=== PATIENT | male | born 1950 | race Caucasian/White ===

== ENCOUNTER 2016-12-31 08:26 | Inpatient (IN) | payer BC, OTHER ==
[2016-11-17 08:15] VITALS: BMI 51.0
--- NOTE | 2016-11-17 08:58 | PAT Medication Instructions ---
Service Date Nov 17, 2016. Current Home Medication List Aspirin (Aspirin), 81 MG PO QPM Cholecalciferol (D 1000), 1 TAB PO QPM Lisinopril/Hctz (Zestoretic 20MG/12.5MG), 1 TAB PO QPM Magnesium (Magnacaps), 100 MG PO QPM Melatonin (Melatonin Maximum Strengt), 1 TAB PO HS Multiple Vitamins W/ Minerals (Centrum Silver Adult 50+), 2 TAB PO QPM Alburnett-3 Fatty Acids (Alburnett-3 Fish Oil), 1,000 MG PO QPM Potassium Aminobenzoate (M2 Potassium), 60 MG PO QPM Vitamin E (E-400), 1 TAB PO QPM Medication Instructions For Your Scheduled Surgery - Hold the following medications 2 weeks prior to surgery: Vitamin E (E-400), 1 TAB PO QPM Alburnett-3 Fatty Acids (Alburnett-3 Fish Oil), 1,000 MG PO QPM - Take the following medications as scheduled the night before surgery: Potassium Aminobenzoate (M2 Potassium), 60 MG PO QPM Magnesium (Magnacaps), 100 MG PO QPM Melatonin (Melatonin Maximum Strengt), 1 TAB PO HS Multiple Vitamins W/ Minerals (Centrum Silver Adult 50+), 2 TAB PO QPM Aspirin (Aspirin), 81 MG PO QPM Cholecalciferol (D 1000), 1 TAB PO QPM - Do not take the following medications as scheduled the night before surgery: Lisinopril/Hctz (Zestoretic 20MG/12.5MG), 1 TAB PO QPM If you have any questions please call us at [phone] or [phone] or [phone]
--- NOTE | 2016-11-17 09:42 | DIAGNOSTIC IMAGING REPORT ---
CHEST PREADMISSION(PA/LAT) HISTORY: Preop. COMPARISON: None. FINDINGS: The heart is normal in size. The lungs are clear. Tortuous thoracic aorta. No pleural effusions. No pneumothorax. IMPRESSION: No acute process. Electronically signed by: Paul Morris M.D. 11/17/2016 9:41 AM Dictated Date/Time: 11/17/2016 9:40 AM
[2016-11-17 10:18] LABS: BASO % 0.5 %; BASO ABS # 0.03 K/uL (0-0.2); COMPLETE YES; HEMATOCRIT 43.5 % (42-52); IG% 0.2 %; LYMPH ABS # 2.17 K/uL (1.2-3.4); MEAN CELL VOLUME 89.1 fL (80-100); MEAN CORPUSCULAR HEMOGLOBIN 28.7 pg (25-34); MEAN CORPUSCULAR HGB CONC 32.2 g/dl (32-36); MEAN PLATELET VOLUME 10.3 fL (7.4-10.4); MONO % 7.8 %; NEUT % 55.5 %; PLATELET COUNT 185 K/uL (130-400); RED BLOOD COUNT 4.88 M/uL (4.7-6.1); WHITE BLOOD COUNT 6.39 K/uL (4.8-10.8)
[2016-11-17 10:27] LABS: INR 0.9 (0.9-1.1); PROTHROMBIN TIME (PATIENT) 10.1 SECONDS (9.0-12.0)
[2016-11-17 10:34] LABS: CALCIUM 9.6 mg/dl (8.5-10.1); CREATININE 0.84 mg/dl (0.60-1.40); POTASSIUM 4.2 mmol/L (3.5-5.1)
--- NOTE | 2016-12-25 19:42 | HISTORY & PHYSICAL EXAMINATION ---
DATE OF ADMISSION: 12/31/2016 CHIEF COMPLAINT: Right knee pain. HISTORY OF PRESENT ILLNESS: This 66-year-old male white who presents for surgical treatment of his right knee. He has got a long history of bilateral knee pain and discomfort, right sided greater than left. He did have a left knee scope in the past which seemed to help. Over the years, he has developed increased pain and discomfort in his right knee. It bothers him with any prolonged walking or standing. Pain is global. The more he walks, the more it hurts. He limps more and more as the day goes on. He has nighttime pain. 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 PAST MEDICAL HISTORY: 1. Sleep apnea. 2. Obesity with a BMI of 51. PAST SURGICAL HISTORY: Include: 1. Unspecified bladder surgery with some type of a stent placed. 2. He had left knee arthroscopy. ALLERGIES: None. CURRENT MEDICATIONS: Include unspecified blood pressure medicine. SOCIAL HISTORY: A 66-year-old male. He is . He is a white. Four children. FAMILY HISTORY: Significant for diabetes. REVIEW OF SYSTEMS: Negative for diabetes, neurologic problems, vascular problems, bleeding disorders. Denies any chest pain, no shortness of breath. No history of DVT or PE. PHYSICAL EXAMINATION: GENERAL: Physical examination reveals a healthy, pleasant, middle-aged male. He looks to be in reasonably good health. HEENT: Benign. NECK: Supple. No lymphadenopathy. LUNGS: Clear to auscultation. HEART: Has a regular rate and rhythm. ABDOMEN: Soft, nontender, nondistended. EXTREMITIES: Grossly neurovascularly intact except as follows: Examination of the right knee reveals the patient ambulates independently. He has got varus alignment to his knee. He does have a varus thrust with weightbearing. He has got bony hypertrophy medially. Range of motion 5-120. No instability. IMAGING DATA: X-rays of the right knee revealed advanced right knee DJD. He has got complete loss of his medial joint space. He has tibial femoral subluxation. Pretty large osteophytes throughout. ASSESSMENT: A 66-year-old male white with advanced bilateral knee degenerative joint disease, right side more symptomatic than the left. He would like to have his right knee fixed. PLAN: We will take him to the operating room and do a right total knee replacement. The risks and benefits of this procedure were explained to the patient including but not limited to DVT, PE, , infection, neurological injury, vascular injury, bleeding problem, pain, limited range of motion, stiffness, failure to relieve symptoms, incomplete relief of symptoms, need for further surgery in the future, fracture, leg length inequality, nerve palsy, etc. The patient understands and desires to proceed. Informed consent was obtained. He has had some of the urethral procedure in the past as a child. He says he has no problems with voiding and hopefully there should not be any problems with placing a Wilson. We may have to use a smaller size. As far as discharge plans, he is planning to be discharged to home using [facility] home health program and family assistance.
[2016-12-31] VITALS (8 sets, daily range): BP systolic 97–154; BP diastolic 60–89; PULSE 63–94; TEMP 36.5–37.2; O2SAT 96–98; Ht 170.2 cm; Wt 146.0 kg
[~2016-12-31] VITALS: Ht 170.2 cm; Wt 146.0 kg
[~2016-12-31 08:26] MED LIST: ACETAMINOPHEN 500 MG TAB PO SCH; ASPI1TAB83 PO; ATROPINE SULFATE 0.1 MG/ML 5ML SYR IV PRN; BUPIVACAINE 0.5 % 5 MG/1 ML PF 10ML VIAL ONE; BUPIVACAINE LIPOSOME 266 MG, BUPIVACAINE/EPINEPHRINE INJ 50 ML, SODIUM CHLORIDE 0.9% PF... INFIL SCH; CEFAZOLIN 3000MG IV PUSH 15 ML IV SCH; CHOL100041 PO; EpHEDrine SULFATE INJ 50 MG/ML AMP IV PRN; FAMOTIDINE 20 MG TAB PO SCH; GABAPENTIN 300 MG CAP PO SCH; HYDROmorphone INJ 2 MG/ML SYR/VIAL IV PRN; LACTATED RINGER'S 1000ML 1,000 ML IV SCH; LACTATED RINGER'S 1000ML 500 ML IV ONE; LACTATED RINGER'S 1000ML IV SCH; LISI-787 PO; MAGN100C PO; MELATAB2 PO; METOCLOPRAMIDE HCL 10 MG TAB PO SCH; MULT-845 PO; OMEG1CAP26 PO; ONDANSETRON INJ 2 MG/ML 2 ML VIAL IV PRN; PHENYLEPHRINE 100MCG/ML 5ML SYR IV PRN; ROPIVACAINE 0.5% 5 MG/ML 30 ML VIAL ONE; SCOPOLAMINE 1.5 MG TDSY TD SCH; TRANEXAMIC ACID INJ 1,000 MG in SYRINGE 0 ML IV SCH; VITACAP37 PO; [UNRECOGNIZED DRUG - CODE] PO
--- NOTE | 2016-12-31 08:49 | History & Physical Bridge Note ---
H&P Re-Evaluation Bridge Note: I have examined the patient, reviewed the History & Physical and in the interval since the performance of the History & Physical I have noted the following changes of clinical significance: No changes noted
[2016-12-31] MEDS ORDERED: MIDAZOLAM HCL 1 MG/ML 2ML VIAL ONE ×2 (09:46→09:47)
[2016-12-31] MEDS ORDERED: FENTANYL CITRATE INJ 50 MCG/1 ML 2 ML VIAL ONE (09:47)
[2016-12-31] MEDS ORDERED: PROPOFOL IV EMULSION 10 MG/ML 20 ML VIAL IV ONE (10:51)
[2016-12-31] MEDS ORDERED: BACITRACIN 50000 UNIT VIAL ONE (11:04)
[2016-12-31] MEDS ORDERED: SODIUM CHLORIDE 0.9% PF 50 ML VIAL ONE (11:04)
[2016-12-31] MEDS ORDERED: BUPIVACAINE/EPINEPHRINE 0.25% 1:200,000 30 ML VIAL ONE (11:04)
[2016-12-31] MEDS ORDERED: BUPIVACAINE LIPOSOME 1/3% 266 MG/20 ML VIAL INFIL ONE (11:05)
--- NOTE | 2016-12-31 13:14 | [facility] Post Operative Brief Note ---
Immediate Operative Summary Operative Date Dec 31, 2016. Pre-Operative Diagnosis Advanced Right Knee Degenerative Joint Disease Post-Operative Diagnosis Advanced Right Knee Degenerative Joint Disease Procedure(s) Performed Right Total Knee Arthroplasty Surgeon Dr. Ranjan Hagan Director Of Physical Education Surgeon(s) Favian Munguia, PAC Estimated Blood Loss 50 ml Findings Right Knee DJD Fluids (cc crystalloids) 2000 cc Specimens A: Right knee bone and tissue Drains None Anesthesia Spinal Complication(s) None Disposition Recovery Room / PACU
[2016-12-31] MEDS ORDERED: TAMSULOSIN HCL 0.4 MG CAP PO PRN (13:15)
[2016-12-31] MEDS ORDERED: DiphenhydrAMINE HCL 50 MG/ML VIAL IV PRN (13:15)
[2016-12-31] MEDS ORDERED: ZOLPIDEM TARTRATE 5 MG TAB PO PRN (13:15)
[2016-12-31] MEDS ORDERED: MAGNESIUM HYDROXIDE SUSP 30 ML UDC PO PRN (13:15)
[2016-12-31] MEDS ORDERED: METOCLOPRAMIDE HCL INJ 5 MG/ML 2 ML VIAL IV PRN (13:15)
[2016-12-31] MEDS ORDERED: ALUMINUM/MAGNESIUM/SIMETH (MAALOX MAX) 30 ML UDC PO PRN (13:15)
[2016-12-31] MEDS ORDERED: BISACODYL 10 MG SUPP PR PRN (13:15)
[2016-12-31] MEDS ORDERED: ONDANSETRON INJ 2 MG/ML 2 ML VIAL IV PRN (13:15)
[2016-12-31] MEDS ORDERED: SILVER SULFADIAZINE 1% CR 50 GM JAR EXT PRN (13:15)
[2016-12-31] MEDS ORDERED: HYDROmorphone INJ 0.5 MG/0.5 ML SYR IV PRN (13:15)
--- NOTE | 2016-12-31 13:47 | OPERATIVE REPORT ---
DATE OF OPERATION: 12/31/2016 SURGEON: Ranjan Hagan MD PHYSICIAN AIDE: CRISTELA Ramos PREOPERATIVE DIAGNOSIS: Right knee degenerative joint disease. POSTOPERATIVE DIAGNOSIS: Same. PROCEDURE PERFORMED: Right cemented posterior stabilized total knee arthroplasty. COMPLICATIONS: None. ESTIMATED BLOOD LOSS: 50 mL. FLUID REPLACEMENT: 2000 mL crystalloid fluid replacement. ANESTHESIA: Spinal with adductor canal block. DRAINS: None. SPECIMENS: Right knee sent for pathology. TOURNIQUET TIME: 60 minutes at 350 mmHg. OPERATIVE INDICATIONS: The patient is a 66-year-old morbidly obese gentleman with BMI of 51, who has had a long history of right knee pain and discomfort. He developed this pain and discomfort over the past several years. He has become markedly worse. He had been treated by my partner Dr. Estrella with intermittent injections and medicines. This became less successful over time. He is a white and having difficulty doing that type work. He elects to proceed with total knee arthroplasty. OPERATIVE FINDINGS: Operative findings revealed advanced right knee DJD. 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 Lateral compartment was fairly well preserved. He had a fixed varus deformity to his knee. Large soft tissue envelope. Moderate size joint effusion. He did have a very short quad tendon with very well developed VMO and quad muscle development. OPERATIVE IMPLANTS: Operative implants consisted of: 1. Biomet Vanguard size 67.5 right posterior stabilized femoral component. 2. Biomet size 71 tibial tray. 3. A 12-mm posterior stabilized polyethylene insert. 4. A 34 x 8.5 all poly patella. OPERATIVE PROCEDURE: The patient was taken to the operating room, identified and placed on the operating table in the supine position. All contact areas were appropriately padded. IV antibiotics were provided by the anesthesia team. A spinal anesthetic and adductor canal block had been provided in the holding area. A Wilson catheter was placed in sterile fashion. Right thigh tourniquet was then placed and the right lower extremity was then prepped and draped in the usual sterile fashion. The right leg was elevated and exsanguinated with Esmarch and tourniquet was placed at 300 mmHg. An anterior approach to the right knee was then performed through a longitudinal incision centered over the patella. Sharp dissection was carried out through the subcutaneous tissues down to the level of the extensor mechanism. A medial parapatellar arthrotomy incision was made. Quad tendon was very short. Some subperiosteal dissection was carried out medially. The fat pad was resected from beneath the patellar tendon. The lateral patellofemoral ligament was released. The patella was everted and knee was flexed. The osteophytes were taken off the distal aspect of the femur. The ACL and PCL were then released from the distal femur and the tibia subluxated anteriorly. The external tibial alignment jig was then placed in the anterior face of the tibia and adjusted about 16 mm medially. Proximal tibial cut was made to remove about a millimeter of bone from the most deficient aspect of the posteromedial tibial plateau. Tibia was then sized to a size 71. I did take some osteophytes off medial and posteromedially. Attention was then drawn to the femur. The distal femur was entered with a sharp drill. Intramedullary canal was suctioned. A right 6-degree valgus cutting guide was placed. Distal femoral cutting block was pinned in place. Distal femoral cut was made to take an additional 3 mm of bone off the distal femur. The femur was then sized to a size 67.5. The AP cutting block was pinned parallel to the epicondylar axis, which was 3 degrees of external rotation. The anterior cut, anterior chamfer, posterior cut, and posterior chamfer cuts were made. Box cutting guide was placed and adjusted slightly lateral and the box cut was made. The knee was flexed. The remnants of the medial and lateral menisci were excised. The osteophytes were taken off the posterior aspect of the femur. Trial femoral component was placed. Tibial tray was pinned in maximum external rotation and drill and stem punch were used to create defect in proximal tibia for the tibial tray. The knee was then trialed and the 12-mm insert fit most appropriately. Attention was then drawn to the patella. The patella was cleaned of all soft tissues. Patellar thickness measured 22 mm in thickness and it was cut down to 14. It was sized to a size 34 patella. Lug holes were drilled for a 34 patella. Lateral osteophyte was removed. Patella button was placed. Knee was taken through range of motion and the patella tracked nicely with no thumbs test. Attention was then drawn toward placement of the permanent components. All trial components were removed. A bone plug was placed in the distal femur to limit blood loss. A double batch of Palacos G cement was mixed. A right size 67.5 posterior stabilized femoral component, size 71 tibial tray, 12-mm posterior stabilized polyethylene insert, and a 34 x 8.5 all poly patella were then cemented in place. Knee was brought out into full extension until cement hardened. A final cement check was then performed. Pericapsular tissues were injected with a total of 100 mL of a combination of 20 mL of Exparel, 30 mL of normal saline, and 50 mL of 0.25% Marcaine with epinephrine. The patient did receive 1 gram of tranexamic acid. The tourniquet was then let down for a tourniquet time of 60 minutes. Hemostasis was assured with the use of electrocautery. The wound was once again irrigated. The extensor mechanism was then closed with a combination of #1 PDS suture and #1 Vicryl suture in a [id number] fashion. Extensor mechanism was checked and found to be intact. The subcutaneous tissues were then closed with 2-0 Dexon suture in buried interrupted fashion. Skin was closed skin chris. Leg was then cleaned and dried and a sterile dressing with Xeroform, 4 x 4, sterile cast padding and Justice bandage were applied. The patient then transferred to the recovery room in stable condition. The patient tolerated the procedure well with no complications. All needle and sponge counts were correct at the end of the operation. I attest to the content of the Intraoperative Record and any orders documented therein. Any exceptions are noted below. JOHN
--- NOTE | 2016-12-31 13:56 | DIAGNOSTIC IMAGING REPORT ---
R KNEE 1 OR 2 VIEWS ROUTINE CLINICAL HISTORY: 66 years-old Male presenting with AP/LATERAL IN PACU RIGHT KNEE. TECHNIQUE: Frontal and lateral views of the right knee were obtained. COMPARISON: 10/25/2016. FINDINGS: There has been interval total right knee arthroplasty with patellar resurfacing. Intra-articular and soft tissue emphysema with overlying skin chris noted. No malalignment. No acute fracture. IMPRESSION: Expected postsurgical appearance of the total right knee arthroplasty with patellar resurfacing. Electronically signed by: Michael Slaughter M.D. 12/31/2016 1:55 PM Dictated Date/Time: 12/31/2016 1:54 PM
--- NOTE | 2016-12-31 14:32 | Anesthesiology Progress Note ---
Anesthesia Post Op Note Date & Time Dec 31, 2016 at 14:32 Vital Signs Pain Intensity: 0 Vital Signs Past 12 Hours Date Time Temp Pulse Resp B/P (MAP) Pulse Ox O2 Delivery O2 Flow Rate FiO2 12/31/16 13:52 36.9 12/31/16 13:51 69 20 106/66 95 12/31/16 13:51 68 20 12/31/16 13:46 63 19 119/62 96 12/31/16 13:46 63 19 12/31/16 13:41 70 17 12/31/16 13:41 69 17 113/51 94 12/31/16 13:36 78 20 129/73 97 12/31/16 13:36 79 20 12/31/16 13:32 116/58 12/31/16 13:31 69 21 96 12/31/16 13:31 70 21 12/31/16 13:26 77 26 12/31/16 13:26 75 26 98/62 97 12/31/16 13:21 74 24 12/31/16 13:21 73 24 96 12/31/16 13:20 99/74 12/31/16 13:19 116/65 12/31/16 13:16 36.7 82 16 116/62 98 Room Air 12/31/16 08:46 36.9 94 18 132/78 96 Room Air Notes Mental Status: alert / awake / arousable, participated in evaluation Pt Amnestic to Procedure: Yes Nausea / Vomiting: adequately controlled Pain: adequately controlled Airway Patency, RR, SpO2: stable & adequate BP & HR: stable & adequate Hydration State: stable & adequate Anesthetic Complications: no major complications apparent
[2016-12-31] MEDS: OXYCODONE HCL IR 5 MG TAB (IMMEDIATE RELEASE) PO PRN ×2 (14:48→16:00)
[2016-12-31] MEDS: D5W AND 1/2NSS + 20MEQ KCL 1,000 ML IV SCH ×2 (15:04→21:47)
[2016-12-31] MEDS: CHECK SCOPOLAMINE PATCH PLACEMENT SCH ×2 (15:59→23:27)
[2016-12-31] MEDS ORDERED: TRANEXAMIC ACID INJ 1,000 MG in SODIUM CHLORIDE 0.9% 100ML 100 ML IV SCH (18:00)
[2016-12-31] MEDS: KETOROLAC TROMETHAMINE 15 MG/ML VIAL IV. SCH ×2 (19:35→23:27)
[2016-12-31] MEDS: FERROUS GLUCONATE 324 MG TAB PO SCH (19:35)
[2016-12-31] MEDS ORDERED: NON-FORMULARY MEDICATION (Melatonin (Melatonin Maximum Strengt) 1 TAB) PO SCH (21:00)
[2016-12-31] MEDS ORDERED: [UNRECOGNIZED DRUG - OTHER] PO SCH (21:00)
[2016-12-31] MEDS ORDERED: TOCOPHERYL, DL-ALPHA 400 INTER.UNIT CAP PO SCH (21:00)
[2016-12-31] MEDS ORDERED: MAGNESIUM 100 MG PO SCH (21:00)
[2016-12-31] MEDS: ASPIRIN 325 MG ECTAB PO SCH (21:42)
[2016-12-31] MEDS: CEROVITE ADV FORMULA TAB PO SCH (21:43)
[2016-12-31] MEDS: LISINOPRIL/HCTZ 20/12.5MG TAB PO SCH (21:45)
[2016-12-31] MEDS: CHOLECALCIFEROL 1000 INTER.UNIT TAB PO SCH (21:45)
[2016-12-31] MEDS: SENNA 8.6 MG TAB PO SCH (21:45)
[2016-12-31] MEDS: DOCUSATE SODIUM 100 MG CAP PO SCH (21:46)
[2016-12-31] MEDS: TAPENTADOL ER 50 MG TABCR PO SCH (21:56)
[2016-12-31] MEDS: CEFAZOLIN IV 2,000 MG in SYRINGE 0 ML IV SCH (21:56)
[2016-12-31] MEDS: ACETAMINOPHEN 500 MG TAB PO SCH (22:21)
[2016-12-31] MEDS: TOCOPHERYL, DL-ALPHA 400 INTER.UNIT CAP PO SCH (22:22)
[2016-12-31] MEDS: TOCOPHERYL, DL-ALPHA 100 INTERUNIT CAP PO SCH (22:22)
[2017-01-01 03:52] VITALS: BP 115/67; PULSE 76; TEMP 37.2; O2SAT 95
[2017-01-01] MEDS: CEFAZOLIN IV 2,000 MG in SYRINGE 0 ML IV SCH (04:07)
[2017-01-01] MEDS: D5W AND 1/2NSS + 20MEQ KCL 1,000 ML IV SCH ×2 (04:07→10:50)
[2017-01-01] MEDS ORDERED: NURSING DECISION MEDICATION ORDER SCH (05:00)
[2017-01-01] MEDS ORDERED: COUGH DROP (SUGAR FREE) LOZ 24 LOZ/1 BOX PO PRN (05:15)
[2017-01-01] MEDS: ACETAMINOPHEN 500 MG TAB PO SCH ×3 (05:19→22:07)
[2017-01-01] MEDS: KETOROLAC TROMETHAMINE 15 MG/ML VIAL IV. SCH ×4 (05:19→23:31)
[2017-01-01 07:15] VITALS: BP 128/77; PULSE 78; TEMP 36.7; O2SAT 95
[2017-01-01 07:59] LABS: HEMATOCRIT 30.8 % (42-52); MEAN CELL VOLUME 91.1 fL (80-100); MEAN CORPUSCULAR HEMOGLOBIN 31.1 pg (25-34); MEAN CORPUSCULAR HGB CONC 34.1 g/dl (32-36); MEAN PLATELET VOLUME 10.4 fL (7.4-10.4); PLATELET COUNT 164 K/uL (130-400); RED BLOOD COUNT 3.38 M/uL (4.7-6.1); WHITE BLOOD COUNT 8.72 K/uL (4.8-10.8)
[2017-01-01] MEDS: CHECK SCOPOLAMINE PATCH PLACEMENT SCH ×3 (08:00→23:31)
[2017-01-01 08:13] LABS: BLOOD UREA NITROGEN 14 mg/dl (7-18); BUN/CREATININE RATIO 14.2 (10-20); CALCIUM 8.3 mg/dl (8.5-10.1); CARBON DIOXIDE 27 mmol/L (21-32); CHLORIDE 102 mmol/L (98-107); GLUCOSE 136 mg/dl (70-99); SODIUM 136 mmol/L (136-145)
[2017-01-01] MEDS ORDERED: FRRG PO (08:22)
[2017-01-01] MEDS ORDERED: ASPEC325 PO (08:22)
[2017-01-01] MEDS ORDERED: RXC5 PO (08:22)
[2017-01-01] MEDS ORDERED: ACET-24 PO (08:22)
[2017-01-01] MEDS ORDERED: MORP-157 PO (08:22)
--- NOTE | 2017-01-01 08:24 | Discharge Instructions ---
Discharge Instructions Date of Service Jan 01, 2017. Admission Reason for Admission: Right Knee Degenerative Joint Disease Discharge Discharge Diagnosis / Problem: Righ Knee Replacement Discharge Goals Goal(s): Decrease discomfort, Improve function, Increase independence, Improve disease control, Therapeutic intervention Activity Recommendations Activity Limitations: per Instructions/Follow-up section Weightbearing Status: Right weightbearing . Instructions / Follow-Up Instructions / Follow-Up ACTIVITY RECOMMENDATIONS: Physical Therapy: * You will go to physical therapy three times each week for four to six weeks after your surgery in order to regain your knee range of motion and to retrain your knee to work properly. * It is just as important to make sure you are getting your knee perfectly straight as it is to regain your knee bend. * Taking a pain pill an hour before therapy can help you have a more productive and comfortable therapy session. Home Exercise: * You were shown a series of exercises (heel props, heel slides, etc.) in the hospital. Do these exercises three to four times each day including the exercises you were shown in physical therapy. Walking: * Get up and walk several times each day. For the first four weeks, try not to stand or walk for more than one hour at a time. If you do stand or walk for more than one hour, you will not hurt anything, but your knee and leg will likely swell. * As you feel comfortable, you may change from the walker or crutches to a cane and then to independent walking. MEDICATIONS: New Medicine: * You will likely be taking one or more of these medications: 1. MS Contin - A long-acting pain medication. Take 1 tablet twice a day for the first ten days to decrease your baseline level of pain. 2. Oxycodone - A quick and shorter-acting pain medication. Take one to two tablets every four to six hours to lessen your pain. 3. Iron Sulfate - Take two times each day for the month after surgery to help you replace the blood lost during surgery. 4. Aspirin - Thins your blood to lessen the chance of forming a blood clot. * The most common side effects of pain medicine and iron are nausea and constipation. If nausea or constipation is too much of a problem or if you have any questions about your new medicines or doses, call [facility] at [phone]. We will try to help you manage these issues. VERY IMPORTANT TO READ AND REVIEW" Pain: * The immediate post-operative period after knee replacement surgery is often quite painful. * You are given a prescription for pain medicine. You should take it, as directed, when you need it, especially before physical therapy and before going to bed. Pain that interferes with sleep is very common and can last several months. * You will likely need pain medicine for the first four to six weeks. It will not stop all of the pain. The pain will lessen and as you feel better, you may change to milder pain medicine such as Tylenol. * The most common side effects of pain medicine are nausea and constipation, so don't take more than you need. SPECIAL CARE INSTRUCTIONS: TEDs/Elastic Stockings: * The white elastic stockings help limit swelling and prevent blood clots from forming in your legs. The more you wear them, the more they work. * Wear them for six weeks after knee replacement surgery and four weeks after partial knee replacement. Prevention of Infection: * Take antibiotics one hour before any dental cleaning, dental work, urological procedure, gastrointestinal procedure or any invasive surgery in order to prevent your new joint from getting infected. * You may get the antibiotics from the doctor performing the procedure or you may call our office at before and we will call in a prescription to the pharmacy of your choice. Things to Watch For: * Drainage from the incision site that occurs more than one week after your surgery. * Severely increased knee/leg pain or swelling. * Increased redness at the incision site. * Fever above 102 degrees Fahrenheit. * Unusual chest pain or shortness of breath. * Unusual pain or burning with urination. Call [facility] at with any of the above problems or if you have any questions about your medicines or recovery. FOLLOW UP VISIT: Make an appointment to see your doctor for approximately two weeks after surgery for a progress check and staple removal by calling the office at . Current Hospital Diet Patient's current hospital diet: Regular Diet Discharge Diet Recommended Diet: Regular Diet Procedures Procedures Performed: Right Total Knee Arthroplasty Pending Studies Studies pending at discharge: no Medical Emergencies . Who to Call and When: Medical Emergencies: If at any time you feel your situation is an emergency, please call [phone] immediately. . Non-Emergent Contact Non-Emergency issues call your: Surgeon . "Provider Documentation" section prepared by Ranjan Hagan. . VTE Core Measure Inpt VTE Proph given/why not?: Other Anticoagulation, T.E.D. Stockings, SCD's
[2017-01-01] MEDS: TAPENTADOL ER 50 MG TABCR PO SCH ×2 (08:37→21:01)
[2017-01-01] MEDS: ASPIRIN 325 MG ECTAB PO SCH ×2 (08:37→20:47)
[2017-01-01] MEDS: FERROUS GLUCONATE 324 MG TAB PO SCH ×3 (08:37→17:58)
[2017-01-01] MEDS: DOCUSATE SODIUM 100 MG CAP PO SCH ×2 (08:37→20:46)
[2017-01-01] MEDS: PANTOprazole SOD 40 MG TAB PO SCH (08:37)
--- NOTE | 2017-01-01 08:44 | PROGRESS NOTE ---
DATE: 01/01/2017 SUBJECTIVE: A 66-year-old gentleman postop day 1 from right knee replacement. He is doing pretty well. Pain is controlled. Denies any chest pain or shortness of breath. Not feeling dizzy or lightheaded. OBJECTIVE: VITAL SIGNS: Temperature 36.7. Vital signs stable. PHYSICAL EXAMINATION: GENERAL: Reveals a healthy, pleasant, middle-aged male. He is lying in bed and looks pretty comfortable this morning. LUNGS: Clear to auscultation. HEART: Regular rate and rhythm. ABDOMEN: Soft, nontender, nondistended. EXTREMITIES: Grossly neurovascularly intact except as follows. Examination of the right leg reveals the leg to be well aligned. Dressing is clean, dry, and intact. He can dorsiflex and plantarflex his foot appropriately. He is neurologically intact. LABORATORY DATA: Hemoglobin 10.5. Hematocrit 30.8. Electrolytes are pending. ASSESSMENT: A 66-year-old gentleman postop day 1 from a right total knee replacement, doing pretty well. Pain seems to be reasonably well controlled. He is neurologically intact. PLAN: 1. DVT prophylaxis including thigh-high TEDs, SCDs, and aspirin twice a day. 2. PT/OT. Weight bear as tolerated. Right total knee protocol. 3. Pain control, doing pretty well with current pain regimen. 4. IV antibiotics x24 hours. 5. Disposition: He is planning to be discharged to home with some home health once adequately recovered.
[2017-01-01] MEDS ORDERED: MULTIVITAMIN TAB PO SCH (09:00)
[2017-01-01 10:45] VITALS: BP 157/85; PULSE 88; TEMP 37.1; O2SAT 97
[2017-01-01] MEDS: OXYCODONE HCL IR 5 MG TAB (IMMEDIATE RELEASE) PO PRN (11:39)
[2017-01-01 15:41] VITALS: BP 142/87; PULSE 87; TEMP 37.1; O2SAT 95
[2017-01-01] MEDS: CEROVITE ADV FORMULA TAB PO SCH (20:47)
[2017-01-01] MEDS: SENNA 8.6 MG TAB PO SCH (20:48)
[2017-01-01] MEDS: LISINOPRIL/HCTZ 20/12.5MG TAB PO SCH (20:48)
[2017-01-01] MEDS: CHOLECALCIFEROL 1000 INTER.UNIT TAB PO SCH (20:49)
[2017-01-01] MEDS: TOCOPHERYL, DL-ALPHA 400 INTER.UNIT CAP PO SCH (20:50)
[2017-01-01] MEDS: TOCOPHERYL, DL-ALPHA 100 INTERUNIT CAP PO SCH (20:53)
[2017-01-01 23:24] VITALS: BP 118/72; PULSE 92; TEMP 37.6; O2SAT 93
[2017-01-01 23:26] VITALS: TEMP 37.4
[2017-01-02] MEDS: ACETAMINOPHEN 500 MG TAB PO SCH ×2 (05:53→13:27)
[2017-01-02] MEDS: KETOROLAC TROMETHAMINE 15 MG/ML VIAL IV. SCH ×2 (05:54→11:33)
[2017-01-02 06:58] VITALS: BP 147/83; PULSE 83; TEMP 37.1; O2SAT 94
[2017-01-02] MEDS: CHECK SCOPOLAMINE PATCH PLACEMENT SCH (08:00)
[2017-01-02] MEDS: FERROUS GLUCONATE 324 MG TAB PO SCH ×2 (08:59→12:33)
[2017-01-02] MEDS: DOCUSATE SODIUM 100 MG CAP PO SCH (08:59)
[2017-01-02] MEDS: PANTOprazole SOD 40 MG TAB PO SCH (09:00)
[2017-01-02] MEDS: ASPIRIN 325 MG ECTAB PO SCH (09:00)
[2017-01-02] MEDS: TAPENTADOL ER 50 MG TABCR PO SCH (09:00)
--- NOTE | 2017-01-02 09:57 | PROGRESS NOTE ---
DATE: 01/02/2017 SUBJECTIVE: A 66-year-old gentleman postop day #2 from a right knee replacement. He is doing pretty well. Moderate pain. No chest pain or shortness of breath. Not feeling dizzy or lightheaded. OBJECTIVE: VITAL SIGNS: Temperature 37.1. Vital signs stable. GENERAL: Physical examination reveals a pleasant, middle-aged male. He is sitting up at his bedside chair and looks reasonably comfortable. EXTREMITIES: Examination of the right leg reveals the wound to be well approximated. There is a little bit of serosanguineous drainage distally and his wound is just seeping a little bit. Some moderate swelling. He can dorsiflex and plantarflex his foot appropriately. He is neurologically intact. ASSESSMENT: A 66-year-old obese gentleman postop day #2 from a right knee replacement, doing pretty well. A little bit of serosanguineous drainage, which is not expected. Pain is reasonably well controlled. He is neurologically intact. PLAN: 1. DVT prophylaxis including thigh high TEDs, SCDs, and aspirin twice a day. 2. PT/OT. Weightbear as tolerated. Right total knee protocol. 3. Pain control, doing pretty well with current pain regimen. 4. Disposition: Plan to discharge to home with some home health later today.
[2017-01-02] MEDS: OXYCODONE HCL IR 5 MG TAB (IMMEDIATE RELEASE) PO PRN (11:36)
[2017-01-02 13:08] VITALS: BP 147/83; PULSE 83; TEMP 37.1; O2SAT 94
--- NOTE | 2017-01-04 14:37 | DISCHARGE SUMMARY ---
ADMITTING PHYSICIAN AND SURGEON: Dr. Hagan. ADMITTING DIAGNOSIS: Right knee degenerative joint disease. SURGERY PERFORMED: Right total knee arthroplasty. SECONDARY DIAGNOSES: Includes sleep apnea, obesity. CONSULTS: None obtained. HISTORY AND PHYSICAL EXAMINATION: Well documented in patient's chart. HOSPITAL COURSE: The patient was admitted on 12/31/2016 underwent total knee arthroplasty. She tolerated the procedure well. There were no complications and transferred to the PACU postoperatively and later to the orthopedic floor for further care. He was given Ancef for antibiotic prophylaxis, GRACIELA stockings, SCDs and aspirin for DVT prophylaxis. His hemoglobin, hematocrit and vital signs were monitored during his hospital stay and remained stable. He developed some postoperative anemia with a hemoglobin of 10.5, did not require any blood transfusions. There were no complications. By postoperative day 2, he was tolerating a regular diet, pain was controlled with oral pain medicine. He was participating in physical therapy and had no signs or symptoms of deep vein thrombosis. On postoperative day 2, he was discharged home and set up with home health services. He was given printed discharge instructions including new prescriptions for extra strength Tylenol, aspirin 325 mg b.i.d., iron supplement, MS Contin and oxycodone. Continue home medications with the exception of his home dose of aspirin which was changed. Continue physical therapy, weightbearing as tolerated. GRACIELA stockings. Follow up in 10-12 days or sooner if there are any problems or concerns.
== END 2017-01-02 14:10 | disposition home health service (06) | DRG 470 ==
LOC: C.ACU 08:26 → C.3E 09:00 → CANRESERV 13:48 → ENRESERV 13:48
PROVIDERS: ADMIT Orthopaedic Surgery Sports Medicine; ATTEND Orthopaedic Surgery Sports Medicine
PROC: 0SRC0J9 Replacement of Right Knee Joint with Synthetic Substitute, Cemented, Open Approach (ICD-10-PCS; principal; 2016-12-31 11:00)
DX: M17.11 Unilateral primary osteoarthritis, right knee (principal); Z68.43 Body mass index [BMI] 50.0-59.9, adult; G47.30 Sleep apnea, unspecified; E66.9 Obesity, unspecified; Z83.3 Family history of diabetes mellitus; D64.9 Anemia, unspecified

== ENCOUNTER 2024-03-29 10:11 | Inpatient (IN) ==
--- NOTE | 2024-03-29 11:21 | XRay Report ---
XR chest 1V portable HISTORY: 73 years-old Male Dyspnea COMPARISON: 11/17/2016 TECHNIQUE: AP view of the chest FINDINGS: Cardiac silhouette is enlarged. No pneumothorax. 8 cm opacity in the right cardiophrenic angle is new from prior. No pleural effusion or overt pulmonary edema. Bones appear grossly intact. IMPRESSION: There is a new 8 cm right cardiophrenic angle opacity. Differential considerations includ e airspace disease, diaphragmatic hernia versus pulmonary mass. Correlation with follow-up chest CT r ecommended. ACT 112: Negative or not required by law. The above report was generated using voice recognition software. It may contain grammatical, syntax o r spelling errors. Electronically signed by: Herrera Steiner M.D. 03/29/2024 11:19 AM
[2024-03-29 11:25] LABS: Alanine Aminotransferase 19 U/L (7-52); Albumin Globulin Ratio 1.2 (0.9-2); Albumin Level 3.8 gm/dl (3.4-5.0); Alkaline Phosphatase 66 U/L (34-104); Anion Gap 10 (3-11); Aspartate Aminotransferase 45 U/L (13-39); BUN Creatinine Ratio 18.6 (10-20); Bilirubin,Total 0.8 mg/dl (0.2-1.0); Blood Urea Nitrogen 26 mg/dl (6-23); Calcium 9.5 mg/dl (8.6-10.3); Carbon Dioxide 30 mmol/L (21-32); Chloride 96 mmol/L (98-107); Globulin 3.2 gm/dl (2.5-4.0); Glucose 225 mg/dl (70-99(Fasting)); Potassium 3.6 mmol/L (3.5-5.1); Sodium 136 mmol/L (136-145)
[2024-03-29 11:32] LABS: Basophils # (auto) 0.08 K/uL (0.00-0.20); Basophils % (auto) 0.3 %; Eosinophils # (auto) 0.01 K/uL (0.00-0.50); Hematocrit (blood only) 35.7 % (42.0-52.0); Hemoglobin 12.3 g/dl (14.0-18.0); Immature Granulocytes # (auto) 0.76 K/uL (0.01-0.20); Immature Granulocytes % (auto) 2.5 %; Lymphocytes % (auto) 3.3 %; Mean Corpuscular Hemoglobin 30.4 pg (25.0-34.0); Mean Corpuscular Hgb Conc 34.5 g/dL (32.0-36.0); Mean Corpuscular Volume 88.4 fL (80.0-100.0); Mean Platelet Volume 10.3 fL (9.4-12.4); Monocytes # (auto) 2.07 K/uL (0.11-0.59); Monocytes % (auto) 6.8 %; Neutrophils # (auto) 26.31 K/uL (1.40-6.50); Neutrophils % (auto) 87.1 %; Platelet Count 309 K/uL (130-400); RDW Coefficient of Variation 13.2 % (11.5-14.5); RDW Standard Deviation 42.7 fL (36.4-46.3); Red Blood Count 4.04 M/uL (4.70-6.10); White Blood Count 30.23 K/ul (4.8-10.8)
[2024-03-29] MEDS: OPTIRAY 320 125ml IV ONE (11:37)
[2024-03-29 11:39] LABS: Troponin I High Sensitivity 4065.8 pg/ml (0-20)
[2024-03-29 12:04] LABS: Adenovirus PCR Not Detected (NotDetected); Bordetella parapertussis PCR Not Detected (NotDetected); Bordetella pertussis PCR Not Detected (NotDetected); Chlamydia pneumoniae PCR Not Detected (NotDetected); Coronavirus 229E PCR Not Detected (NotDetected); Coronavirus CoV-2 (COVID19)PCR Not Detected (NotDetected); Coronavirus HKU1 PCR Not Detected (NotDetected); Coronavirus NL63 PCR Not Detected (NotDetected); Coronavirus OC43PCR Not Detected (NotDetected); Human Metapneumovirus PCR Not Detected (NotDetected); Influenza A PCR Not Detected (NotDetected); Influenza B PCR Not Detected (NotDetected); Mycoplasma pneumoniae PCR Not Detected (NotDetected); Parainfluenza Virus 1 PCR Not Detected (NotDetected); Parainfluenza Virus 2 PCR Not Detected (NotDetected); Parainfluenza Virus 3 PCR Not Detected (NotDetected); Parainfluenza Virus 4 PCR Not Detected (NotDetected); Respiratory Syncytial VirusPCR Not Detected (NotDetected); Rhinovirus/Enterovirus PCR Not Detected (NotDetected)
--- NOTE | 2024-03-29 12:09 | CT Scan Report ---
CT angio chest PE protocol CT DOSE: 975.08 mGy.cm HISTORY: 73 years-old Male with PE, pneumonia, cancer. Acute shortness of breath TECHNIQUE: Multiple CTA images of the chest were obtained after the intravenous administration of 112 ml Optiray. Coronal and sagittal MIPS were obtained from the axial data set and were submitted for review. All measurements were obtained according to NASCET criteria. A dose lowering technique was u tilized adhering to the principles of ALARA. COMPARISON: Chest radiograph of same day and also 11/17/2016 FINDINGS: CTA: Moderate cardiomegaly without pericardial effusion. Moderate to extensive coronary artery calcificati ons. Fusiform dilation of the ascending thoracic aorta, main pulmonary artery, 4.6 x 4.7 cm. No disse ction. There is patency of the image great vessels. Descending thoracic aortic tortuosity. No central pulmonary emboli identified. CT CHEST: No thyroid nodule. There are a few mildly enlarged mediastinal lymph nodes including paratracheal lym ph nodes measuring up to 12 mm. No pneumothorax, pleural effusion or overt pulmonary edema. Left lung is clear. Segmental consolidative opacities within the medial segment right middle lobe with central air bronchograms correlates with the radiographic abnormality measuring up to approximately 7 cm. Ad ditional minimal patchy subsegmental consolidative opacities of the basilar right lower lobe. Mild ac [place] wall thickening. No acute upper abdominal abnormality. Hepatic steatosis with hepatomegaly. Unremarkable soft tissues. No acute fracture or destructive bone lesion. IMPRESSION: 1. Cardiomegaly with fusiform dilation of the ascending thoracic aorta, 4.6 x 4.7 cm. 2. No pulmonary emboli identified. 3. Segmental right middle lobe airspace opacities with subsegmental consolidation of the basilar righ t lower lobe suggestive of pneumonia. Follow-up imaging after treatment course recommended in order t o document complete resolution. 4. Mild mediastinal lymphadenopathy, likely reactive. ACT 112: Negative or not required by law. The above report was generated using voice recognition software. It may contain grammatical, syntax o r spelling errors. Electronically signed by: Herrera Steiner M.D. 03/29/2024 12:07 PM
[2024-03-29] MEDS: SODIUM CHLORIDE 0.9% 1,000 ML IV ONE (12:26)
[2024-03-29] MEDS: cefTRIAXone SODIUM 2,000 MG/50 ML BAG IV STA (12:26)
[2024-03-29] MEDS: DOXYCYCLINE HYCLATE 100 MG in DEXTROSE 5% MINI-B 100 ML IV STA (12:27)
--- NOTE | 2024-03-29 12:35 | Emergency Department Note ---
Impression & Plan Sepsis, Pneumonia, NSTEMI (non-ST elevated myocardial infarction), Demand ischemia ED Provider Note NAME: LESLIE OLMSTEAD AGE: 73 SEX: M : 1950 ARRIVES VIA: Walk-In INFORMANT: Patient, ED PROVIDER(S): Radha Arnold MD CHIEF COMPLAINT: Shortness of breath/cough HPI: This is a 73-year-old male presenting for shortness breath and cough. Patient states that he has been coughing all night and has been fairly weak. He notes shortness breath started last night. He notes when he coughs his right sided rib hurts. He reports feeling generally malaised, sweaty. No chest pain at rest. Slight chest pain with breathing in the right lower lung. Otherwise no nausea vomiting or diarrhea. No abdominal pain. No current back pain. ROS: See above HPI for pertinent positives & negatives. A total of 10 systems reviewed and were otherwise negative. PAST MEDICAL HISTORY: See Below PAST SURGICAL HISTORY: See Below FAMILY HISTORY: See Below SOCIAL HISTORY: See Below HOME MEDICATIONS: See Below ALLERGIES: See Below VITALS: See Below PHYSICAL EXAMINATION: General: Diaphoretic, comfortable appearing Head: Normocephalic and atraumatic Eyes: Normal inspection, extraocular muscles intact Ear, nose, throat: Normal external exam Neck: Normal range of motion Respiratory: Rhonchi, right lower lobe Cardiovascular: Regular rate/rhythm, no murmur GI: soft, nontender, no guarding or rebound Extremities: nontender, moves all extremities Neuro: The patient awake and alert, appropriately conversive, no focal deficits, symmetric faces Skin: Warm, dry, and intact MEDICAL DECISION MAKING: This is a 73-year-old male presenting for shortness of breath/cough. Consider URI, pneumonia, sepsis, PE. -Lab work reveals a significantly elevated leukocytosis to over 30. Lactic acid added and is 2.8. Will give fluids at this time. Chest x-ray reveals a right lower lobe opacity. Will do CTA. Elucidate PE as patient also with elevated troponin over 4000. Patient does not appear to have STEMI on the EKG as below. Suspect this may be more demand ischemia from pneumonia/sepsis -CTA reveals right lower lobe pneumonia otherwise a dilatedascending thoracic aorta without pulm embolism -Patient with ceftriaxone/doxycycline as well as 2 L normal saline resuscitation -Care discussed with Jana hospitalist for admission Differential diagnosis: Sepsis, pneumonia, URI, PE, dissection, demand ischemia Independent History obtained from: Diagnostics interpreted by me: ECG: ECG independently interpreted by me with normal sinus rhythm, rate of 85, left axis deviation, normal MT, right bundle branch block, normal QTc, no ST segment elevations consistent with STEMI criteria Cardiac Monitoring: An order was placed for continuous cardiac monitoring. The monitor shows a rate of 89 with sinus rhythm. Past Med/Surg History Problem List (Updated 03/29/24 @ 16:28 by Radha Arnold MD) Demand ischemia (Acute) Sepsis (Acute) NSTEMI (non-ST elevated myocardial infarction) (Acute) Pneumonia (Acute) Tendinitis of right rotator cuff Subacromial impingement of right shoulder Medical History (Updated 03/29/24 @ 16:28 by Radha Arnold MD) Hypertension Surgical History (Updated 08/07/20 @ 15:29 by Kirit Penaloza MD) Status post right knee replacement Family History (Updated 03/29/24 @ 15:00 by Rebecca Krishna PA-C) Father Heart disease Social History Smoking Status: Never smoker Preferred Language: Albanian Feels Safe at Home: Yes Allergies Allergies Allergy/AdvReac Type Severity Reaction Status Date / Time No Known Allergies Allergy Unverified 08/07/20 15:00 Home Meds Home Medications Medication Instructions Recorded Confirmed amlodipine 5 mg tablet 5 mg PO DAILY 03/29/24 03/29/24 aspirin 81 mg tablet,delayed 81 mg PO DAILY 03/29/24 03/29/24 release cholecalciferol (vitamin D3) 25 25 mcg PO DAILY 03/29/24 03/29/24 mcg (1,000 unit) tablet lisinopril 20 1 tab PO DAILY 03/29/24 03/29/24 mg-hydrochlorothiazide 25 mg tablet metformin 500 mg tablet,extended 1,000 mg PO DAILY 03/29/24 03/29/24 release 24 hr omega-3 300 mg-dha 120 mg-epa 180 1 cap PO BID 03/29/24 03/29/24 mg-fish oil 1,000 mg capsule potassium gluconate 595 mg (99 mg) 595 mg PO DAILY 03/29/24 03/29/24 tablet Results & Data (ED) Vital Signs Vital Signs - 24 hr 03/29/24 10:22 03/29/24 10:56 03/29/24 11:41 Temperature 36.8 C Temperature Source Oral Pulse Rate 115 H 111 H Pulse Rate [Apical] Pulse Rhythm Regular Pulse Strength Normal Respiratory Rate 18 Respiratory Effort / Characteristics Non-Labored Spontaneous Respiratory Depth Normal Respiratory Pattern Regular Blood Pressure 176/97 H Blood Pressure [Right Arm] Blood Pressure Mean 123 Blood Pressure Mean [Right Arm] Blood Pressure Position Sitting Blood Pressure Position [Right Arm] Pulse Oximetry 92 Oxygen Delivery Method Room Air Room Air Sepsis Recent Fever Within 48 Hours No Sepsis New/Unexplained Change in Mental Status No Sepsis Action Taken by Nursing No Action Required 03/29/24 11:46 03/29/24 13:12 Temperature Temperature Source Pulse Rate Pulse Rate [Apical] 107 H 104 H Pulse Rhythm Pulse Strength Respiratory Rate 20 22 Respiratory Effort / Characteristics Non-Labored Respiratory Depth Normal Respiratory Pattern Blood Pressure Blood Pressure [Right Arm] 108/85 114/89 Blood Pressure Mean Blood Pressure Mean [Right Arm] 92 97 Blood Pressure Position Blood Pressure Position [Right Arm] Sitting Pulse Oximetry 94 94 Oxygen Delivery Method Room Air Room Air Sepsis Recent Fever Within 48 Hours Sepsis New/Unexplained Change in Mental Status Sepsis Action Taken by Nursing Laboratory Data 03/29/24 10:44 03/29/24 10:44 Lab Results 03/29/24 03/29/24 03/29/24 Range/Units 10:44 12:05 12:30 WBC 30.23 H* (4.8-10.8) K/ul RBC 4.04 L (4.70-6.10) M/uL Hgb 12.3 L (14.0-18.0) g/dl Hct 35.7 L (42.0-52.0) % MCV 88.4 (80.0-100.0) fL MCH 30.4 (25.0-34.0) pg MCHC 34.5 (32.0-36.0) g/dL RDW Std Deviation 42.7 (36.4-46.3) fL RDW Coeff of Kelechi 13.2 (11.5-14.5) % Plt Count 309 (130-400) K/uL MPV 10.3 (9.4-12.4) fL Immature Gran % (Auto) 2.5 % Neut % (Auto) 87.1 % Lymph % (Auto) 3.3 % Crowley % (Auto) 6.8 % Eos % (Auto) 0.0 % Baso % (Auto) 0.3 % Neut # (Auto) 26.31 H (1.40-6.50) K/uL Lymph # (Auto) 1.00 L (1.20-3.40) K/uL Crowley # (Auto) 2.07 H (0.11-0.59) K/uL Eos # (Auto) 0.01 (0.00-0.50) K/uL Baso # (Auto) 0.08 (0.00-0.20) K/uL Immature Gran # (Auto) 0.76 H (0.01-0.20) K/uL Sodium 136 (136-145) mmol/L Potassium 3.6 (3.5-5.1) mmol/L Chloride 96 L (98-107) mmol/L Carbon Dioxide 30 (21-32) mmol/L Anion Gap 10 (3-11) BUN 26 H (6-23) mg/dl Creatinine 1.40 (0.6-1.4) mg/dl Est Cr Clr Drug Dosing Not Reportable eGFR 52.41 BUN/Creatinine Ratio 18.6 (10-20) Glucose 225 H (70-99(Fasting)) mg/dl Lactate 2.8 H* (0.4-2.0) mmol/L Calcium 9.5 (8.6-10.3) mg/dl Phosphorus 3.6 (2.5-4.9) mg/dl Magnesium 1.0 L (1.7-2.4) mg/dl Total Bilirubin 0.8 (0.2-1.0) mg/dl AST 45 H (13-39) U/L ALT 19 (7-52) U/L Alkaline Phosphatase 66 (34-104) U/L Troponin I High Sens 4065.8 H* 6576.3 H* D (0-20) pg/ml Total Protein 7.0 (6.0-8.3) gm/dl Albumin 3.8 (3.4-5.0) gm/dl Globulin 3.2 (2.5-4.0) gm/dl Albumin/Globulin Ratio 1.2 (0.9-2) Procalcitonin 35.10 H (0-0.5) ng/ml Adenovirus (PCR) Not Detected (NotDetected) B. pertussis DNA (PCR) Not Detected (NotDetected) B.parapertussis DNA PCR Not Detected (NotDetected) C. pneumoniae DNA (PCR) Not Detected (NotDetected) Coronavirus OC43 (PCR) Not Detected (NotDetected) Coronavirus HKU1 (PCR) Not Detected (NotDetected) Coronavirus 229E (PCR) Not Detected (NotDetected) SARS-CoV-2 (PCR) Not Detected (NotDetected) Coronavirus NL63 (PCR) Not Detected (NotDetected) Human Metapneumovir PCR Not Detected (NotDetected) Influenza Type A (PCR) Not Detected (NotDetected) Influenza Type B (PCR) Not Detected (NotDetected) M. pneumoniae (PCR) Not Detected (NotDetected) Parainfluenza 1 (PCR) Not Detected (NotDetected) Parainfluenza 2 (PCR) Not Detected (NotDetected) Parainfluenza 3 (PCR) Not Detected (NotDetected) Parainfluenza 4 (PCR) Not Detected (NotDetected) RSV (PCR) Not Detected (NotDetected) Entero/Rhino (PCR) Not Detected (NotDetected) Administered Medications Heparin Sodium/Dextrose (Heparin 28110 Unit/500 Ml D5w) 25,000 units in 500 mls @ 20 mls/hr IV .Q24H [facility]; Protocol Stop: 04/28/24 14:14 Last Admin: 03/29/24 15:18 Dose: 1,000 units/hr, 20 mls/hr Documented By: CHERYL Co-signed By: DIPAK Magnesium Sulfate/Dextrose (Magnesium Sulfate / D5w) 1 gm in 100 mls @ 50 mls/hr IV Q2H [facility] Stop: 03/29/24 21:29 Last Admin: 03/29/24 15:47 Dose: 50 mls/hr Documented By: CHERYL Sodium Chloride (Nss) 1,000 mls @ 50 mls/hr IV .Q20H [facility] Stop: 03/30/24 11:29 Last Admin: 03/29/24 15:46 Dose: 50 mls/hr Documented By: CHERYL Insulin Aspart (Insulin Aspart Per Unit Charge) 0 units SC ACHS [facility] Stop: 04/28/24 16:29 Last Admin: 03/29/24 16:09 Dose: 2 units Documented By: CHERYL Co-signed By: NIMCO Magnesium Oxide (Magnesium Oxide 400 Mg Tab) 400 mg PO BID ALYSSIA Stop: 04/28/24 15:44 Last Admin: 03/29/24 15:47 Dose: 400 mg Documented By: CHERYL Discontinued Medications Aspirin (Aspirin 81 Mg Chew) 243 mg PO NOW STA Stop: 03/29/24 13:58 Last Admin: 03/29/24 15:17 Dose: 243 mg Documented By: CHERYL Heparin Sodium/Dextrose (Heparin Iv Adult Wt-Based Low-Dose *No* Initial Bolus Protocol) 1 each IV ONE STA; Protocol Stop: 03/29/24 13:55 Last Admin: 03/29/24 15:18 Dose: 1 each Documented By: CHERYL Sodium Chloride (Nss) 1,000 mls @ 999 mls/hr IV .Q1H1M ONE Stop: 03/29/24 12:51 Last Infusion: 03/29/24 13:36 Dose: Infused Documented By: Admin: 03/29/24 12:26 Dose: 999 mls/hr Documented By: CHERYL Ceftriaxone Sodium (Rocephin) 2,000 mg in 50 mls @ 100 mls/hr IV NOW STA Stop: 03/29/24 12:20 Last Infusion: 03/29/24 13:23 Dose: Infused Documented By: Admin: 03/29/24 12:26 Dose: 100 mls/hr Documented By: CHERYL Doxycycline Hyclate 100 mg/ (Dextrose) 100 mls @ 50 mls/hr IV NOW STA Stop: 03/29/24 13:51 Last Infusion: 03/29/24 14:35 Dose: Infused Documented By: Admin: 03/29/24 12:27 Dose: 50 mls/hr Documented By: CHERYL Magnesium Sulfate/Dextrose (Magnesium Sulfate / D5w) 1 gm in 100 mls @ 100 mls/hr IV NOW STA Stop: 03/29/24 14:41 Last Infusion: 03/29/24 15:08 Dose: Infused Documented By: Admin: 03/29/24 13:58 Dose: 100 mls/hr Documented By: CHERYL Ioversol (Optiray 320 125ml) 112 ml IV ONCE ONE Stop: 03/29/24 11:37 Last Admin: 03/29/24 11:37 Dose: 112 ml Documented By: HARDEEP Ipratropium [place] (Ipratropium [place] Neb Soln 0.02% 0.5mg/2.5ml Vial) 0.5 mg NEB NOW STA Stop: 03/29/24 13:33 Last Admin: 03/29/24 13:58 Dose: 0.5 mg Documented By: MMG Levalbuterol HCl (Levalbuterol 1.25 Mg/3 Ml Neb) 1.25 mg NEB NOW STA Stop: 03/29/24 13:33 Last Admin: 03/29/24 13:58 Dose: 1.25 mg Documented By: MMG Potassium Chloride (Potassium Chloride Crtab 20 Meq Tabcr) 40 meq PO ONE ONE Stop: 03/29/24 13:33 Last Admin: 03/29/24 13:57 Dose: 40 meq Documented By: MMG Imaging Data Radiologist's Impression: Chest X-Ray 03/29/24 10:28 XR chest 1V portable HISTORY: 73 years-old Male Dyspnea COMPARISON: 11/17/2016 TECHNIQUE: AP view of the chest FINDINGS: Cardiac silhouette is enlarged. No pneumothorax. 8 cm opacity in the right cardiophrenic angle is new from prior. No pleural effusion or overt pulmonary edema. Bones appear grossly intact. IMPRESSION: There is a new 8 cm right cardiophrenic angle opacity. Differential considerations include airspace disease, diaphragmatic hernia versus pulmonary mass. Correlation with follow-up chest CT recommended. ACT 112: Negative or not required by law. The above report was generated using voice recognition software. It may contain grammatical, syntax or spelling errors. Electronically signed by: Herrera Steiner M.D. 03/29/2024 11:19 AM Chest CTA 03/29/24 11:33 CT angio chest PE protocol CT DOSE: 975.08 mGy.cm HISTORY: 73 years-old Male with PE, pneumonia, cancer. Acute shortness of breath TECHNIQUE: Multiple CTA images of the chest were obtained after the intravenous administration of 112 ml Optiray. Coronal and sagittal MIPS were obtained from the axial data set and were submitted for review. All measurements were obtained according to NASCET criteria. A dose lowering technique was utilized adhering to the principles of ALARA. COMPARISON: Chest radiograph of same day and also 11/17/2016 FINDINGS: CTA: Moderate cardiomegaly without pericardial effusion. Moderate to extensive coronary artery calcifications. Fusiform dilation of the ascending thoracic aorta, main pulmonary artery, 4.6 x 4.7 cm. No dissection. There is patency of the image great vessels. Descending thoracic aortic tortuosity. No central pulmonary emboli identified. CT CHEST: No thyroid nodule. There are a few mildly enlarged mediastinal lymph nodes including paratracheal lymph nodes measuring up to 12 mm. No pneumothorax, pleural effusion or overt pulmonary edema. Left lung is clear. Segmental consolidative opacities within the medial segment right middle lobe with central air bronchograms correlates with the radiographic abnormality measuring up to approximately 7 cm. Additional minimal patchy subsegmental consolidative opacities of the basilar right lower lobe. Mild acute wall thickening. No acute upper abdominal abnormality. Hepatic steatosis with hepatomegaly. Unremarkable soft tissues. No acute fracture or destructive bone lesion. IMPRESSION: 1. Cardiomegaly with fusiform dilation of the ascending thoracic aorta, 4.6 x 4.7 cm. 2. No pulmonary emboli identified. 3. Segmental right middle lobe airspace opacities with subsegmental consolidation of the basilar right lower lobe suggestive of pneumonia. Follow-up imaging after treatment course recommended in order to document complete resolution. 4. Mild mediastinal lymphadenopathy, likely reactive. ACT 112: Negative or not required by law. The above report was generated using voice recognition software. It may contain grammatical, syntax or spelling errors. Electronically signed by: Herrera Steiner M.D. 03/29/2024 12:07 PM Discharge Plan Visit Data Chief Complaint: Shortness of Breath/Dyspnea Stated Complaint: SOB, PHLEGM, COUGH, REF BY NURSE ED Provider: Radha Arnold Discharge Problem: Sepsis, Pneumonia, NSTEMI (non-ST elevated myocardial infarction), Demand ischemia Discharge Instructions Interventions: ED Discharge Assessment Last Done: 03/29/24 15:32
--- NOTE | 2024-03-29 12:51 | History & Physical Report ---
Date of Service March 29, 2024 Assessment & Plan (1) Pneumonia: (2) Sepsis: Plan: Patient is 73-year-old male with PMH DM II, HTN, dyslipidemia, RBBB, morbid obesity presented to ER with c/o cough and SOB x 3 weeks. Patient reports started with cough and shortness of breath 3 weeks ago In ER afebrile, P: 115, R: 18, BP 176/97, 92% on room air WBC: 30. Lactate: 2.8. Negative biofire respiratory panel CXR: There is a new 8 cm right cardiophrenic angle opacity. Differential considerations include airspace disease, diaphragmatic hernia versus pulmonary mass. CTA chest: Cardiomegaly with fusiform dilation of the ascending thoracic aorta, 4.6 x 4.7 cm. No pulmonary emboli identified. Segmental right middle lobe airspace opacities with subsegmental consolidation of the basilar right lower lobe suggestive of pneumonia. Follow-up imaging after treatment course recommended in order to document complete resolution. Mild mediastinal lymphadenopathy, likely reactive. In ER given 1L NSS, Rocephin, doxycycline Reassessment at 1454 with vitals of P: 108, R: 22, BP 105/72, 93% on room air. Lungs with diffuse rhonchi to auscultation. No shortness of breath with sitting upright. Patient mentating well. Brisk capillary refill. Gentle IVF at this time given improving tachycardia, SBP's in the 100s, and concern for low EF given NSTEMI presentation Blood cultures pending Obtain procalcitonin, BNP Trend lactate Today with some blood-tinged sputum. Possible secondary to forceful coughing and underlying pneumonia. Monitor closely given also on IV heparin Obtain sputum culture if able Rocephin, doxycycline Mucinex Incentive spirometry Xopenex nebs CBC, BMP in a.m. (3) NSTEMI (non-ST elevated myocardial infarction): Plan: Exertional SOB x 3 weeks Troponin: 4065 EKG, sinus tachycardia rate 126, RBBB per my interpretation Denies CP Start IV Heparin Closely monitor volume status with sepsis and suspected underlying heart strain and suspected low EF Trend troponin Echo Repeat EKG in am Lipid panel in am Aspirin NPO [place] Cardiology consult (4) Hypomagnesemia: Plan: Magnesium: 1.0 Replace and monitor (5) Hyperglycemia: (6) Diabetes mellitus, type II: Plan: A1c: 7.1 on 09/20/2023 Random glucose: 225 Hold home metformin NovoLog sliding scale per protocol A1c in a.m. (7) LILIAN (acute kidney injury): Plan: Cr: 1.4. Baseline Cr: 0.99 on 10/09/2019 In ER given 1L NSS, Gentle IVF Closely monitor volume status (8) Hypertension: Plan: Systolic blood pressures low 100s in ER Hold home lisinopril, HCTZ, amlodipine (9) HLD (hyperlipidemia): Plan: Prior reported intolerance to statins Lipid panel in am DVT Prophylaxis On IV Heparin Admit PCU Full Code as per discussion with pt Follows with Dr Mehta for routine care Pt was seen and care coordinated with Dr Hoffman. See addendum I spent a total of 76 minutes reviewing notes, outpatient records, labs, medication, coordinating, documenting and providing care for this patient excluding time spent in the performance of separately billed services and excluding time spent by another provider/QHP. History of Present Illness Chief Complaint: SOB, cough Primary Care Provider: Juan Mehta MD Patient is 73-year-old male with PMH DM II, HTN, dyslipidemia, RBBB, morbid obesity presented to ER with c/o cough and SOB x 3 weeks. Patient reports started with cough and shortness of breath 3 weeks ago. Patient reports chronic exertional shortness of breath with walking which she relates to being overwei ght. States when cough started was productive of white, slightly brownish colored sputum. Reports then became clear. For the past week has been white and slightly brownish again. Patient states has been coughing a lot. He reports today has blood-tinged sputum. He states shortness of breath has worsened over the past 3 weeks and is now severely short of breath with just ambulating in the house. Increased cough with lying supine and increased shortness of breath. Denies any noted extremity edema. Patient reports bilateral lateral rib pain with coughing only. Denies any other chest pain. States has been having diaphoresis. Denies any recorded fevers at home. Decreased appetite and decreased oral intake recently. Denies N/V/D/C, ZAMORA, dizziness, syncope, vision changes, neck pain, palpitations, sore throat, choking, otalgia, rhinorrhea, abdominal pain, paresthesias, extremity weakness, extremity edema, rashes, urinary symptoms. Allergies Allergy/AdvReac Type Severity Reaction Status Date / Time No Known Allergies Allergy Unverified 08/07/20 15:00 Home Medications Medication Instructions Recorded Confirmed Type amlodipine 5 mg tablet 5 mg PO DAILY 03/29/24 03/29/24 History aspirin 81 mg tablet,delayed 81 mg PO DAILY 03/29/24 03/29/24 History release cholecalciferol (vitamin D3) 25 25 mcg PO DAILY 03/29/24 03/29/24 History mcg (1,000 unit) tablet lisinopril 20 1 tab PO DAILY 03/29/24 03/29/24 History mg-hydrochlorothiazide 25 mg tablet metformin 500 mg tablet,extended 1,000 mg PO DAILY 03/29/24 03/29/24 History release 24 hr omega-3 300 mg-dha 120 mg-epa 180 1 cap PO BID 03/29/24 03/29/24 History mg-fish oil 1,000 mg capsule potassium gluconate 595 mg (99 mg) 595 mg PO DAILY 03/29/24 03/29/24 History tablet Past Med/Surg History Problem List (Updated 03/29/24 @ 18:32 by Rebecca Krishna PA-C) LILIAN (acute kidney injury) Diabetes mellitus, type II Hyperglycemia Hypomagnesemia Demand ischemia (Acute) Sepsis (Acute) NSTEMI (non-ST elevated myocardial infarction) (Acute) Pneumonia (Acute) Tendinitis of right rotator cuff Subacromial impingement of right shoulder Medical History (Updated 03/29/24 @ 18:32 by Rebecca Krishna PA-C) HLD (hyperlipidemia) reported prior intolerance to statins Anisocoria Hypertension Surgical History Status post right knee replacement Family History (Updated 03/29/24 @ 18:26 by Rebecca Krishna PA-C) Father Heart disease Other Diabetes Social History Smoking Status: Never smoker Second Hand Exposure: No; Do You Dip or Chew Tobacco: No; Tobacco Cessation Education Requested by Patient: No Hx Alcohol Use: No Hx Substance Use: No Preferred Language: Thai Communication Ability: Effective Fire Regulator Required: No Beliefs That Will Affect Care: None Current Living Situation: Spouse Other Information That Helps Us Care for You: No Feels Safe at Home: Yes Safety Concerns: Feels Safe At This Time Assistive Devices: None Review of Systems Review of Systems: All systems reviewed & are unremarkable except as noted in HPI & below Physical Exam Physical Exam: General: no respiratory distress sitting upright in bed, obese male Head: normocephalic, atraumatic Eyes: conjunctiva non-injected, anicteric ENT: normal inspection external ears, nose, mucous membranes moist Neck: supple, trachea midline Lungs: no respiratory distress sitting upright in bed, 93% on RA, +diffuse rhonchi CV: tachycardia, rate 108, distant heart sounds, regular rhythm, trace pretibial edema Abd: protuberant, normal BS, soft, non-tender Ext: no cyanosis, no calf tenderness Neuro: A&O x 3, no focal deficits noted, normal affect Skin: +diaphoretic, warm, dry Results & Data Results & Data Vital Signs (Past 12 Hours) Vital Signs Temp Pulse Pulse Resp BP BP Pulse Ox 03/29/24 11:46 107 H 20 108/85 94 03/29/24 11:41 03/29/24 10:56 111 H 03/29/24 10:22 36.8 C 115 H 18 176/97 H 92 O2 Del Method 03/29/24 11:46 Room Air 03/29/24 11:41 Room Air 03/29/24 10:56 03/29/24 10:22 Room Air Laboratory Results Short CBC 03/29/24 Range/Units 10:44 WBC 30.23 H* (4.8-10.8) K/ul Hgb 12.3 L (14.0-18.0) g/dl Hct 35.7 L (42.0-52.0) % Plt Count 309 (130-400) K/uL BMP 03/29/24 10:44 Sodium 136 Potassium 3.6 Chloride 96 L Carbon Dioxide 30 BUN 26 H Creatinine 1.40 Glucose 225 H Calcium 9.5 Liver Function 03/29/24 Range/Units 10:44 Total Bilirubin 0.8 (0.2-1.0) mg/dl AST 45 H (13-39) U/L ALT 19 (7-52) U/L Alkaline Phosphatase 66 (34-104) U/L Albumin 3.8 (3.4-5.0) gm/dl Diagnostic Findings Chest X-Ray 03/29/24 10:28 XR chest 1V portable HISTORY: 73 years-old Male Dyspnea COMPARISON: 11/17/2016 TECHNIQUE: AP view of the chest FINDINGS: Cardiac silhouette is enlarged. No pneumothorax. 8 cm opacity in the right cardiophrenic angle is new from prior. No pleural effusion or overt pulmonary edema. Bones appear grossly intact. IMPRESSION: There is a new 8 cm right cardiophrenic angle opacity. Differential considerations include airspace disease, diaphragmatic hernia versus pulmonary mass. Correlation with follow-up chest CT recommended. ACT 112: Negative or not required by law. The above report was generated using voice recognition software. It may contain grammatical, syntax or spelling errors. Electronically signed by: Hererra Steiner M.D. 03/29/2024 11:19 AM Chest CTA 03/29/24 11:33 CT angio chest PE protocol CT DOSE: 975.08 mGy.cm HISTORY: 73 years-old Male with PE, pneumonia, cancer. Acute shortness of breath TECHNIQUE: Multiple CTA images of the chest were obtained after the intravenous administration of 112 ml Optiray. Coronal and sagittal MIPS were obtained from the axial data set and were submitted for review. All measurements were obtained according to NASCET criteria. A dose lowering technique was utilized adhering to the principles of ALARA. COMPARISON: Chest radiograph of same day and also 11/17/2016 FINDINGS: CTA: Moderate cardiomegaly without pericardial effusion. Moderate to extensive coronary artery calcifications. Fusiform dilation of the ascending thoracic aorta, main pulmonary artery, 4.6 x 4.7 cm. No dissection. There is patency of the image great vessels. Descending thoracic aortic tortuosity. No central pulmonary emboli identified. CT CHEST: No thyroid nodule. There are a few mildly enlarged mediastinal lymph nodes including paratracheal lymph nodes measuring up to 12 mm. No pneumothorax, pleural effusion or overt pulmonary edema. Left lung is clear. Segmental consolidative opacities within the medial segment right middle lobe with central air bronchograms correlates with the radiographic abnormality measuring up to approximately 7 cm. Additional minimal patchy subsegmental consolidative opacities of the basilar right lower lobe. Mild acute wall thickening. No acute upper abdominal abnormality. Hepatic steatosis with hepatomegaly. Unremarkable soft tissues. No acute fracture or destructive bone lesion. IMPRESSION: 1. Cardiomegaly with fusiform dilation of the ascending thoracic aorta, 4.6 x 4.7 cm. 2. No pulmonary emboli identified. 3. Segmental right middle lobe airspace opacities with subsegmental consolidation of the basilar right lower lobe suggestive of pneumonia. Follow-up imaging after treatment course recommended in order to document complete resolution. 4. Mild mediastinal lymphadenopathy, likely reactive. ACT 112: Negative or not required by law. The above report was generated using voice recognition software. It may contain grammatical, syntax or spelling errors. Electronically signed by: Herrera Steiner M.D. 03/29/2024 12:07 PM ECG Additional Comments: EKG, sinus tachycardia rate 126, RBBB per my interpretation Supervising Physician Co-Signing Physician Notes 73-year-old male with PMH of T2DM, HTN, HLD, hyperlipidemia, morbid obesity presents with complaint of cough and worsening shortness of breath on exertion. Patient reports he has chronic shortness of breath with exertion but since last 3 weeks, he has been having cough with yellow sputum, gradually worsening, now he has shortness of breath with even minimal activity. He denies fever but he reports on and off diaphoresis during this time. Patient also reports his grandson was sick with viral illness about 2.5 weeks ago [employer]. He and his also got sick afterwards. Patient reports he has been forcing himself into violent cough since yesterday trying to get stuff out of his chest, today morning with some blood-tinged sputum. Patient denies chest pain, denies pain or burning while passing urine/acute changes in bowel habits/nausea/vomiting. Patient reports appetite has been little low. Labs reviewed, WBC at 30.23K, creatinine at 1.4 [baseline 0.8-1.0], lactate at 2.8---->2.4. Magnesium 1.0. Troponin 4065---> 6576. BNP 1104. Respiratory pathogen panel negative. CTA chest: Negative for PE. Fusiform dilation of the ascending aorta 4.6 x 4.7 cm. RML and RLL pneumonia. Likely superimposed bacterial pneumonia Possible viral URTI given sick contact at home Severe sepsis POA: In the setting of pneumonia. Pulse rate/WBC/lactate elevated on presentation. procalcitonin elevated. Hemoptysis, secondary to forceful coughing Continue with Rocephin, doxycycline. Follow blood culture and sputum culture. Patient advised not to force himself into cough. Cough suppressant started. H&H at 8 PM. Continue with IV fluid at 50 mL an hour. Repeat CT scan of the chest in 2 to 3 months to document resolution of pneumonia. f/u bl and sputum cx. Significant troponin elevation, NSTEMI: Patient with no chest pain, troponin uptrending. Will get echo, cardiology consult. EKG w/ sinus tach. Telemetry monitoring. Low-dose heparin drip until further cardiology recommendation. Patient and his explained at bedside the need for heparin drip but it's elevated risk of bleeding given his blood in sputum likely secondary to mucosal tear/violent cough. They voiced understanding and are acceptable to risk. Hypomagnesemia: Replace magnesium 4 g IV, start oral magnesium. Thoracic aorta dilatation: As noted in CTA chest. Follow-up long-term with PCP upon discharge. On exam: GENERAL: Alert and oriented x3. NAD, on RA. Appears ill/sick/weak. HEENT: No pallor, no icterus. Pupils equal, round and reactive to light. Oral mucosa moist. NECK: No JVD, no neck masses. HEART: S1 and S2 heard. Regular rate and rhythm. HR 103. No murmur, no gallop. RESPIRATORY SYSTEM: Normal AP diameter. No accessory muscle use. No wheezing, RML and RLL crackles. ABDOMEN: Soft, bowel sounds present, nontender, no distention. CENTRAL NERVOUS SYSTEM: No facial droop. Speech is clear. Obeys simple commands. Moves extremities. EXTREMITIES: no ble edema, no erythema seen. I have seen and examined the patient and have discussed the case with the provider above. I agree with the assessment and plan as stated. Time spent: 40 min.
[2024-03-29 13:21] LABS: Troponin I High Sensitivity 6576.3 pg/ml (0-20)
--- OUTSIDE RECORDS SUMMARY | 2024-03-29 13:27 | External Medical Summary | Summary of Care ---
Author Name Unknown Organization [facility] Address [address] [facility] [address] Phone [phone] Care Team Providers Care Hosiery Mater Name Role Phone Juan Johansen MD Primary Care Provider [phone]- [phone] Reason for Visit * Reason Onset Date Comments Medication Refill 01/31/2024 Encounter Details Date Type Department Care Team (Late st Contact Info) Description 01/31/2024 Refill [facility] [address] [place] [address] Juan Johansen MD [address] [place] [address] HTN, goal below 140/90 Allergies No known active allergiesdocumented as of this encounter (statuses as of 02/01/2024) Medications Multiple Vitamins-Minera ls (CENTRUM SILVER 50+MEN) TABS Take by mouth. 7 Active Amoxicillin 500 MG Oral Capsule (Amoxil) take 4 capsules by mouth 1 HOUR PRIOR TO DENTAL VISIT 4 Capsule 3 3 Active Aspirin 81 MG Oral Tablet Delayed Release (Ecotrin Low Strength)Indica tions:HTN, goal below 140/90 One pill by mouth once a day 90 Tablet 5 3 Active [place]-3 Fish Oil 1000 MG Oral Capsule ([place]-3)Indica tions:HTN, goal below 140/90,Dyslipid emia, goal LDL below 100 Take 1 Capsule by mouth in the morning and 1 Capsule before bedtime. 180 Capsule 3 3 Active Potassium Gluconate 595 (99 K) MG Oral Tablet TAKE 1 TABLET BY MOUTH DAILY IN THE MORNING 100 Tablet 3 4 Active Lisinopril-hydr oCHLOROthiazide 20-25 MG Oral Tablet TAKE 1 TABLET BY MOUTH DAILY IN THE MORNING 90 Tablet 2 4 Active metFORMIN HCl ER 500 MG Oral Tablet Extended Release 24 Hour (Glucophage XR)Indications: Type 2 diabetes mellitus with hemoglobin A1c goal of less than 7.0% (HCC) TAKE 2 TABLETSBY MOUTH DAILY 180 Tablet 2 4 Active Vitamin D3 25 MCG (1000 UT) Oral Tablet (Vitamin D3) TAKE 1 TABLET BY MOUTH DAILY IN THE MORNING 100 Tablet 1 4 Active amLODIPine Besylate 5 MG Oral Tablet (Norvasc)Indica tions:HTN, goal below 140/90 Take 1 Tablet by mouth in the morning. 90 Tablet 3 4 Active amLODIPine Besylate 5 MG Oral Tablet (Norvasc)Indica tions:HTN, goal below 140/90 Take 1 Tablet by mouth in the morning. 90 Tablet 3 3 01/31/20 24 Discontinu ed(Refill) documented as of this encounter (statuses as of 02/01/2024) Active Problems Problem Noted Date Diagnosed Date Memory loss 10/01/2021 Type 2 diabetes mellitus wit h hemoglobin A1c goal of less than 7.0% 02/06/2020 Morbid obesity with body mas s index (BMI) of 50.0 to 59.9 in adult 01/09/2019 Statin intolerance 01/09/2019 Status post right knee replacement 03/09/2017 Osteoarth NOS-l/leg 01/27/2011 Dyslipidemia, goal LDL below 100 01/04/2011 HTN, goal below 140/90 06/05/2001 documented as of this encounter (statuses as of 02/01/2024) Resolved Problems Problem Noted Date Diagnosed Date Resolved Date Prediabetes 03/27/2018 02/06/2020 Overview: Per Prediabetes protocol #1 Body mass index (BMI) of 50. 0 to 59.9 in adult 11/15/2016 01/25/2019 Overview: Per Obesity protocol #1 Impacted cerumen 03/31/2012 08/04/2016 Obesity, morbid (more than 1 00 lbs over ideal weight or BMI > 40) 07/29/2011 08/04/2016 Dyslipidemia, goal LDL below 130 01/27/2011 02/06/2020 Cough 01/04/2011 01/27/2011 Acute nasopharyngitis 01/04/20112010 Acute URI 01/04/2011 01/27/2011 MORBID OBESITY, BMI= 49.07 01/04/11 01/04/2011 07/29/2011 Vaccination not carried out because of patient refusal 01/04/2011 07/29/2011 Obesity, morbid (more than 1 00 lbs over ideal weight or BMI > 40) 07/29/2009 01/27/2011 Overview (05/05/2015): Per Obesity Protocol, #19 ICD-10 update of inactive term ADVANCE DIRECTIVE INFORMATION 03/18/2005 03/09/2017 Overview (03/18/2005): No, Advance Directive brochure given to patient. AC SUPP OTITIS MEDIA, RIGHT 06/05/2001 01/27/2011 Impacted cerumen 06/05/2001 01/27/2011 documented as of this encounter (statuses as of 02/01/2024) Immunizations Name Administration Dates Next Due TD, Preservative Free 04/16/2008 documented as of this encounter Social History Tobacco Use Types Packs/Day Years Used Date Smoking Tobacco: Never Smokeless Tobacco: Never Alcohol Use Standard Drinks/Week Comments No 0 (1 standard drink = 0.6 oz pur e alcohol) PHQ-2 Answer Date Recorded PHQ Adult Total Score 0 10/06/2023 Hunger Vital Sign Answer Date Recorded Within the past 12 months, y ou worried that your food would run out before you got the money to buy more. Never true 09/02/19 23 Within the past 12 months, t he food you bought just didn't last and you didn't have money to get more. Never true 09/01/2022 Childcare Answer Date Recorded Do you feel overwhelmed with taking care of a child, family member or friend? No 09/01/2022 Does your family need help f inding childcare? (Household - for ages 0-17 years) Not on file 09/01/2022 Clothing Answer Date Recorded Have you been unable to get clothing when it was really needed? No 09/01/2022 Is your family able to get c lothes or diapers when needed? (Household - for ages 0-17 years) Not on file 09/01/2022 Personal Safety Answer Date Recorded Do you feel unsafe or have concerns for your saf ety? No 09/01/2022 Do you have concerns for you r family's safety? (Household - for ages 0-17 years) Not on file 09/01/2022 Utilities Answer Date Recorded Do you have trouble paying y our heating, water, or electric bill? No 09/01/2022 Is your family able to pay t he heat, water, or electric bill? (Household - for ages 0-17 years) Not on file 09/01/2022 Does your family have access to good internet? (Household - for ages 0-17 years) Not on file 09/01/2022 Employment Status Answer Date Recorded Are you unemployed or without regular income? No 09/01/2022 Does the household have a [facility] source [facility] income? (Household - for ages 0-17 years) Not on file 09/01/2022 Social Connections Answer Date Recorded How often do you feel lonely or isolated from th ose around you? Never 09/01/2022 Financial Resource Strain Answer Date R ecorded Do you have any trouble payi ng for your medications, or do you think you might in the future? No 09/01/2022 Does your family have troubl e paying for medicine? (Household - for ages 0-17 years) Not on file 09/01/2022 Transportation Needs Answer Date Record ed READ ONLY Do you have troubl e getting a ride to medical visits or work? Never True 09/01/2022 Does your family have a hard time getting a ride to doctors visits? (Household - for ages 0-17 years) Not on file 09/01/2022 Has lack of transportation k ept you from medical appointments, meetings, work, or from getting things needed for daily living? Check all that apply. (Adult - for ages 18 years and over) Not on file 09/01/2022 Do you (or your family) have trouble finding or paying for a ride (transportation)? (Household - for ages 0-17 years) Not on file 09/01/2022 Housing Stability Answer Date Recorded Do you currently live in a s helter or have no steady place to sleep at night? No 09/01/2022 READ ONLY Do you think you a re at risk of becoming homeless? No 09/01/2022 Does your family worry about paying for your home or becoming homeless? (Household - for ages 0-17 years) Not on file 0 09/01/2022 Are you homeless or worried that you might be in the future? (Adult - for ages 18 years and over) Not on file Are you (or your family) mikaela eless or worried that you might be in the future? (Household - for ages 0-17 years) Not on file Food Insecurity Answer Date Recorded Do you need food for this week? No 09/01/2022 Are you able to get enough f ood for your family? (Household - for ages 0-17 years) Not on file 09/01/2022 Does your family need food t his week? (Household - for ages 0-17 years) Not on file 09/01/2022 Do you always have enough fo od for your family? (Household - for ages 0-17 years) Not on file 09/01/2022 Sex and Gender Information Value Date Recorded Sex Assigned at Male 09/01/2022 8:39 AM EDT Legal Sex Male 4:50 AM EST Gender Identity Male 09/01/2022 8:39 AM EDT Sexual Orientation Straight 09/01/2022 8: 39 AM EDT documented as of this encounter Miscellaneous Notes * Telephone Encounter - Herrera Reed [facility] - 02/01/2024 2:23 PM ESTSigned Prescriptions: Disp Refills amLODIPine Besylate 5 MG Oral Tablet (Norv*90 Tab*3 Sig: Take 1Tablet by mouth in the morning.Authorizing Provider: JUAN JOHANSEN User: HERRERA REED documented in this encounter Plan of Treatment Upcoming Encounters Date Type Department Care Team (Late st Contact Info) Description 04/17/2024 7:40 AM EST Office Visit [facility] [address] [address] Juan Johansen MD [address] [id number] Scheduled Procedures Name Priority Associated Diagnoses Date/Ti me COLONOSCOPY FLEXIBLE PROXIMAL DIAGNOSTIC Recall Colon cancer screening Health Maintenance Due Date Last Done Comments Adult Wellness Visit 2014 COVID-19 Vaccine ( season) 2023 Influenza Vaccine (FLU shot) (#1) 2023 Albumin/Creatinine Ratio 03/08/2024 03/08/2023, 03/17 Diabetic Eye Exam 03/16/2024 03/16/2023, , 11/25/2020, Additional history exists HbA1c 03/22/2024 09/20/2023, 02/15, 09/03/2022, Additional history exists GFR 09/19/2024 09/20/2023, 02/15, 09/03/2022, Additional history exists DTap/Tdap Vaccines (1 - Tdap) 10/05/2024 04/16/2008 Postponed from 04/17/2008 (Patient Declined After Education) Depression Screening 10/05/2024 10/06/2023 Diabetic Foot Exam 10/05/2024 10/06/2023 Pneumococcal Vaccine: 65+ Years (1 of 2 - PCV) 10/05/2024 Postponed from 1954 (Patient Declined After Education) Zoster Vaccines (1 of 2) 10/05/2024 Pos tponed from 1998 (Patient Declined After Education) Colonoscopy Discontinued 01/08/2013 Colorectal Cancer Screening Discontinued Cologuard Discontinued Fecal Occult Blood Test Discontinued HPV (Gardasil) Vaccine Aged Out No lo nger eligible based on patient's age to complete this topic Hepatitis B Vaccine Aged Out No longe r eligible based on patient's age to complete this topic MENINGOCOCCAL (MENACTRA/MENVEO) Aged Out No longer eligible based on patient's age to complete this topic Sigmoidoscopy Discontinued documented as of this encounter Medical Devices Not on filedocumented as of this encounter Visit Diagnoses Diagnosis HTN, goal below 140/90 Unspecified essential hypertension documented in this encounter Care Teams Hosiery Mater Relationship Specialty Start Date End Date Juan Johansen MD [address] [place] [address] PCP - General 11/15/99 documented as of this encounter
--- OUTSIDE RECORDS SUMMARY | 2024-03-29 13:27 | External Medical Summary | Summary of Care ---
Author Name Unknown Organization [facility] Address [address] [facility] [address] Phone [phone] Care Team Providers Care Dielectric Testing Machine Operator Name Role Phone Juan Mehta MD Primary Care Provider [phone]- [phone] Encounter Details Date Type Department Care Team (Late st Contact Info) Description 12/23/2023 Orders Only PATIENT PORTAL DO NOT DELETE THIS DEPT USED BY [address] [place] [id number] Allergies No known active allergiesdocumented as of this encounter (statuses as of 12/23/2023) Medications Multiple Vitamins-Minera ls (CENTRUM SILVER 50+MEN) TABS Take by mouth. 7 Active amLODIPine Besylate 5 MG Oral Tablet (Norvasc)Indica tions:HTN, goal below 140/90 Take 1 Tablet by mouth in the morning. 90 Tablet 3 3 Active Amoxicillin 500 MG Oral Capsule (Amoxil) take 4 capsules by mouth 1 HOUR PRIOR TO DENTAL VISIT 4 Capsule 3 3 Active Aspirin 81 MG Oral Tablet Delayed Release (Ecotrin Low Strength)Indica tions:HTN, goal below 140/90 One pill by mouth once a day 90 Tablet 5 3 Active [place]-3 Fish Oil 1000 MG Oral Capsule ([place]-3)Indica tions:HTN, goal below 140/90,Dyslipid emia, goal LDL [...] THE MORNING 100 Tablet 1 4 Active documented as of this encounter (statuses as of 12/23/2023) Active Problems Problem Noted Date Diagnosed Date [...] as of this encounter (statuses as of 12/23/2023) Resolved Problems Problem Noted Date Diagnosed Date [...] as of this encounter (statuses as of 12/23/2023) Immunizations Name Administration Dates Next Due TD, [...] y our heating, water, or electric bill? (Adult - for ages 18 years and over) Not on file 09/04/2023 Is your family able to pay t he heat, water, or electric bill? (Household - for ages 0-17 years) Not on file 09/04/2023 Does your family have access to good internet? (Household - for ages 0-17 years) Not on file 09/04/2023 Employment Status Answer Date Recorded Are you unemployed or without regular income? No 09/01/2022 Does the household have a re gular source of income? (Household - for ages 0-17 years) Not on file 09/01/2022 Social Connections Answer Date Recorded How often do you feel lonely or isolated from those around you? (Adult - for ages 18 years and over) Not on file 09/04/2023 Financial Resource Strain Answer Date R ecorded [...] AM EDT documented as of this encounter Plan of Treatment Upcoming Encounters Date Type Department Care Team (Late st Contact Info) Description 04/17/2024 7:40 AM EST Office Visit [facility] [address] [place] [address] Juan Mehta MD [address] [place] [address] Scheduled Procedures Name Priority Associated Diagnoses Date/Ti [...] Not on filedocumented as of this encounter Care Teams Dielectric Testing Machine Operator Relationship Specialty Start Date End Date Juan Mehta MD [address] [place] [address] PCP - General 11/15/99 documented as of this encounter
--- OUTSIDE RECORDS SUMMARY | 2024-03-29 13:27 | External Medical Summary | Summary of Care ---
Author Name Unknown Organization [facility] Address [address] [place] [address] Phone [phone] Care Team Providers Care Copper Plate Lithographer Name Role Phone Juan Mehta MD Primary Care Provider +1- [phone] Reason for Visit * Reason Onset Date Comments Health Maintenance 12/12/2023 Encounter Details Date Type Department Care Team (Late st Contact Info) Description 12/12/2023 Telephone [facility] [address] [place] [address] Juan Mehta MD [address] [place] [address] Health Maintenance Allergies No known active allergiesdocumented as of this encounter (statuses as of 12/12/2023) Medications Medication Sig Dispensed Refills Start Date End Date Status Multiple Vitamins-Minerals (CENTRUM SILVER 50+MEN) TABS Take by mouth. 08/04/2016 Active amLODIPine Besylate 5 MG Oral Tablet (Norvasc)Indication s:HTN, goal below 140/90 Take 1 Tablet by mouth in the morning. 90 Tablet 3 01/20/2023 Active Amoxicillin 500 MG Oral Capsule (Amoxil) take 4 capsules by mouth 1 HOUR PRIOR TO DENTAL VISIT 4 Capsule 3 01/20/2023 Active Aspirin 81 MG Oral Tablet Delayed Release (Ecotrin Low Strength)Indication s:HTN, goal below 140/90 One pill by mouth once a day 90 Tablet 5 01/20/2023 Active Lisinopril-hydroCHL OROthiazide 20-25 MG Oral Tablet Take 1 Tablet by mouth in the morning. 90 Tablet 3 01/20/2023 Active metFORMIN HCl ER 500 MG Oral Tablet Extended Release 24 Hour (Glucophage XR)Indications:Type 2 diabetes mellitus with hemoglobin A1c goal of less than 7.0% (HCC) Take 2 tabs by mouth daily. 180 Tablet 3 01/20/2023 Active [place]-3 Fish Oil 1000 MG Oral Capsule ([place]-3)Indication s:HTN, goal below 140/90,Dyslipidemia , goal LDL below 100 Take 1 Capsule by mouth in the morning and 1 Capsule before bedtime. 180 Capsule 3 01/20/2023 Active Vitamin D-3 25 MCG (1000 UT) Oral Capsule Take 1 Capsule by mouth in the morning. 90 Capsule 3 01/20/2023 Active Potassium Gluconate 595 (99 K) MG Oral Tablet TAKE 1 TABLET BY MOUTH DAILY IN THE MORNING 100 Tablet 3 10/12/2023 Active documented as of this encounter (statuses as of 12/12/2023) Active Problems Problem Noted Date Diagnosed Date [...] as of this encounter (statuses as of 12/12/2023) Resolved Problems Problem Noted Date Diagnosed Date [...] weight or BMI > 40) 07/29/2009 01/27/2011 Overview: Per Obesity Protocol, #19 ICD-10 update of inactive term ADVANCE DIRECTIVE INFORMATION 03/18/2005 03/09/2017 Overview: No, Advance Directive brochure given to patient. AC SUPP OTITIS MEDIA, RIGHT 06/05/2001 01/27/2011 Impacted cerumen 06/05/2001 01/27/2011 documented as of this encounter (statuses as of 12/12/2023) Immunizations Name Administration Dates Next Due TD, [...] Assigned at Male 09/01/2022 8:39 AM EDT Gender Identity Male 09/01/2022 8:39 AM EDT Sexual Orientation Straight 09/01/2022 8: 39 AM EDT Job Start Date Occupation Industry Not on file Not on file Not on file documented as of this encounter Miscellaneous Notes * Telephone Encounter - Namita GrahamAUDREY - 12/12/2023 8:43 AM EDT Care Gaps Comprehensive Care Outreach Last Office/Telemedicine Visit: 10/06/2023 (in office), Visit date not found (telemedicine) Next Office Visit: 04/17/2024 Hemoglobin AIC Results: Lab Results Component Value Date/Time HEMOGLOBIN A1C - [facility] 5.9 12/31/2015 08:33 AM HEMOGLOBIN A1C - [facility] 5.9 07/01/2015 09:00 AM HEMOGLOBIN A1C - [facility] 6.0 08/12/2014 08:04 AM BP Readings from Last 1 Encounters: 10/06/23 142/70 Reviewed Health Maintenance below: Health Maintenance Topic Date Due Adult Wellness Visit Never done Influenza Vaccine (FLU shot) (1) Never done COVID-19 Vaccine ( season) Never done Albumin/Creatinine Ratio 03/08/2024 DTap/Tdap Vaccines (1 - Tdap) 10/05/2024 (Originally 04/17/2008) Zoster Vaccines (1 of 2) 10/05/2024 (Originally 1998) Pneumococcal Vaccine: 65+ Years (1 of 2 - PCV) 10/05/2024 (Originally 1956) Diabetic Eye Exam 03/16/2024 HbA1c 03/22/2024 Labs already ordered Awv med a only Eye kike tele eye Care Gap Outreach Action Taken: Outreach not indicated documented in this encounter Plan of Treatment Upcoming Encounters Date Type Department Care Team (Late st Contact Info) Description 04/17/2024 7:40 AM EST Office Visit [facility] [address] [place] [address] Juan Mehta MD [address] [place] [address] Scheduled Procedures Name Priority Associated Diagnoses Date/Ti me COLONOSCOPY FLEXIBLE PROXIMAL DIAGNOSTIC Recall Colon cancer screening Health Maintenance Due Date Last Done Comments Adult Wellness Visit 2014 COVID-19 Vaccine ( - season) 2023 Influenza Vaccine (FLU shot) (#1) [...] filedocumented as of this encounter Care Teams Copper Plate Lithographer Relationship Specialty Start Date End Date Juan Mehta MD [address] [place] [address] PCP - General 11/15/99 documented as of this encounter
--- OUTSIDE RECORDS SUMMARY | 2024-03-29 13:27 | External Medical Summary | Summary of Care ---
Author Name Unknown Organization [facility] Address [address] [place] [address] Phone [phone] Care Team Providers Care Cordwood Cutter Name Role Phone Juan Mehta MD Primary Care Provider +1- [phone] Reason for Visit * Reason Comments Follow Up Patient is here toda y for a six month follow up. Patient has a little white spot on his left ear. Patient states it get sore once in a while and has had it for 3-4 years and would like it checked. Encounter Details Date Type Department Care Team (Late st Contact Info) Description 10/06/2023 10:00 AM EDT Office Visit [facility] [address] [place] [address] Jaun Mehta MD [address] [place] [address] Type 2 diabetes mellitus with hemoglobin A1c goal of less than 7.0% ([facility])*; HTN, goal below 140/90; Morbid obesity with body mass index (BMI) of 50.0 to 59.9 in adult ([facility]); Encounter for long-term (current) use of medications; Dyslipidemia, goal LDL below 100 Allergies No known active allergiesdocumented as of this encounter (statuses as of 10/24/2023) Medications Medication Sig Dispensed Refills Start Date End Date Status Multiple Vitamins-Mineral s (CENTRUM SILVER 50+MEN) TABS Take by mouth. 7 Active amLODIPine Besylate 5 MG Oral Tablet (Norvasc)Indicat ions:HTN, goal below 140/90 Take 1 Tablet by mouth in the morning. 90 Tablet 3 3 Active Amoxicillin 500 MG Oral Capsule (Amoxil) take 4 capsules by mouth 1 HOUR PRIOR TO DENTAL VISIT 4 Capsule 3 3 Active Aspirin 81 MG Oral Tablet Delayed Release (Ecotrin Low Strength)Indicat ions:HTN, goal below 140/90 One pill by mouth once a day 90 Tablet 5 3 Active Lisinopril-hydro CHLOROthiazide 20-25 MG Oral Tablet Take 1 Tablet by mouth in the morning. 90 Tablet 3 3 Active metFORMIN HCl ER 500 MG Oral Tablet Extended Release 24 Hour (Glucophage XR)Indications:T ype 2 diabetes mellitus with hemoglobin A1c goal of less than 7.0% (HCC) Take 2 tabs by mouth daily. 180 Tablet 3 3 Active [place]-3 Fish Oil 1000 MG Oral Capsule ([place]-3)Indicat ions:HTN, goal below 140/90,Dyslipide efren, goal LDL below 100 Take 1 Capsule by mouth in the morning and 1 Capsule before bedtime. 180 Capsule 3 3 Active Vitamin D-3 25 MCG (1000 UT) Oral Capsule Take 1 Capsule by mouth in the morning. 90 Capsule 3 3 Active Farxiga 10 MG Oral Tablet (Dapagliflozin Propanediol)Mita cations:Type 2 diabetes mellitus with hemoglobin A1c goal of less than 7.0% (HCC) Take 1 Tablet by mouth in the morning. 90 Tablet 3 3 10/06/19 24 Discontinued(Pat ient preference/disco ntinuation) Nystatin 265997 UNIT/GM External CreamIndications :Intertrigo Apply topically to affected area 2 times a day. To affacted area for two weeks. 30 g 1 3 10/06/19 24 Discontinued(Pat ient preference/disco ntinuation) Potassium 99 MG Oral Tablet Take 1 Tablet by mouth in the morning. 90 Tablet 3 3 10/12/19 24 Discontinued Triamcinolone Acetonide 0.1 % External Ointment (Aristocort)Mita cations:Irritant contact dermatitis, unspecified trigger Apply topically to affected area 2 times a day. To affected area. 80 g 1 3 10/06/19 24 Discontinued(Pat ient preference/disco ntinuation) documented as of this encounter (statuses as of 10/24/2023) Active Problems Problem Noted Date Diagnosed Date [...] as of this encounter (statuses as of 10/24/2023) Resolved Problems Problem Noted Date Diagnosed Date [...] as of this encounter (statuses as of 10/24/2023) Immunizations Name Administration Dates Next Due TD, [...] on file documented as of this encounter Last Filed Vital Signs Vital Sign Reading Time Taken Comments Blood Pressure 142/70 10/06/2023 10:20 AM EDT Pulse 78 10/06/2023 10:20 AM EDT Temperature 36.8 C (98.2 F) 10/06/2023 1 0:20 AM EDT Respiratory Rate 16 10/06/2023 10:2 0 AM EDT Oxygen Saturation 94% 10/06/2023 10: 20 AM EDT Inhaled Oxygen Concentration - - Weight 146.6 kg (323 lb 3.2 oz) 024 10:20 AM EDT Height 168.3 cm (5' 6.25") 10/06/2023 1 0:20 AM EDT Body Mass Index 51.77 10/06/2023 10:20 AM EDT documented in this encounter Progress Notes * Juan Mehta MD - 10/24/2023 10:31 PM EDT Subjective: Moses Mejia is a 73 year old male here today for Chief Complaint Patient presents with Follow Up Patient is here today for a six month follow up. Patient has a little white spot on his left ear. Patient states it get sore once in a while and hashad it for 3-4 years and would like it checked. Here for routine recheck. Reviewed recent labs. Tolerating current meds., Denies chest pain, shortness of breath, cough, nausea, vomiting, abd pain, dysuria, urinary frequency, nocturia, fever, melena, hematochezia, peripheral edema. 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 amLODIPine Besylate 5 MG Oral Tablet (Norvasc) Take 1 Tablet by mouth in the morning. 90 Tablet 3 Aspirin 81 MG Oral Tablet Delayed Release (Ecotrin Low Strength) One pill by mouth once a day 90 Tablet 5 Lisinopril-hydroCHLOROthiazide 20-25 MG Oral Tablet Take 1 Tablet by mouth in the morning. 90 Tablet 3 metFORMIN HCl ER 500 MG Oral Tablet Extended Release 24 Hour (Glucophage XR) Take 2 tabs by mouth daily. 180 Tablet 3 [place]-3 Fish Oil 1000 MG Oral Capsule ([place]-3) Take 1 Capsule by mouth in the morning and 1 Capsule before bedtime. 180 Capsule 3 Vitamin D-3 25 MCG (1000 UT) Oral Capsule Take 1 Capsule by mouth in the morning. 90 Capsule 3 Amoxicillin 500 MG Oral Capsule (Amoxil) take 4 capsules by mouth 1 HOUR PRIOR TO DENTAL VISIT 4 Capsule 3 Potassium Gluconate 595 (99 K) MG Oral Tablet TAKE 1 TABLET BY MOUTH DAILY IN THE MORNING 100 Tablet 3 No current facility-administered medications for this visit. Objective: BP 142/70 | Pulse 78 | Temp 36.8 C (98.2 F) (Tympanic) | Resp 16 | Ht 1.683 m (5' 6.25") | Wt (!) 146.6 kg (323 lb 3.2 oz) | SpO2 94% | BMI 51.77 kg/m | BSA 2.62 m GEN: NAD HEENT: Benign NECK: Supple with no LAD, TM, JVD CHEST: CTA B CV: RRR ABD: Soft, NT/ND, No HSM, NABS EXT: No c,c,e Assessment and Plan: Type 2 diabetes mellitus with hemoglobin A1c goal of less than 7.0% ([facility]) (Primary) - DIABETES FOOT EXAM - HEMOGLOBIN A1C - LIPID PANEL WITH DIRECT LDL IF TG IS HIGH - ALBUMIN / CREATININE RATIO, URINE - BASIC METABOLIC PANEL -reviewed possible med changes. -lab orders given for next visit HTN, goal below 140/90 -continue same meds Morbid obesity with body mass index (BMI) of 50.0 to 59.9 in adult (HCC) -best efforts with dietary change and weight loss Encounter for long-term (current) use of medications - VITAMIN B12 Dyslipidemia, goal LDL below 100 -hx statin intolerance. Follow Up: Return in about 6 months (around 04/07/2024) for recheck. | For: recheck 32 min with pt and chart review Juan Mehta MD documented in this encounter Nursing Notes * Selena Gonzalez, MED ASSIST - 10/06/2023 10:26 AM EDT The patient has been properly identified by confirmation of name and date of . Chief Complaint Patient presents with Follow Up Patient is here today for a six month follow up. Patient has a little white spot on his left ear. Patient states it get sore once in a while and hashad it for 3-4 years and would like it checked. Socks and Shoes Removed for Annual Diabetic Foot Screening RIGHT FOOT: No Reddened, Cracking, Or Open Areas Noted. RIGHT Dorsalis Pedis Pulse: Palpable RIGHT Posterior Tibial Pulse: Palpable RIGHT Monofilament:Patient reports feeling monofilament pressure on plantar surface of foot LEFT FOOT: No Reddened, Cracking or Open Areas Noted. LEFT Dorsalis Pedis Pulse: Palpable LEFT Posterior Tibial Pulse: Palpable LEFT Monofilament:Patient reports feeling monofilament pressure on plantar surface of foot Do you need diabetic shoes: No documented in this encounter Plan of Treatment Upcoming Encounters Date Type Department Care Team (Late st Contact Info) Description 04/17/2024 7:40 AM EST Office Visit [facility] [address] [place] [address] Juan Mehta MD [address] [place] [address] Scheduled Orders Name Type Priority Associated Diagnoses Orde r Schedule HEMOGLOBIN A1C Lab Routine Type 2 diabetes mellitus with hemoglobin A1c goal of less than 7.0% (HCC) Ordered: 10/06/2023 LIPID PANEL WITH DIRECT LDL IF TG IS HIGH Lab Routine Type 2 diabetes mellitus with hemoglobin A1c goal of less than 7.0% (HCC) Ordered: 10/06/2023 ALBUMIN / CREATININE RATIO, URINE Lab Routine Type 2 diabetes mellitus with hemoglobin A1c goal of less than 7.0% (HCC) Ordered: 10/06/2023 VITAMIN B12 Lab Routine Encounter for long-term (current) use of medications Ordered: 10/06/2023 BASIC METABOLIC PANEL Lab Routine Type 2 diabetes mellitus with hemoglobin A1c goal of less than 7.0% (HCC) Ordered: 10/06/2023 Scheduled Procedures Name Priority Associated Diagnoses Date/Ti [...] as of this encounter Visit Diagnoses Diagnosis Type 2 diabetes mellitus with hemoglobin A1c goal of less than 7.0% (HCC)- Primary HTN, goal below 140/90 Unspecified essential hypertension Morbid obesity with body mass index (BMI) of 50.0 to 59.9 in adult (HCC) Encounter for long-term (current) use of medications Encounter for long-term (current) use of other medications Dyslipidemia, goal LDL below 100 Other and unspecified hyperlipidemia documented in this encounter Care Teams Cordwood Cutter Relationship Specialty Start Date End Date Juan Mehta MD [address] [place] [address] PCP - General 11/15/99 documented as of this encounter
--- OUTSIDE RECORDS SUMMARY | 2024-03-29 13:27 | External Medical Summary | Summary of Care ---
Author Name Unknown Organization [facility] Address [address] [place] [address] Phone [phone] Care Team Providers Care Scouring Train Operator Chief Name Role Phone Juan Johansen MD Primary Care Provider +1- [phone] Reason for Visit * Reason Comments eRx-Medication Refill Encounter Details Date Type Department Care Team (Late st Contact Info) Description 12/20/2023 Refill [facility] [address] [place] [address] Juan Johansen MD [address] [place] [address] Vitamin D deficiency, unspecified*; Type 2 diabetes mellitus with hemoglobin A1c goal of less than 7.0% ([facility]); Encounter for long-term (current) drug use Allergies No known active allergiesdocumented as of this encounter (statuses as of 12/21/2023) Medications Medication Sig Dispensed Refills Start Date [...] a day 90 Tablet 5 01/20/2023 Active [place]-3 Fish Oil 1000 MG Oral Capsule ([place]-3)Indicat ions:HTN, goal below 140/90,Dyslipide efren, goal LDL below 100 Take 1 Capsule by mouth in the morning and 1 Capsule before bedtime. 180 Capsule 3 01/20/2023 Active Potassium Gluconate 595 (99 K) MG Oral Tablet TAKE 1 TABLET BY MOUTH DAILY IN THE MORNING 100 Tablet 3 10/12/2023 Active Lisinopril-hydro CHLOROthiazide 20-25 MG Oral Tablet TAKE 1 TABLET BY MOUTH DAILY IN THE MORNING 90 Tablet 2 12/21/2023 Active metFORMIN HCl ER 500 MG Oral Tablet Extended Release 24 Hour (Glucophage XR)Indications:T ype 2 diabetes mellitus with hemoglobin A1c goal of less than 7.0% (HCC) TAKE 2 TABLETSBY MOUTH DAILY 180 Tablet 2 12/21/2023 Active Vitamin D3 25 MCG (1000 UT) Oral Tablet (Vitamin D3) TAKE 1 TABLET BY MOUTH DAILY IN THE MORNING 100 Tablet 1 12/21/2023 Active Lisinopril-hydro CHLOROthiazide 20-25 MG Oral Tablet Take 1 Tablet by mouth in the morning. 90 Tablet 3 01/20/2023 4 Discontinued metFORMIN HCl ER 500 MG Oral Tablet Extended Release 24 Hour (Glucophage XR)Indications:T ype 2 diabetes mellitus with hemoglobin A1c goal of less than 7.0% (HCC) Take 2 tabs by mouth daily. 180 Tablet 3 01/20/2023 4 Discontinued Vitamin D-3 25 MCG (1000 UT) Oral Capsule Take 1 Capsule by mouth in the morning. 90 Capsule 3 01/20/2023 4 Discontinued documented as of this encounter (statuses as of 12/21/2023) Active Problems Problem Noted Date Diagnosed Date [...] as of this encounter (statuses as of 12/21/2023) Resolved Problems Problem Noted Date Diagnosed Date [...] as of this encounter (statuses as of 12/21/2023) Immunizations Name Administration Dates Next Due TD, [...] encounter Miscellaneous Notes * Telephone Encounter - Juan Johansen MD - 12/21/2023 4:54 PM ESTSigned Prescriptions: Disp Refills Lisinopril-hydroCHLOROthiazide 20-25 MG Or*90 Tab*2 Sig: TAKE 1TABLET BY MOUTH DAILY IN THE MORNINGAuthorizing Provider: JUAN JOHANSEN User: YOUNG SANTACRUZ metFORMIN HCl ER 500 MG Oral Tablet Extend*180 Ta*2 Sig: TAKE 2 TABLETSBY MOUTH DAILYAuthorizing Provider: JUAN JOHANSEN User: YOUNG SANTACRUZ Vitamin D3 25 MCG (1000 UT) OralTablet (V*100 Ta*1 Sig: TAKE 1 TABLET BY MOUTH DAILY IN THE MORNINGAuthorizing Provider: JUAN JOHANSEN * Telephone Encounter - Young Santacruz [facility] - 12/21/2023 1:53 PM ESTPending Prescriptions: Disp Refills Vitamin D3 25 MCG (1000 UT) Oral Tablet (V*100 Ta*1 Sig: TAKE 1 TABLET BY MOUTH DAILY IN THE MORNING Signed Prescriptions: Disp Refills Lisinopril-hydroCHLOROthiazide 20-25 MG Or*90 Tab*2 Sig: TAKE 1 TABLET BY MOUTH DAILY IN THE MORNING Authorizing Provider: JUAN JOHANSEN Ordering User: YOUNG SANTACRUZ metFORMIN HCl ER 500 MG Oral Tablet Extend*180 Ta*2 Sig: TAKE 2 TABLETSBY MOUTH DAILY Authorizing Provider: JUAN JOHANSEN Ordering User: YOUNG SANTACRUZ * Telephone Encounter - CompaannHaresh singhle Sanket ADELINA - 12/21/2023 1:51 PM EST [facility] is currently not authorized to approve refills for the pended medication(s) per refill protocol. Please approve if appropriate. Thank you, Young Santacruz, PharmD Clinical Pharmacist Centralized [facility] Services ([facility]) [phone] 12/21/2023, 1:52 PM Pending Prescriptions: Disp Refills Vitamin D3 25 MCG (1000 UT) Oral Tablet (*100 Ta*1 Sig: TAKE 1 TABLET BY MOUTH DAILY IN THE MORNING Signed Prescriptions: Disp Refills Lisinopril-hydroCHLOROthiazide 20-25 MG Or*90 Tab*2 Sig: TAKE 1 TABLET BY MOUTH DAILY IN THE MORNING Authorizing Provider: JUAN JOHANSEN Ordering User: YOUNG SANTACRUZ metFORMIN HCl ER 500 MG Oral Tablet Extend*180 Ta*2 Sig: TAKE 2 TABLETSBY MOUTH DAILY Authorizing Provider: JUAN JOHANSEN Ordering User: YOUNG SANTACRUZ Last Visit: 10/06/2023 (in office), Visit date not found (telemedicine) Next Visit: Visit date not found If no future appointments scheduled, and last appointment is greater than a year ago, please schedule patient for a follow-up appointment Last date the medication was ordered: 01/20/23 Pharmacy: [facility] [facility] [place] Is this request for a controlled substance? No Urine Drug Screen:No results found for this or any previous visit. Patient Phone Numbers Labs: Lab Results Component Value Date/Time CREAT 1.11 09/20/2023 12:00 AM CREAT 0.9 03/15/2017 07:54 AM POTASSIUM 3.8 09/20/2023 12:00 AM POTASSIUM 4.2 03/15/2017 07:54 AM TSH 1.61 2022 12:00 AM TSH 1.60 08/04/2016 09:30 AM LDL 158 (H) 03/15/2017 07:54 AM LDL NOT APPLICABLE 03/15/2017 07:54 AM LDL 171. (HH) 02/20/1996 12:30 PM LDLCALC 150 (A) 03/08/2023 12:00 AM ALT 16 04/23/2021 12:00 AM ALT 21 03/15/2017 07:54 AM HGBA1C 7.1 (A) 09/20/2023 12:00 AM HGBA1C 5.9 12/31/2015 08:33 AM documented in this encounter Plan of Treatment Upcoming Encounters Date Type Department Care Team (Late st Contact Info) Description 04/17/2024 7:40 AM EST Office Visit [facility] [address] [place] [address] Juan Johansen MD [address] [place] [address] Scheduled Orders Name Type Priority Associated Diagnoses Orde r Schedule 25-HYDROXY VITAMIN D Lab Routine Vitamin D deficiency, unspecified Encounter for long-term (current) drug use Expected: 12/28/2023 (Approximate), Expires: 12/20/2024 Scheduled Procedures Name Priority Associated Diagnoses Date/Ti [...] as of this encounter Visit Diagnoses Diagnosis Vitamin D deficiency, unspecified- Primary Type 2 diabetes mellitus with hemoglobin A1c goal of less than 7.0% ([facility]) Encounter for long-term (current) drug use Encounter for long-term (current) use of other medications documented in this encounter Care Teams Scouring Train Operator Chief Relationship Specialty Start Date End Date Juan Johansen MD [address] [place] [address] PCP - General 11/15/99 documented as of this encounter
--- OUTSIDE RECORDS SUMMARY | 2024-03-29 13:27 | External Medical Summary | Summary of Care ---
Author Name Unknown Organization [facility] Address [address] [place] [address] Phone [phone] Care Team Providers Care Child Nutrition Assistant Name Role Phone Juan Johansen MD Primary Care Provider +1- [phone] Reason for Visit * Reason Comments eRx-Medication Refill Encounter Details Date Type Department Care Team (Late st Contact Info) Description 10/11/2023 Refill [facility] [address] [place] [address] Juan Johansen MD [address] [place] [address] Allergies No known active allergiesdocumented as of this encounter (statuses as of 10/12/2023) Medications Medication Sig Dispensed Refills Start Date [...] a day 90 Tablet 5 01/20/2023 Active Lisinopril-hydro CHLOROthiazide 20-25 MG Oral Tablet Take 1 Tablet by mouth in the morning. 90 Tablet 3 01/20/2023 Active metFORMIN HCl ER 500 MG Oral Tablet Extended Release 24 Hour (Glucophage XR)Indications:T ype 2 diabetes mellitus with hemoglobin A1c goal of less than 7.0% (HCC) Take 2 tabs by mouth daily. 180 Tablet 3 01/20/2023 Active [place]-3 Fish Oil 1000 MG Oral Capsule ([place]-3)Indicat ions:HTN, goal below 140/90,Dyslipide efren, goal LDL [...] THE MORNING 100 Tablet 3 10/12/2023 Active Potassium 99 MG Oral Tablet Take 1 Tablet by mouth in the morning. 90 Tablet 3 01/20/2023 Discontinued documented as of this encounter (statuses as of 10/12/2023) Active Problems Problem Noted Date Diagnosed Date [...] as of this encounter (statuses as of 10/12/2023) Resolved Problems Problem Noted Date Diagnosed Date [...] as of this encounter (statuses as of 10/12/2023) Immunizations Name Administration Dates Next Due TD, [...] Telephone Encounter - Juan Johansen MD - 10/12/2023 4:30 PM EDTSigned Prescriptions: Disp Refills Potassium Gluconate 595 (99 K) MG Oral Tab*100 Ta*3 Sig: TAKE 1 TABLET BY MOUTH DAILY IN THE MORNINGAuthorizing Provider: JUAN JOHANSEN * Telephone Encounter - Debora Morales LPN - 10/12/2023 11:47 AM EDTPending Prescriptions: Disp Refills Potassium Gluconate 595 (99 K) MG Oral Tab*100 Ta*0 Sig: TAKE 1 TABLET BY MOUTH DAILY IN THE MORNING * Telephone Encounter - Zain Mann - 10/12/2023 4:37 AM EDTPending Prescriptions: Disp Refills Potassium Gluconate 595 (99 K) MG Oral Tab*100 Ta*0 Sig: TAKE 1TABLET BY MOUTH DAILY IN THE MORNING documented in this encounter Plan of Treatment Upcoming Encounters Date Type Department Care Team (Late st Contact Info) Description 04/17/2024 7:40 AM EST Office Visit [facility] [address] [place] [facility] [place] [address] Juan Johansen MD [address] [place] [facility] [place] [address] Scheduled Procedures Name Priority Associated Diagnoses Date/Ti me COLONOSCOPY FLEXIBLE PROXIMAL DIAGNOSTIC Recall Colon cancer screening Health Maintenance Due Date Last Done Comments Adult Wellness Visit 2014 COVID-19 Vaccine (2022-24 season) 2022 Influenza Vaccine (FLU shot) (#1) 2023 Albumin/Creatinine [...] filedocumented as of this encounter Care Teams Child Nutrition Assistant Relationship Specialty Start Date End Date Juan Johansen MD [address] [place] [address] PCP - General 11/15/99 documented as of this encounter
[2024-03-29 13:35] LABS: Phosphorus 3.6 mg/dl (2.5-4.9)
[2024-03-29] MEDS: POTASSIUM CHLORIDE CRTAB 20 MEQ TABCR PO ONE (13:57)
[2024-03-29] MEDS: IPRATROPIUM BROMIDE NEB SOLN 0.02% 0.5MG/2.5ML VIAL NEB STA (13:58)
[2024-03-29] MEDS: MAGNESIUM SULFATE / D5W 1 GM/100 ML BAG IV STA (13:58)
[2024-03-29] MEDS: LEVALBUTEROL 1.25 MG/3 ML NEB NEB STA (13:58)
[2024-03-29] MEDS: ASPIRIN 81 MG CHEW PO STA (15:17)
[2024-03-29] MEDS: HEPARIN 25000 UNIT/500 ML D5W 25,000 UNITS/500 ML BAG IV SCH (15:18)
[2024-03-29] MEDS: Heparin IV Adult Wt-Based Low-Dose *NO* INITIAL Bolus Protocol IV STA (15:18)
--- NOTE | 2024-03-29 15:27 | Cardiology Consultation ---
Date of Consultation March 29, 2024 Assessment & Plan (1) NSTEMI (non-ST elevated myocardial infarction): (2) Sepsis: (3) Pneumonia: Plan Patient admitted with 2 weeks of worsening SOB cough and weakness. Found to likely have right middle lobe pneumonia with elevated WBC, elevated lactic acid and signs/symptoms consistent wiht sepsis. Blood cultures pending Started on IV antibiotics. Blood tinged sputum. Recommend culture. HS troponin elevated on admission at 4000, increasing to 6500. No chest pain reported Started on IV heparin. Echo results pending. Initial EKG with sinus tach and new RBBB. Repeat EKG with Worsening T wave abnormality in anterior leads. Start ASA, statin. Prior intolerances discussed and he reported mild "myalgias" but this was long ago. BP is borderline low. Would hold home dose amlodipine for now. Consider adding beta refugio for tachycardia Consider nitro oint. Once his respiratory status improves, will likely need further evaluation with cardiac catheterization. Case to be discussed in detail with Dr. Baer. Further recommendations to come. Will follow. I spent a total of 60 minutes on the date of service in preparation, delivery, and documentation of the care provided to this patient, excluding any time spent in the performance of separately billed services. Leslie Bowers PA-C Department of Cardiology, [facility] This chart was completed in part utilizing Speech Voice Recognition Software. Grammatical errors, random word insertions, pronoun errors, and incomplete sentences are an occasional consequence of this system due to software limitations, ambient noise, and hardware issues. Any formal questions or concerns about the content, text, or information contained within the body of this dictation should be directly addressed to the provider for clarification. Supervising Physician Co-Signing Physician Notes Attending attestation: Case reviewed with the advanced practitioner. I have personally performed a history and physical examination on the patient. I have reviewed the advanced practitioner's documentation on the date of service referenced in note, and I agree with, and take responsibility for the plan of care. Subjective: Patient endorses several week history of cough and worsening shortness of breath. Denies any jai chest discomfort. Exam: General appearance: Obese, no acute distress Pulmonary: Mildly decreased breath sounds at the bases bilaterally, mild coarse wheezing with inspiration Cardiovascular: Increased rate, regular, no murmur, 1+ edema Data: EKG tracings performed x 2 reveal sinus rhythm with right bundle branch block which is a chronic finding dating back to 2017. T wave versions noted in the anterior precordial leads suggestive of right bundle branch block versus ischemia. Summary transthoracic echocardiogram performed today 03/29/2024 and interpreted independently: The study is technically difficult and limited due to patient characteristics/poor acoustic windows but adequate for the evaluation of the referral indication. The left ventricle is severely dilated. There is mild concentric left ventricular hypertrophy. There is severe global hypokinesis of the left ventricle. Left ventricular systolic function is severely reduced. Left Ventricular Ejection Fraction = 20-25%. The left atrium is mildly dilated. Mild aortic regurgitation. Aortic stenosis is absent. There is moderate mitral regurgitation. Significant tricuspid regurgitation is absent. Doppler findings do not suggest pulmonary hypertension. Grade I diastolic dysfunction, (abnormal relaxation pattern). There are no prior studies available for direct comparison. Impression/ Plan: NSTEMI Acute heart failure with reduced ejection fraction Chronic right bundle branch block Ascending aortic aneurysm, maximal dimension 4.6 x 4.7 cm Sepsis / pneumonia -Abnormal CT findings in the lung porter with noted segmental consolidative opacities within the medial segment of the right middle lobe with abnormality measuring 7 cm --Agree with unfractioned heparin infusion, aspirin, atorvastatin. -- Discontinue amlodipine in favor of low-dose metoprolol. -- Patient with significant leukocytosis, WBC count 30 K, with neutrophilic predominance, lactic acidosis noted with lactate level of 2.4 on presentation, hyperglycemia, elevated procalcitonin. --Suspect that the left ventricular systolic dysfunction is somewhat of a chronic finding given the degree of LV chamber dilatation. --Patient relatively hypotensive and therefore prior to hospital treatment with lisinopril on hold. I spent a total of 25 minutes coordinating, documenting, and providing care for this patient excluding time spent in the performance of separately billed services or time spent by another provider. History of Present Illness Reason for Consultation: Elevated Troponin; SOB Requesting Physician: Tawanda Yan Attending Physician: Dr. Baer History of Present Illness Patient is a 73 year old male who presented to ER today with complaints of worsening shortness of breath and cough x2 weeks. No fevers reported. Intermittent chills noted. This morning he reports significant weakness and came for evaluation. Upon arrival to ER, EKG demonstrated probable sinus tachycardia with conduction delay consistent with probable RBBB. WBC elevated at 30 Chest xray with cardiomegaly and possible pulm mass vs pneumonia. Chest CTA completed which was negative for PE. Dilated ascending aorta noted at 4.6 cm and right middle lobe opacity noted measuring approx 7 cm HS troponin elevated at 4065 on admission - trending higher to 6576. Patient continues to deny chest pain. Started on IV heparin. Started on IV antibiotics. Blood cultures pending. No prior cardiac history. History includes: 1. Hypertension 2. Dyslipidemia with prior 'statin intolerance" 3. DM 4. Obesity Allergies Allergy/AdvReac Type Severity Reaction Status Date / Time No Known Allergies Allergy Unverified 08/07/20 15:00 Home Medications Medication Instructions Recorded Confirmed Type amlodipine 5 mg tablet 5 mg PO DAILY 03/29/24 03/29/24 History aspirin 81 mg tablet,delayed 81 mg PO DAILY 03/29/24 03/29/24 History release cholecalciferol (vitamin D3) 25 25 mcg PO DAILY 03/29/24 03/29/24 History mcg (1,000 unit) tablet lisinopril 20 1 tab PO DAILY 03/29/24 03/29/24 History mg-hydrochlorothiazide 25 mg tablet metformin 500 mg tablet,extended 1,000 mg PO DAILY 03/29/24 03/29/24 History release 24 hr omega-3 300 mg-dha 120 mg-epa 180 1 cap PO BID 03/29/24 03/29/24 History mg-fish oil 1,000 mg capsule potassium gluconate 595 mg (99 mg) 595 mg PO DAILY 03/29/24 03/29/24 History tablet Patient History Medical History (Updated 03/29/24 @ 16:28 by Radha Arnold MD) Hypertension Surgical History (Updated 08/07/20 @ 15:29 by Kirit Penaloza MD) Status post right knee replacement Family History (Updated 03/29/24 @ 15:00 by Rebecca Krishna PA-C) Father Heart disease Social History Smoking Status: Never smoker Second Hand Exposure: No; Do You Dip or Chew Tobacco: No; Tobacco Cessation Education Requested by Patient: No Hx Alcohol Use: No Hx Substance Use: No Preferred Language: Yi Communication Ability: Effective Septic Tank Cleaner Required: No Beliefs That Will Affect Care: None Current Living Situation: Spouse Other Information That Helps Us Care for You: No Feels Safe at Home: Yes Safety Concerns: Feels Safe At This Time Assistive Devices: None Review of Systems Review of Systems: All systems reviewed & are unremarkable except as noted in HPI & below Physical Exam Constitutional: WD/WN, vitals as above + morbidly obese Neck: + thick neck Respiratory: + labored breathing (mild conversational dyspnea) and + cough Auscultation: + rhonchi and + wheezes Cardiovascular: Rate/Rhythm: regular rhythm and + tachycardic Heart Sounds: no murmur (distant heart sounds - no audible murmur) Extremities: + edema Gastrointestinal (Abdomen): normal bowel sounds, soft, nontender, no hepatosplenomegaly Neurologic: PERRL, EOMI, accommodation nl, no face palsy, no dysarthria Results & Data Vital Signs (Past 12 Hours) Vital Signs Temp Pulse Pulse Resp BP BP Pulse Ox 03/29/24 14:54 108 H 22 105/72 93 03/29/24 13:12 104 H 22 114/89 94 03/29/24 11:46 107 H 20 108/85 94 03/29/24 11:41 03/29/24 10:56 111 H 03/29/24 10:22 36.8 C 115 H 18 176/97 H 92 O2 Del Method 03/29/24 14:54 Room Air 03/29/24 13:12 Room Air 03/29/24 11:46 Room Air 03/29/24 11:41 Room Air 03/29/24 10:56 03/29/24 10:22 Room Air Laboratory Results Cardiac Enzymes 03/29/24 03/29/24 03/29/24 Range/Units 10:44 12:30 Unknown AST 45 H (13-39) U/L Troponin I High Sens 4065.8 H* 6576.3 H* D (0-20) pg/ml B-Natriuretic Peptide 1104 H (0-100) pg/ml Coagulation 03/29/24 Range/Units Unknown B-Natriuretic Peptide 1104 H (0-100) pg/ml CBC 03/29/24 Range/Units 10:44 WBC 30.23 H* (4.8-10.8) K/ul RBC 4.04 L (4.70-6.10) M/uL Hgb 12.3 L (14.0-18.0) g/dl Hct 35.7 L (42.0-52.0) % Plt Count 309 (130-400) K/uL Neut # (Auto) 26.31 H (1.40-6.50) K/uL Lymph # (Auto) 1.00 L (1.20-3.40) K/uL [place] # (Auto) 2.07 H (0.11-0.59) K/uL Eos # (Auto) 0.01 (0.00-0.50) K/uL Baso # (Auto) 0.08 (0.00-0.20) K/uL Comprehensive Metabolic Panel 03/29/24 Range/Units 10:44 Sodium 136 (136-145) mmol/L Potassium 3.6 (3.5-5.1) mmol/L Chloride 96 L (98-107) mmol/L Carbon Dioxide 30 (21-32) mmol/L BUN 26 H (6-23) mg/dl Creatinine 1.40 (0.6-1.4) mg/dl Glucose 225 H (70-99(Fasting)) mg/dl Calcium 9.5 (8.6-10.3) mg/dl AST 45 H (13-39) U/L ALT 19 (7-52) U/L Alkaline Phosphatase 66 (34-104) U/L Total Protein 7.0 (6.0-8.3) gm/dl Albumin 3.8 (3.4-5.0) gm/dl Intake and Output 03/29/24 03/29/24 03/29/24 06:59 14:59 22:59 Intake Total 1150 / 1250 100 / 1250 Balance 1150 / 1250 100 / 1250 Intake: IV 1150 / 1250 100 / 1250 Doxycycline Hyclate 100 mg In 100 / 100 Dextrose 5% Mini-B 100 ml @ 50 mls/hr IV NOW STA Rx#:[id number] Magnesium Sulfate / D5w 1 gm In 100 / 100 100 ml @ 100 mls/hr IV NOW STA Rx#:[id number] Sodium Chloride 0.9% 1,000 ml @ 1000 / 1000 999 mls/hr IV .Q1H1M ONE Rx#: [id number] [id number] SODIUM 2,000 mg In 50 / 50 50 ml @ 100 mls/hr IV NOW STA Rx#:[id number] Other: Weight 154.2 kg Weight Measurement Method Built in Bedscale Patient Weight 03/30/24 06:59 Weight 154.2 kg Diagnostic Findings Telemetry reviewed: Sinus tachycardia with PVCs EKG reviewed from admission: Sinus tachycardia with new RBBB. Repeat EKG reported: NSR with PA T wave abnormality in anterior leads Chest X-Ray 03/29/24 10:28 Cardiac silhouette is enlarged. No pneumothorax. 8 cm opacity in the right cardiophrenic angle is new from prior. No pleural effusion or overt pulmonary edema. Bones appear grossly intact. IMPRESSION: There is a new 8 cm right cardiophrenic angle opacity. Differential considerations include airspace disease, diaphragmatic hernia versus pulmonary mass. Correlation with follow-up chest CT recommended. Chest CTA 03/29/24 11:33 IMPRESSION: 1. Cardiomegaly with fusiform dilation of the ascending thoracic aorta, 4.6 x 4.7 cm. 2. No pulmonary emboli identified. 3. Segmental right middle lobe airspace opacities with subsegmental con solidation of the basilar right lower lobe suggestive of pneumonia. Follow-up imaging after treatment course recommended in order to document complete resolution. 4. Mild mediastinal lymphadenopathy, likely reactive. Medications Administered Current Inpatient Medications Acetaminophen (Acetaminophen 325 Mg Tab) 650 mg PO Q4H PRN PRN Reason: Pain or Fever Stop: 04/28/24 15:29 Amlodipine Besylate (Amlodipine Besylate 5 Mg Tab) 5 mg PO DAILY [facility]YSSIA Stop: 04/29/24 08:59 Aspirin (Aspirin 81 Mg Ectab) 81 mg PO DAILY ALYSSIA Stop: 04/29/24 08:59 Atorvastatin Calcium (Atorvastatin 40 Mg Tab) 40 mg PO QAM [facility]SS[facility] Stop: 04/28/24 14:59 Dextrose (Dextrose 50% 50 Ml Syringe) 25 - 50 ml IV UD PRN; Protocol PRN Reason: Hypoglycemia Protocol Stop: 04/28/24 15:29 Glucagon (Glucagon For Inj 1 Mg Vial) 1 mg SQ UD PRN; Protocol PRN Reason: Hypoglycemia Protocol Stop: 04/28/24 15:29 Glucose (Glucose 40% Gel 15 Gm Tube) 15 - 30 gm PO UD PRN; Protocol PRN Reason: Hypoglycemia Protocol Stop: 04/28/24 15:29 Glucose (Glucose 10 Tab/Tube) 4 - 8 tab PO UD PRN; Protocol PRN Reason: Hypoglycemia Protocol Stop: 04/28/24 15:29 Guaifenesin (Guaifenesin 600 Mg Tabcr) 1,200 mg PO Q12 [facility] Stop: 04/28/24 20:59 Heparin Sodium/Dextrose (Heparin 38488 Unit/500 Ml D5w) 25,000 units in 500 mls @ 20 mls/hr IV .Q24H [facility]; Protocol Stop: 04/28/24 14:14 Last Admin: 03/29/24 15:18 Dose: 1,000 units/hr, 20 mls/hr Promethazine HCl (Phenergan) 6.25 mg in 50.25 mls @ 201 mls/hr IV Q6H PRN PRN Reason: Nausea And Vomiting Stop: 04/28/24 15:29 Magnesium Sulfate/Dextrose (Magnesium Sulfate / D5w) 1 gm in 100 mls @ 50 mls/hr IV Q2H [facility] Stop: 03/29/24 21:29 Ceftriaxone Sodium (Rocephin) 2,000 mg in 50 mls @ 100 mls/hr IV Q24H [facility] Stop: 04/04/24 11:59 Doxycycline Hyclate 100 mg/ (Dextrose) 100 mls @ 50 mls/hr IV Q12 [facility] Stop: 04/03/24 21:59 Sodium Chloride (Nss) 1,000 mls @ 50 mls/hr IV .Q20H [facility] Stop: 03/30/24 11:29 Insulin Aspart (Insulin Aspart Per Unit Charge) 0 units SC ACHS [facility] Stop: 04/28/24 16:29 Levalbuterol HCl (Levalbuterol 1.25 Mg/3 Ml Neb) 1.25 mg NEB Q6R PRN PRN Reason: Shortness Of Breath Or Wheezing Stop: 04/28/24 15:29 Magnesium Oxide (Magnesium Oxide 400 Mg Tab) 400 mg PO BID [facility] Stop: 04/28/24 15:44 Miscellaneous (Carbohydrates For Hypoglycemia ) 15 - 30 gm PO UD PRN PRN Reason: Hypoglycemia Protocol Stop: 04/28/24 15:29 Ondansetron HCl (Ondansetron Inj 2 Mg/Ml 2 Ml Vial) 4 mg IV Q6H PRN PRN Reason: Nausea Stop: 04/28/24 15:29 Polyethylene Glycol (Polyethylene (Miralax) 17 Gm Pack) 17 gm PO DAILY PRN PRN Reason: Constipation Stop: 04/28/24 15:29
--- NOTE | 2024-03-29 15:28 | Electrocardiogram Report ---
Test Reason : Blood Pressure : */* mmHG Vent. Rate : 126 BPM Atrial Rate : 126 BPM P-R Int : 168 ms QRS Dur : 158 ms QT Int : 372 ms P-R-T Axes : * -84 68 degrees QTcB Int : 538 ms Probable Sinus tachycardia with Premature supraventricular complexes and with occasional Premature ve ntricular complexes Left axis deviation Right bundle branch block Abnormal ECG When compared with ECG of 17-Nov-2016 09:07, Premature ventricular complexes are now Present Vent. rate has increased by 50 bpm Right bundle branch block has replaced Non-specific intra-ventricular conduction block Confirmed by Sridhar Covarrubias ([id number]) on 03/29/2024 3:28:03 PM Referred By: REFERRED SELF Confirmed By: Sridhar Covarrubias
[2024-03-29] MEDS ORDERED: CARBOHYDRATES FOR HYPOGLYCEMIA PO PRN (15:30)
[2024-03-29] MEDS ORDERED: ONDANSETRON INJ 2 MG/ML 2 ML VIAL IV PRN (15:30)
[2024-03-29] MEDS ORDERED: PROMETHAZINE 6.25 MG/50.25 ML BAG IV PRN (15:30)
[2024-03-29] MEDS ORDERED: GLUCAGON FOR INJ 1 MG VIAL SQ PRN (15:30)
[2024-03-29] MEDS ORDERED: POLYETHYLENE (MIRALAX) 17 GM PACK PO PRN (15:30)
[2024-03-29] MEDS ORDERED: DEXTROSE 50% 50 ML SYRINGE IV PRN (15:30)
[2024-03-29] MEDS ORDERED: GLUCOSE 10 TAB/TUBE PO PRN (15:30)
[2024-03-29] MEDS ORDERED: GLUCOSE 40% GEL 15 GM TUBE PO PRN (15:30)
[2024-03-29] MEDS: SODIUM CHLORIDE 0.9% 1,000 ML IV SCH (15:46)
[2024-03-29] MEDS: MAGNESIUM OXIDE 400 MG TAB PO SCH (15:47)
[2024-03-29] MEDS: MAGNESIUM SULFATE / D5W 1 GM/100 ML BAG IV SCH (15:47)
[2024-03-29] MEDS: INSULIN ASPART PER UNIT CHARGE SC SCH (16:09)
[2024-03-29] MEDS: ATORVASTATIN 40 MG TAB PO SCH (17:36)
[2024-03-29] MEDS: HYDROcodone/HOMATROPINE SYRUP 5MG/1.5MG 5ML UDP PO SCH (17:40)
[2024-03-29 20:05] LABS: Hematocrit (blood only) 32.2 % (42.0-52.0)
[2024-03-29] MEDS: guaiFENesin 600 MG TABCR PO SCH (22:00)
[2024-03-29] MEDS: DOXYCYCLINE HYCLATE 100 MG in DEXTROSE 5% MINI-B 100 ML IV SCH (22:00)
[2024-03-29 23:46] LABS: ANTI-Xa, UFH(UnfractionatedHep < 0.10 IU/ml (0.3-0.7)
[2024-03-30] MEDS: HEPARIN SOD (PORCINE) 1000 UNIT/ML IV ONE ×3 (00:20→17:39)
[2024-03-30] MEDS: INSULIN ASPART PER UNIT CHARGE SC SCH ×2 (00:41→05:57)
[2024-03-30 04:25] LABS: A calco-baum cmplx NotReported Not Detected (NotDetected); Bact fragilis Not Reported Not Detected (NotDetected); Blood Culture Id Panel See PCR Comment (NotDetected); C auris Not Reported Not Detected (NotDetected); Calbicans Not Reported Not Detected (NotDetected); Candida glabrata Not Reported Not Detected (NotDetected); Candida krusei Not Reported Not Detected (NotDetected); Cneoformans/gatti Not Reported Not Detected (NotDetected); Cparapsilosis Not Reported Not Detected (NotDetected); E cloacae compx Not Reported Not Detected (NotDetected); Efaecalis Not Reported Not Detected (NotDetected); Efaecium Not Reported Not Detected (NotDetected); Enterobacterales Not Reported Not Detected (NotDetected); Escherichia coli Not Reported Not Detected (NotDetected); H influenzae Not Reported Not Detected (NotDetected); K aerogenes Not Reported Not Detected (NotDetected); Koxytoca Not Reported Not Detected (NotDetected); Kpneumoniae grp Not Reported Not Detected (NotDetected); Lmonocyt Not Reported Not Detected (NotDetected); N meningitidis Not Reported Not Detected (NotDetected); P aeruginosa Not Reported Not Detected (NotDetected); Proteus spp Not Reported Not Detected (NotDetected); Salmonella spp Not Reported Not Detected (NotDetected); Staph lugdunensis Not Reported Not Detected (NotDetected); Staph spp. Not Reported Not Detected (NotDetected); Staphaureus Not Reported Not Detected (NotDetected); Staphepi Not Reported Not Detected (NotDetected); Stenmaltophilia Not Reported Not Detected (NotDetected); Strep agal(GrpB) Not Reported Not Detected (NotDetected); Strep pneum Not Reported DETECTED (NotDetected); Strep pyog (GrpA) Not Reported Not Detected (NotDetected); Strep spp Not Reported DETECTED (NotDetected); Streptococcus spp DETECTED (NotDetected)
[2024-03-30 04:29] LABS: Streptococcus pneumoniae DETECTED (NotDetected)
[2024-03-30 07:27] LABS: ANTI-Xa, UFH(UnfractionatedHep 0.13 IU/ml (0.3-0.7)
[2024-03-30 07:29] LABS: Basophils # (auto) 0.04 K/uL (0.00-0.20); Basophils % (auto) 0.2 %; Eosinophils # (auto) 0.04 K/uL (0.00-0.50); Eosinophils % (auto) 0.2 %; Hematocrit (blood only) 32.5 % (42.0-52.0); Hemoglobin 10.9 g/dl (14.0-18.0); Immature Granulocytes # (auto) 0.16 K/uL (0.01-0.20); Immature Granulocytes % (auto) 0.8 %; Lymphocytes # (auto) 2.21 K/uL (1.20-3.40); Lymphocytes % (auto) 11.2 %; Mean Corpuscular Hemoglobin 30.6 pg (25.0-34.0); Mean Corpuscular Hgb Conc 33.5 g/dL (32.0-36.0); Mean Corpuscular Volume 91.3 fL (80.0-100.0); Mean Platelet Volume 10.5 fL (9.4-12.4); Monocytes # (auto) 0.92 K/uL (0.11-0.59); Monocytes % (auto) 4.6 %; Neutrophils # (auto) 16.43 K/uL (1.40-6.50); Platelet Count 254 K/uL (130-400); RDW Coefficient of Variation 13.6 % (11.5-14.5); RDW Standard Deviation 45.9 fL (36.4-46.3); Red Blood Count 3.56 M/uL (4.70-6.10)
[2024-03-30 07:43] LABS: BUN Creatinine Ratio 23.1 (10-20); Calcium 8.7 mg/dl (8.6-10.3); Chol HDL Ratio 4.2 (0-5); Creatinine Clr Calc Pharmacy 70.4 ml/min; Potassium 3.7 mmol/L (3.5-5.1)
[2024-03-30 08:20] LABS: Appearance Urine Clear (Clear); Bacteria Urine Automated None Seen (None Seen); Bilirubin Urine Negative (Negative); Blood Urine Negative (Negative); Cast Urine Automated >20 /lpf (0-2); Color Urine Dark Yellow; Epithelial Cell Urine Auto 0-2 /hpf (0-2); Glucose Urine UA Negative (Negative); Granular Casts Urine Present /lpf (None Prsent); Ketones Urine Trace (Negative); Leukocyte Esterase Urine Negative (Negative); Nitrite Urine Negative (Negative); Protein Urine Trace (Negative); RBC Urine Automated 0-2 /hpf (0-2); Specific Gravity Urine > 1.045 (1.000-1.030); Urobilinogen Urine Negative (Negative); WBC Urine Automated 0-5 /hpf (0-5)
[2024-03-30] MEDS ORDERED: amLODIPine BESYLATE 5 MG TAB PO SCH (09:00)
[2024-03-30] MEDS: METOPROLOL SUCC 25MG EXT REL TAB PO SCH (09:05)
[2024-03-30] MEDS: ASPIRIN 81 MG ECTAB PO SCH (09:06)
[2024-03-30 12:00] LABS: Estimated Average Glucose 174 mg/dl; Hemoglobin A1C 7.7 % (4.5-5.6)
[2024-03-30] MEDS: cefTRIAXone SODIUM 2,000 MG/50 ML BAG IV SCH (12:04)
--- NOTE | 2024-03-30 12:30 | Electrocardiogram Report ---
Test Reason : Blood Pressure : */* mmHG Vent. Rate : 85 BPM Atrial Rate : 85 BPM P-R Int : 154 ms QRS Dur : 166 ms QT Int : 484 ms P-R-T Axes : 25 -78 102 degrees QTcB Int : 575 ms Sinus rhythm with Blocked Premature atrial complexes Left axis deviation Right bundle branch block Abnormal ECG When compared with ECG of 29-Mar-2024 10:29, Premature ventricular complexes are no longer Present T wave inversion now evident in Anterior leads Confirmed by Sridhar Covarrubias ([id number]) on 03/30/2024 12:29:40 PM Referred By: REFERRED SELF Confirmed By: Sridhar Covarrubias
--- NOTE | 2024-03-30 12:40 | Electrocardiogram Report ---
Test Reason : Blood Pressure : */* mmHG Vent. Rate : 73 BPM Atrial Rate : 73 BPM P-R Int : 164 ms QRS Dur : 172 ms QT Int : 530 ms P-R-T Axes : 46 -77 108 degrees QTcB Int : 583 ms Sinus rhythm with marked sinus arrhythmia Left axis deviation Right bundle branch block T wave abnormality, consider lateral ischemia Abnormal ECG When compared with ECG of 29-Mar-2024 15:24, (unconfirmed) Premature atrial complexes are no longer Present Confirmed by Sridhar Covarrubias ([id number]) on 03/30/2024 12:39:52 PM Referred By: REFERRED SELF Confirmed By: Sridhar Covarrubias
--- NOTE | 2024-03-30 13:06 | Cardiology Progress Note ---
Date of Service March 30, 2024 Assessment & Plan (1) NSTEMI (non-ST elevated myocardial infarction): (2) Sepsis: (3) Pneumonia: (4) Severe left ventricular systolic dysfunction (LVSD): Plan 03/29/24: Patient admitted with 2 weeks of worsening SOB cough and weakness. Found to likely have right middle lobe pneumonia with elevated WBC, elevated lactic acid and signs/symptoms consistent wiht sepsis. Blood cultures pending Started on IV antibiotics. Blood tinged sputum. Recommend culture. HS troponin elevated on admission at 4000, increasing to 6500. No chest pain reported Started on IV heparin. Echo results pending. Initial EKG with sinus tach and new RBBB. Repeat EKG with Worsening T wave abnormality in anterior leads. Start ASA, statin. Prior intolerances discussed and he reported mild "myalgias" but this was long ago. BP is borderline low. Would hold home dose amlodipine for now. Consider adding beta refugio for tachycardia Consider nitro oint. Once his respiratory status improves, will likely need further evaluation with cardiac catheterization. 03/30/24: + blood culture x1 with strep pneumoniae reported overnight. Other blood culture negative. WBC trending lower to 19. Continue IV antibiotics with ceftriaxone and doxycline. Echo yesterday with severely dilated LV, severe global hypokinesis at 20-25% Elevated troponin since admission [id number] [phone] [id number] [phone] [id number]. No angina reported currently. No prior studies for comparison. Continue IV heparin Continue ASA 81 mg daily Statin added with atorvastatin 40 mg daily Started metoprolol 12.5 mg daily BP has been borderline low. Will avoid JACQUI/ARB Monitor fluid balance. He does have mild LE edema. If worsening fluid status, low threshold to start IV diuretics. Once his sepsis improves, likely will need diagnostic cardiac catheterization. Findings discussed in detail with patient and family at bedside this morning. Will follow Case discussed with Dr. Baer I spent a total of 30 minutes on the date of service in preparation, delivery, and documentation of the care provided to this patient, excluding any time spent in the performance of separately billed services. Leslie Bowers PA-C Department of Cardiology, [facility] This chart was completed in part utilizing Speech Voice Recognition Software. Grammatical errors, random word insertions, pronoun errors, and incomplete sentences are an occasional consequence of this system due to software limitations, ambient noise, and hardware issues. Any formal questions or concerns about the content, text, or information contained within the body of this dictation should be directly addressed to the provider for clarification. Admission and Anticipated Discharge Date Admission Date: March 29, 2024 Supervising Physician Co-Signing Physician Notes Attending attestation: Case reviewed with the advanced practitioner. I have personally performed a history and physical examination on the patient. I have reviewed the advanced practitioner's documentation on the date of service referenced in note, and I agree with, and take responsibility for the plan of care. Subjective: Patient denies any chest discomfort. Notes symptoms of cough and shortness of breath subjectively improved. He actually states he feels well enough like he would like to go home, but he understands the significance of his hospital issues and notes that it is in his best interest to stay in the hospital. Exam: Cardiovascular: Regular rhythm, no murmurs, no edema Data: Gram-positive cocci in chains on 02/15 blood cultures obtained 03/29/2024 with PCR consistent with Streptococcus EKG performed 03/30/2024 at 5:48 AM reveals sinus rhythm at 83 bpm with right bundle branch block age-indeterminate lateral infarct cannot be excluded. Impression/ Plan: Patient presents with streptococcal pneumonia with noted bacteremia. Severe left ventricular chamber dilatation on echocardiogram suggests acute recognition of chronic cardiomyopathy, underlying coronary heart disease likely as his father had a history of bypass surgery at a similar age. -Guideline directed medical therapy for underlying left ventricular systolic dysfunction limited due to relative hypotension at present. Patient started on low-dose metoprolol and this will be titrated. Amlodipine was discontinued. Continue aspirin and atorvastatin No indication for emergent cardiac catheterization as patient has ST segment elevation is absent on EKG, patient has no angina and is hemodynamically stable.Further evaluation however anticipated this hospital stay. Questions answered to the patient, son, and spouse's satisfaction. I spent a total of 20 minutes coordinating, documenting, and providing care for this patient excluding time spent in the performance of separately billed services or time spent by another provider. Ranjan Baer, DO Subjective Patient resting in chair comfortably. Family at bedside. He reports feeling "good" this morning. He reports ongoing cough but feels his SOB has improved. Still with blood tinged sputum. No chest pain reported. No dizziness. Review of Systems Review of Systems: All systems reviewed & are unremarkable except as noted in HPI & below Physical Exam Constitutional: WD/WN, vitals as above + morbidly obese Neck: + thick neck Respiratory: + cough; no labored breathing Auscult ation: + rhonchi and + wheezes Cardiovascular: Rate/Rhythm: regular rhythm and + tachycardic Heart Sounds: no murmur (distant heart sounds - no audible murmur) Extremities: + edema Gastrointestinal (Abdomen): normal bowel sounds, soft, nontender, no hepatosplenomegaly Neurologic: PERRL, EOMI, accommodation nl, no face palsy, no dysarthria Results & Data Vital Signs (Past 12 Hours) Vital Signs Temp Pulse Resp BP Pulse Ox O2 Del Method 03/30/24 11:48 36.5 C 100 H 20 111/73 94 Room Air 03/30/24 09:15 Room Air 03/30/24 03:39 36.6 C 88 20 100/65 93 Room Air Laboratory Results Cardiac Enzymes 03/29/24 03/29/24 03/29/24 Range/Units 12:30 19:55 Unknown Troponin I High Sens 6576.3 H* D 08847.9 H* D (0-20) pg/ml B-Natriuretic Peptide 1104 H (0-100) pg/ml 03/30/24 Range/Units 02:02 Troponin I High Sens 85418.7 H* (0-20) pg/ml B-Natriuretic Peptide (0-100) pg/ml Coagulation 03/29/24 Range/Units Unknown B-Natriuretic Peptide 1104 H (0-100) pg/ml Lipids 03/30/24 Range/Units 06:37 Triglycerides 164 H (0-150) mg/dl Cholesterol 135 (0-200) mg/dl HDL Cholesterol 32 mg/dl Cholesterol/HDL Ratio 4.2 (0-5) CBC 03/29/24 03/30/24 Range/Units 19:55 06:37 WBC 19.80 H D (4.8-10.8) K/ul RBC 3.56 L (4.70-6.10) M/uL Hgb 11.0 L 10.9 L (14.0-18.0) g/dl Hct 32.2 L 32.5 L (42.0-52.0) % Plt Count 254 (130-400) K/uL Neut # (Auto) 16.43 H (1.40-6.50) K/uL Lymph # (Auto) 2.21 (1.20-3.40) K/uL Sac # (Auto) 0.92 H (0.11-0.59) K/uL Eos # (Auto) 0.04 (0.00-0.50) K/uL Baso # (Auto) 0.04 (0.00-0.20) K/uL Comprehensive Metabolic Panel 03/30/24 Range/Units 06:37 Sodium 134 L (136-145) mmol/L Potassium 3.7 (3.5-5.1) mmol/L Chloride 99 (98-107) mmol/L Carbon Dioxide 25 (21-32) mmol/L BUN 30 H (6-23) mg/dl Creatinine 1.30 (0.6-1.4) mg/dl Glucose 176 H (70-99(Fasting)) mg/dl Calcium 8.7 (8.6-10.3) mg/dl Intake and Output 03/29/24 03/30/24 03/30/24 22:59 06:59 14:59 Intake Total 400.834 / 2025.167 474.333 / 2025.167 1408.967 / 1408.967 Output Total 350 / 350 Balance 400.834 / 1675.167 124.333 / 9897.377 8915.967 / 1408.967 Intake: IV 400.834 / 1825.167 274.333 / 7551.301 7725.967 / 1408.967 Doxycycline Hyclate 100 mg In 6.667 / 100.000 93.333 / 100.000 100 / 100 Dextrose 5% Mini-B 100 ml @ 50 mls/hr IV Q12 [facility] Rx#:[id number] Heparin 38994 Unit/500 ml D5w 181 / 181 308.967 / 308.967 25,000 units In 500 ml @ 1,300 UNITS/HR 26 mls/hr IV .[id number] [facility] Rx#:[id number] Magnesium Sulfate / D5w 1 gm In 394.167 / 394.167 100 ml @ 50 mls/hr IV Q2H [facility] Rx#:[id number] Sodium Chloride 0.9% 1,000 ml @ 1000 / 1000 50 mls/hr IV .Q20H [facility] Rx#: [id number] Oral 200 / 200 Output: Urine 350 / 350 Other: Other Intake Source npo Weight 154.2 kg 154.2 kg Weight Measurement Method Built in [facility] Diagnostic Findings Telemetry reviewed: NSR with occ PAC, PVC; No sustained arrhythmias. HR ranging 90-100 bmp Echo reviewed from 03/29/24: Technically limited study LV is severely dilated Severe global hypokinesis LVEF 20-25% Mild AI Moderate MR No pulm hypertension Grade I diastolic dysfunction Medications Administered Current Inpatient Medications Acetaminophen (Acetaminophen 325 Mg Tab) 650 mg PO Q4H PRN PRN Reason: Pain or Fever Stop: 04/28/24 15:29 Aspirin (Aspirin 81 Mg Ectab) 81 mg PO DAILY [facility] Stop: 04/29/24 08:59 Last Admin: 03/30/24 09:06 Dose: 81 mg Atorvastatin Calcium (Atorvastatin 40 Mg Tab) 40 mg PO QAM [facility] Stop: 04/28/24 14:59 Last Admin: 03/30/24 09:05 Dose: 40 mg Dextrose (Dextrose 50% 50 Ml Syringe) 25 - 50 ml IV UD PRN; Protocol PRN Reason: Hypoglycemia Protocol Stop: 04/28/24 15:29 Glucagon (Glucagon For Inj 1 Mg Vial) 1 mg SQ UD PRN; Protocol PRN Reason: Hypoglycemia Protocol Stop: 04/28/24 15:29 Glucose (Glucose 40% Gel 15 Gm Tube) 15 - 30 gm PO UD PRN; Protocol PRN Reason: Hypoglycemia Protocol Stop: 04/28/24 15:29 Glucose (Glucose 10 Tab/Tube) 4 - 8 tab PO UD PRN; Protocol PRN Reason: Hypoglycemia Protocol Stop: 04/28/24 15:29 Guaifenesin (Guaifenesin 600 Mg Tabcr) 1,200 mg PO Q12 [facility] Stop: 04/28/24 20:59 Last Admin: 03/30/24 09:07 Dose: 1,200 mg Hydrocodone Bit/Homatropine Methylb (Hydrocodone/Homatropine Syrup 5mg/1.5mg 5ml Udp) 5 ml PO Q6H [facility] Stop: 04/02/24 15:59 Last Admin: 03/30/24 12:04 Dose: 5 ml Heparin Sodium/Dextrose (Heparin 11062 Unit/500 Ml D5w) 25,000 units in 500 mls @ 30 mls/hr IV .[id number] [facility]; Protocol Stop: 04/28/24 14:14 Last Admin: 03/30/24 12:14 Dose: 1,500 units/hr, 30 mls/hr Promethazine HCl (Phenergan) 6.25 mg in 50.25 mls @ 201 mls/hr IV Q6H PRN PRN Reason: Nausea And Vomiting Stop: 04/28/24 15:29 Ceftriaxone Sodium (Rocephin) 2,000 mg in 50 mls @ 100 mls/hr IV Q24H [facility] Stop: 04/04/24 11:59 Last Admin: 03/30/24 12:04 Dose: 100 mls/hr Doxycycline Hyclate 100 mg/ (Dextrose) 100 mls @ 50 mls/hr IV Q12 [facility] Stop: 04/03/24 21:59 Last Infusion: 03/30/24 12:01 Dose: Infused Insulin Aspart (Insulin Aspart Per Unit Charge) 0 units SC Q6 [facility] Stop: 04/29/24 05:59 Last Admin: 03/30/24 12:14 Dose: 10 units Levalbuterol HCl (Levalbuterol 1.25 Mg/3 Ml Neb) 1.25 mg NEB Q6R PRN PRN Reason: Shortness Of Breath Or Wheezing Stop: 04/28/24 15:29 Magnesium Oxide (Magnesium Oxide 400 Mg Tab) 400 mg PO BID [facility] Stop: 04/28/24 15:44 Last Admin: 03/30/24 09:06 Dose: 400 mg Metoprolol Succinate (Metoprolol Succ 25mg Ext Rel Tab) 12.5 mg PO QAM [facility] Stop: 04/29/24 08:59 Last Admin: 03/30/24 09:05 Dose: 12.5 mg Miscellaneous (Carbohydrates For Hypoglycemia ) 15 - 30 gm PO UD PRN PRN Reason: Hypoglycemia Protocol Stop: 04/28/24 15:29 Ondansetron HCl (Ondansetron Inj 2 Mg/Ml 2 Ml Vial) 4 mg IV Q6H PRN PRN Reason: Nausea Stop: 04/28/24 15:29 Polyethylene Glycol (Polyethylene (Miralax) 17 Gm Pack) 17 gm PO DAILY PRN PRN Reason: Constipation Stop: 04/28/24 15:29
--- NOTE | 2024-03-30 13:16 | Electrocardiogram Report ---
Test Reason : Blood Pressure : */* mmHG Vent. Rate : 83 BPM Atrial Rate : 83 BPM P-R Int : 158 ms QRS Dur : 170 ms QT Int : 476 ms P-R-T Axes : * 260 76 degrees QTcB Int : 559 ms Normal sinus rhythm Right bundle branch block Lateral infarct , age undetermined Abnormal ECG When compared with ECG of 29-Mar-2024 21:14, (unconfirmed) Lateral infarct is now Present No significant change was found Confirmed by Sridhar Covarrubias ([id number]) on 03/30/2024 1:15:52 PM Referred By: REFERRED SELF Confirmed By: Sridhar Covarrubias
--- NOTE | 2024-03-30 17:02 | Hospitalist Progress Note ---
Date of Service March 30, 2024 Assessment & Plan (1) Pneumonia: (2) Sepsis: Plan: Patient is 73-year-old male with PMH DM II, HTN, dyslipidemia, RBBB, morbid obesity presented to ER with c/o cough and SOB x 3 weeks. Patient reports started with cough and shortness of breath 3 weeks ago -In ER afebrile, P: 115, R: 18, BP 176/97, 92% on room air -WBC: 30. Lactate: 2.8. Negative biofire respiratory panel -CXR: There is a new 8 cm right cardiophrenic angle opacity. Differential considerations include airspace disease, diaphragmatic hernia versus pulmonary mass. -CTA chest: Cardiomegaly with fusiform dilation of the ascending thoracic aorta, 4.6 x 4.7 cm. No pulmonary emboli identified. Segmental right middle lobe airspace opacities with subsegmental consolidation of the basilar right lower lobe suggestive of pneumonia. Follow-up imaging after treatment course recommended in order to document complete resolution. Mild mediastinal lymphadenopathy, likely reactive. -In ER given 1L NSS, Rocephin, doxycycline -blood cultures show strep Plan: -Gentle IVF at this time given improving tachycardia, SBP's in the 100s, and concern for low EF given NSTEMI presentation -f/u blood cultures -continue Rocephin, doxycycline -Mucinex -Incentive spirometry -Xopenex nebs (3) NSTEMI (non-ST elevated myocardial infarction): Plan: -appreciate cardiology consult -GDMT limited by relative hypotension -continue beta refugio, uptitrate as able -likely cardiac cath this admission (4) Hypomagnesemia: Plan: -improved today (5) Diabetes mellitus, type II: Plan: -A1c: 7.1 on 09/20/2023 -Random glucose: 225 -Hold home metformin -NovoLog sliding scale per protocol (6) LILIAN (acute kidney injury): Plan: -Cr: 1.4. Baseline Cr: 0.99 on 10/09/2019 -Closely monitor volume status (7) Hypertension: Plan: -Systolic blood pressures low 100s in ER (8) HLD (hyperlipidemia): Plan: -Lipid panel in am Plan Feeding/fluids: heart healthy Analgesia: tylenol Sedation: na Thromboprophylaxis: on therapeutic heparin Head up position: na Ulcer prophylaxis: na Glycemic control: insulin Spontaneous breathing trial: na Bowel care: miralax prn Indwelling catheter removal: na Deescalation of antibiotics: ceftriaxone/doxy x7 days I spent a total of 55 minutes in direct patient care, including [id number] time with the patient and/or family, reviewing medical records, ordering and reviewing diagnostic tests, and coordinating care with other healthcare providers. This time includes: history taking, physical examination, medical decision making, counseling, ECG interpretation, imaging interpretation, lab interpretation, orders, and education, excluding time spent in the performance of separately billed services. Admission and Anticipated Discharge Date Admission Date: March 29, 2024 Subjective Patient seen and examined at bedside. Accompanied by and son. Patient doing well today. Discussed strep CAP and pathology of heart at length. Discussed treating CAP before consideration of cardiac cath in the future. He was appreciative of the update and agreeable to the plan. Review of Systems Review of Systems: CONSTITUTIONAL: Patient denies fevers, chills, sweats and weight changes. EYES: Patient denies any visual symptoms. EARS, NOSE, AND THROAT: No difficulties with hearing. No symptoms of rhinitis or sore throat. CARDIOVASCULAR: Patient denies chest pains, palpitations, orthopnea and paroxysmal nocturnal dyspnea. RESPIRATORY: SOB, cough GI: No nausea, vomiting, diarrhea, constipation, abdominal pain, hematochezia or melena. : No urinary hesitancy or dribbling. No nocturia or urinary frequency. No abnormal urethral discharge. MUSCULOSKELETAL: No myalgias or arthralgias. NEUROLOGIC: No chronic headaches, no seizures. Patient denies numbness, tingling or weakness. PSYCHIATRIC: Patient denies problems with mood disturbance. No problems with anxiety. ENDOCRINE: No excessive urination or excessive thirst. DERMATOLOGIC: Patient denies any rashes or skin changes. Physical Exam Physical Exam: Gen: A&O 3 NAD HEENT: NCAT, EOMI, not icteric. External ears normal. No rhinorrhea. Moist mucous membranes. Neck: Supple, full range of motion, no observable masses, No meningeal sign. Lungs: rhonchi in bilateral lower lobes CV: tachycardic, regular rhythm Abdomen: Soft, nondistended, No rebound tenderness. MSK: No joint swelling, no redness. Skin: No rashes, petechiae, lesions. Normal color per patient. Neuro: Normal Gait, Grossly intact. Psych: Appropriate for situation. Results & Data Results & Data Vital Signs (Past 12 Hours) Vital Signs Temp Pulse Resp BP Pulse Ox O2 Del Method 03/30/24 16:16 37.1 C 99 H 21 129/67 92 Room Air 03/30/24 11:48 36.5 C 100 H 20 111/73 94 Room Air 03/30/24 09:15 Room Air Laboratory Results -personally reviewed, elevated leukocytosis and blood cultures consistent with strep pneumonia, EF of 20-25% on echo with diastolic dysfunction, elevated troponin likely in setting of known cardiac pathology and sepsis Medications Administered Aspirin (Aspirin 81 Mg Ectab) 81 mg PO DAILY [facility] Stop: 04/29/24 08:59 Last Admin: 03/30/24 09:06 Dose: 81 mg Documented By: ILA Atorvastatin Calcium (Atorvastatin 40 Mg Tab) 40 mg PO QAM [facility] Stop: 04/28/24 14:59 Last Admin: 03/30/24 09:05 Dose: 40 mg Documented By: Admin: 03/29/24 17:36 Dose: 40 mg Documented By: ILA Guaifenesin (Guaifenesin 600 Mg Tabcr) 1,200 mg PO Q12 [facility] Stop: 04/28/24 20:59 Last Admin: 03/30/24 09:07 Dose: 1,200 mg Documented By: Admin: 03/29/24 22:00 Dose: 1,200 mg Documented By: NOMI Hydrocodone Bit/Homatropine Methylb (Hydrocodone/Homatropine Syrup 5mg/1.5mg 5ml Udp) 5 ml PO Q6H [facility] Stop: 04/02/24 15:59 Last Admin: 03/30/24 16:32 Dose: 5 ml Documented By: Admin: 03/30/24 12:04 Dose: 5 ml Documented By: Admin: 03/30/24 04:14 Dose: 5 ml Documented By: Admin: 03/29/24 22:00 Dose: 5 ml Documented By: Admin: 03/29/24 17:40 Dose: 5 ml Documented By: ILA Heparin Sodium/Dextrose (Heparin 90269 Unit/500 Ml D5w) 25,000 units in 500 mls @ 34 mls/hr IV .[id number] [facility]; Protocol Stop: 04/28/24 14:14 Last Titration: 03/30/24 16:37 Dose: 1,700 units/hr, 34 mls/hr Documented By: ILA Co-signed By: ZENIA Admin: 03/30/24 14:39 Dose: 1,500 units/hr, 30 mls/hr Documented By: ILA Co-signed By: CONSUELO Titration: 03/30/24 14:39 Dose: Infused Documented By: ILA Co-signed By: CONSUELO Admin: 03/30/24 12:14 Dose: 1,500 units/hr, 30 mls/hr Documented By: ILA Co-signed By: DLR Titration: 03/30/24 12:14 Dose: Infused Documented By: ILA Co-signed By: ZENIA Titration: 03/30/24 00:21 Dose: 1,300 units/hr, 26 mls/hr Documented By: NOMI Co-signed By: CATHY Admin: 03/29/24 15:18 Dose: 1,000 units/hr, 20 mls/hr Documented By: CHERYL Co-signed By: DIPAK Ceftriaxone Sodium (Rocephin) 2,000 mg in 50 mls @ 100 mls/hr IV Q24H [facility] Stop: 04/04/24 11:59 Last Infusion: 03/30/24 14:39 Dose: Infused Documented By: Admin: 03/30/24 12:04 Dose: 100 mls/hr Documented By: ILA Doxycycline Hyclate 100 mg/ (Dextrose) 100 mls @ 50 mls/hr IV Q12 [facility] Stop: 04/03/24 21:59 Last Infusion: 03/30/24 12:01 Dose: Infused Documented By: Admin: 03/30/24 09:08 Dose: 50 mls/hr Documented By: Infusion: 03/30/24 00:41 Dose: Infused Documented By: Infusion: 03/29/24 22:28 Dose: 50 mls/hr Documented By: Infusion: 03/29/24 22:08 Dose: 0 mls/hr Documented By: Admin: 03/29/24 22:00 Dose: 50 mls/hr Documented By: NOMI Insulin Aspart (Insulin Aspart Per Unit Charge) 0 units SC Q6 [facility] Stop: 04/29/24 05:59 Last Admin: 03/30/24 12:14 Dose: 10 units Documented By: ILA Co-signed By: DLR Admin: 03/30/24 05:57 Dose: 1 units Documented By: NOMI Co-signed By: RANDA Magnesium Oxide (Magnesium Oxide 400 Mg Tab) 400 mg PO BID [facility] Stop: 04/28/24 15:44 Last Admin: 03/30/24 09:06 Dose: 400 mg Documented By: Admin: 03/29/24 22:00 Dose: 400 mg Documented By: Admin: 03/29/24 15:47 Dose: 400 mg Documented By: CHERYL Metoprolol Succinate (Metoprolol Succ 25mg Ext Rel Tab) 12.5 mg PO QAM [facility] Stop: 04/29/24 08:59 Last Admin: 03/30/24 09:05 Dose: 12.5 mg Documented By: ILA
[2024-03-31] MEDS: HEPARIN SOD (PORCINE) 1000 UNIT/ML IV ONE ×2 (00:41→17:11)
[2024-03-31 06:46] LABS: Hematocrit (blood only) 33.2 % (42.0-52.0); Hemoglobin 11.1 g/dl (14.0-18.0); Mean Corpuscular Hemoglobin 30.5 pg (25.0-34.0); Mean Corpuscular Hgb Conc 33.4 g/dL (32.0-36.0); Mean Corpuscular Volume 91.2 fL (80.0-100.0); Mean Platelet Volume 10.4 fL (9.4-12.4); Platelet Count 238 K/uL (130-400); RDW Coefficient of Variation 13.5 % (11.5-14.5); RDW Standard Deviation 44.9 fL (36.4-46.3); Red Blood Count 3.64 M/uL (4.70-6.10); White Blood Count 13.65 K/ul (4.8-10.8)
[2024-03-31 07:10] LABS: Calcium 8.6 mg/dl (8.6-10.3); Creatinine Clr Calc Pharmacy 73.1 ml/min; Potassium 3.7 mmol/L (3.5-5.1)
[2024-03-31 07:27] LABS: ANTI-Xa, UFH(UnfractionatedHep 0.18 IU/ml (0.3-0.7)
[2024-03-31] MEDS ORDERED: HEPARIN SOD (PORCINE) 1000 UNIT/ML IV ONE (07:48)
[2024-03-31] MEDS: HEPARIN IV BOLUS 4,000 UNITS in SYRINGE 0 ML IV ONE (08:33)
[2024-03-31] MEDS: LEVALBUTEROL 1.25 MG/3 ML NEB NEB PRN (08:38)
--- NOTE | 2024-03-31 08:48 | Cardiology Progress Note ---
Date of Service March 31, 2024 Assessment & Plan (1) NSTEMI (non-ST elevated myocardial infarction): (2) Sepsis: (3) Pneumonia: (4) Severe left ventricular systolic dysfunction (LVSD): (5) Acute on chronic heart failure with reduced ejection fraction and diastolic dysfunction: Plan 03/29/24: Patient admitted with 2 weeks of worsening SOB cough and weakness. Found to likely have right middle lobe pneumonia with elevated WBC, elevated lactic acid and signs/symptoms consistent wiht sepsis. Blood cultures pending Started on IV antibiotics. Blood tinged sputum. Recommend culture. HS troponin elevated on admission at 4000, increasing to 6500. No chest pain reported Started on IV heparin. Echo results pending. Initial EKG with sinus tach and new RBBB. Repeat EKG with Worsening T wave abnormality in anterior leads. Start ASA, statin. Prior intolerances discussed and he reported mild "myalgias" but this was long ago. BP is borderline low. Would hold home dose amlodipine for now. Consider adding beta refugio for tachycardia Consider nitro oint. Once his respiratory status improves, will likely need further evaluation with cardiac catheterization. 03/30/24: + blood culture x1 with strep pneumoniae reported overnight. Other blood culture negative. WBC trending lower to 19. Continue IV antibiotics with ceftriaxone and doxycline. Echo yesterday with severely dilated LV, severe global hypokinesis at 20-25% Elevated troponin since admission 8721 - 3095- 13392 - 13864. No angina reported currently. No prior studies for comparison. Continue IV heparin Continue ASA 81 mg daily Statin added with atorvastatin 40 mg daily Started metoprolol 12.5 mg daily BP has been borderline low. Will avoid JACQUI/ARB Monitor fluid balance. He does have mild LE edema. If worsening fluid status, low threshold to start IV diuretics. Once his sepsis improves, likely will need diagnostic cardiac catheterization. Findings discussed in detail with patient and family at bedside this morning. Will follow Case discussed with Dr. Baer I spent a total of 30 minutes on the date of service in preparation, delivery, and documentation of the care provided to this patient, excluding any time spent in the performance of separately billed services. Leslie Bowers PA-C Department of Cardiology, [facility] This chart was completed in part utilizing Speech Voice Recognition Software. Grammatical errors, random word insertions, pronoun errors, and incomplete sentences are an occasional consequence of this system due to software limitations, ambient noise, and hardware issues. Any formal questions or concerns about the content, text, or information contained within the body of this dictation should be directly addressed to the provider for clarification. 03/31/2024: -Patient in acute respiratory distress upon arrival this morning. Chest xray obtained at bedside showing evidence of superimposed HF in the setting of known pneumonia/sepsis -Patient received a total of 60mg IV Furosemide along with polanco catheter insertion. Immediately diuresed 2300ml urine. -Increased HR and ectopy on telemetry. Increase Toprol xl to 25mg PO Daily -Strict I&O with daily weights (standing scale) -Close monitoring of renal function and serum electrolytes with a goal serum K> 4.0 and serum mag > 2.0 -Continue IV heparin gtt -Continue PO magnesium supplementation -Continue GDMT with ASA, Atorvastatin, Toprol xl (increased dose). Continue to monitor BP response, right now patient needs diuresis, but may be considered for JACQUI-I or ARB in future if BP remains elevated. -Continued management of acute infectious process by primary team -EKG with no acute ST-T wave changes. -Will likely need a diagnostic cardiac cath at some juncture; however, diuresis is most crucial at this time. Case has been discussed with Dr. Baer. Further recommendations regarding plan of care as per his assessment. I spent a total of 30 minutes on the date of service in preparation, delivery, documentation of the care provided to the patient excluding any time spent in the performance of separately billed services. ANH Martin [facility] Admission and Anticipated Discharge Date Admission Date: March 29, 2024 Supervising Physician Co-Signing Physician Notes Attending attestation: Case reviewed with the advanced practitioner. I have personally performed a history and physical examination on the patient. I have reviewed the advanced practitioner's documentation on the date of service referenced in note, and I agree with, and take responsibility for the plan of care. Refer to separate supplementary noted from today, 03/31/24, 9:39 am Ranjan Baer DO Subjective 03/31/2024: Patient seen and examined in follow up today. Feeling poorly. Hospitalist staff summoned cardiology for patient complaints of acute substernal chest discomfort and worsening shortness of breath. Upon arrival, patient is sitting up in chair in tripod position with audible wheezing. Nursing staff was administering AM meds as well as a one time dose of Furosemide 20mg IV push. Requested and ordered an addition 40mg IV push to be given immediately making a total of 60mg. Patient currently on nasal cannula at 3 lpm with satus 92%. Radiology at bedside to obtain stat chest xray EKG obtained which shows no evidence of ST elevation or other acute changes. Labs, vitals, diagnostics, telemetry and documentation reviewed. Telemetry reviewed showing SR/ST rates 100-105bpm. 0655 SVT 6 beats, 0710- 8 second run of PAT Review of Systems Review of Systems: All systems reviewed & are unremarkable except as noted in HPI & below Physical Exam Constitutional: + acute distress, + ill appearing and + morbidly obese Neck: normal visual inspection and trachea midline Respiratory: + respiratory distress, + labored breath ing, + tachypneic, + audible wheezes and + tripod positioning Auscultation: + crackles, + rhonchi and + wheezes Cardiovascular: Rate/Rhythm: + tachycardic Heart Sounds: normal S1 and normal S2; no murmur Vessels: + JVD and dorsalis pedis pulses present Extremities: + edema (trace BLE) Skin: no rashes, warm and dry Psychiatric: A+Ox3, euthymic affect Results & Data Vital Signs (Past 12 Hours) Vital Signs Temp Pulse Pulse Resp BP Pulse Ox O2 Del Method 03/31/24 08:39 107 H 20 92 Nasal Cannula 03/31/24 03:37 36.7 C 84 18 115/58 L 92 Room Air 03/30/24 23:17 36.8 C 94 H 20 112/69 91 Room Air 03/30/24 22:05 91 H O2 Flow Rate 03/31/24 08:39 3 03/31/24 03:37 03/30/24 23:17 03/30/24 22:05 Laboratory Results Cardiac Enzymes 03/31/24 03/31/24 Range/Units 08:39 10:33 Troponin I High Sens 6394.1 H* D 5760.4 H* (0-20) pg/ml CBC 03/31/24 Range/Units 06:21 WBC 13.65 H (4.8-10.8) K/ul RBC 3.64 L (4.70-6.10) M/uL Hgb 11.1 L (14.0-18.0) g/dl Hct 33.2 L (42.0-52.0) % Plt Count 238 (130-400) K/uL Comprehensive Metabolic Panel 03/31/24 Range/Units 06:21 Sodium 135 L (136-145) mmol/L Potassium 3.7 (3.5-5.1) mmol/L Chloride 96 L (98-107) mmol/L Carbon Dioxide 29 (21-32) mmol/L BUN 30 H (6-23) mg/dl Creatinine 1.25 (0.6-1.4) mg/dl Glucose 165 H (70-99(Fasting)) mg/dl Calcium 8.6 (8.6-10.3) mg/dl Intake and Output 03/30/24 03/31/24 03/31/24 22:59 06:59 14:59 Intake Total 447.966 / 3158.633 619.200 / 3158.633 284.767 / 284.767 Output Total 0 / 2300 Balance 447.966 / 3158.633 619.200 / 3158.633 - / Intake: IV 147.966 / 2098.633 419.200 / 2098.633 284.767 / 284.767 Doxycycline Hyclate 100 mg In 100 / 200 100 / 100 Dextrose 5% Mini-B 100 ml @ 50 mls/hr IV Q12 ALYSSIA Rx#:[id number] Heparin 12271 Unit/500 ml D5w 147.966 / 848.633 319.200 / 848.633 184.767 / 184.767 25,000 units In 500 ml @ 2,100 UNITS/HR 42 mls/hr IV .[id number] ALYSSIA Rx#:[id number] Oral 300 / 1060 200 / 1060 Output: Urine Amount (Catheter) 2300 / 2300 Polanco/Indwelling 2299 / 2300 Other: # Unmeasured Voids 1 Weight 154 kg Weight Measurement Method Built in [facility]
[2024-03-31] MEDS: INSULIN ASPART PER UNIT CHARGE SC SCH (08:55)
[2024-03-31] MEDS: ACETAMINOPHEN 325 MG TAB PO PRN (09:02)
[2024-03-31] MEDS: FUROSEMIDE INJ 20 MG/2 ML VIAL IV STA (09:05)
[2024-03-31 09:09] LABS: iSTAT Arterial Blood Gas HCO3 23 meg/L (19-24); iSTAT Arterial Blood Gas pCO2 34 mmHg (35-46); iSTAT Arterial Blood Gas pH 7.44 (7.35-7.45); iSTAT Arterial Blood Gas pO2 69 mmHg (80-95); iSTAT Carbon Dioxide 24 mmol/L (24-31); iSTAT Hematocrit 33 % (42-52); iSTAT Hemoglobin 11.2 g/dl (14.0-18.0); iSTAT Potassium 3.7 mmol/L (3.3-5.0); iSTAT Sample Type Arterial; iSTAT Sodium 132 mmol/L (135-144)
[2024-03-31] MEDS: METOPROLOL SUCC 25MG EXT REL TAB PO ONE (09:17)
[2024-03-31] MEDS: FUROSEMIDE 40 MG/4 ML VIAL IV ONE ×3 (09:17→16:05)
--- NOTE | 2024-03-31 09:21 | XRay Report ---
XR chest 1V portable CLINICAL HISTORY: Acute hypoxia. COMPARISON STUDY: Chest radiograph and chest CT March 29, 2024. FINDINGS: Right lower lung consolidation consistent with pneumonia is similar to prior exam. There is cardiomegaly with pulmonary vascular congestion. There is no evidence for overt pulmonary edema. The re is no pneumothorax or pleural effusion. Mediastinal widening is again. IMPRESSION: 1. No significant change in right middle lobe consolidation consistent with pneumonia. Radiographic follow-up to ensure resolution is recommended. 2. Cardiomegaly with pulmonary vascular congestion. ACT 112: Negative or not required by law. Electronically signed by: Forest Robison M.D. 03/31/2024 9:20 AM
[2024-03-31] MEDS: FUROSEMIDE INJ 20 MG/2 ML VIAL IV ONE (09:23)
--- NOTE | 2024-03-31 09:42 | Communication Note ---
Date of Service: March 31, 2024 Attending attestation: Case reviewed with the advanced practitioner. I have personally performed a history and physical examination on the patient. I have reviewed the advanced practitioner's documentation on the date of service referenced in note, and I agree with, and take responsibility for the plan of care. Subjective: Patient seen and examined. He is sitting the bedside chair upright, notes progressive shortness of breath over the advanced manager hours and notes chest pressure with deep inspiration. He feels like he cannot get of breath. Exam: General: Ill in appearance, new compared to 03/30/2024 Pulmonary: Bilateral rales Cardiovascular: Tachycardic, no murmur, no edema Data: Telemetry reveals sinus tachycardia with rate in the range of 100 to 110 bpm Two 6 beat runs of nonsustained ventricular tachycardia were observed earlier this morning. Chest x-ray: Right lower lobe opacity, superimposed CHF with interstitial edema per my interpretation of the film EKG performed this morning 03/31/2024 reveals sinus tachycardia with right bundle branch block. The T wave version in lead V2 is less prominent. No ST segment elevation Impression/ Plan: Acute heart failure with reduced ejection fraction Pneumonia, sepsis, streptococcal bacteremia Severe left ventricular systolic dysfunction Chronic right bundle branch block * Continue aspirin, unfractionated heparin * 60 mg IV furosemide right administered prior to my arrival * Increase metoprolol to 25 mg daily * Recommend Wilson catheter placement * Case discussed with patient's nurse and Dr Sexton for the purpose of coordination of care. I spent a total of 20 minutes coordinating, documenting, and providing care for this patient excluding time spent in the performance of separately billed services or time spent by another provider. Ranjan Baer,
--- NOTE | 2024-03-31 14:20 | Hospitalist Progress Note ---
Date of Service March 31, 2024 Assessment & Plan (1) Sepsis: Plan: Patient is 73-year-old male with PMH DM II, HTN, dyslipidemia, RBBB, morbid obesity presented to ER with c/o cough and SOB x 3 weeks. Patient reports started with cough and shortness of breath 3 weeks ago -In ER afebrile, P: 115, R: 18, BP 176/97, 92% on room air -WBC: 30. Lactate: 2.8. Negative biofire respiratory panel -CTA chest: Cardiomegaly with fusiform dilation of the ascending thoracic aorta, 4.6 x 4.7 cm. No pulmonary emboli identified. Segmental right middle lobe airspace opacities with subsegmental consolidation of the basilar right lower lobe suggestive of pneumonia. Follow-up imaging after treatment course recommended in order to document complete resolution. Mild mediastinal lymphadenopathy, likely reactive. -blood cultures show strep Plan: -Gentle IVF at this time given improving tachycardia, SBP's in the 100s, and concern for low EF given NSTEMI presentation -f/u blood cultures -continue Rocephin, stop doxy today given strep as source -Mucinex, Incentive spirometry, Xopenex nebs (2) Acute on chronic heart failure with reduced ejection fraction and diastolic dysfunction: Plan: -today required several liters of oxygen, from room air -chest xray personally reviewed, evidence of pulmonary edema -in setting of NSTEMi Plan: -cardiology consulted, appreciate recs -cath once out of acute phase -holding GDMT in setting of occasional hypotension -increased metoprolol -60 IV lasix given today (3) Pneumonia: Plan: -see above (4) NSTEMI (non-ST elevated myocardial infarction): Plan: -appreciate cardiology consult -GDMT limited by relative hypotension -continue beta refugio, uptitrate as able -likely cardiac cath this admission (5) Hypomagnesemia: Plan: -improved today (6) Diabetes mellitus, type II: Plan: -A1c: 7.1 on 09/20/2023 -NovoLog sliding scale per protocol (7) LILIAN (acute kidney injury): Plan: -Cr: 1.4. Baseline Cr: 0.99 on 10/09/2019 -Closely monitor volume status Plan Feeding/fluids: heart healthy Analgesia: tylenol Sedation: na Thromboprophylaxis: on therapeutic heparin Head up position: na Ulcer prophylaxis: na Glycemic control: insulin Spontaneous breathing trial: na Bowel care: miralax prn Indwelling catheter removal: na Deescalation of antibiotics: ceftriaxone/doxy x7 days I spent a total of 55 minutes in direct patient care, including [id number] time with the patient and/or family, reviewing medical records, ordering and reviewing diagnostic tests, and coordinating care with other healthcare providers. This time includes: history taking, physical examination, medical decision making, counseling, ECG interpretation, imaging interpretation, lab interpretation, orders, and education, excluding time spent in the performance of separately billed services. Admission and Anticipated Discharge Date Admission Date: March 29, 2024 Subjective Patient seen and examined at bedside. Patient not doing well this morning, had acute shortness of breath occurring around 7 AM this morning. Before hand was doing very well. Cardiology notified, patient given diuresis and urgent lab workup. Chest x-ray concerning for pulmonary edema. Review of Systems Review of Systems: CONSTITUTIONAL: Patient denies fevers, chills, sweats and weight changes. EYES: Patient denies any visual symptoms. EARS, NOSE, AND THROAT: No difficulties with hearing. No symptoms of rhinitis or sore throat. CARDIOVASCULAR: Patient denies chest pains, palpitations, orthopnea and paroxysmal nocturnal dyspnea. RESPIRATORY: SOB, cough GI: No nausea, vomiting, diarrhea, constipation, abdominal pain, hematochezia or melena. : No urinary hesitancy or dribbling. No nocturia or urinary frequency. No abnormal urethral discharge. MUSCULOSKELETAL: No myalgias or arthralgias. NEUROLOGIC: No chronic headaches, no seizures. Patient denies numbness, tingling or weakness. PSYCHIATRIC: Patient denies problems with mood disturbance. No problems with anxiety. ENDOCRINE: No excessive urination or excessive thirst. DERMATOLOGIC: Patient denies any rashes or skin changes. Physical Exam Physical Exam: Gen: A&O 3 NAD HEENT: NCAT, EOMI, not icteric. External ears normal. No rhinorrhea. Moist mucous membranes. Neck: Supple, full range of motion, no observable masses, No meningeal sign. Lungs: rhonchi in bilateral lower lobes, now with crackles as well CV: tachycardic, regular rhythm Abdomen: Soft, nondistended, No rebound tenderness. MSK: No joint swelling, no redness. 2+ pitting edema noted bilaterally Skin: No rashes, petechiae, lesions. Normal color per patient. Neuro: Normal Gait, Grossly intact. Psych: Appropriate for situation. Results & Data Results & Data Vital Signs (Past 12 Hours) Vital Signs Temp Pulse Pulse Resp BP Pulse Ox O2 Del Method 03/31/24 10:56 36.5 C 104 H 24 148/65 H 97 Nasal Cannula 03/31/24 08:45 89 03/31/24 08:45 Nasal Cannula 03/31/24 08:39 107 H 20 92 Nasal Cannula 03/31/24 07:27 37.5 C 102 H 20 137/85 90 Room Air 03/31/24 03:37 36.7 C 84 18 115/58 L 92 Room Air O2 Flow Rate 03/31/24 10:56 5.0 03/31/24 08:45 03/31/24 08:45 4 03/31/24 08:39 3 03/31/24 07:27 03/31/24 03:37 Laboratory Results -personally reviewed, (1) Sepsis Sepsis type: Streptococcus, unspecified Sepsis acute organ dysfunction status: with acute organ dysfunction Severe sepsis acute organ dysfunction type: acute respiratory failure Acute respiratory failure type: with hypoxia Severe sepsis shock status: without septic shock Qualified Code(s): A40.9 - Streptococcal sepsis, unspecified; R65.20 - Severe sepsis without septic shock; J96.01 - Acute respiratory failure with hypoxia (3) Pneumonia Pneumonia type: due to group B Streptococcus Laterality: bilateral Lung location: lower lobe of lung Qualified Code(s): J15.3 - Pneumonia due to streptococcus, group B (6) Diabetes mellitus, type II Diabetes mellitus extermination inspector insulin use: without extermination inspector use Diabetes mellitus complication status: without complication Qualified Code(s): E11.9 - Type 2 diabetes mellitus without complications
[2024-03-31] MEDS: POTASSIUM CHLORIDE CRTAB 20 MEQ TABCR PO STA (15:59)
--- NOTE | 2024-03-31 16:01 | Communication Note ---
Date of Service: March 31, 2024 Patient with recurrent dyspnea and restlessness. 2.4 L urine output noted after furosemide this am and placement of Wilson. HR 100-110, BP 120/75 at 15:42 Plan: Supplement potassium. Proceed with another dose of furosemide 80 mg IV x 1 now Simran Baer DO
[2024-03-31 16:05] LABS: ANTI-Xa, UFH(UnfractionatedHep 0.17 IU/ml (0.3-0.7)
[2024-03-31] MEDS: NITROGLYCERIN 2% OINTMENT 30GM TUBE EXT SCH (16:33)
--- NOTE | 2024-03-31 16:40 | XRay Report ---
HISTORY: Worsening hypoxia TECHNIQUE: Portable AP radiograph of the chest. COMPARISON: Chest radiograph dated 03/29/2024. Chest CT dated 03/29/2024. FINDINGS: Right basilar airspace opacity obscures the right heart border and is likely in the right middle lobe. No left lung opacity. No pneumothorax or definite effusion. Cardiomegaly. Left-sided aortic arch. No acute osseous abnormality. Included upper abdomen is unremarkable. IMPRESSION: 1. Right basilar airspace opacity is not significantly changed and could representpneumonia. 2. Clear left lung. 3. Cardiomegaly. Electronically signed by Usman Stroud 03-31-2024 4:39 PM
--- NOTE | 2024-03-31 16:41 | Communication Note ---
Increased work of breathing and RR, and increased oxygen requirement. Discussed with patient starting Bipap for pulmonary edema, agreeable. Initial settings 16/8, patient tolerating well with improved oxygen saturations. Will plan for 30 minute to 1 hour stint to decrease preload and afterload. Cardiology aware. Date of Service: March 31, 2024
[2024-03-31] MEDS: POTASSIUM CHLORIDE CRTAB 20 MEQ TABCR PO ONE (18:13)
[2024-03-31] MEDS: DICLOFENAC SOD 1% GEL 100 GM TUBE EXT SCH (20:47)
[2024-04-01 00:06] LABS: Hematocrit (blood only) 31.5 % (42.0-52.0); Hemoglobin 10.6 g/dl (14.0-18.0)
[2024-04-01 00:09] LABS: ANTI-Xa, UFH(UnfractionatedHep 0.24 IU/ml (0.3-0.7)
[2024-04-01 06:57] LABS: Hematocrit (blood only) 31.2 % (42.0-52.0); Hemoglobin 10.5 g/dl (14.0-18.0); Mean Corpuscular Hemoglobin 30.6 pg (25.0-34.0); Mean Corpuscular Hgb Conc 33.7 g/dL (32.0-36.0); Mean Platelet Volume 10.7 fL (9.4-12.4); Platelet Count 236 K/uL (130-400); RDW Coefficient of Variation 13.3 % (11.5-14.5); Red Blood Count 3.43 M/uL (4.70-6.10); White Blood Count 13.75 K/ul (4.8-10.8)
[2024-04-01 07:12] LABS: ANTI-Xa, UFH(UnfractionatedHep 0.21 IU/ml (0.3-0.7)
[2024-04-01 07:19] LABS: BUN Creatinine Ratio 25.8 (10-20); Calcium 8.6 mg/dl (8.6-10.3); Creatinine Clr Calc Pharmacy 72.6 ml/min; Potassium 3.9 mmol/L (3.5-5.1)
[2024-04-01] MEDS: METOPROLOL SUCC 25MG EXT REL TAB PO SCH (08:06)
[2024-04-01] MEDS: FUROSEMIDE 40 MG/4 ML VIAL IV ONE (10:48)
--- NOTE | 2024-04-01 12:36 | Urology Consultation ---
Date of Consultation April 01, 2024 Assessment & Plan (1) Gross hematuria: We reviewed his gross hematuria. For now, his catheter is draining appropriately. As long as catheter is draining, can continue to monitor. If catheter becomes obstructed would start with hand irrigation to remove any clots . If bleeding is persistent, could consider CBI, but would hold off for now. He will require full hematuria workup. We discussed this typically includes urine cytology, imaging of the upper tracts and cystoscopy. Although typically this is done as an outpatient, since he has not had any coaxial imaging of the abdomen during this admission, and reported some flank pain leading up to presentation, I think it would be reasonable to get a CT urogram (CT abdomen pelvis, without and with contrast with delayed images) while he is here in the hospital. Urology will follow along. History of Present Illness Reason for Consultation: Gross hematuria Attending Physician: Nelson Severino MD History of Present Illness This is a 74-year-old male who was admitted to the hospital on 03/29/2024 with shortness of breath, pneumonia, NSTEMI, concern for sepsis. He was also noted to have CHF exacerbation and plan was for some diuresis. Due to sensation of bladder fullness, a Wilson catheter was placed and he subsequently developed gross hematuria. Urology was consulted regarding hematuria. 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 He describes having a "tube" placed. He describes a suprapubic tube after surgery, however it sounds like there may have been something done to his urethra as well. He did not feel that the most recent Wilson catheter placement was particularly traumatic or difficult. He has not had any hematuria leading up to the catheter. No family history of malignancy. He also has no history of kidney stones or UTIs, although he did have some flank pain for the past couple weeks. Lab work notable for mild leukocytosis (WBC 13.75). Creatinine most recently was 1.24. Glucose slightly elevated 186. Urinalysis from 03/30/2024 did not demonstrate any bacteria and was negative for nitrites and leukocyte esterase. He has not had any coaxial imaging of his abdomen during this admission. Allergies Allergy/AdvReac Type Severity Reaction Status Date / Time No Known Allergies Allergy Unverified 08/07/20 15:00 Home Medications Medication Instructions Recorded Confirmed Type amlodipine 5 mg tablet 5 mg PO DAILY 03/29/24 03/29/24 History aspirin 81 mg tablet,delayed 81 mg PO DAILY 03/29/24 03/29/24 History release cholecalciferol (vitamin D3) 25 25 mcg PO DAILY 03/29/24 03/29/24 History mcg (1,000 unit) tablet lisinopril 20 1 tab PO DAILY 03/29/24 03/29/24 History mg-hydrochlorothiazide 25 mg tablet metformin 500 mg tablet,extended 1,000 mg PO DAILY 03/29/24 03/29/24 History release 24 hr omega-3 300 mg-dha 120 mg-epa 180 1 cap PO BID 03/29/24 03/29/24 History mg-fish oil 1,000 mg capsule potassium gluconate 595 mg (99 mg) 595 mg PO DAILY 03/29/24 03/29/24 History tablet Patient History Medical History (Updated 04/01/24 @ 12:34 by Rod Alvarez MD) HLD (hyperlipidemia) reported prior intolerance to statins Anisocoria Hypertension Surgical History Status post right knee replacement Family History (Updated 03/29/24 @ 18:26 by Rebecca Krishna PA-C) Father Heart disease Other Diabetes Social History Smoking Status: Never smoker Second Hand Exposure: No; Do You Dip or Chew Tobacco: No; Tobacco Cessation Education Requested by Patient: No Hx Alcohol Use: No Hx Substance Use: No Preferred Language: Faroese Communication Ability: Effective Errand Runner Required: No Beliefs That Will Affect Care: None Current Living Situation: Spouse Other Information That Helps Us Care for You: No Feels Safe at Home: Yes Safety Concerns: Feels Safe At This Time Assistive Devices: None Review of Systems Review of Systems: 12 point review of systems negative exce pt for otherwise indicated. Physical Exam Constitutional: well developed and well nourished; no acute distress Eyes: + anicteric sclerae; pupils not irregula r Respiratory: normal respiratory effort (On supplemental oxygen by nasal cannula) and + cough Cardiovascular: well perfused Gastrointestinal (Abdomen): Inspection/Auscultation: abdomen normal to inspection; abdomen not distended Musculoskeletal: Extremities: extremities normal to inspection Skin: normal turgor; no rashes and no lesions Neurologic: moves all extremities and awake Psychiatric: Orientation: alert and oriented x 3 Genitourinary: Wilson catheter in place. Maroon urine in the bag, small clot within the tubing, but the urine in the tubing is transport truck driver red Results & Data Vital Signs (Past 12 Hours) Vital Signs Temp Pulse Pulse Resp BP Pulse Ox O2 Del Method 04/01/24 11:30 36.9 C 95 H 24 100/61 95 BiPAP 04/01/24 09:00 BiPAP 04/01/24 07:30 105 H 04/01/24 07:19 37.5 C 94 H 29 H 114/59 L 93 BiPAP 04/01/24 05:07 100 H 102/42 L 04/01/24 03:49 96 H 22 94 04/01/24 03:34 36.5 C 107 H 18 152/87 H 94 CPAP O2 Flow Rate 04/01/24 11:30 04/01/24 09:00 4 04/01/24 07:30 04/01/24 07:19 04/01/24 05:07 04/01/24 03:49 4 04/01/24 03:34 PG Care Time/CCT Total # of Minutes Spent Total Time Spent with Patient: Total time spent is greater than 50% in coordination of care (as documented) at patient's floor/unit and/or counseling patient: Coding Level of Care Code 68278 OP VST NEW MOD 45 MIN Diagnoses Gross hematuria R31.0
--- NOTE | 2024-04-01 12:52 | Cardiology Progress Note ---
Date of Service April 01, 2024 Assessment & Plan (1) NSTEMI (non-ST elevated myocardial infarction): (2) Sepsis: (3) Pneumonia: (4) Severe left ventricular systolic dysfunction (LVSD): (5) Acute on chronic heart failure with reduced ejection fraction and diastolic dysfunction: Plan 03/29/24: Patient admitted with 2 weeks of worsening SOB cough and weakness. Found to likely have right middle lobe pneumonia with elevated WBC, elevated lactic acid and signs/symptoms consistent wiht sepsis. Blood cultures pending Started on IV antibiotics. Blood tinged sputum. Recommend culture. HS troponin elevated on admission at 4000, increasing to 6500. No chest pain reported Started on IV heparin. Echo results pending. Initial EKG with sinus tach and new RBBB. Repeat EKG with Worsening T wave abnormality in anterior leads. Start ASA, statin. Prior intolerances discussed and he reported mild "myalgias" but this was long ago. BP is borderline low. Would hold home dose amlodipine for now. Consider adding beta refugio for tachycardia Consider nitro oint. Once his respiratory status improves, will likely need further evaluation with cardiac catheterization. 03/30/24: + blood culture x1 with strep pneumoniae reported overnight. Other blood culture negative. WBC trending lower to 19. Continue IV antibiotics with ceftriaxone and doxycline. Echo yesterday with severely dilated LV, severe global hypokinesis at 20-25% Elevated troponin since admission [id number] [phone] [id number] [phone] [id number]. No angina reported currently. No prior studies for comparison. Continue IV heparin Continue ASA 81 mg daily Statin added with atorvastatin 40 mg daily Started metoprolol 12.5 mg daily BP has been borderline low. Will avoid JACQUI/ARB Monitor fluid balance. He does have mild LE edema. If worsening fluid status, low threshold to start IV diuretics. Once his sepsis improves, likely will need diagnostic cardiac catheterization. Findings discussed in detail with patient and family at bedside this morning. Will follow Case discussed with Dr. Baer I spent a total of 30 minutes on the date of service in preparation, delivery, and documentation of the care provided to this patient, excluding any time spent in the performance of separately billed services. Leslie Bowers PA-C Department of Cardiology, [facility] This chart was completed in part utilizing Speech Voice Recognition Software. Grammatical errors, random word insertions, pronoun errors, and incomplete sentences are an occasional consequence of this system due to software limitations, ambient noise, and hardware issues. Any formal questions or concerns about the content, text, or information contained within the body of this dictation should be directly addressed to the provider for clarification. 03/31/2024: -Patient in acute respiratory distress upon arrival this morning. Chest xray obtained at bedside showing evidence of superimposed HF in the setting of known pneumonia/sepsis -Patient received a total of 60mg IV Furosemide along with polanco catheter insertion. Immediately diuresed 2300ml urine. -Increased HR and ectopy on telemetry. Increase Toprol xl to 25mg PO Daily -Strict I&O with daily weights (standing scale) -Close monitoring of renal function and serum electrolytes with a goal serum K> 4.0 and serum mag > 2.0 -Continue IV heparin gtt -Continue PO magnesium supplementation -Continue GDMT with ASA, Atorvastatin, Toprol xl (increased dose). Continue to monitor BP response, right now patient needs diuresis, but may be considered for JACQUI-I or ARB in future if BP remains elevated. -Continued management of acute infectious process by primary team -EKG with no acute ST-T wave changes. -Will likely need a diagnostic cardiac cath at some juncture; however, diuresis is most crucial at this time. 04/01/2024: -Patient is showing some clinical improvement from a cardiovascular perspective. chest pain has resolved, and breathing has improved although does require intermittent BiPap use. -Continues with hypervolemia in conjunction with his acute infectious process. Give lasix 40mg IV x1 dose today -Heart rates stable, continues with brief runs of PAT, labs stable. -Strict I&O with daily weights (standing scale) -Close monitoring of renal function and serum electrolytes with a goal serum K> 4.0 and serum mag > 2.0 -Continue IV heparin gtt. polanco catheter has noted dark blood colored urine in both the tubing and bag, Nurse states that this has been the case since overnight. HgB stable, but recommend close monitoring in the setting that patient is on a heparin gtt. Given his recent event, would like to continue heparin gtt, unless HgB would become unstable. -Continue PO magnesium supplementation -Continue GDMT with ASA, Atorvastatin, Toprol xl (increased dose). Continue to monitor BP response, right now patient needs diuresis, but may be considered for JACQUI-I or ARB in future if BP remains elevated. -Continued management of acute infectious process by primary team -EKG with no acute ST-T wave changes. -Will likely need a diagnostic cardiac cath at some juncture; however, diuresis is most crucial at this time. Case has been discussed with Dr. Baer. Further recommendations regarding plan of care as per his assessment. I spent a total of 30 minutes on the date of service in preparation, delivery, documentation of the care provided to the patient excluding any time spent in the performance of separately billed services. ANH Martin [facility] Cardiology [facility] Admission and Anticipated Discharge Date Admission Date: March 29, 2024 Supervising Physician Co-Signing Physician Notes Attending attestation: Case reviewed with the advanced practitioner. I have personally performed a history and physical examination on the patient. I have reviewed the advanced practitioner's documentation on the date of service referenced in note, and I agree with, and take responsibility for the plan of care. Patient more comfortable today. Using BiPAP as needed. He was on a break from it when I had seen him and overall feels improved. Had significant urine output after his first dose of furosemide on 03/31/2024 but is trickled off thereafter and has developed mild hematuria. Heparin has been subtherapeutic despite high-dose infusion. Continue heparin without additional boluses due to hematuria. Continue topical nitroglycerin, metoprolol, atorvastatin. Continue Rocephin for strep bacteremia and pneumonia. Had received 40 mg of furosemide this morning. Will redose him tomorrow according to blood pressure and kidney function data. Ranjan Baer, Subjective 04/01/2024: Patient seen and examined in follow up today. Feeling fair. He is OOB to chair, but has Bipap on. Nurse states that patient has high anxiety at baseline with the mask on and wants to get up and change positions, mask on, mask off, but clearly is exhausted with minimal reserve given his acute illness. Patient reports that chest pain has resolved. Labs, vitals, diagnostics, telemetry and documentation reviewed. Telemetry reviewed showing SR-ST rates 80-105bpm, brief runs of PAT overnight. Review of Systems Review of Systems: All systems reviewed & are unremarkable except as noted in HPI & below Physical Exam Constitutional: + ill appearing and + morbidly obese; no acute distress Neck: normal visual inspection and trachea midline Respiratory: + respiratory distress, + labored breath ing, + tachypneic, + audible wheezes and + tripod positioning Auscultation: + crackles (faint crackles bilateral bases ) and + rhonchi Cardiovascular: Rate/Rhythm: regular rhythm and + tachycardic Heart Sounds: normal S1 and normal S2; no murmur Vessels: + JVD and dorsalis pedis pulses present Extremities: + edema (trace BLE) Skin: no rashes, warm and dry Psychiatric: A+Ox3, euthymic affect Results & Data Vital Signs (Past 12 Hours) Vital Signs Temp Pulse Pulse Resp BP Pulse Ox O2 Del Method 04/01/24 11:30 36.9 C 95 H 24 100/61 95 BiPAP 04/01/24 09:00 BiPAP 04/01/24 07:30 105 H 04/01/24 07:19 37.5 C 94 H 29 H 114/59 L 93 BiPAP 04/01/24 05:07 100 H 102/42 L 04/01/24 03:49 96 H 22 94 04/01/24 03:34 36.5 C 107 H 18 152/87 H 94 CPAP O2 Flow Rate 04/01/24 11:30 04/01/24 09:00 4 04/01/24 07:30 04/01/24 07:19 04/01/24 05:07 04/01/24 03:49 4 04/01/24 03:34 Laboratory Results CBC 03/31/24 04/01/24 Range/Units 23:42 06:21 WBC 13.75 H (4.8-10.8) K/ul RBC 3.43 L (4.70-6.10) M/uL Hgb 10.6 L 10.5 L (14.0-18.0) g/dl Hct 31.5 L 31.2 L (42.0-52.0) % Plt Count 236 (130-400) K/uL Comprehensive Metabolic Panel 04/01/24 Range/Units 06:21 Sodium 132 L (136-145) mmol/L Potassium 3.9 (3.5-5.1) mmol/L Chloride 95 L (98-107) mmol/L Carbon Dioxide 27 (21-32) mmol/L BUN 32 H (6-23) mg/dl Creatinine 1.24 (0.6-1.4) mg/dl Glucose 186 H (70-99(Fasting)) mg/dl Calcium 8.6 (8.6-10.3) mg/dl Intake and Output 03/31/24 04/01/24 04/01/24 22:59 06:59 14:59 Intake Total 923.267 / 1662.967 404.933 / 1662.967 168.8 / 168.8 Output Total 800 / 3350 250 / 3350 Balance 123.267 / -1687.033 154.933 / -1687.033 168.8 / 168.8 Intake: IV 443.267 / 1182.967 404.933 / 1182.967 168.8 / 168.8 Heparin 04643 Unit/500 ml D5w 443.267 / 1032.967 404.933 / 1032.967 168.8 / 168.8 25,000 units In 500 ml @ 2,400 UNITS/HR 48 mls/hr IV .[id number] [facility] Rx#:[id number] Oral 480 / 480 Output: Urine Amount (Catheter) 800 / 3350 250 / 3350 Polanco/Indwelling 800 / 3350 250 / 3350 Other: Weight 150.7 kg Weight Measurement Method Standing Scale Patient Weight 04/02/24 06:59 Weight 150.7 kg (2) Sepsis Acute respiratory failure type: with hypoxia Sepsis acute organ dysfunction status: with acute organ dysfunction Sepsis type: Streptococcus, unspecified Severe sepsis acute organ dysfunction type: acute respiratory failure Severe sepsis shock status: without septic shock Qualified Code(s): A40.9 - Streptococcal sepsis, unspecified; R65.20 - Severe sepsis without septic shock; J96.01 - Acute respiratory failure with hypoxia (3) Pneumonia Laterality: bilateral Lung location: lower lobe of lung Pneumonia type: due to group B Streptococcus Qualified Code(s): J15.3 - Pneumonia due to st reptococcus, group B
--- NOTE | 2024-04-01 14:17 | Hospitalist Progress Note ---
Date of Service April 01, 2024 Assessment & Plan (1) Sepsis: Plan: Patient is 73 yr male with PMH DM II, HTN, dyslipidemia, RBBB, morbid obesity presented to ER with c/o cough and SOB x 3 weeks. Patient reports started with cough and shortness of breath 3 weeks ago Sepsis Multifocal pneumonia Strep bacteremia --Chest CTA:No pulmonary emboli identified. Segmental right middle lobe airspace opacities with subsegmental consolidation of the basilar right lower lobe suggestive of pneumonia. Follow-up imaging after treatment course recommended in order to document complete resolution.Mild mediastinal lymphadenopathy, likely reactive. -- BioFire negative -- Elevated procalcitonin --Blood Culture: 02/17: Streptococcus pneumonia --ECHO:as below -- Doxycycline discontinued Continue IV Rocephin Pulmonary hygiene with incentive spirometry, Mucinex Will repeat blood cultures tomorrow Infectious disease consulted Continue supplemental oxygen as needed (2) Acute on chronic heart failure with reduced ejection fraction and diastolic dysfunction: Plan: Acute on chronic systolic and diastolic heart failure --ECHO: Left ventricle is severely dilated. Mild concentric LVH. Severe global hypokinesis of the left ventricle. EF 20 to 25%. Left atrium is mildly dilated. Mild aortic regurgitation. Moderate mitral regurgitation. Significant tricuspid regurgitation is absent. Grade 1 diastolic dysfunction. -- Continue IV Lasix Appreciate cardiology input Continue metoprolol Monitor I's and O's, daily weight, volume status (3) Pneumonia: Plan: Management as above Ascending aortic aneurysm --CT showed:Cardiomegaly with fusiform dilation of the ascending thoracic aorta, 4.6 x 4.7 cm. Follow-up as outpatient (4) NSTEMI (non-ST elevated myocardial infarction): Plan: Continue IV heparin Will need diagnostic cardiac catheterization eventually Continue aspirin, Lipitor Continue metoprolol Appreciate Cardiology input Hematuria In setting of anticoagulation use with heparin -Consider CT abdomen/Pelvis when more stable Patient would require cystoscopy and further workup as outpatient Appreciate urology input Monitor on H&H and transfuse as needed (5) Hypomagnesemia: Plan: Replace and monitor (6) Diabetes mellitus, type II: Plan: -A1c: 7.7 -NovoLog sliding scale per protocol Monitor BGs (7) LILIAN (acute kidney injury): Plan: -Cr: 1.4>1.2 Monitor renal function Avoid Nephrotoxic agents as able Plan DVT Px: Heparin ggt Code Status Full Code Admission and Anticipated Discharge Date Admission Date: March 29, 2024 Subjective Patient is seen and examined at bedside Cough, dyspnea improving Still has minimal hemoptysis Noted to have hematuria overnight Discussed with patient's family at bedside Also discussed with urology today Tolerating BiPAP Review of Systems Review of Systems: All systems reviewed & are unremarkable except as noted in Subjective Physical Exam Physical Exam: Physical Exam: Vitals signs as noted above General Appearance:Morbidly Obese, ill appearing, no apparent distress Head: normocephalic, Atraumatic Eyes: normal inspection, EOMI Neck: supple, Trachea midline Respiratory/Chest: Normal breath sounds, basal crackles, No accessory muscle use Cardiovascular: S1, S2, No murmur Abdomen/GI:Soft, Non tender, Bowel sounds present Extremities/Musculoskeletal:normal inspection, Trace edema Neurologic/Psych:AAOX3, grossly no focal neurological deficits Skin: normal color, warm Results & Data Results & Data Vital Signs (Past 12 Hours) Vital Signs Temp Pulse Pulse Resp BP Pulse Ox O2 Del Method 04/01/24 11:30 36.9 C 95 H 24 100/61 95 BiPAP 04/01/24 09:00 BiPAP 04/01/24 07:30 105 H 04/01/24 07:19 37.5 C 94 H 29 H 114/59 L 93 BiPAP 04/01/24 05:07 100 H 102/42 L 04/01/24 03:49 96 H 22 94 04/01/24 03:34 36.5 C 107 H 18 152/87 H 94 CPAP O2 Flow Rate 04/01/24 11:30 04/01/24 09:00 4 04/01/24 07:30 04/01/24 07:19 04/01/24 05:07 04/01/24 03:49 4 04/01/24 03:34 Laboratory Results Short CBC 03/31/24 04/01/24 Range/Units 23:42 06:21 WBC 13.75 H (4.8-10.8) K/ul Hgb 10.6 L 10.5 L (14.0-18.0) g/dl Hct 31.5 L 31.2 L (42.0-52.0) % Plt Count 236 (130-400) K/uL BMP 04/01/24 06:21 Sodium 132 L Potassium 3.9 Chloride 95 L Carbon Dioxide 27 BUN 32 H Creatinine 1.24 Glucose 186 H Calcium 8.6 (1) Sepsis Acute respiratory failure type: with hypoxia Sepsis acute organ dysfunction status: with acute organ dysfunction Sepsis type: Streptococcus, unspecified Severe sepsis acute organ dysfunction type: acute respiratory failure Severe sepsis shock status: without septic shock Qualified Code(s): A40.9 - Streptococcal sepsis, unspecified; R65.20 - Severe sepsis without septic shock; J96.01 - Acute respiratory failure with hypoxia (3) Pneumonia Laterality: bilateral Lung location: lower lobe of lung Pneumonia type: due to group B Streptococcus Qualified Code(s): J15.3 - Pneumonia due to streptococcus, group B (6) Diabetes mellitus, type II Diabetes mellitus chcf insulin use: without chcf use Diabetes mellitus complication status: without complication Qualified Code(s): E11.9 - Type 2 diabetes mellitus without complications
[2024-04-01 15:04] LABS: Hematocrit (blood only) 31.4 % (42.0-52.0); Hemoglobin 10.7 g/dl (14.0-18.0)
[2024-04-01 15:25] LABS: ANTI-Xa, UFH(UnfractionatedHep 0.19 IU/ml (0.3-0.7)
[2024-04-01 16:37] LABS: Partial Thromboplastin Ratio 1.3; Partial Thromboplastin Time 36 Seconds (21-31)
[2024-04-01] MEDS: Nursing to Pharmacy Communication SCH (21:06)
[2024-04-01 23:02] LABS: Hematocrit (blood only) 29.5 % (42.0-52.0)
[2024-04-01 23:11] LABS: ANTI-Xa, UFH(UnfractionatedHep 0.21 IU/ml (0.3-0.7)
[2024-04-02 06:17] LABS: ANTI-Xa, UFH(UnfractionatedHep 0.28 IU/ml (0.3-0.7); Hematocrit (blood only) 28.1 % (42.0-52.0); Hemoglobin 9.5 g/dl (14.0-18.0); Mean Corpuscular Hemoglobin 30.4 pg (25.0-34.0); Mean Corpuscular Hgb Conc 33.8 g/dL (32.0-36.0); Mean Corpuscular Volume 89.8 fL (80.0-100.0); Mean Platelet Volume 11.2 fL (9.4-12.4); Platelet Count 287 K/uL (130-400); RDW Coefficient of Variation 13.1 % (11.5-14.5); RDW Standard Deviation 42.9 fL (36.4-46.3); Red Blood Count 3.13 M/uL (4.70-6.10); White Blood Count 12.52 K/ul (4.8-10.8)
[2024-04-02 06:48] LABS: Calcium 8.4 mg/dl (8.6-10.3); Creatinine Clr Calc Pharmacy 85.4 ml/min; Magnesium 2.1 mg/dl (1.7-2.4); Potassium 3.4 mmol/L (3.5-5.1)
[2024-04-02] MEDS: POTASSIUM CHLORIDE CRTAB 20 MEQ TABCR PO STA ×2 (07:54→16:16)
[2024-04-02] MEDS: FUROSEMIDE 40 MG/4 ML VIAL IV ONE ×2 (07:54→16:16)
--- NOTE | 2024-04-02 08:42 | Cardiology Progress Note ---
Date of Service April 02, 2024 Assessment & Plan (1) NSTEMI (non-ST elevated myocardial infarction): (2) Sepsis: (3) Pneumonia: (4) Severe left ventricular systolic dysfunction (LVSD): (5) Acute on chronic heart failure with reduced ejection fraction and diastolic dysfunction: Plan 03/29/24: Patient admitted with 2 weeks of worsening SOB cough and weakness. Found to likely have right middle lobe pneumonia with elevated WBC, elevated lactic acid and signs/symptoms consistent wiht sepsis. Blood cultures pending Started on IV antibiotics. Blood tinged sputum. Recommend culture. HS troponin elevated on admission at 4000, increasing to 6500. No chest pain reported Started on IV heparin. Echo results pending. Initial EKG with sinus tach and new RBBB. Repeat EKG with Worsening T wave abnormality in anterior leads. Start ASA, statin. Prior intolerances discussed and he reported mild "myalgias" but this was long ago. BP is borderline low. Would hold home dose amlodipine for now. Consider adding beta refugio for tachycardia Consider nitro oint. Once his respiratory status improves, will likely need further evaluation with cardiac catheterization. 03/30/24: + blood culture x1 with strep pneumoniae reported overnight. Other blood culture negative. WBC trending lower to 19. Continue IV antibiotics with ceftriaxone and doxycline. Echo yesterday with severely dilated LV, severe global hypokinesis at 20-25% Elevated troponin since admission [id number] [phone] [id number]. No angina reported currently. No prior studies for comparison. Continue IV heparin Continue ASA 81 mg daily Statin added with atorvastatin 40 mg daily Started metoprolol 12.5 mg daily BP has been borderline low. Will avoid JACQUI/ARB Monitor fluid balance. He does have mild LE edema. If worsening fluid status, low threshold to start IV diuretics. Once his sepsis improves, likely will need diagnostic cardiac catheterization. Findings discussed in detail with patient and family at bedside this morning. Will follow Case discussed with Dr. Baer I spent a total of 30 minutes on the date of service in preparation, delivery, and documentation of the care provided to this patient, excluding any time spent in the performance of separately billed services. Leslie Bowers PA-C Department of Cardiology, [facility] This chart was completed in part utilizing Speech Voice Recognition Software. Grammatical errors, random word insertions, pronoun errors, and incomplete sentences are an occasional consequence of this system due to software limitations, ambient noise, and hardware issues. Any formal questions or concerns about the content, text, or information contained within the body of this dictation should be directly addressed to the provider for clarification. 03/31/2024: -Patient in acute respiratory distress upon arrival this morning. Chest xray obtained at bedside showing evidence of superimposed HF in the setting of known pneumonia/sepsis -Patient received a total of 60mg IV Furosemide along with polanco catheter insertion. Immediately diuresed 2300ml urine. -Increased HR and ectopy on telemetry. Increase Toprol xl to 25mg PO Daily -Strict I&O with daily weights (standing scale) -Close monitoring of renal function and serum electrolytes with a goal serum K> 4.0 and serum mag > 2.0 -Continue IV heparin gtt -Continue PO magnesium supplementation -Continue GDMT with ASA, Atorvastatin, Toprol xl (increased dose). Continue to monitor BP response, right now patient needs diuresis, but may be considered for JACQUI-I or ARB in future if BP remains elevated. -Continued management of acute infectious process by primary team -EKG with no acute ST-T wave changes. -Will likely need a diagnostic cardiac cath at some juncture; however, diuresis is most crucial at this time. 04/01/2024: -Patient is showing some clinical improvement from a cardiovascular perspective. chest pain has resolved, and breathing has improved although does require intermittent BiPap use. -Continues with hypervolemia in conjunction with his acute infectious process. Give lasix 40mg IV x1 dose today -Heart rates stable, continues with brief runs of PAT, labs stable. -Strict I&O with daily weights (standing scale) -Close monitoring of renal function and serum electrolytes with a goal serum K> 4.0 and serum mag > 2.0 -Continue IV heparin gtt. polanco catheter has noted dark blood colored urine in both the tubing and bag, Nurse states that this has been the case since overnight. HgB stable, but recommend close monitoring in the setting that patient is on a heparin gtt. Given his recent event, would like to continue heparin gtt, unless HgB would become unstable. -Continue PO magnesium supplementation -Continue GDMT with ASA, Atorvastatin, Toprol xl (increased dose). Continue to monitor BP response, right now patient needs diuresis, but may be considered for JACQUI-I or ARB in future if BP remains elevated. -Continued management of acute infectious process by primary team -EKG with no acute ST-T wave changes. -Will likely need a diagnostic cardiac cath at some juncture; however, diuresis is most crucial at this time. 04/02/2024: -Patient continues to demonstrate clinical improvement from a cardiac perspective. No new episodes of chest pain, breathing continues to improve, currently on O2 via nasal cannula. -Patient is to receive Lasix 60mg IV x1 dose today and Potassium chloride 40 meq PO x1 dose today (already ordered by Dr. Baer) -shows good output with -550ml fluid deficit and -4kg weight reduction --Strict I&O with daily weights (standing scale) -Close monitoring of renal function and serum electrolytes with a goal serum K> 4.0 and serum mag > 2.0 -Continue IV heparin gtt. polanco catheter has had dark red hematuria noted yesterday, appears more of a jaeger color with improvement today. Urology on consult, and patient will be having a CT scan today. HgB slightly decreased, continue to trend. Given his recent event, would like to continue heparin gtt, unless HgB would become unstable. -Continue PO magnesium supplementation -Continue GDMT with ASA, Atorvastatin, Toprol xl (increased dose). Continue to monitor BP response, right now patient needs diuresis, but may be considered for JACQUI-I or ARB in future if BP remains elevated. -Continued management of acute infectious process by primary team Case has been discussed with Dr. Baer. Further recommendations regarding plan of care as per his assessment. I spent a total of 30 minutes on the date of service in preparation, delivery, documentation of the care provided to the patient excluding any time spent in the performance of separately billed services. ANH Martin [facility] Cardiology [facility] Admission and Anticipated Discharge Date Admission Date: March 29, 2024 Supervising Physician Co-Signing Physician Notes Attending attestation: Case reviewed with the advanced practitioner. I have personally performed a history and physical examination on the patient. I have reviewed the advanced practitioner's documentation on the date of service referenced in note, and I agree with, and take responsibility for the plan of care. Patient somewhat improved but respiratory status still tenuous. Ongoing hematuria noted in Polanco catheter, but urine is only tented pink today as compared to gross hematuria. Underwent CT of the abdomen pelvis for evaluation of hematuria. Bladder suboptimally visualized, no urinary calculi or hydronephrosis per radiology report. Persistent right middle lobe airspace opacity once again visualized as well as a small pleural effusions. Patient received furosemide 60 mg this morning. Continue IV diuretic therapy and antibiotics.Continue unfractioned heparin. Ranjan Baer DO Subjective 04/02/24: Patient seen and examined in follow up today. Feeling better. He is currently off Bipap and tolerating O2 via nasal cannula with sats in the mid- 90's. REports resolution of chest pain. No pressure or palpitations, Breathing is improved. NO pre-syncope, syncope. decreased lower extremity edema. Labs, vitals, diagnostics, telemetry and documentation reviewed. Telemetry reviewed showing SR/ST rates 90-100 Serum K 3.5 --received supplementation H/H 9.5/28.1 -165.5 ml fluid balance -4kg weight deficit Review of Systems Review of Systems: All systems reviewed & are unremarkable except as noted in HPI & below Physical Exam Constitutional: + ill appearing and + morbidly obese; no acute distress Neck: normal visual inspection and trachea midline Respiratory: + respiratory distress, + labored breath ing, + tachypneic, + audible wheezes and + tripod positioning Auscultation: + crackles (faint crackles bilateral bases ), + rhonchi and + wheezes Cardiovascular: Rate/Rhythm: regular rhythm and + tachycardic Heart Sounds: normal S1 and normal S2; no murmur Vessels: + JVD and dorsalis pedis pulses present Extremities: + edema (trace BLE) Skin: no rashes, warm and dry Psychiatric: A+Ox3, euthymic affect Results & Data Vital Signs (Past 12 Hours) Vital Signs Temp Pulse Pulse Resp BP BP Pulse Ox 04/02/24 07:29 36.9 C 89 26 H 126/69 97 04/02/24 06:59 98 H 04/02/24 04:59 130/81 04/02/24 02:33 36.8 C 98 H 20 106/67 96 04/01/24 23:57 36.8 C 98 H 16 117/74 92 04/01/24 23:32 86 17 91 04/01/24 21:52 90 04/01/24 21:26 84 24 94 O2 Del Method O2 Flow Rate 04/02/24 07:29 Nasal Cannula 5.0 04/02/24 06:59 04/02/24 04:59 04/02/24 02:33 Nasal Cannula 5 04/01/24 23:57 Room Air 04/01/24 23:32 4 04/01/24 21:52 04/01/24 21:26 4 Laboratory Results Coagulation 04/01/24 Range/Units 14:45 APTT 36 H (21-31) Seconds CBC 04/01/24 04/01/24 04/02/24 Range/Units 14:45 22:47 05:38 WBC 12.52 H (4.8-10.8) K/ul RBC 3.13 L (4.70-6.10) M/uL Hgb 10.7 L 10.0 L 9.5 L (14.0-18.0) g/dl Hct 31.4 L 29.5 L 28.1 L (42.0-52.0) % Plt Count 287 (130-400) K/uL Comprehensive Metabolic Panel 04/02/24 Range/Units 05:38 Sodium 134 L (136-145) mmol/L Potassium 3.4 L (3.5-5.1) mmol/L Chloride 97 L (98-107) mmol/L Carbon Dioxide 29 (21-32) mmol/L BUN 27 H (6-23) mg/dl Creatinine 1.04 (0.6-1.4) mg/dl Glucose 173 H (70-99(Fasting)) mg/dl Calcium 8.4 L (8.6-10.3) mg/dl Intake and Output 04/01/24 04/02/24 04/02/24 22:59 06:59 14:59 Intake Total 852.867 / 2210.467 708.800 / 2210.467 684.533 / 684.533 Output Total 1025 / 2376 501 / 2376 900 / 900 Balance -172.133 / -165.533 207.800 / -165.533 -215.467 / -215.467 Intake: IV 487.867 / 1365.467 708.800 / 1365.467 184.533 / 184.533 Heparin 49081 Unit/500 ml D5w 437.867 / 1315.467 708.800 / 1315.467 184.533 / 184.533 25,000 units In 500 ml @ 2,900 UNITS/HR 58 mls/hr IV .[id number] [facility] Rx#:[id number] cefTRIAXone SODIUM 2,000 mg In 50 / 50 50 ml @ 100 mls/hr IV Q24H [facility] Rx#:[id number] Oral 365 / 845 500 / 500 Output: Urine Amount (Catheter) 1025 / 2375 500 / 2375 900 / 900 Polanco/Indwelling 1025 / 2375 500 / 2375 900 / 900 # Bowel Movements Other: Weight 150.6 kg Weight Measurement Method Standing Scale (2) Sepsis Acute respiratory failure type: with hypoxia Sepsis acute organ dysfunction status: with acute organ dysfunction Sepsis type: Streptococcus, unspecified Severe sepsis acute organ dysfunction type: acute respiratory failure Severe sepsis shock status: without septic shock Qualified Code(s): A40.9 - Strept ococcal sepsis, unspecified; R65.20 - Severe sepsis without septic shock; J96.01 - Acute respiratory failure with hypoxia (3) Pneumonia Laterality: bilateral Lung location: lower lobe of lung Pneumonia type: due to group B Streptococcus Qualified Code(s): J15.3 - Pneumonia due to streptococcus, group B
[2024-04-02] MEDS ORDERED: SODIUM CHLORIDE 0.9% 100 ML IV PRN (08:44)
[2024-04-02] MEDS ORDERED: SODIUM CHLORIDE 0.9% 50 ML IV PRN (08:44)
--- NOTE | 2024-04-02 09:52 | Urology Progress Note ---
Date of Service April 02, 2024 Assessment & Plan (1) Gross hematuria: Plan: Follow-up of gross hematuria Labs reviewedcreatinine 1.04, WBC 12.52, hemoglobin 9.5 Continue to trend labs, H/H Catheter continues to drain appropriately, continue to monitor Okay to hand irrigate to remove any clots if catheter becomes obstructed If bleeding is persistent, could consider CBI, but would hold off for now Recommend hematuria work-up as an outpatient Can consider CT urogram while he is here in the hospital when he is stable Continue medical management per primary service Urology will follow Admission and Anticipated Discharge Date Admission Date: March 29, 2024 Subjective Patient seen and examined at bedside this morning. He is awake and sitting up in bedside chair with BiPAP in place. Wilson intact. 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 No suprapubic or flank discomfort. No fever or chills. Review of Systems Constitutional: as per Subjective / HPI Genitourinary: + as per Subjective / HPI Physical Exam Constitutional: + obese; no acute distress Respiratory: + cough; no respiratory distress Bipap in place Gastrointestinal (Abdomen): Inspection/Auscultation: abdomen normal to inspection Musculoskeletal: Extremities: extremities normal to inspection Neurologic: moves all extremities and awake Psychiatric: Orientation: alert and oriented x 3 Genitourinary: Wilson catheter in place with jaeger red urine, no clots noted during exam Results & Data Vital Signs (Past 12 Hours) Vital Signs Temp Pulse Pulse Resp BP BP Pulse Ox 04/02/24 07:29 36.9 C 89 26 H 126/69 97 04/02/24 06:59 98 H 04/02/24 04:59 130/81 04/02/24 02:33 36.8 C 98 H 20 106/67 96 04/01/24 23:57 36.8 C 98 H 16 117/74 92 04/01/24 23:32 86 17 91 04/01/24 21:52 90 O2 Del Method O2 Flow Rate 04/02/24 07:29 Nasal Cannula 5.0 04/02/24 06:59 04/02/24 04:59 04/02/24 02:33 Nasal Cannula 5 04/01/24 23:57 Room Air 04/01/24 23:32 4 04/01/24 21:52 PG Care Time/CCT Total # of Minutes Spent Total Time Spent with Patient: Total time spent is greater than 50% in coordination of care (as documented) at patient's floor/unit and/or counseling patient: Coding Level of Care Code 33300 SUB INP/OBS CARE 03/10MIN Diagnoses Gross hematuria R31.0
[2024-04-02] MEDS: POTASSIUM CHLORIDE CRTAB 20 MEQ TABCR PO ONE (09:53)
[2024-04-02] MEDS: OPTIRAY 320 125ml IV ONE (10:19)
--- NOTE | 2024-04-02 10:41 | CT Scan Report ---
CT OF THE ABDOMEN AND PELVIS WITH AND WITHOUT CONTRAST HEMATURIA PROTOCOL CLINICAL HISTORY: Hematuria. COMPARISON STUDY: Chest CT March 29, 2024. TECHNIQUE: Unenhanced and split bolus phase imaging of the abdomen and pelvis was performed. Intraven ous injection 120 cc of Optiray 320 IV was uneventful. Automated exposure control was utilized for t he study. A dose lowering technique was utilized adhering to the principles of ALARA. CT DOSE: 3024.55 mGy.cm FINDINGS: Small bilateral pleural effusions have developed since CT of March 29, 2024. Subpleural lower lobe opacities favor atelectasis. Right middle lobe airspace opacity is similar to CT of Februa 2024. The heart is moderately enlarged. No renal, ureteral or bladder calculi are present. The re is no hydronephrosis. There are no renal lesions. No suspicious renal lesions are present. There i s symmetric bilateral perinephric stranding which is of doubtful significance. No upper tract urothel ial lesions are identified. Bladder contains a Wilson balloon and gas. The bladder is decompressed and therefore suboptimally assessed. Bladder wall thickening is accentuated by underdistention. The live r, spleen, adrenal glands and pancreas are unremarkable. There is no biliary or pancreatic ductal dil atation. There is no evidence for a bowel obstruction. Caliber and wall thickness of small and large bowel are normal. The appendix is normal. There is no lymphadenopathy. There are no fluid collections . There are no suspicious lesions within the visualized skeletal structures. IMPRESSION: 1. No urinary calculi, hydronephrosis or upper tract urothelial lesions. No suspicious renal lesions. 2. Suboptimal evaluation of the bladder mass described above. Diffuse bladder wall thickening, likely chronic. If persistent hematuria, this could be correlated with cystoscopy. No discrete bladder lesi on identified. 3. Persistent right middle lobe airspace opacity, as shown on chest CT of March 29, 2024. This fav ors pneumonia. Follow-up chest CT in 3 months to ensure resolution is recommended. 4. Cardiomegaly. 5. Small bilateral pleural effusions with subpleural opacities suggestive of atelectasis. ACT 112: Negative or not required by law. Electronically signed by: Forest Robison M.D. 04/02/2024 10:38 AM
--- NOTE | 2024-04-02 11:09 | Infectious Disease Consult ---
Date of Service April 02, 2024 Telehealth Information I performed this visit using a real-time telehealth connection between my location and the patients location ([facility]). After connecting through interactive tele-video, patient was identified by name and date of and/or wristband check.Patient (or authorized healthcare customer loyalty representative) was informed that this was a telemedicine visit and it was being conducted confidentially over secure lines. My office door was closed and no one else was present in the room with me.Patient (or authorized healthcare customer loyalty representative) provided consent to proceed with the visit, expressed an understanding of privacy and security of the telemedicine visit, and gave permission to have a hospital customer loyalty representative in the room in order to assist with the visit and to conduct portions of the visit, as needed. I informed the patient (or authorized healthcare customer loyalty representative) that I reviewed their record and presented the opportunity for them to ask any questions regarding the visit today. The patient agreed to participate. Assessment & Plan (1) Pneumonia: (2) Bacteremia due to Streptococcus pneumoniae: Plan Patient's shortness of breath and cough is likely combination of active strep pneumoniae pulmonary infection and acute on chronic heart failure exacerbation. Presence of strep pneumoniae bacteremia likely pulmonary translocation in the setting of bacterial pneumonia. -Continue Ceftriaxone 2g IV qd -Pending repeat blood culture from 04/02, if remains negative will recommend final abx duration -Agree with discontinuation of Doxycycline -ID will continue to follow Case discussed with ID attending Dr. Bentley Comer MD Infectious Disease PGY-5 [facility] I have seen and examined the patient 04/02/[address] Comer. I reviewed his note and his assessment and plan. I agree with the findings and recommendations as outlined by Dr. Comer. Addi Hagan MD History of Present Illness History of Present Illness 74-year-old male with a past medical history of type 2 diabetes, hypertension, dyslipidemia, morbid obesity. Patient initially presenting for shortness of breath and cough which has been present for approximately 3 weeks. On presentation he was hemodynamically stable, afebrile, pulse 81, respiratory rate 20, on room air, WBC 19. CTA chest performed at this time showing right anterior small consolidation, No pulmonary embolism. 03/29 blood cultures with 1/4 bottles growing strep pneumoniae, / Respiratory culture with light growth normal alex. Repeat cultures on 04/02 currently pending. Echo performed showing ejection fraction of 20- 25% and severely dilated left ventricle. Hospital course complicated by increasing troponins for which Cardiology has been consulted and patient is currently on heparin GTT. Furthermore, patient with gross hematuria on admission and Urology has been consulted and we will be planning a complete hematuria workup to be performed as patient's condition improves. Allergies Allergy/AdvReac Type Severity Reaction Status Date / Time No Known Allergies Allergy Unverified 08/07/20 15:00 Home Medications Medication Instructions Recorded Confirmed Type amlodipine 5 mg tablet 5 mg PO DAILY 03/29/24 03/29/24 History aspirin 81 mg tablet,delayed 81 mg PO DAILY 03/29/24 03/29/24 History release cholecalciferol (vitamin D3) 25 25 mcg PO DAILY 03/29/24 03/29/24 History mcg (1,000 unit) tablet lisinopril 20 1 tab PO DAILY 03/29/24 03/29/24 History mg-hydrochlorothiazide 25 mg tablet metformin 500 mg tablet,extended 1,000 mg PO DAILY 03/29/24 03/29/24 History release 24 hr omega-3 300 mg-dha 120 mg-epa 180 1 cap PO BID 03/29/24 03/29/24 History mg-fish oil 1,000 mg capsule potassium gluconate 595 mg (99 mg) 595 mg PO DAILY 03/29/24 03/29/24 History tablet Patient History Medical History (Updated 04/02/24 @ 11:07 by Torres Comer MD) HLD (hyperlipidemia) reported prior intolerance to statins Anisocoria Hypertension Surgical History Status post right knee replacement Family History (Updated 03/29/24 @ 18:26 by Rebecca Krishna PA-C) Father Heart disease Other Diabetes Social History Smoking Status: Never smoker Second Hand Exposure: No; Do You Dip or Chew Tobacco: No; Tobacco Cessation Education Requested by Patient: No Hx Alcohol Use: No Hx Substance Use: No Preferred Language: Estonian Communication Ability: Effective Build Manager Required: No Beliefs That Will Affect Care: None Current Living Situation: Spouse Other Information That Helps Us Care for You: No Feels Safe at Home: Yes Safety Concerns: Feels Safe At This Time Assistive Devices: None Review of Systems Constitutional: No further fatigue, fever, loss of appetite Eyes: No pain, drainage, vision change HENT: No symptoms Cardiovascular: No chest pain, palpitations, lower extremity swelling Respiratory: Mild intermittent cough, minimally productive, no wheezing Gastrointestinal: No abdominal pain, nausea/vomiting, indigestion/heartburn Skin: No rash, lesions Neurological: No dizziness, weakness, confusion, sensory changes Physical Exam Telemedicine visit, no physical exam Appears well on camera, talkative, fluent speech, answering questions appropriately, moving upper extremities spontaneously. Results & Data Vital Signs (Past 12 Hours) Vital Signs Temp Pulse Pulse Resp BP BP Pulse Ox 04/02/24 08:45 04/02/24 07:29 36.9 C 89 26 H 126/69 97 04/02/24 06:59 98 H 04/02/24 04:59 130/81 04/02/24 02:33 36.8 C 98 H 20 106/67 96 04/01/24 23:57 36.8 C 98 H 16 117/74 92 04/01/24 23:32 86 17 91 O2 Del Method O2 Flow Rate 04/02/24 08:45 BiPAP 4 04/02/24 07:29 Nasal Cannula 5.0 04/02/24 06:59 04/02/24 04:59 04/02/24 02:33 Nasal Cannula 5 04/01/24 23:57 Room Air 04/01/24 23:32 4 Laboratory Results 03/29 blood culture: 1/ bottles strep pneumoniae 04/02 repeat blood culture: Pending 03/30 Respiratory culture: Light growth normal alex Diagnostic Findings Laboratory Results WBC 12.52 K/ul (4.8-10.8) H 04/02/24 05:38 RBC 3.13 M/uL (4.70-6.10) L 04/02/24 05:38 Hgb 9.5 g/dl (14.0-18.0) L 04/02/24 05:38 POC Hgb 11.2 g/dl (14.0-18.0) L 03/31/24 08:52 Hct 28.1 % (42.0-52.0) L 04/02/24 05:38 POC Hct 33 % (42-52) L 03/31/24 08:52 MCV 89.8 fL (80.0-100.0) 04/02/24 05:38 MCH 30.4 pg (25.0-34.0) 04/02/24 05:38 MCHC 33.8 g/dL (32.0-36.0) 04/02/24 05:38 RDW Std Deviation 42.9 fL (36.4-46.3) 04/02/24 05:38 RDW Coeff of Kelechi 13.1 % (11.5-14.5) 04/02/24 05:38 Plt Count 287 K/uL (130-400) 04/02/24 05:38 MPV 11.2 fL (9.4-12.4) 04/02/24 05:38 Immature Gran % (Auto) 0.8 % 03/30/24 06:37 Neut % (Auto) 83.0 % 03/30/24 06:37 Lymph % (Auto) 11.2 % 03/30/24 06:37 [place] % (Auto) 4.6 % 03/30/24 06:37 Eos % (Auto) 0.2 % 03/30/24 06:37 Baso % (Auto) 0.2 % 03/30/24 06:37 Neut # (Auto) 16.43 K/uL (1.40-6.50) H 03/30/24 06:37 Lymph # (Auto) 2.21 K/uL (1.20-3.40) 03/30/24 06:37 [place] # (Auto) 0.92 K/uL (0.11-0.59) H 03/30/24 06:37 Eos # (Auto) 0.04 K/uL (0.00-0.50) 03/30/24 06:37 Baso # (Auto) 0.04 K/uL (0.00-0.20) 03/30/24 06:37 Immature Gran # (Auto) 0.16 K/uL (0.01-0.20) 03/30/24 06:37 APTT 36 Seconds (21-31) H 04/01/24 14:45 PTT Ratio 1.3 04/01/24 14:45 Heparin Anti-Xa, Unfract 0.28 IU/ml (0.3-0.7) L 04/02/24 05:38 Specimen Type Arterial 03/31/24 08:52 POC pH 7.44 (7.35-7.45) 03/31/24 08:52 POC pCO2 34 mmHg (35-46) L 03/31/24 08:52 POC pO2 69 mmHg (80-95) L 03/31/24 08:52 POC HCO3 23 giovani/L (19-24) 03/31/24 08:52 POC Total CO2 24 mmol/L (24-31) 03/31/24 08:52 POC Base Excess -1.0 giovani/L (-9-1.8) 03/31/24 08:52 POC ABG O2 Sat 94.0 % (90-95) 03/31/24 08:52 POC Sodium 132 mmol/L (135-144) L 03/31/24 08:52 Sodium 134 mmol/L (136-145) L 04/02/24 05:38 POC Potassium 3.7 mmol/L (3.3-5.0) 03/31/24 08:52 Potassium 3.4 mmol/L (3.5-5.1) L 04/02/24 05:38 Chloride 97 mmol/L (98-107) L 04/02/24 05:38 Carbon Dioxide 29 mmol/L (21-32) 04/02/24 05:38 Anion Gap 8 (3-11) 04/02/24 05:38 BUN 27 mg/dl (6-23) H 04/02/24 05:38 Creatinine 1.04 mg/dl (0.6-1.4) 04/02/24 05:38 Est Cr Clr Drug Dosing 85.4 ml/min 04/02/24 05:38 eGFR 74.42 04/02/24 05:38 BUN/Creatinine Ratio 26.0 (10-20) H 04/02/24 05:38 Glucose 173 mg/dl (70-99(Fasting)) H 04/02/24 05:38 POC Glucose 193 mg/dl (70-99) H 04/02/24 07:26 Estimat Average Glucose 174 mg/dl 03/30/24 06:37 Hemoglobin A1c 7.7 % (4.5-5.6) H 03/30/24 06:37 Lactate 1.3 mmol/L (0.4-2.0) 03/31/24 08:39 Calcium 8.4 mg/dl (8.6-10.3) L 04/02/24 05:38 Phosphorus 3.6 mg/dl (2.5-4.9) 03/29/24 12:30 Magnesium 2.1 mg/dl (1.7-2.4) 04/02/24 05:38 Total Bilirubin 0.8 mg/dl (0.2-1.0) 03/29/24 10:44 AST 45 U/L (13-39) H 03/29/24 10:44 ALT 19 U/L (7-52) 03/29/24 10:44 Alkaline Phosphatase 66 U/L (34-104) 03/29/24 10:44 Troponin I High Sens 5760.4 pg/ml (0-20) H* 03/31/24 10:33 B-Natriuretic Peptide 1104 pg/ml (0-100) H 03/29/24 Unknown Total Protein 7.0 gm/dl (6.0-8.3) 03/29/24 10:44 Albumin 3.8 gm/dl (3.4-5.0) 03/29/24 10:44 Globulin 3.2 gm/dl (2.5-4.0) 03/29/24 10:44 Albumin/Globulin Ratio 1.2 (0.9-2) 03/29/24 10:44 Triglycerides 164 mg/dl (0-150) H 03/30/24 06:37 Cholesterol 135 mg/dl (0-200) 03/30/24 06:37 LDL Cholesterol, Calc 70 mg/dl 03/30/24 06:37 VLDL Cholesterol, Calc 33 mg/dl (0-30) H 03/30/24 06:37 HDL Cholesterol 32 mg/dl 03/30/24 06:37 Cholesterol/HDL Ratio 4.2 (0-5) 03/30/24 06:37 Procalcitonin 7.88 ng/ml (0-0.5) H 04/02/24 05:38 Urine Color Dark Yellow 03/30/24 06:26 Urine Appearance Clear (Clear) 03/30/24 06:26 Urine pH 5.0 (4.5-7.5) 03/30/24 06:26 Ur Specific [place] > 1.045 (1.000-1.030) H 03/30/24 06:26 Urine Protein Trace (Negative) H 03/30/24 06:26 Urine Glucose (UA) Negative (Negative) 03/30/24 06:26 Urine Ketones Trace (Negative) H 03/30/24 06:26 Urine Blood Negative (Negative) 03/30/24 06:26 Urine Nitrite Negative (Negative) 03/30/24 06:26 Urine Bilirubin Negative (Negative) 03/30/24 06:26 Urine Urobilinogen Negative (Negative) 03/30/24 06:26 Ur Leukocyte Esterase Negative (Negative) 03/30/24 06:26 Urine WBC (Auto) 0-5 /hpf (0-5) 03/30/24 06:26 Urine RBC (Auto) 0-2 /hpf (0-2) 03/30/24 06:26 U Hyaline Cast (Auto) >20 /lpf (0-2) H 03/30/24 06:26 U Epithel Cells (Auto) 0-2 /hpf (0-2) 03/30/24 06:26 Urine Bacteria (Auto) None Seen (None Seen) 03/30/24 06:26 Granular Casts Present /lpf (None Prsent) A 03/30/24 06:26 Adenovirus (PCR) Not Detected (NotDetected) 03/29/24 10:44 B. pertussis DNA (PCR) Not Detected (NotDetected) 03/29/24 10:44 B.parapertussis DNA PCR Not Detected (NotDetected) 03/29/24 10:44 C. pneumoniae DNA (PCR) Not Detected (NotDetected) 03/29/24 10:44 Coronavirus OC43 (PCR) Not Detected (NotDetected) 03/29/24 10:44 Coronavirus HKU1 (PCR) Not Detected (NotDetected) 03/29/24 10:44 Coronavirus 229E (PCR) Not Detected (NotDetected) 03/29/24 10:44 SARS-CoV-2 (PCR) Not Detected (NotDetected) 03/29/24 10:44 Coronavirus NL63 (PCR) Not Detected (NotDetected) 03/29/24 10:44 Human Metapneumovir PCR Not Detected (NotDetected) 03/29/24 10:44 Influenza Type A (PCR) Not Detected (NotDetected) 03/29/24 10:44 Influenza Type B (PCR) Not Detected (NotDetected) 03/29/24 10:44 M. pneumoniae (PCR) Not Detected (NotDetected) 03/29/24 10:44 Parainfluenza 1 (PCR) Not Detected (NotDetected) 03/29/24 10:44 Parainfluenza 2 (PCR) Not Detected (NotDetected) 03/29/24 10:44 Parainfluenza 3 (PCR) Not Detected (NotDetected) 03/29/24 10:44 Parainfluenza 4 (PCR) Not Detected (NotDetected) 03/29/24 10:44 RSV (PCR) Not Detected (NotDetected) 03/29/24 10:44 Entero/Rhino (PCR) Not Detected (NotDetected) 03/29/24 10:44 Streptococcus sp PCR DETECTED (NotDetected) A 03/29/24 11:57 Strep pneumoniae (PCR) DETECTED (NotDetected) A 03/29/24 11:57 Bld Cult ID Panel PCR See PCR Comment (NotDetected) 03/29/24 11:57 Blood Type O Positive 03/31/24 23:43 Antibody Screen NEGATIVE 03/31/24 23:43 Crossmatch See Detail 03/31/24 23:43 Impressions Chest CTA 03/29/24 11:33 CT angio chest PE protocol CT DOSE: 975.08 mGy.cm HISTORY: 73 years-old Male with PE, pneumonia, cancer. Acute shortness of breath TECHNIQUE: Multiple CTA images of the chest were obtained after the intravenous administration of 112 ml Optiray. Coronal and sagittal MIPS were obtained from the axial data set and were submitted for review. All measurements were obtained according to NASCET criteria. A dose lowering technique was utilized adhering to the principles of ALARA. COMPARISON: Chest radiograph of same day and also 11/17/2016 FINDINGS: CTA: Moderate cardiomegaly without pericardial effusion. Moderate to extensive coronary artery calcifications. Fusiform dilation of the ascending thoracic aorta, main pulmonary artery, 4.6 x 4.7 cm. No dissection. There is patency of the image great vessels. Descending thoracic aortic tortuosity. No central pulmonary emboli identified. CT CHEST: No thyroid nodule. There are a few mildly enlarged mediastinal lymph nodes including paratracheal lymph nodes measuring up to 12 mm. No pneumothorax, pleural effusion or overt pulmonary edema. Left lung is clear. Segmental consolidative opacities within the medial segment right middle lobe with central air bronchograms correlates with the radiographic abnormality measuring up to approximately 7 cm. Additional minimal patchy subsegmental consolidative opacities of the basilar right lower lobe. Mild acute wall thickening. No acute upper abdominal abnormality. Hepatic steatosis with hepatomegaly. Unremarkable soft tissues. No acute fracture or destructive bone lesion. IMPRESSION: 1. Cardiomegaly with fusiform dilation of the ascending thoracic aorta, 4.6 x 4.7 cm. 2. No pulmonary emboli identified. 3. Segmental right middle lobe airspace opacities with subsegmental consolidation of the basilar right lower lobe suggestive of pneumonia. Follow-up imaging after treatment course recommended in order to document complete resolution. 4. Mild mediastinal lymphadenopathy, likely reactive. ACT 112: Negative or not required by law. The above report was generated using voice recognition software. It may contain grammatical, syntax or spelling errors. Electronically signed by: Herrera Steiner M.D. 03/29/2024 12:07 PM Chest X-Ray 03/31/24 15:59 HISTORY: Worsening hypoxia TECHNIQUE: Portable AP radiograph of the chest. COMPARISON: Chest radiograph dated 03/29/2024. Chest CT dated 03/29/2024. FINDINGS: Right basilar airspace opacity obscures the right heart border and is likely in the right middle lobe. No left lung opacity. No pneumothorax or definite effusion. Cardiomegaly. Left-sided aortic arch. No acute osseous abnormality. Included upper abdomen is unremarkable. IMPRESSION: 1. Right basilar airspace opacity is not significantly changed and could representpneumonia. 2. Clear left lung. 3. Cardiomegaly. Electronically signed by Usman Stroud 03-31-2024 4:39 PM Abdomen/Pelvis CT 04/02/24 08:35 CT OF THE ABDOMEN AND PELVIS WITH AND WITHOUT CONTRAST HEMATURIA PROTOCOL CLINICAL HISTORY: Hematuria. COMPARISON STUDY: Chest CT March 29, 2024. TECHNIQUE: Unenhanced and split bolus phase imaging of the abdomen and pelvis was performed. Intravenous injection 120 cc of Optiray 320 IV was uneventful. Automated exposure control was utilized for the study. A dose lowering technique was utilized adhering to the principles of ALARA. CT DOSE: 3024.55 mGy.cm FINDINGS: Small bilateral pleural effusions have developed since CT of March 29, 2024. Subpleural lower lobe opacities favor atelectasis. Right middle lobe airspace opacity is similar to CT of March 29, 2024. The heart is moderately enlarged. No renal, ureteral or bladder calculi are present. There is no hydronephrosis. There are no renal lesions. No suspicious renal lesions are present. There is symmetric bilateral perinephric stranding which is of doubtful significance. No upper tract urothelial lesions are identified. Bladder contains a Wilson balloon and gas. The bladder is decompressed and therefore suboptimally assessed. Bladder wall thickening is accentuated by underdistention. The liver, spleen, adrenal glands and pancreas are unremarkable. There is no biliary or pancreatic ductal dilatation. There is no evidence for a bowel obstruction. Caliber and wall thickness of small and large bowel are normal. The appendix is normal. There is no lymphadenopathy. There are no fluid collections. There are no suspicious lesions within the visualized skeletal structures. IMPRESSION: 1. No urinary calculi, hydronephrosis or upper tract urothelial lesions. No suspicious renal lesions. 2. Suboptimal evaluation of the bladder mass described above. Diffuse bladder wall thickening, likely chronic. If persistent hematuria, this could be correlated with cystoscopy. No discrete bladder lesion identified. 3. Persistent right middle lobe airspace opacity, as shown on chest CT of March 29, 2024. This favors pneumonia. Follow-up chest CT in 3 months to ensure resolution is recommended. 4. Cardiomegaly. 5. Small bilateral pleural effusions with subpleural opacities suggestive of atelectasis. ACT 112: Negative or not required by law. Electronically signed by: Forest Robison M.D. 04/02/2024 10:38 AM (1) Pneumonia Laterality: bilateral Lung location: lower lobe of lung Pneumonia type: due to group B Streptococcus Qualified Code(s): J15.3 - Pneumonia due to streptococcus, group B
--- NOTE | 2024-04-02 13:11 | Electrocardiogram Report ---
Test Reason : Blood Pressure : */* mmHG Vent. Rate : 89 BPM Atrial Rate : 89 BPM P-R Int : 120 ms QRS Dur : 176 ms QT Int : 424 ms P-R-T Axes : 38 -84 76 degrees QTcB Int : 515 ms Sinus rhythm with marked sinus arrhythmia Left axis deviation Right bundle branch block Abnormal ECG When compared with ECG of 30-Mar-2024 05:48, Criteria for Lateral infarct are no longer Present T wave inversion less evident in Anterolateral leads Confirmed by Yakov Chavez ([id number]) on 04/02/2024 1:11:19 PM Referred By: REFERRED SELF Confirmed By: Yakov Chavez
[2024-04-02 13:21] LABS: Hematocrit (blood only) 28.7 % (42.0-52.0); Hemoglobin 9.7 g/dl (14.0-18.0)
--- NOTE | 2024-04-02 14:23 | Hospitalist Progress Note ---
Date of Service April 02, 2024 Assessment & Plan (1) Sepsis: Plan: Patient is 73 yr male with PMH DM II, HTN, dyslipidemia, RBBB, morbid obesity presented to ER with c/o cough and SOB x 3 weeks. Patient reports started with cough and shortness of breath 3 weeks ago Sepsis Multifocal pneumonia Strep bacteremia --Chest CTA:No pulmonary emboli identified. Segmental right middle lobe airspace opacities with subsegmental consolidation of the basilar right lower lobe suggestive of pneumonia. Follow-up imaging after treatment course recommended in order to document complete resolution.Mild mediastinal lymphadenopathy, likely reactive. -- BioFire negative -- Elevated procalcitonin --Blood Culture: 02/17: Streptococcus pneumonia --Repeat blood cultures pending --ECHO:as below -- Doxycycline discontinued Continue IV Rocephin Pulmonary hygiene with incentive spirometry, Mucinex Infectious disease consulted Less supplemental oxygen requirement today (2) Acute on chronic heart failure with reduced ejection fraction and diastolic dysfunction: Plan: Acute on chronic systolic and diastolic heart failure --ECHO: Left ventricle is severely dilated. Mild concentric LVH. Severe global hypokinesis of the left ventricle. EF 20 to 25%. Left atrium is mildly dilated. Mild aortic regurgitation. Moderate mitral regurgitation. Significant tricuspid regurgitation is absent. Grade 1 diastolic dysfunction. -- Continue IV Lasix Appreciate cardiology input Continue metoprolol Monitor I's and O's, daily weight, volume status Received 60 mg IV Lasix today Volume status slowly improving (3) Pneumonia: Plan: Management as above Ascending aortic aneurysm --CT showed:Cardiomegaly with fusiform dilation of the ascending thoracic aorta, 4.6 x 4.7 cm. Follow-up as outpatient (4) NSTEMI (non-ST elevated myocardial infarction): Plan: Continue IV heparin Will need diagnostic cardiac catheterization eventually Continue aspirin, Lipitor Continue metoprolol Appreciate Cardiology input Hematuria In setting of anticoagulation use with heparin --CT ABD:No urinary calculi, hydronephrosis or upper tract urothelial lesions. No suspicious renal lesions. Suboptimal evaluation of the bladder mass described above. Diffuse bladder wall thickening, likely chronic. If persistent hematuria, this could be correlated with cystoscopy. No discrete bladder lesion identified. -Consider CT abdomen/Pelvis when more stable Patient would require cystoscopy and further workup as outpatient Appreciate urology input Monitor on H&H and transfuse as needed -- Hematuria slowly improving Urology following (5) Hypomagnesemia: Plan: Replace and monitor (6) Diabetes mellitus, type II: Plan: -A1c: 7.7 -NovoLog sliding scale per protocol Monitor BGs (7) LILIAN (acute kidney injury): Plan: -Cr: 1.4>1.2>1.0 Monitor renal function Avoid Nephrotoxic agents as able Plan DVT Px: Heparin ggt Code Status Full Code Admission and Anticipated Discharge Date Admission Date: March 29, 2024 Subjective Patient is seen and examined at bedside States feeling a lot better today Less cough today Denies any dyspnea, abdominal pain, dizziness Discussed with patient and family at bedside Hematuria slowly improving Saturating well on 4 L supplemental oxygen Review of Systems Review of Systems: All systems reviewed & are unremarkable except as noted in Subjective Physical Exam Physical Exam: Physical Exam: Vitals signs as noted above General Appearance:Morbidly Obese, ill appearing, no apparent distress Head: normocephalic, Atraumatic Eyes: normal inspection, EOMI Neck: supple, Trachea midline Respiratory/Chest: Normal breath sounds, CTA, No accessory muscle use Cardiovascular: S1, S2, No murmur Abdomen/GI:Soft, Non tender, Bowel sounds present Extremities/Musculoskeletal:normal inspection, Trace edema Neurologic/Psych:AAOX3, grossly no focal neurological deficits Skin: normal color, warm Results & Data Results & Data Vital Signs (Past 12 Hours) Vital Signs Temp Pulse Pulse Resp BP BP Pulse Ox 04/02/24 11:28 36.8 C 93 H 24 159/53 H 95 04/02/24 08:45 04/02/24 07:29 36.9 C 89 26 H 126/69 97 04/02/24 06:59 98 H 04/02/24 04:59 130/81 04/02/24 02:33 36.8 C 98 H 20 106/67 96 O2 Del Method O2 Flow Rate 04/02/24 11:28 Nasal Cannula 4.0 04/02/24 08:45 BiPAP 4 04/02/24 07:29 Nasal Cannula 5.0 04/02/24 06:59 04/02/24 04:59 04/02/24 02:33 Nasal Cannula 5 Laboratory Results Short CBC 04/01/24 04/01/24 04/02/24 Range/Units 14:45 22:47 05:38 WBC 12.52 H (4.8-10.8) K/ul Hgb 10.7 L 10.0 L 9.5 L (14.0-18.0) g/dl Hct 31.4 L 29.5 L 28.1 L (42.0-52.0) % Plt Count 287 (130-400) K/uL 04/02/24 Range/Units 12:42 WBC (4.8-10.8) K/ul Hgb 9.7 L (14.0-18.0) g/dl Hct 28.7 L (42.0-52.0) % Plt Count (130-400) K/uL BMP 04/02/24 05:38 Sodium 134 L Potassium 3.4 L Chloride 97 L Carbon Dioxide 29 BUN 27 H Creatinine 1.04 Glucose 173 H Calcium 8.4 L (1) Sepsis Acute respiratory failure type: with hypoxia Sepsis acute organ dysfunction status: with acute organ dysfunction Sepsis type: Streptococcus, unspecified Severe sepsis acute organ dysfunction type: acute respiratory failure Severe sepsis shock status: without septic shock Qualified Code(s): A40.9 - Streptococcal sepsis, unspecified; R65.20 - Severe sepsis without septic shock; J96.01 - Acute respiratory failure with hypoxia (3) Pneumonia Laterality: bilateral Lung location: lower lobe of lung Pneumonia type: due to group B Streptococcus Qualified Code(s): J15.3 - Pneumonia due to streptococcus, group B (6) Diabetes mellitus, type II Diabetes mellitus residential insulin use: without buttermaker helper use Diabetes mellitus complication status: without complication Qualified Code(s): E11.9 - Type 2 diabetes mellitus without complications
--- NOTE | 2024-04-02 15:34 | Communication Note ---
Date of Service: April 02, 2024 Patient reassessed. Was on BiPap for a short interval, but requests removal , as he feels more comfortable without it. Plan: Additional KCl 40 meq x 1 Afternoon dose of furosemide 60 mg IV x 1 Low dose spironolactone. BP trending higher today. May have room to start ACEI / ARB tomorrow.
[2024-04-02] MEDS: SPIRONOLACTONE 12.5 MG TAB PO SCH (16:33)
[2024-04-02 21:41] LABS: Hematocrit (blood only) 30.8 % (42.0-52.0); Hemoglobin 10.4 g/dl (14.0-18.0)
[2024-04-03 06:42] LABS: Hematocrit (blood only) 30.2 % (42.0-52.0); Hemoglobin 10.2 g/dl (14.0-18.0); Mean Corpuscular Hemoglobin 30.3 pg (25.0-34.0); Mean Corpuscular Hgb Conc 33.8 g/dL (32.0-36.0); Mean Corpuscular Volume 89.6 fL (80.0-100.0); Mean Platelet Volume 10.7 fL (9.4-12.4); Platelet Count 282 K/uL (130-400); RDW Coefficient of Variation 13.2 % (11.5-14.5); RDW Standard Deviation 43.2 fL (36.4-46.3); Red Blood Count 3.37 M/uL (4.70-6.10); White Blood Count 9.55 K/ul (4.8-10.8)
[2024-04-03 07:07] LABS: BUN Creatinine Ratio 25.5 (10-20); Calcium 8.5 mg/dl (8.6-10.3); Creatinine Clr Calc Pharmacy 89.8 ml/min; Potassium 3.5 mmol/L (3.5-5.1)
--- NOTE | 2024-04-03 07:48 | Urology Progress Note ---
Date of Service April 03, 2024 Assessment & Plan (1) Gross hematuria: Plan: Follow-up of gross hematuria Hematuria may be due to Wilson trauma in setting of anticoagulation Labs reviewedcreatinine 0.98, WBC 9.55, hemoglobin 10.2 Continue to trend labs, H/H Catheter continues to drain appropriately, urine slightly improved today, continue to monitor Okay to hand irrigate to remove any clots if catheter becomes obstructed CT urogram showed no acute findings Recommend finalize hematuria work-up with cystoscopy as outpatient Continue medical management per primary service Urology will follow Admission and Anticipated Discharge Date Admission Date: March 29, 2024 Subjective Patient seen and examined at bedside this morning. He is awake and sitting up in bedside chair. No acute issues overnight. Denies any issues with catheter overnight. Wilson intact. Denies suprapubic discomfort. No fever or chills. Review of Systems Constitutional: as per Subjective / HPI Genitourinary: + as per Subjective / HPI Physical Exam Constitutional: + obese; no acute distress Respiratory: no respiratory distress supplemental oxygen in place Gastrointestinal (Abdomen): Inspection/Auscultation: abdomen normal to inspection Musculoskeletal: Extremities: extremities normal to inspection Neurologic: moves all extremities and awake Psychiatric: Orientation: alert and oriented x 3 Genitourinary: Wilson catheter in place with jaeger red urine, no clots noted during exam Results & Data Vital Signs (Past 12 Hours) Vital Signs Temp Pulse Pulse Resp BP Pulse Ox O2 Del Method 04/03/24 07:00 92 H 04/03/24 03:00 36.4 C L 92 H 20 106/71 96 Nasal Cannula 04/02/24 23:28 85 04/02/24 23:00 36.7 C 83 18 105/68 97 Nasal Cannula 04/02/24 20:00 Nasal Cannula O2 Flow Rate 04/03/24 07:00 04/03/24 03:00 4 04/02/24 23:28 04/02/24 23:00 4 04/02/24 20:00 4 PG Care Time/CCT Total # of Minutes Spent Total Time Spent with Patient: Total time spent is greater than 50% in coordination of care (as documented) at patient's floor/unit and/or counseling patient: Coding Level of Care Code 55715 SUB INP/OBS CARE 03/10MIN Diagnoses Gross hematuria R31.0
--- NOTE | 2024-04-03 07:50 | XRay Report ---
EXAM: XR chest 1V portable CLINICAL HISTORY: Pneumonia. TECHNIQUE: X-ray image of the chest obtained in 1 frontal projection. COMPARISON: Prior X-ray dated 03/31/2024 for comparison. FINDINGS: Pulmonary Parenchyma: Stable air space opacification in bilateral lower zones, right more than left. Stable prominent bilateral parahilar markings. Bilateral CP angles obscured likely pleural effusion vs thickening. Heart and Mediastinum: Stable cardiomegaly and dilated aorta. Mediastinal widening Bony Thorax: Bony thorax appears intact without fractures or deformities. Soft Tissues: Soft tissues overlying the chest wall are unremarkable. IMPRESSION: 1. Stable air space opacification in bilateral lower zones, right more than left. 2. Stable prominent bilateral parahilar markings. 3. Stable Bilateral CP angles obscured likely pleural effusion vs thickening. 4. Stable Cardiomegaly and Mediastinal widening. Electronically signed by Luanne Gracia 04-03-2024 07:50 AM
--- NOTE | 2024-04-03 08:27 | Cardiology Progress Note ---
Date of Service April 03, 2024 Assessment & Plan (1) NSTEMI (non-ST elevated myocardial infarction): (2) Sepsis: (3) Pneumonia: (4) Severe left ventricular systolic dysfunction (LVSD): (5) Acute on chronic heart failure with reduced ejection fraction and diastolic dysfunction: Plan 03/29/24: Patient admitted with 2 weeks of worsening SOB cough and weakness. Found to likely have right middle lobe pneumonia with elevated WBC, elevated lactic acid and signs/symptoms consistent wiht sepsis. Blood cultures pending Started on IV antibiotics. Blood tinged sputum. Recommend culture. HS troponin elevated on admission at 4000, increasing to 6500. No chest pain reported Started on IV heparin. Echo results pending. Initial EKG with sinus tach and new RBBB. Repeat EKG with Worsening T wave abnormality in anterior leads. Start ASA, statin. Prior intolerances discussed and he reported mild "myalgias" but this was long ago. BP is borderline low. Would hold home dose amlodipine for now. Consider adding beta refugio for tachycardia Consider nitro oint. Once his respiratory status improves, will likely need further evaluation with cardiac catheterization. 03/30/24: + blood culture x1 with strep pneumoniae reported overnight. Other blood culture negative. WBC trending lower to 19. Continue IV antibiotics with ceftriaxone and doxycline. Echo yesterday with severely dilated LV, severe global hypokinesis at 20-25% Elevated troponin since admission 3220 - [id number] [phone] [id number]. No angina reported currently. No prior studies for comparison. Continue IV heparin Continue ASA 81 mg daily Statin added with atorvastatin 40 mg daily Started metoprolol 12.5 mg daily BP has been borderline low. Will avoid JACQUI/ARB Monitor fluid balance. He does have mild LE edema. If worsening fluid status, low threshold to start IV diuretics. Once his sepsis improves, likely will need diagnostic cardiac catheterization. Findings discussed in detail with patient and family at bedside this morning. Will follow Case discussed with Dr. Baer I spent a total of 30 minutes on the date of service in preparation, delivery, and documentation of the care provided to this patient, excluding any time spent in the performance of separately billed services. Leslie Bowers PA-C Department of Cardiology, [facility] This chart was completed in part utilizing Speech Voice Recognition Software. Grammatical errors, random word insertions, pronoun errors, and incomplete sentences are an occasional consequence of this system due to software limitations, ambient noise, and hardware issues. Any formal questions or concerns about the content, text, or information contained within the body of this dictation should be directly addressed to the provider for clarification. 03/31/2024: -Patient in acute respiratory distress upon arrival this morning. Chest xray obtained at bedside showing evidence of superimposed HF in the setting of known pneumonia/sepsis -Patient received a total of 60mg IV Furosemide along with polanco catheter insertion. Immediately diuresed 2300ml urine. -Increased HR and ectopy on telemetry. Increase Toprol xl to 25mg PO Daily -Strict I&O with daily weights (standing scale) -Close monitoring of renal function and serum electrolytes with a goal serum K> 4.0 and serum mag > 2.0 -Continue IV heparin gtt -Continue PO magnesium supplementation -Continue GDMT with ASA, Atorvastatin, Toprol xl (increased dose). Continue to monitor BP response, right now patient needs diuresis, but may be considered for JACQUI-I or ARB in future if BP remains elevated. -Continued management of acute infectious process by primary team -EKG with no acute ST-T wave changes. -Will likely need a diagnostic cardiac cath at some juncture; however, diuresis is most crucial at this time. 04/01/2024: -Patient is showing some clinical improvement from a cardiovascular perspective. chest pain has resolved, and breathing has improved although does require intermittent BiPap use. -Continues with hypervolemia in conjunction with his acute infectious process. Give lasix 40mg IV x1 dose today -Heart rates stable, continues with brief runs of PAT, labs stable. -Strict I&O with daily weights (standing scale) -Close monitoring of renal function and serum electrolytes with a goal serum K> 4.0 and serum mag > 2.0 -Continue IV heparin gtt. polanco catheter has noted dark blood colored urine in both the tubing and bag, Nurse states that this has been the case since overnight. HgB stable, but recommend close monitoring in the setting that patient is on a heparin gtt. Given his recent event, would like to continue heparin gtt, unless HgB would become unstable. -Continue PO magnesium supplementation -Continue GDMT with ASA, Atorvastatin, Toprol xl (increased dose). Continue to monitor BP response, right now patient needs diuresis, but may be considered for JACQUI-I or ARB in future if BP remains elevated. -Continued management of acute infectious process by primary team -EKG with no acute ST-T wave changes. -Will likely need a diagnostic cardiac cath at some juncture; however, diuresis is most crucial at this time. 04/02/2024: -Patient continues to demonstrate clinical improvement from a cardiac perspective. No new episodes of chest pain, breathing continues to improve, currently on O2 via nasal cannula. -Patient is to receive Lasix 60mg IV x1 dose today and Potassium chloride 40 meq PO x1 dose today (already ordered by Dr. Baer) -shows good output with -550ml fluid deficit and -4kg weight reduction --Strict I&O with daily weights (standing scale) -Close monitoring of renal function and serum electrolytes with a goal serum K> 4.0 and serum mag > 2.0 -Continue IV heparin gtt. polanco catheter has had dark red hematuria noted yesterday, appears more of a jaeger color with improvement today. Urology on consult, and patient will be having a CT scan today. HgB slightly decreased, continue to trend. Given his recent event, would like to continue heparin gtt, unless HgB would become unstable. -Continue PO magnesium supplementation -Continue GDMT with ASA, Atorvastatin, Toprol xl (increased dose). Continue to monitor BP response, right now patient needs diuresis, but may be considered for JACQUI-I or ARB in future if BP remains elevated. -Continued management of acute infectious process by primary team 04/03/2024: -Patient continues to demonstrate clinical improvement. Breathing has stabilized. Chest xray shows improvement. -Urine is now a light jaeger/pink appearance, which is a significant improvement compared to 2 days ago. -Remains chest pain free. Continues on Heparin gtt and is now therapeutic -Diuresing well, -1286ml this AM. Give Lasix 40mg IV x1 dose today, continue to monitor renal function and electrolytes closely. -Strict I&O and daily weights on standing scale. -Continued management of infectious process by primary team. -Patient's HR has been controlled with the exception of when he was straining in the restroom this morning. Continue to monitor on telemetry. Patient is deconditioned at baseline. -As discussed before, patient will need cardiac catheterization at some juncture; however, needs to have a stable respiratory status and be improved from an infectious standpoint prior. blood cultures today negative. Case has been discussed with Dr. Brock. Further recommendations regarding plan of care as per his assessment. I spent a total of 30 minutes on the date of service in preparation, delivery, documentation of the care provided to the patient excluding any time spent in the performance of separately billed services. [facility] Admission and Anticipated Discharge Date Admission Date: March 29, 2024 Supervising Physician Co-Signing Physician Notes I have personally performed a history and physical examination on the patient. I have reviewed the advance practitioner's documentation, and I agree with, and take responsibility for the plan of care. 74-year-old male admitted with pneumonia and acute heart failure with reduced ejection fraction. Echocardiogram demonstrating severe LV systolic dysfunction with severe left ventricular dilation. Clinically improving with IV diuresis although borderline hypotensive. Reports difficulty tolerating CPAP at night. Fluid balance -795 cc. Recommendations: * Titrate Toprol-XL 25 mg twice daily. * Additional 60 mg IV furosemide this evening. * Discontinue IV heparin and topical nitrates. * Continue spironolactone, aspirin, and atorvastatin as ordered. I spent a total of 40 minutes on the date of service in preparation, delivery, and documentation of the care provided to this patient, excluding any time spent in the performance of separately billed services. Moses Brock DO, [facility] Subjective 04/03/2024:Patient seen and examined in follow up today. Feeling continued improvement. Denies chest pain, pressure or palpitations, Denies shortness of breath, now off bipap and utilizing supplemental O2 4LPM via nasal cannula. Reports decreased leg swelling. Labs, vitals, diagnostics, telemetry and documentation reviewed. Telemetry reviewed showing SR/ST 90-105. patient was found to be tachycardic when attempting to use the toilet/have a bowel movement. H/H stable 10.2/30.2, urine now a light jaeger color which is a significant improvement. underwent CT of ABD/Pelvis which did not show any acute bladder findings; however, bladder was decompressed making imaging slightly more difficult. Chest xray today: IMPRESSION: 1. Stable air space opacification in bilateral lower zones, right more than left. 2. Stable prominent bilateral parahilar markings. 3. Stable Bilateral CP angles obscured likely pleural effusion vs thickening. 4. Stable Cardiomegaly and Mediastinal widening. -1286.2 fluid balance -8kg Review of Systems Review of Systems: All systems reviewed & are unremarkable except as noted in HPI & below Physical Exam Constitutional: + morbidly obese; no acute distress Neck: normal visual inspection and trachea midline Respiratory: + respiratory distress, + labored breath ing, + tachypneic, + audible wheezes and + tripod positioning Auscultation: + crackles (faint crackles bilateral bases ), + rhonchi and + wheezes Cardiovascular: Rate/Rhythm: regular rhythm and + tachycardic Heart Sounds: normal S1 and normal S2; no murmur Vessels: dorsalis pedis pulses present; no JVD Extremities: + edema (trace BLE) Skin: no rashes, warm and dry Psychiatric: A+Ox3, euthymic affect Results & Data Vital Signs (Past 12 Hours) Vital Signs Temp Pulse Pulse Resp BP Pulse Ox O2 Del Method 04/03/24 08:07 36.4 C L 104 H 18 106/33 L 96 Nasal Cannula 04/03/24 07:00 92 H 04/03/24 03:00 36.4 C L 92 H 20 106/71 96 Nasal Cannula 04/02/24 23:28 85 04/02/24 23:00 36.7 C 83 18 105/68 97 Nasal Cannula O2 Flow Rate 04/03/24 08:07 04/03/24 07:00 04/03/24 03:00 4 04/02/24 23:28 04/02/24 23:00 4 Laboratory Results CBC 04/02/24 04/02/24 04/03/24 Range/Units 12:42 21:20 06:08 WBC 9.55 (4.8-10.8) K/ul RBC 3.37 L (4.70-6.10) M/uL Hgb 9.7 L 10.4 L 10.2 L (14.0-18.0) g/dl Hct 28.7 L 30.8 L 30.2 L (42.0-52.0) % Plt Count 282 (130-400) K/uL Comprehensive Metabolic Panel 04/03/24 Range/Units 06:08 Sodium 135 L (136-145) mmol/L Potassium 3.5 (3.5-5.1) mmol/L Chloride 97 L (98-107) mmol/L Carbon Dioxide 30 (21-32) mmol/L BUN 25 H (6-23) mg/dl Creatinine 0.98 (0.6-1.4) mg/dl Glucose 171 H (70-99(Fasting)) mg/dl Calcium 8.5 L (8.6-10.3) mg/dl Intake and Output 04/02/24 04/03/24 04/03/24 22:59 06:59 14:59 Intake Total 1276.800 / 2664.800 653.467 / 2664.800 Output Total 2501 / 3951 550 / 3951 Balance -1224.200 / -1286.200 103.467 / -1286.200 -1 Intake: IV 556.800 / 1444.800 653.467 / 1444.800 Heparin 13451 Unit/500 ml D5w 556.800 / 1394.800 653.467 / 1394.800 25,000 units In 500 ml @ 2,900 UNITS/HR 58 mls/hr IV .[id number] [facility] Rx#:[id number] Oral 720 / 1220 Output: Urine Amount (Catheter) 2500 / 3950 550 / 3950 Polanco/Indwelling 2500 / 3950 550 / 3950 # Bowel Movements Other: Weight 148.3 kg Weight Measurement Method Standing Scale (2) Sepsis Acute respiratory failure type: with hypoxia Sepsis acute organ dysfunction status: with acute organ dysfunction Sepsis type: Streptococcus, unspecified Severe sepsis acute organ dysfunction type: acute respiratory failure Severe sepsis shock status: without septic shock Qualified Code(s): A40.9 - Streptococcal sepsis, unspecified; R65.20 - Severe sepsis without septic shock; J96.01 - Acute respiratory failure with hypoxia (3) Pneumonia Laterality: bilateral Lung location: lower lobe of lung Pneumonia type: due to group B Streptococcus Qualified Code(s): J15.3 - Pneumonia due to streptococcus, group B
[2024-04-03 08:48] LABS: ANTI-Xa, UFH(UnfractionatedHep 0.48 IU/ml (0.3-0.7)
[2024-04-03] MEDS: POTASSIUM CHLORIDE CRTAB 20 MEQ TABCR PO STA (09:40)
[2024-04-03] MEDS: FUROSEMIDE 40 MG/4 ML VIAL IV ONE (11:29)
[2024-04-03] MEDS ORDERED: SODIUM CHLORIDE 0.65% NA SOLN 45 ML (OCEAN) PRN (13:18)
--- NOTE | 2024-04-03 14:14 | Hospitalist Progress Note ---
Date of Service April 03, 2024 Assessment & Plan (1) Sepsis: Plan: Patient is 73 yr male with PMH DM II, HTN, dyslipidemia, RBBB, morbid obesity presented to ER with c/o cough and SOB x 3 weeks. Patient reports started with cough and shortness of breath 3 weeks ago Sepsis Multifocal pneumonia Strep bacteremia --Chest CTA:No pulmonary emboli identified. Segmental right middle lobe airspace opacities with subsegmental consolidation of the basilar right lower lobe suggestive of pneumonia. Follow-up imaging after treatment course recommended in order to document complete resolution.Mild mediastinal lymphadenopathy, likely reactive. -- BioFire negative -- Elevated procalcitonin --Blood Culture: 02/17: Streptococcus pneumonia --Repeat blood cultures negative to date --ECHO:as below -- Doxycycline discontinued Continue IV Rocephin for now Pulmonary hygiene with incentive spirometry, Mucinex Appreciate infectious disease input Wean off supplemental oxygen as able Await final recommendations from ID (2) Acute on chronic heart failure with reduced ejection fraction and diastolic dysfunction: Plan: Acute on chronic systolic and diastolic heart failure --ECHO: Left ventricle is severely dilated. Mild concentric LVH. Severe global hypokinesis of the left ventricle. EF 20 to 25%. Left atrium is mildly dilated. Mild aortic regurgitation. Moderate mitral regurgitation. Significant tricuspid regurgitation is absent. Grade 1 diastolic dysfunction. -- Continue IV Lasix Appreciate cardiology input Continue metoprolol Monitor I's and O's, daily weight, volume status Continue IV Lasix Volume status slowly improving Replete electrolytes as needed Titrated metoprolol succinate to 25 mg twice a day (3) Pneumonia: Plan: Management as above Ascending aortic aneurysm --CT showed:Cardiomegaly with fusiform dilation of the ascending thoracic aorta, 4.6 x 4.7 cm. Follow-up as outpatient (4) NSTEMI (non-ST elevated myocardial infarction): Plan: Continue IV heparin discontinued Will need diagnostic cardiac catheterization eventually Continue aspirin, Lipitor Continue metoprolol Appreciate Cardiology input Hematuria In setting of anticoagulation use with heparin --CT ABD:No urinary calculi, hydronephrosis or upper tract urothelial lesions. No suspicious renal lesions. Suboptimal evaluation of the bladder mass described above. Diffuse bladder wall thickening, likely chronic. If persistent hematuria, this could be correlated with cystoscopy. No discrete bladder lesion identified. -Consider CT abdomen/Pelvis when more stable Patient would require cystoscopy and further workup as outpatient Appreciate urology input Monitor on H&H and transfuse as needed -- Hematuria slowly improving Urology following Hemoglobin stable (5) Hypomagnesemia: Plan: Replace and monitor (6) Diabetes mellitus, type II: Plan: -A1c: 7.7 -NovoLog sliding scale per protocol Monitor BGs (7) LILIAN (acute kidney injury): Plan: -Cr: 1.4>1.2>1.0 Monitor renal function Avoid Nephrotoxic agents as able Plan DVT Px: Heparin ggt discontinued SCDs for now Code Status Full Code Admission and Anticipated Discharge Date Admission Date: March 29, 2024 Subjective Patient is seen and examined at bedside Minimal cough but otherwise no complaints Poor sleep overnight Still has minimal hematuria Uncomfortable with BiPAP use Diuresing well Denies any dyspnea, abdominal pain, dizziness Saturating well on nasal cannula Review of Systems Review of Systems: All systems reviewed & are unremarkable except as noted in Subjective Physical Exam Physical Exam: Physical Exam: Vitals signs as noted above General Appearance:Morbidly Obese, ill appearing, no apparent distress Head: normocephalic, Atraumatic Eyes: normal inspection, EOMI Neck: supple, Trachea midline Respiratory/Chest: Normal breath sounds, faint crackles, No accessory muscle use Cardiovascular: S1, S2, No murmur Abdomen/GI:Soft, Non tender, Bowel sounds present Extremities/Musculoskeletal:normal inspection, Trace edema Neurologic/Psych:AAOX3, grossly no focal neurological deficits Skin: normal color, warm Results & Data Results & Data Vital Signs (Past 12 Hours) Vital Signs Temp Pulse Pulse Resp BP Pulse Ox Pulse Ox 04/03/24 11:43 95 04/03/24 11:32 36.5 C 101 H 19 106/60 04/03/24 09:00 04/03/24 08:07 36.4 C L 104 H 18 106/33 L 96 04/03/24 07:00 92 H 04/03/24 03:00 36.4 C L 92 H 20 106/71 96 Pulse Ox Pulse Ox O2 Del Method O2 Flow Rate O2 Flow Rate O2 Flow Rate O2 Flow Rate 04/03/24 11:43 95 95 3 3 3 04/03/24 11:32 Nasal Cannula 3 04/03/24 09:00 Nasal Cannula 4 04/03/24 08:07 Nasal Cannula 04/03/24 07:00 04/03/24 03:00 Nasal Cannula 4 Laboratory Results Short CBC 02/17/25 02/18/25 Range/Units 21:20 06:08 WBC 9.55 (4.8-10.8) K/ul Hgb 10.4 L 10.2 L (14.0-18.0) g/dl Hct 30.8 L 30.2 L (42.0-52.0) % Plt Count 282 (130-400) K/uL BMP 04/03/24 06:08 Sodium 135 L Potassium 3.5 Chloride 97 L Carbon Dioxide 30 BUN 25 H Creatinine 0.98 Glucose 171 H Calcium 8.5 L (1) Sepsis Acute respiratory failure type: with hypoxia Sepsis acute organ dysfunction status: with acute organ dysfunction Sepsis type: Streptococcus, unspecified Severe sepsis acute organ dysfunction type: acute respiratory failure Severe sepsis shock status: without septic shock Qualified Code(s): A40.9 - Streptococcal sepsis, unspecified; R65.20 - Severe sepsis without septic shock; J96.01 - Acute respiratory failure with hypoxia (3) Pneumonia Laterality: bilateral Lung location: lower lobe of lung Pneumonia type: due to group B Streptococcus Qualified Code(s): J15.3 - Pneumonia due to streptococcus, group B (6) Diabetes mellitus, type II Diabetes mellitus watermaster insulin use: without watermaster use Diabetes mellitus complication status: without complication Qualified Code(s): E11.9 - Type 2 diabetes mellitus without complications
[2024-04-03] MEDS: METOPROLOL SUCC 25MG EXT REL TAB PO SCH (20:10)
[2024-04-03] MEDS: FUROSEMIDE 40 MG/4 ML VIAL IV SCH (20:18)
[2024-04-03] MEDS: POTASSIUM CHLORIDE CRTAB 20 MEQ TABCR PO SCH (20:19)
[2024-04-04 07:49] LABS: Hematocrit (blood only) 32.8 % (42.0-52.0); Hemoglobin 10.7 g/dl (14.0-18.0); Mean Corpuscular Hemoglobin 29.6 pg (25.0-34.0); Mean Corpuscular Hgb Conc 32.6 g/dL (32.0-36.0); Mean Corpuscular Volume 90.6 fL (80.0-100.0); Mean Platelet Volume 10.6 fL (9.4-12.4); Platelet Count 332 K/uL (130-400); RDW Coefficient of Variation 13.4 % (11.5-14.5); RDW Standard Deviation 44.1 fL (36.4-46.3); Red Blood Count 3.62 M/uL (4.70-6.10); White Blood Count 9.52 K/ul (4.8-10.8)
[2024-04-04 07:54] LABS: BUN Creatinine Ratio 21.7 (10-20); Calcium 8.7 mg/dl (8.6-10.3); Creatinine Clr Calc Pharmacy 82.5 ml/min
--- NOTE | 2024-04-04 08:53 | Cardiology Progress Note ---
Date of Service April 04, 2024 Assessment & Plan (1) NSTEMI (non-ST elevated myocardial infarction): (2) Sepsis: (3) Pneumonia: (4) Severe left ventricular systolic dysfunction (LVSD): (5) Acute on chronic heart failure with reduced ejection fraction and diastolic dysfunction: Plan 03/29/24: Patient admitted with 2 weeks of worsening SOB cough and weakness. Found to likely have right middle lobe pneumonia with elevated WBC, elevated lactic acid and signs/symptoms consistent wiht sepsis. Blood cultures pending Started on IV antibiotics. Blood tinged sputum. Recommend culture. HS troponin elevated on admission at 4000, increasing to 6500. No chest pain reported Started on IV heparin. Echo results pending. Initial EKG with sinus tach and new RBBB. Repeat EKG with Worsening T wave abnormality in anterior leads. Start ASA, statin. Prior intolerances discussed and he reported mild "myalgias" but this was long ago. BP is borderline low. Would hold home dose amlodipine for now. Consider adding beta refugio for tachycardia Consider nitro oint. Once his respiratory status improves, will likely need further evaluation with cardiac catheterization. 03/30/24: + blood culture x1 with strep pneumoniae reported overnight. Other blood culture negative. WBC trending lower to 19. Continue IV antibiotics with ceftriaxone and doxycline. Echo yesterday with severely dilated LV, severe global hypokinesis at 20-25% Elevated troponin since admission [id number] - [id number]. No angina reported currently. No prior studies for comparison. Continue IV heparin Continue ASA 81 mg daily Statin added with atorvastatin 40 mg daily Started metoprolol 12.5 mg daily BP has been borderline low. Will avoid JACQUI/ARB Monitor fluid balance. He does have mild LE edema. If worsening fluid status, low threshold to start IV diuretics. Once his sepsis improves, likely will need diagnostic cardiac catheterization. Findings discussed in detail with patient and family at bedside this morning. Will follow Case discussed with Dr. Baer I spent a total of 30 minutes on the date of service in preparation, delivery, and documentation of the care provided to this patient, excluding any time spent in the performance of separately billed services. Leslie Bowers PA-C Department of Cardiology, [facility] This chart was completed in part utilizing Speech Voice Recognition Software. Grammatical errors, random word insertions, pronoun errors, and incomplete sentences are an occasional consequence of this system due to software limitations, ambient noise, and hardware issues. Any formal questions or concerns about the content, text, or information contained within the body of this dictation should be directly addressed to the provider for clarification. 03/31/2024: -Patient in acute respiratory distress upon arrival this morning. Chest xray obtained at bedside showing evidence of superimposed HF in the setting of known pneumonia/sepsis -Patient received a total of 60mg IV Furosemide along with polanco catheter insertion. Immediately diuresed 2300ml urine. -Increased HR and ectopy on telemetry. Increase Toprol xl to 25mg PO Daily -Strict I&O with daily weights (standing scale) -Close monitoring of renal function and serum electrolytes with a goal serum K> 4.0 and serum mag > 2.0 -Continue IV heparin gtt -Continue PO magnesium supplementation -Continue GDMT with ASA, Atorvastatin, Toprol xl (increased dose). Continue to monitor BP response, right now patient needs diuresis, but may be considered for JACQUI-I or ARB in future if BP remains elevated. -Continued management of acute infectious process by primary team -EKG with no acute ST-T wave changes. -Will likely need a diagnostic cardiac cath at some juncture; however, diuresis is most crucial at this time. 04/01/2024: -Patient is showing some clinical improvement from a cardiovascular perspective. chest pain has resolved, and breathing has improved although does require intermittent BiPap use. -Continues with hypervolemia in conjunction with his acute infectious process. Give lasix 40mg IV x1 dose today -Heart rates stable, continues with brief runs of PAT, labs stable. -Strict I&O with daily weights (standing scale) -Close monitoring of renal function and serum electrolytes with a goal serum K> 4.0 and serum mag > 2.0 -Continue IV heparin gtt. polanco catheter has noted dark blood colored urine in both the tubing and bag, Nurse states that this has been the case since overnight. HgB stable, but recommend close monitoring in the setting that patient is on a heparin gtt. Given his recent event, would like to continue heparin gtt, unless HgB would become unstable. -Continue PO magnesium supplementation -Continue GDMT with ASA, Atorvastatin, Toprol xl (increased dose). Continue to monitor BP response, right now patient needs diuresis, but may be considered for JACQUI-I or ARB in future if BP remains elevated. -Continued management of acute infectious process by primary team -EKG with no acute ST-T wave changes. -Will likely need a diagnostic cardiac cath at some juncture; however, diuresis is most crucial at this time. 04/02/2024: -Patient continues to demonstrate clinical improvement from a cardiac perspective. No new episodes of chest pain, breathing continues to improve, currently on O2 via nasal cannula. -Patient is to receive Lasix 60mg IV x1 dose today and Potassium chloride 40 meq PO x1 dose today (already ordered by Dr. Baer) -shows good output with -550ml fluid deficit and -4kg weight reduction --Strict I&O with daily weights (standing scale) -Close monitoring of renal function and serum electrolytes with a goal serum K> 4.0 and serum mag > 2.0 -Continue IV heparin gtt. polanco catheter has had dark red hematuria noted yesterday, appears more of a jaeger color with improvement today. Urology on consult, and patient will be having a CT scan today. HgB slightly decreased, continue to trend. Given his recent event, would like to continue heparin gtt, unless HgB would become unstable. -Continue PO magnesium supplementation -Continue GDMT with ASA, Atorvastatin, Toprol xl (increased dose). Continue to monitor BP response, right now patient needs diuresis, but may be considered for JACQUI-I or ARB in future if BP remains elevated. -Continued management of acute infectious process by primary team 04/03/2024: -Patient continues to demonstrate clinical improvement. Breathing has stabilized. Chest xray shows improvement. -Urine is now a light jaeger/pink appearance, which is a significant improvement compared to 2 days ago. -Remains chest pain free. Continues on Heparin gtt and is now therapeutic -Diuresing well, -1286ml this AM. Give Lasix 40mg IV x1 dose today, continue to monitor renal function and electrolytes closely. -Strict I&O and daily weights on standing scale. -Continued management of infectious process by primary team. -Patient's HR has been controlled with the exception of when he was straining in the restroom this morning. Continue to monitor on telemetry. Patient is deconditioned at baseline. -As discussed before, patient will need cardiac catheterization at some juncture; however, needs to have a stable respiratory status and be improved from an infectious standpoint prior. blood cultures today negative. 04/04/2024: -Patient shows continued clinical improvement. Saturating well on nasal cannula 4lpm (98%) -Remains chest pain free -Urine color continues to improve. H/H Stable. Heparin gtt discontinued yesterday. -Continues to diurese well. -1421ml. Renal function stable. Continue Lasix 60mg IV BID -Strict I&O with daily weights (standing scale) -Continue IV heparin gtt. polanco catheter has had dark red hematuria noted yesterday, appears more of a jaeger color with improvement today. Urology on consult, and patient will be having a CT scan today. HgB slightly decreased, continue to trend. Given his recent event, would like to continue heparin gtt, unless HgB would become unstable. -Continue PO magnesium supplementation -Continue GDMT with ASA, Atorvastatin, Toprol xl (increased dose). Continue to monitor BP response, right now patient needs diuresis, but may be considered for JACQUI-I or ARB in future if BP remains elevated. -Continued management of acute infectious process by primary team Case has been discussed with Dr. Brock. Further recommendations regarding plan of care as per his assessment. I spent a total of 30 minutes on the date of service in preparation, delivery, documentation of the care provided to the patient excluding any time spent in the performance of separately billed services. ANH Martin [facility] Cardiology [facility] Admission and Anticipated Discharge Date Admission Date: March 29, 2024 Supervising Physician Co-Signing Physician Notes I have personally performed a history and physical examination on the patient. I have reviewed the advance practitioner's documentation, and I agree with, and take responsibility for the plan of care. 74-year-old male admitted with pneumonia and acute heart failure with reduced ejection fraction. Echocardiogram demonstrating severe LV systolic dysfunction with severe left ventricular dilation. Sleeping in bedside recliner. Fluid balance -2.5L with titration of lasix. Stable renal function. Recommendations: * Continue IV furosemide 60mg BID and potassium supplementation. * Titrate Aldactone to 25 mg daily. * Monitor fluid balance, daily weight, GFR, and electrolytes. * IV heparin and topical nitrates discontinued 04/03/2024. * Continue Toprol XL, aspirin, and atorvastatin as ordered. * Ischemic evaluation when stabilized from a respiratory perspective. I spent a total of 30 minutes on the date of service in preparation, delivery, and documentation of the care provided to this patient, excluding any time spent in the performance of separately billed services. Moses Brock DO, [facility] Subjective 04/04/2024: Patient seen and examined in follow up today. Feeling well. He continues to endorse improvement in his breathing. Continues with some lower extremity edema. No chest pain, pressure or palpitations. Labs, vitals, diagnostics, telemetry and documentation reviewed. Telemetry reviewed showing SR/ST rates 80-100 with occasional PVC and couplet. there is a notation of Atrial tachycardia at 0313 -1421 ml fluid deficit/ -8kg weight deficit H/H remains stable. Review of Systems Review of Systems: All systems reviewed & are unremarkable except as noted in HPI & below Physical Exam Constitutional: + ill appearing and + morbidly obese; no acute distress Neck: normal visual inspection and trachea midline Respiratory: normal respiratory effort, + labored breathing and + cough; no respiratory distress Auscultation: + diminished lung sounds (bilateral bases ) and + wheezes (faint scattered exp. wheeze) Cardiovascular: Rate/Rhythm: regular rhythm Heart Sounds: normal S1 and normal S2; no murmur Vessels: dorsalis pedis pulses present; no JVD Extremities: + edema (+1 BLE) Skin: no rashes, warm and dry Psychiatric: A+Ox3, euthymic affect Results & Data Vital Signs (Past 12 Hours) Vital Signs Temp Pulse Pulse Resp BP BP Pulse Ox 04/04/24 07:29 36.4 C L 110 H 18 124/72 98 04/04/24 03:20 36.4 C L 84 16 126/83 96 04/03/24 22:35 36.9 C 82 20 116/81 98 04/03/24 21:54 97 H O2 Del Method O2 Flow Rate 04/04/24 07:29 Nasal Cannula 4 04/04/24 03:20 Nasal Cannula 3 04/03/24 22:35 Nasal Cannula 3 04/03/24 21:54 Laboratory Results CBC 04/04/24 Range/Units 06:50 WBC 9.52 (4.8-10.8) K/ul RBC 3.62 L (4.70-6.10) M/uL Hgb 10.7 L (14.0-18.0) g/dl Hct 32.8 L (42.0-52.0) % Plt Count 332 (130-400) K/uL Comprehensive Metabolic Panel 04/04/24 Range/Units 06:50 Sodium 136 (136-145) mmol/L Potassium 4.0 (3.5-5.1) mmol/L Chloride 99 (98-107) mmol/L Carbon Dioxide 31 (21-32) mmol/L BUN 23 (6-23) mg/dl Creatinine 1.06 (0.6-1.4) mg/dl Glucose 151 H (70-99(Fasting)) mg/dl Calcium 8.7 (8.6-10.3) mg/dl Intake and Output 04/03/24 04/04/24 04/04/24 22:59 06:59 14:59 Output Total 1200 / 2902 800 / 2902 Balance -1200 / -1421.033 -800 / -1421.033 Output: Urine Amount (Catheter) 1200 / 2900 800 / 2900 Polanco/Indwelling 1200 / 2900 800 / 2900 Other: Weight 146.8 kg Weight Measurement Method Standing Scale (2) Sepsis Acute respiratory failure type: with hypoxia Sepsis acute organ dysfunction status: with acute organ dysfunction Sepsis type: Streptococcus, unspecified Severe sepsis acute organ dysfunction type: acute respiratory failure Severe sepsis shock status: without septic shock Qualified Code(s): A40.9 - Streptococcal sepsis, unspecified; R65.20 - Severe sepsis without septic shock; J96.01 - Acute respiratory failure with hypoxia (3) Pneumonia Laterality: bilateral Lung location: lower lobe of lung Pneumonia type: due to group B Streptococcus Qualified Code(s): J15.3 - Pneumonia due to streptococcus, group B
--- NOTE | 2024-04-04 09:11 | Urology Progress Note ---
Date of Service April 04, 2024 Assessment & Plan (1) Gross hematuria: Plan: Follow-up of gross hematuria Hematuria may be due to Wilson trauma in setting of anticoagulation Labs reviewedcreatinine 1.06, WBC 9.52, hemoglobin stable 10.7 Continue to trend labs, H/H Heparin was discontinued yesterday Catheter continues to drain appropriately, urine much clearer today, continue to monitor Okay to hand irrigate to remove any clots if catheter becomes obstructed Recommend finalize hematuria work-up with cystoscopy as outpatient Continue medical management per primary service will sign off, please contact our service with any additional questions or concerns Admission and Anticipated Discharge Date Admission Date: March 29, 2024 Subjective Patient seen and examined at bedside. present. No acute issues overnight. Wilson intact, urine much clearer today. Heparin was discontinued. Review of Systems Constitutional: as per Subjective / HPI Genitourinary: + as per Subjective / HPI Physical Exam Constitutional: + obese; no acute distress Respiratory: no respiratory distress supplemental oxygen in place Gastrointestinal (Abdomen): Inspection/Auscultation: abdomen normal to inspection Neurologic: moves all extremities and awake Psychiatric: Orientation: alert and oriented x 3 Genitourinary: Wilson catheter in place with light pink urine Results & Data Vital Signs (Past 12 Hours) Vital Signs Temp Pulse Pulse Resp BP BP Pulse Ox 04/04/24 07:29 36.4 C L 110 H 18 124/72 98 04/04/24 03:20 36.4 C L 84 16 126/83 96 04/03/24 22:35 36.9 C 82 20 116/81 98 04/03/24 21:54 97 H O2 Del Method O2 Flow Rate 04/04/24 07:29 Nasal Cannula 4 04/04/24 03:20 Nasal Cannula 3 04/03/24 22:35 Nasal Cannula 3 04/03/24 21:54 PG Care Time/CCT Total # of Minutes Spent Total Time Spent with Patient: Total time spent is greater than 50% in coordination of care (as documented) at patient's floor/unit and/or counseling patient: Coding Level of Care Code 98929 SUB INP/OBS CARE 03/10MIN Diagnoses Gross hematuria R31.0
--- NOTE | 2024-04-04 15:24 | Hospitalist Progress Note ---
Date of Service April 04, 2024 Assessment & Plan (1) Sepsis: Plan: Patient is 73 yr male with PMH DM II, HTN, dyslipidemia, RBBB, morbid obesity presented to ER with c/o cough and SOB x 3 weeks. Patient reports started with cough and shortness of breath 3 weeks ago Sepsis Multifocal pneumonia Strep bacteremia --Chest CTA:No pulmonary emboli identified. Segmental right middle lobe airspace opacities with subsegmental consolidation of the basilar right lower lobe suggestive of pneumonia. Follow-up imaging after treatment course recommended in order to document complete resolution.Mild mediastinal lymphadenopathy, likely reactive. -- BioFire negative -- Elevated procalcitonin --Blood Culture: 02/17: Streptococcus pneumonia --Repeat blood cultures negative to date --ECHO:as below -- Doxycycline discontinued Continue IV Rocephin for now Pulmonary hygiene with incentive spirometry, Mucinex Appreciate infectious disease input Wean off supplemental oxygen as able Await final recommendations from ID Continue current management (2) Acute on chronic heart failure with reduced ejection fraction and diastolic dysfunction: Plan: Acute on chronic systolic and diastolic heart failure --ECHO: Left ventricle is severely dilated. Mild concentric LVH. Severe global hypokinesis of the left ventricle. EF 20 to 25%. Left atrium is mildly dilated. Mild aortic regurgitation. Moderate mitral regurgitation. Significant tricuspid regurgitation is absent. Grade 1 diastolic dysfunction. -- Continue IV Lasix Appreciate cardiology input Continue metoprolol Monitor I's and O's, daily weight, volume status Continue IV Lasix 60 mg twice a day Volume status slowly improving Replete electrolytes as needed Titrated metoprolol succinate to 25 mg twice a day Aldactone dose increased to 25 mg daily (3) Pneumonia: Plan: Management as above Ascending aortic aneurysm --CT showed:Cardiomegaly with fusiform dilation of the ascending thoracic aorta, 4.6 x 4.7 cm. Follow-up as outpatient (4) NSTEMI (non-ST elevated myocardial infarction): Plan: Continue IV heparin discontinued on 04/03/2024 Will need diagnostic cardiac catheterization eventually Continue aspirin, Lipitor, metoprolol Appreciate Cardiology input Currently chest pain-free Hematuria In setting of anticoagulation use with heparin --CT ABD:No urinary calculi, hydronephrosis or upper tract urothelial lesions. No suspicious renal lesions. Suboptimal evaluation of the bladder mass described above. Diffuse bladder wall thickening, likely chronic. If persistent hematuria, this could be correlated with cystoscopy. No discrete bladder lesion identified. -Consider CT abdomen/Pelvis when more stable Patient would require cystoscopy and further workup as outpatient Appreciate urology input Monitor on H&H and transfuse as needed -- Hematuria slowly improving Hemoglobin stable Needs follow-up with urology on discharge (5) Hypomagnesemia: Plan: Replace and monitor (6) Diabetes mellitus, type II: Plan: -A1c: 7.7 -NovoLog sliding scale per protocol Monitor BGs (7) LILIAN (acute kidney injury): Plan: -Cr: 1.4>1.2>1.0 Monitor renal function Avoid Nephrotoxic agents as able Renal function stable while on IV diuretics Plan DVT Px: Heparin ggt discontinued SCDs for now Re: Hematuria Code Status Full Code Admission and Anticipated Discharge Date Admission Date: March 29, 2024 Subjective Patient is seen and examined at bedside Sitting in chair comfortably during my encounter Leg edema slowly improving No significant hematuria today Still has minimal cough Eager to get discharged Discussed with patient's family at bedside Denies any dyspnea, abdominal pain, dizziness Review of Systems Review of Systems: All systems reviewed & are unremarkable except as noted in Subjective Physical Exam Physical Exam: Physical Exam: Vitals signs as noted above General Appearance:Morbidly Obese, ill appearing, no apparent distress Head: normocephalic, Atraumatic Eyes: normal inspection, EOMI Neck: supple, Trachea midline Respiratory/Chest: Normal breath sounds, faint crackles, No accessory muscle use Cardiovascular: S1, S2, No murmur Abdomen/GI:Soft, Non tender, Bowel sounds present Extremities/Musculoskeletal:normal inspection, Trace edema Neurologic/Psych:AAOX3, grossly no focal neurological deficits Skin: normal color, warm Results & Data Results & Data Vital Signs (Past 12 Hours) Vital Signs Temp Pulse Resp BP BP Pulse Ox O2 Del Method 04/04/24 15:17 36.8 C 96 H 18 115/75 96 Room Air 04/04/24 11:04 36.5 C 84 18 111/75 98 Nasal Cannula 04/04/24 08:00 Room Air 04/04/24 07:29 36.4 C L 110 H 18 124/72 98 Nasal Cannula 04/04/24 03:20 36.4 C L 84 16 126/83 96 Nasal Cannula O2 Flow Rate 04/04/24 15:17 04/04/24 11:04 4 04/04/24 08:00 04/04/24 07:29 4 04/04/24 03:20 3 Laboratory Results Short CBC 04/04/24 Range/Units 06:50 WBC 9.52 (4.8-10.8) K/ul Hgb 10.7 L (14.0-18.0) g/dl Hct 32.8 L (42.0-52.0) % Plt Count 332 (130-400) K/uL BMP 04/04/24 06:50 Sodium 136 Potassium 4.0 Chloride 99 Carbon Dioxide 31 BUN 23 Creatinine 1.06 Glucose 151 H Calcium 8.7 (1) Sepsis Acute respiratory failure type: with hypoxia Sepsis acute organ dysfunction status: with acute organ dysfunction Sepsis type: Streptococcus, unspecified Severe sepsis acute organ dysfunction type: acute respiratory failure Severe sepsis shock status: without septic shock Qualified Code(s): A40.9 - Streptococcal sepsis, unspecified; R65.20 - Severe sepsis without septic shock; J96.01 - Acute respiratory failure with hypoxia (3) Pneumonia Laterality: bilateral Lung location: lower lobe of lung Pneumonia type: due to group B Streptococcus Qualified Code(s): J15.3 - Pneumonia due to streptococcus, group B (6) Diabetes mellitus, type II Diabetes mellitus oil heaterman insulin use: without half-way use Diabetes me llitus complication status: without complication Qualified Code(s): E11.9 - Type 2 diabetes mellitus without complications
[2024-04-04] MEDS: MELATONIN 3 MG TAB PO PRN (21:18)
[2024-04-04] MEDS: BENZONATATE 100 MG CAPSULE PO PRN (21:18)
[2024-04-05 07:36] LABS: Hematocrit (blood only) 30.9 % (42.0-52.0); Hemoglobin 10.3 g/dl (14.0-18.0); Mean Corpuscular Hemoglobin 30.8 pg (25.0-34.0); Mean Corpuscular Hgb Conc 33.3 g/dL (32.0-36.0); Mean Corpuscular Volume 92.5 fL (80.0-100.0); Mean Platelet Volume 10.6 fL (9.4-12.4); Platelet Count 327 K/uL (130-400); RDW Coefficient of Variation 13.5 % (11.5-14.5); RDW Standard Deviation 45.6 fL (36.4-46.3); Red Blood Count 3.34 M/uL (4.70-6.10); White Blood Count 10.14 K/ul (4.8-10.8)
[2024-04-05 07:50] LABS: BUN Creatinine Ratio 23.5 (10-20); Calcium 8.5 mg/dl (8.6-10.3); Creatinine Clr Calc Pharmacy 85.6 ml/min; Potassium 4.1 mmol/L (3.5-5.1)
[2024-04-05] MEDS: SPIRONOLACTONE 25 MG TAB PO SCH (08:05)
--- NOTE | 2024-04-05 08:54 | Cardiology Progress Note ---
Date of Service April 05, 2024 Assessment & Plan (1) NSTEMI (non-ST elevated myocardial infarction): (2) Sepsis: (3) Pneumonia: (4) Severe left ventricular systolic dysfunction (LVSD): (5) Acute on chronic heart failure with reduced ejection fraction and diastolic dysfunction: Plan 03/29/24: Patient admitted with 2 weeks of worsening SOB cough and weakness. Found to likely have right middle lobe pneumonia with elevated WBC, elevated lactic acid and signs/symptoms consistent wiht sepsis. Blood cultures pending Started on IV antibiotics. Blood tinged sputum. Recommend culture. HS troponin elevated on admission at 4000, increasing to 6500. No chest pain reported Started on IV heparin. Echo results pending. Initial EKG with sinus tach and new RBBB. Repeat EKG with Worsening T wave abnormality in anterior leads. Start ASA, statin. Prior intolerances discussed and he reported mild "myalgias" but this was long ago. BP is borderline low. Would hold home dose amlodipine for now. Consider adding beta refugio for tachycardia Consider nitro oint. Once his respiratory status improves, will likely need further evaluation with cardiac catheterization. 03/30/24: + blood culture x1 with strep pneumoniae reported overnight. Other blood culture negative. WBC trending lower to 19. Continue IV antibiotics with ceftriaxone and doxycline. Echo yesterday with severely dilated LV, severe global hypokinesis at 20-25% Elevated troponin since admission 4095 - 3399- [id number] - [id number]. No angina reported currently. No prior studies for comparison. Continue IV heparin Continue ASA 81 mg daily Statin added with atorvastatin 40 mg daily Started metoprolol 12.5 mg daily BP has been borderline low. Will avoid JACQUI/ARB Monitor fluid balance. He does have mild LE edema. If worsening fluid status, low threshold to start IV diuretics. Once his sepsis improves, likely will need diagnostic cardiac catheterization. Findings discussed in detail with patient and family at bedside this morning. Will follow Case discussed with Dr. Baer I spent a total of 30 minutes on the date of service in preparation, delivery, and documentation of the care provided to this patient, excluding any time spent in the performance of separately billed services. Leslie Bowers PA-C Department of Cardiology, [facility] This chart was completed in part utilizing Speech Voice Recognition Software. Grammatical errors, random word insertions, pronoun errors, and incomplete sentences are an occasional consequence of this system due to software limitations, ambient noise, and hardware issues. Any formal questions or concerns about the content, text, or information contained within the body of this dictation should be directly addressed to the provider for clarification. 03/31/2024: -Patient in acute respiratory distress upon arrival this morning. Chest xray obtained at bedside showing evidence of superimposed HF in the setting of known pneumonia/sepsis -Patient received a total of 60mg IV Furosemide along with polanco catheter insertion. Immediately diuresed 2300ml urine. -Increased HR and ectopy on telemetry. Increase Toprol xl to 25mg PO Daily -Strict I&O with daily weights (standing scale) -Close monitoring of renal function and serum electrolytes with a goal serum K> 4.0 and serum mag > 2.0 -Continue IV heparin gtt -Continue PO magnesium supplementation -Continue GDMT with ASA, Atorvastatin, Toprol xl (increased dose). Continue to monitor BP response, right now patient needs diuresis, but may be considered for JACQUI-I or ARB in future if BP remains elevated. -Continued management of acute infectious process by primary team -EKG with no acute ST-T wave changes. -Will likely need a diagnostic cardiac cath at some juncture; however, diuresis is most crucial at this time. 04/01/2024: -Patient is showing some clinical improvement from a cardiovascular perspective. chest pain has resolved, and breathing has improved although does require intermittent BiPap use. -Continues with hypervolemia in conjunction with his acute infectious process. Give lasix 40mg IV x1 dose today -Heart rates stable, continues with brief runs of PAT, labs stable. -Strict I&O with daily weights (standing scale) -Close monitoring of renal function and serum electrolytes with a goal serum K> 4.0 and serum mag > 2.0 -Continue IV heparin gtt. polanco catheter has noted dark blood colored urine in both the tubing and bag, Nurse states that this has been the case since overnight. HgB stable, but recommend close monitoring in the setting that patient is on a heparin gtt. Given his recent event, would like to continue heparin gtt, unless HgB would become unstable. -Continue PO magnesium supplementation -Continue GDMT with ASA, Atorvastatin, Toprol xl (increased dose). Continue to monitor BP response, right now patient needs diuresis, but may be considered for JACQUI-I or ARB in future if BP remains elevated. -Continued management of acute infectious process by primary team -EKG with no acute ST-T wave changes. -Will likely need a diagnostic cardiac cath at some juncture; however, diuresis is most crucial at this time. 04/02/2024: -Patient continues to demonstrate clinical improvement from a cardiac perspective. No new episodes of chest pain, breathing continues to improve, currently on O2 via nasal cannula. -Patient is to receive Lasix 60mg IV x1 dose today and Potassium chloride 40 meq PO x1 dose today (already ordered by Dr. Baer) -shows good output with -550ml fluid deficit and -4kg weight reduction --Strict I&O with daily weights (standing scale) -Close monitoring of renal function and serum electrolytes with a goal serum K> 4.0 and serum mag > 2.0 -Continue IV heparin gtt. polanco catheter has had dark red hematuria noted yesterday, appears more of a jaeger color with improvement today. Urology on consult, and patient will be having a CT scan today. HgB slightly decreased, continue to trend. Given his recent event, would like to continue heparin gtt, unless HgB would become unstable. -Continue PO magnesium supplementation -Continue GDMT with ASA, Atorvastatin, Toprol xl (increased dose). Continue to monitor BP response, right now patient needs diuresis, but may be considered for JACQUI-I or ARB in future if BP remains elevated. -Continued management of acute infectious process by primary team 04/03/2024: -Patient continues to demonstrate clinical improvement. Breathing has stabilized. Chest xray shows improvement. -Urine is now a light jaeger/pink appearance, which is a significant improvement compared to 2 days ago. -Remains chest pain free. Continues on Heparin gtt and is now therapeutic -Diuresing well, -1286ml this AM. Give Lasix 40mg IV x1 dose today, continue to monitor renal function and electrolytes closely. -Strict I&O and daily weights on standing scale. -Continued management of infectious process by primary team. -Patient's HR has been controlled with the exception of when he was straining in the restroom this morning. Continue to monitor on telemetry. Patient is deconditioned at baseline. -As discussed before, patient will need cardiac catheterization at some juncture; however, needs to have a stable respiratory status and be improved from an infectious standpoint prior. blood cultures today negative. 04/04/2024: -Patient shows continued clinical improvement. Saturating well on nasal cannula 4lpm (98%) -Remains chest pain free -Urine color continues to improve. H/H Stable. Heparin gtt discontinued yesterday. -Continues to diurese well. -1421ml. Renal function stable. Continue Lasix 60mg IV BID -Strict I&O with daily weights (standing scale) - polanco catheter has had dark red hematuria noted yesterday, appears more of a jaeger color with improvement today. Urology on consult, and patient will be having a CT scan today. HgB slightly decreased, continue to trend. Given his recent event, would like to continue heparin gtt, unless HgB would become unstable. -Continue PO magnesium supplementation -Continue GDMT with ASA, Atorvastatin, Toprol xl (increased dose). Continue to monitor BP response, right now patient needs diuresis, but may be considered for JACQUI-I or ARB in future if BP remains elevated. -Continued management of acute infectious process by primary team 04/05/2024: -Patient continues to improve from a cardiac perspective. Diuresing well. -8kg. -Endorses no episodes of chest pain, working to wean off O2 as able. -Urine color continues to improve H/H stable. -Continue Lasix 60mg IV BID. Continue to work on volume status as well as respiratory status. Patient was able to lay in bed for 1 hour last night. Typically stays sitting up in a chair. -Strict I&O with daily weights -Continue to monitor renal function and electrolytes closely -Continue GDMT with ASA, Atorvastatin, Toprol xl, and Spironolactone. Patient has rare episodes of PAT on telemetry. Rates in general are better controlled. -Continued management of acute infectious process by primary team. Case has been discussed with Dr. Brock. Further recommendations regarding plan of care as per his assessment. I spent a total of 30 minutes on the date of service in preparation, delivery, documentation of the care provided to the patient excluding any time spent in the performance of separately billed services. ANH Martin [facility] Cardiology [facility] Admission and Anticipated Discharge Date Admission Date: March 29, 2024 Supervising Physician Co-Signing Physician Notes I have personally performed a history and physical examination on the patient. I have reviewed the advance practitioner's documentation, and I agree with, and take responsibility for the plan of care. 74-year-old male admitted with pneumonia and acute heart failure with reduced ejection fraction. Echocardiogram demonstrating severe LV systolic dysfunction with severe left ventricular dilation. Sleeping in bedside recliner. Attempted to lie supine last evening, however, after approximately 50 minutes patient became hypoxic and restless. Nursing applied supplemental oxygen with improvement of symptoms. He slept the rest of the night in recliner. Edema unchanged. Fluid balance -1.4L today. Short burst of paroxysmal atrial tachycardia on telemetry overnight, otherwise, sinus rhythm in the 80s. Stable renal function. Recommendations: * Add entresto 26/25mg BID * Continue IV furosemide 60mg BID and potassium supplementation. * Monitor fluid balance, daily weight, GFR, and electrolytes. * Continue Aldactone (titrated to 25 mg daily 04/04/2024),Toprol XL, aspirin, and atorvastatin as ordered. * IV heparin and topical nitrates discontinued 04/03/2024. * Ischemic evaluation when stabilized from a respiratory perspective. I spent a total of 35 minutes on the date of service in preparation, delivery, and documentation of the care provided to this patient, excluding any time spent in the performance of separately billed services. Moses Brock DO, [facility] Subjective 03/05/2024: Patient seen and examined in follow up today. Feeling well. Continues to endorse improvement in breathing. Currently on room air, pulse ox in place. No chest pain or pressure, no palpitations. Labs, vitals, diagnostics, telemetry and documentation reviewed. Telemetry reviewed showing SR with PAC's. Patient had a run of PAT at 0853 -1700 fluid deficit, 8 kg weight loss Review of Systems Review of Systems: All systems reviewed & are unremarkable except as noted in HPI & below Physical Exam Constitutional: + ill appearing and + obese; no acute di stress Neck: normal visual inspection and trachea midline Respiratory: normal respiratory effort and + cough; no respiratory distress and no labored breathing Auscultation: + diminished lung sounds (bilateral bases ) and + wheezes (faint exp. wheezes ); no crackles, no rales and no rhonchi Cardiovascular: Rate/Rhythm: regular rate and regular rhythm Heart Sounds: normal S1 and normal S2; no murmur Vessels: no JVD Extremities: + edema (+1 BLE) Skin: no rashes, warm and dry Psychiatric: A+Ox3, euthymic affect Results & Data Vital Signs (Past 12 Hours) Vital Signs Temp Pulse Pulse Resp BP Pulse Ox O2 Del Method 04/05/24 07:10 36.5 C 77 20 105/68 95 Nasal Cannula 04/05/24 04:02 36.3 C L 79 18 114/73 95 Room Air 04/04/24 23:19 78 04/04/24 23:03 Room Air 04/04/24 22:50 36.6 C 83 18 108/65 93 Room Air O2 Flow Rate 04/05/24 07:10 3 04/05/24 04:02 04/04/24 23:19 04/04/24 23:03 04/04/24 22:50 Laboratory Results CBC 04/05/24 Range/Units 06:23 WBC 10.14 (4.8-10.8) K/ul RBC 3.34 L (4.70-6.10) M/uL Hgb 10.3 L (14.0-18.0) g/dl Hct 30.9 L (42.0-52.0) % Plt Count 327 (130-400) K/uL Comprehensive Metabolic Panel 04/05/24 Range/Units 06:23 Sodium 137 (136-145) mmol/L Potassium 4.1 (3.5-5.1) mmol/L Chloride 101 (98-107) mmol/L Carbon Dioxide 29 (21-32) mmol/L BUN 24 H (6-23) mg/dl Creatinine 1.02 (0.6-1.4) mg/dl Glucose 144 H (70-99(Fasting)) mg/dl Calcium 8.5 L (8.6-10.3) mg/dl Intake and Output 04/04/24 04/05/24 04/05/24 22:59 06:59 14:59 Intake Total 550 / 750 Output Total 550 / 2450 800 / 2450 800 / 800 Balance 0 / -1700 -800 / -1700 -800 / -800 Intake: IV 0 / 50 Heparin 74801 Unit/500 ml D5w 0 / 0 25,000 units In 500 ml @ 2,900 UNITS/HR 58 mls/hr IV .[id number] [facility] Rx#:[id number] Oral 550 / 700 Output: Urine Amount (Catheter) 550 / 2450 800 / 2450 800 / 800 Polanco/Indwelling 550 / 2450 800 / 2450 800 / 800 Other: Weight 146.5 kg Weight Measurement Method Standing Scale (2) Sepsis Acute respiratory failure type: with hypoxia Sepsis acute organ dysfunction status: with acute organ dysfunction Sepsis type: Streptococcus, unspecified Severe sepsis acute organ dysfunction type: acute respiratory failure Severe sepsis shock status: without septic shock Qualified Code(s): A40.9 - Streptococcal sepsis, unspecified; R65.20 - Severe sepsis without septic shock; J96.01 - Acute respiratory failure with hypoxia (3) Pneumonia Laterality: bilateral Lung location: lower lobe of lung Pneumonia type: due to group B Streptococcus Qualified Code(s): J15.3 - Pneumonia due to streptococcus, group B
--- NOTE | 2024-04-05 15:18 | Hospitalist Progress Note ---
Date of Service April 05, 2024 Assessment & Plan (1) Sepsis: Plan: Patient is 73 yr male with PMH DM II, HTN, dyslipidemia, RBBB, morbid obesity presented to ER with c/o cough and SOB x 3 weeks. Patient reports started with cough and shortness of breath 3 weeks ago Sepsis Multifocal pneumonia Strep bacteremia --Chest CTA:No pulmonary emboli identified. Segmental right middle lobe airspace opacities with subsegmental consolidation of the basilar right lower lobe suggestive of pneumonia. Follow-up imaging after treatment course recommended in order to document complete resolution.Mild mediastinal lymphadenopathy, likely reactive. -- BioFire negative -- Elevated procalcitonin --Blood Culture: 02/17: Streptococcus pneumonia --Repeat blood cultures negative to date --ECHO:as below -- Doxycycline discontinued Continue IV Rocephin for now Pulmonary hygiene with incentive spirometry, Mucinex Appreciate infectious disease input Weaned off supplemental oxygen Await final recommendations from ID Repeat blood cultures continue to be negative Saturating well on room air today (2) Acute on chronic heart failure with reduced ejection fraction and diastolic dysfunction: Plan: Acute on chronic systolic and diastolic heart failure --ECHO: Left ventricle is severely dilated. Mild concentric LVH. Severe global hypokinesis of the left ventricle. EF 20 to 25%. Left atrium is mildly dilated. Mild aortic regurgitation. Moderate mitral regurgitation. Significant tricuspid regurgitation is absent. Grade 1 diastolic dysfunction. -- Continue IV Lasix Appreciate cardiology input Continue metoprolol Monitor I's and O's, daily weight, volume status Continue IV Lasix 60 mg twice a day Volume status slowly improving Replete electrolytes as needed Titrated metoprolol succinate to 25 mg twice a day Aldactone dose increased to 25 mg daily Entresto added per cardiology Continue IV diuresis (3) Pneumonia: Plan: Management as above Ascending aortic aneurysm --CT showed:Cardiomegaly with fusiform dilation of the ascending thoracic aorta, 4.6 x 4.7 cm. Follow-up as outpatient (4) NSTEMI (non-ST elevated myocardial infarction): Plan: Continue IV heparin discontinued on 04/03/2024 Will need diagnostic cardiac catheterization eventually Continue aspirin, Lipitor, metoprolol Appreciate Cardiology input Currently chest pain-free Hematuria In setting of anticoagulation use with heparin --CT ABD:No urinary calculi, hydronephrosis or upper tract urothelial lesions. No suspicious renal lesions. Suboptimal evaluation of the bladder mass described above. Diffuse bladder wall thickening, likely chronic. If persistent hematuria, this could be correlated with cystoscopy. No discrete bladder lesion identified. -Consider CT abdomen/Pelvis when more stable Patient would require cystoscopy and further workup as outpatient Appreciate urology input Monitor on H&H and transfuse as needed -- Hematuria improving Needs follow-up with urology on discharge Hb stable (5) Hypomagnesemia: Plan: Replace and monitor (6) Diabetes mellitus, type II: Plan: -A1c: 7.7 -NovoLog sliding scale per protocol Monitor BGs (7) LILIAN (acute kidney injury): Plan: -Cr: 1.4>1.2>1.0 Monitor renal function Avoid Nephrotoxic agents as able Renal function stable while on IV diuretics Plan DVT Px: Heparin ggt discontinued SCDs for now Re: Hematuria Code Status Full Code Admission and Anticipated Discharge Date Admission Date: March 29, 2024 Subjective Patient is seen and examined at bedside States having minimal hemoptysis this morning Otherwise feels well today Leg swelling continues to improve Cough continues to improve No hematuria today Denies any dyspnea, abdominal pain, dizziness Review of Systems Review of Systems: All systems reviewed & are unremarkable except as noted in Subjective Physical Exam Physical Exam: Physical Exam: Vitals signs as noted above General Appearance:Morbidly Obese, ill appearing, no apparent distress Head: normocephalic, Atraumatic Eyes: normal inspection, EOMI Neck: supple, Trachea midline Respiratory/Chest: Normal breath sounds, faint crackles, No accessory muscle use Cardiovascular: S1, S2, No murmur Abdomen/GI:Soft, Non tender, Bowel sounds present Extremities/Musculoskeletal:normal inspection, Trace edema Neurologic/Psych:AAOX3, grossly no focal neurological deficits Skin: normal color, warm Results & Data Results & Data Vital Signs (Past 12 Hours) Vital Signs Temp Pulse Resp BP Pulse Ox O2 Del Method O2 Flow Rate 04/05/24 11:26 36.8 C 90 20 106/68 94 Room Air 04/05/24 08:00 Room Air 04/05/24 07:10 36.5 C 77 20 105/68 95 Nasal Cannula 3 04/05/24 04:02 36.3 C L 79 18 114/73 95 Room Air Laboratory Results Short CBC 04/05/24 Range/Units 06:23 WBC 10.14 (4.8-10.8) K/ul Hgb 10.3 L (14.0-18.0) g/dl Hct 30.9 L (42.0-52.0) % Plt Count 327 (130-400) K/uL BMP 04/05/24 06:23 Sodium 137 Potassium 4.1 Chloride 101 Carbon Dioxide 29 BUN 24 H Creatinine 1.02 Glucose 144 H Calcium 8.5 L (1) Sepsis Acute respiratory failure type: with hypoxia Sepsis acute organ dysfunction status: with acute organ dysfunction Sepsis type: Streptococcus, unspecified Severe sepsis acute organ dysfunction type: acute respiratory failure Severe sepsis shock status: without septic shock Qualified Code(s): A40.9 - Streptococcal sepsis, unspecified; R65.20 - Severe sepsis without septic shock; J96.01 - Acute respiratory failure with hypoxia (3) Pneumonia Laterality: bilateral Lung location: lower lobe of lung Pneumonia type: due to group B Streptococcus Qualified Code(s): J15.3 - Pneumonia due to streptococcus, group B (6) Diabetes mellitus, type II Diabetes mellitus prison insulin use: without termite renewal inspector use Diabetes mellitus complication status: without complication Qualified Code(s): E11.9 - Type 2 diabetes mellitus without complications
[2024-04-05] MEDS: MELATONIN 3 MG TAB PO PRN (20:33)
[2024-04-05] MEDS: VALSARTAN/SACUBITRIL 26/24MG TAB PO SCH (20:33)
[2024-04-06 06:56] LABS: Hematocrit (blood only) 34.2 % (42.0-52.0); Hemoglobin 11.4 g/dl (14.0-18.0)
[2024-04-06 07:16] LABS: BUN Creatinine Ratio 22.7 (10-20); Calcium 8.9 mg/dl (8.6-10.3); Creatinine Clr Calc Pharmacy 78.5 ml/min; Magnesium 1.8 mg/dl (1.7-2.4)
--- NOTE | 2024-04-06 08:53 | Cardiology Progress Note ---
Date of Service April 06, 2024 Assessment & Plan (1) NSTEMI (non-ST elevated myocardial infarction): (2) Sepsis: (3) Pneumonia: (4) Severe left ventricular systolic dysfunction (LVSD): (5) Acute on chronic heart failure with reduced ejection fraction and diastolic dysfunction: Plan 03/29/24: Patient admitted with 2 weeks of worsening SOB cough and weakness. Found to likely have right middle lobe pneumonia with elevated WBC, elevated lactic acid and signs/symptoms consistent wiht sepsis. Blood cultures pending Started on IV antibiotics. Blood tinged sputum. Recommend culture. HS troponin elevated on admission at 4000, increasing to 6500. No chest pain reported Started on IV heparin. Echo results pending. Initial EKG with sinus tach and new RBBB. Repeat EKG with Worsening T wave abnormality in anterior leads. Start ASA, statin. Prior intolerances discussed and he reported mild "myalgias" but this was long ago. BP is borderline low. Would hold home dose amlodipine for now. Consider adding beta refugio for tachycardia Consider nitro oint. Once his respiratory status improves, will likely need further evaluation with cardiac catheterization. 03/30/24: + blood culture x1 with strep pneumoniae reported overnight. Other blood culture negative. WBC trending lower to 19. Continue IV antibiotics with ceftriaxone and doxycline. Echo yesterday with severely dilated LV, severe global hypokinesis at 20-25% Elevated troponin since admission [id number] - [id number] [phone] [id number]. No angina reported currently. No prior studies for comparison. Continue IV heparin Continue ASA 81 mg daily Statin added with atorvastatin 40 mg daily Started metoprolol 12.5 mg daily BP has been borderline low. Will avoid JACQUI/ARB Monitor fluid balance. He does have mild LE edema. If worsening fluid status, low threshold to start IV diuretics. Once his sepsis improves, likely will need diagnostic cardiac catheterization. Findings discussed in detail with patient and family at bedside this morning. Will follow Case discussed with Dr. Baer I spent a total of 30 minutes on the date of service in preparation, delivery, and documentation of the care provided to this patient, excluding any time spent in the performance of separately billed services. Leslie Bowers PA-C Department of Cardiology, [facility] This chart was completed in part utilizing Speech Voice Recognition Software. Grammatical errors, random word insertions, pronoun errors, and incomplete sentences are an occasional consequence of this system due to software limitations, ambient noise, and hardware issues. Any formal questions or concerns about the content, text, or information contained within the body of this dictation should be directly addressed to the provider for clarification. 03/31/2024: -Patient in acute respiratory distress upon arrival this morning. Chest xray obtained at bedside showing evidence of superimposed HF in the setting of known pneumonia/sepsis -Patient received a total of 60mg IV Furosemide along with polanco catheter insertion. Immediately diuresed 2300ml urine. -Increased HR and ectopy on telemetry. Increase Toprol xl to 25mg PO Daily -Strict I&O with daily weights (standing scale) -Close monitoring of renal function and serum electrolytes with a goal serum K> 4.0 and serum mag > 2.0 -Continue IV heparin gtt -Continue PO magnesium supplementation -Continue GDMT with ASA, Atorvastatin, Toprol xl (increased dose). Continue to monitor BP response, right now patient needs diuresis, but may be considered for JACQUI-I or ARB in future if BP remains elevated. -Continued management of acute infectious process by primary team -EKG with no acute ST-T wave changes. -Will likely need a diagnostic cardiac cath at some juncture; however, diuresis is most crucial at this time. 04/01/2024: -Patient is showing some clinical improvement from a cardiovascular perspective. chest pain has resolved, and breathing has improved although does require intermittent BiPap use. -Continues with hypervolemia in conjunction with his acute infectious process. Give lasix 40mg IV x1 dose today -Heart rates stable, continues with brief runs of PAT, labs stable. -Strict I&O with daily weights (standing scale) -Close monitoring of renal function and serum electrolytes with a goal serum K> 4.0 and serum mag > 2.0 -Continue IV heparin gtt. polanco catheter has noted dark blood colored urine in both the tubing and bag, Nurse states that this has been the case since overnight. HgB stable, but recommend close monitoring in the setting that patient is on a heparin gtt. Given his recent event, would like to continue heparin gtt, unless HgB would become unstable. -Continue PO magnesium supplementation -Continue GDMT with ASA, Atorvastatin, Toprol xl (increased dose). Continue to monitor BP response, right now patient needs diuresis, but may be considered for JACQUI-I or ARB in future if BP remains elevated. -Continued management of acute infectious process by primary team -EKG with no acute ST-T wave changes. -Will likely need a diagnostic cardiac cath at some juncture; however, diuresis is most crucial at this time. 04/02/2024: -Patient continues to demonstrate clinical improvement from a cardiac perspective. No new episodes of chest pain, breathing continues to improve, currently on O2 via nasal cannula. -Patient is to receive Lasix 60mg IV x1 dose today and Potassium chloride 40 meq PO x1 dose today (already ordered by Dr. Baer) -shows good output with -550ml fluid deficit and -4kg weight reduction --Strict I&O with daily weights (standing scale) -Close monitoring of renal function and serum electrolytes with a goal serum K> 4.0 and serum mag > 2.0 -Continue IV heparin gtt. polanco catheter has had dark red hematuria noted yesterday, appears more of a jaeger color with improvement today. Urology on consult, and patient will be having a CT scan today. HgB slightly decreased, continue to trend. Given his recent event, would like to continue heparin gtt, unless HgB would become unstable. -Continue PO magnesium supplementation -Continue GDMT with ASA, Atorvastatin, Toprol xl (increased dose). Continue to monitor BP response, right now patient needs diuresis, but may be considered for JACQUI-I or ARB in future if BP remains elevated. -Continued management of acute infectious process by primary team 04/03/2024: -Patient continues to demonstrate clinical improvement. Breathing has stabilized. Chest xray shows improvement. -Urine is now a light jaeger/pink appearance, which is a significant improvement compared to 2 days ago. -Remains chest pain free. Continues on Heparin gtt and is now therapeutic -Diuresing well, -1286ml this AM. Give Lasix 40mg IV x1 dose today, continue to monitor renal function and electrolytes closely. -Strict I&O and daily weights on standing scale. -Continued management of infectious process by primary team. -Patient's HR has been controlled with the exception of when he was straining in the restroom this morning. Continue to monitor on telemetry. Patient is deconditioned at baseline. -As discussed before, patient will need cardiac catheterization at some juncture; however, needs to have a stable respiratory status and be improved from an infectious standpoint prior. blood cultures today negative. 04/04/2024: -Patient shows continued clinical improvement. Saturating well on nasal cannula 4lpm (98%) -Remains chest pain free -Urine color continues to improve. H/H Stable. Heparin gtt discontinued yesterday. -Continues to diurese well. -1421ml. Renal function stable. Continue Lasix 60mg IV BID -Strict I&O with daily weights (standing scale) - polanco catheter has had dark red hematuria noted yesterday, appears more of a jaeger color with improvement today. Urology on consult, and patient will be having a CT scan today. HgB slightly decreased, continue to trend. Given his recent event, would like to continue heparin gtt, unless HgB would become unstable. -Continue PO magnesium supplementation -Continue GDMT with ASA, Atorvastatin, Toprol xl (increased dose). Continue to monitor BP response, right now patient needs diuresis, but may be considered for JACQUI-I or ARB in future if BP remains elevated. -Continued management of acute infectious process by primary team 04/05/2024: -Patient continues to improve from a cardiac perspective. Diuresing well. -8kg. -Endorses no episodes of chest pain, working to wean off O2 as able. -Urine color continues to improve H/H stable. -Continue Lasix 60mg IV BID. Continue to work on volume status as well as respiratory status. Patient was able to lay in bed for 1 hour last night. Typically stays sitting up in a chair. -Strict I&O with daily weights -Continue to monitor renal function and electrolytes closely -Continue GDMT with ASA, Atorvastatin, Toprol xl, and Spironolactone. Patient has rare episodes of PAT on telemetry. Rates in general are better controlled. -Continued management of acute infectious process by primary team. 04/06/2024: -Patient continues to show clinical improvement. Diuresing well. -10kg today -No chest pain, pressure or palpitations. Currently on room air, O2 sats stable. -Renal function stable. Continue Lasix 60mg IV BID -Strict I&O, daily weights with standing scale, continue to evaluate patient's ability to lay flat without resp. decline. -Continue to monitor renal function, and electrolytes closely. Continue GDMT with ASA, Atorvastatin, Toprol xl, and Spironolactone. Review of telemetry shows that rates are now well controlled. -Continued management of acute infectious process by primary team. Case has been discussed with Dr. Brock. Further recommendations regarding plan of care as per his assessment. I spent a total of 30 minutes on the date of service in preparation, delivery, documentation of the care provided to the patient excluding any time spent in the performance of separately billed services. [facility] Admission and Anticipated Discharge Date Admission Date: March 29, 2024 Supervising Physician Co-Signing Physician Notes I have personally performed a history and physical examination on the patient. I have reviewed the advance practitioner's documentation, and I agree with, and take responsibility for the plan of care. 74-year-old male admitted with pneumonia and acute heart failure with reduced ejection fraction. Echocardiogram demonstrating severe LV systolic dysfunction with severe left ventricular dilation. Sleeping in bedside recliner. Difficulty lying supine due to orthopnea, and untreated sleep apnea. Patient notes intolerance to CPAP. Nursing applied supplemental oxygen with improvement of symptoms. He slept the rest of the night in recliner. Edema unchanged. Fluid balance -1.3L today with nearly 20 pound weight loss since admission. Short runof paroxysmal atrial tachycardia on telemetry overnight, otherwise, sinus rhythm in the 80s. Denies palpitations. Stable renal function. Recommendations: * Entresto 26/24mg BID added 04/05/2024 * Continue IV furosemide 60mg BID and potassium supplementation. * Monitor fluid balance, daily weight, GFR, and electrolytes. * Continue Aldactone (titrated to 25 mg daily 04/04/2024),Toprol XL, aspirin, and atorvastatin as ordered. * Ischemic evaluation when stabilized from a respiratory perspective. All questions answered satisfaction of both the patient and his son at bedside today. I spent a total of 35 minutes on the date of service in preparation, delivery, and documentation of the care provided to this patient, excluding any time spent in the performance of separately billed services. Moses Brock DO, [facility] Subjective 04/05/2024: Patient seen and examined in follow up today. Feeling well overall. He continues to endorse improvement in his breathing. Currently saturating well on room air. NO chest pain, pressure or palpitations. Continues with lower extremity edema, improved. Labs, vitals, diagnostics, telemetry and documentation reviewed. Telemetry reviewed showing SR, IVCD with PAC 70-90's. 3 beat run of VT at 0816. -1990ml fluid balance -10kg weight loss Review of Systems Review of Systems: All systems reviewed & are unremarkable except as noted in HPI & below Physical Exam Constitutional: + ill appearing, + morbidly obese and + obese; no acute distress Neck: normal visual inspection and trachea midline Respiratory: normal respiratory effort and + cough; no respiratory distress, no labored breathing and no audible wheezes Auscultation: + diminished lung sounds (bilateral bases ) and + wheezes (faint exp. wheezes ); no crackles, no r ales and no rhonchi Cardiovascular: Rate/Rhythm: regular rate, regular rhythm and + tachycardic Heart Sounds: normal S1 and normal S2; no murmur Vessels: dorsalis pedis pulses present; no JVD Extremities: + edema (+1 BLE) Skin: no rashes, warm and dry Psychiatric: A+Ox3, euthymic affect Results & Data Vital Signs (Past 12 Hours) Vital Signs Temp Pulse Pulse Resp BP Pulse Ox O2 Del Method 04/06/24 07:36 72 04/06/24 07:15 36.5 C 82 19 135/68 94 Room Air 04/06/24 03:08 36.3 C L 79 16 115/76 94 Room Air 04/05/24 23:35 82 04/05/24 23:00 36.6 C 84 22 106/74 96 Room Air 04/05/24 22:05 Room Air, Nasal Cannula O2 Flow Rate 04/06/24 07:36 04/06/24 07:15 04/06/24 03:08 04/05/24 23:35 04/05/24 23:00 04/05/24 22:05 2 Laboratory Results CBC 04/06/24 Range/Units 05:52 Hgb 11.4 L (14.0-18.0) g/dl Hct 34.2 L (42.0-52.0) % Comprehensive Metabolic Panel 04/06/24 Range/Units 05:52 Sodium 138 (136-145) mmol/L Potassium 4.0 (3.5-5.1) mmol/L Chloride 101 (98-107) mmol/L Carbon Dioxide 27 (21-32) mmol/L BUN 25 H (6-23) mg/dl Creatinine 1.10 (0.6-1.4) mg/dl Glucose 148 H (70-99(Fasting)) mg/dl Calcium 8.9 (8.6-10.3) mg/dl Intake and Output 04/05/24 04/06/24 04/06/24 22:59 06:59 14:59 Intake Total 1060 / 1610 500 / 1610 Output Total 1200 / 3600 950 / 3600 750 / 750 Balance -140 / -1989 -450 / -1989 -750 / -750 Intake: Oral 1060 / 1560 500 / 1560 Output: Urine 750 / 750 Urine Amount (Catheter) 1200 / 3600 950 / 3600 Polanco/Indwelling 1200 / 3600 950 / 3600 Other: Weight 143.8 kg Weight Measurement Method Standing Scale (2) Sepsis Acute respiratory failure type: with hypoxia Sepsis acute organ dysfunction status: with acute organ dysfunction Sepsis type: Streptococcus, unspecified Severe sepsis acute organ dysfunction type: acute respiratory failure Severe sepsis shock status: without septic shock Qualified Code(s): A40.9 - Streptococcal sepsis, unspecified; R65.20 - Severe sepsis without septic shock; J96.01 - Acute respiratory failure with hypoxia (3) Pneumonia Laterality: bilateral Lung location: lower lobe of lung Pneumonia type: due to group B Streptococcus Qualified Code(s): J15.3 - Pneumonia due to streptococcus, group B
--- NOTE | 2024-04-06 16:46 | Hospitalist Progress Note ---
Date of Service April 06, 2024 Assessment & Plan (1) Sepsis: Plan: Patient is 73 yr male with PMH DM II, HTN, dyslipidemia, RBBB, morbid obesity presented to ER with c/o cough and SOB x 3 weeks. Patient reports started with cough and shortness of breath 3 weeks ago Sepsis Multifocal pneumonia Strep bacteremia --Chest CTA:No pulmonary emboli identified. Segmental right middle lobe airspace opacities with subsegmental consolidation of the basilar right lower lobe suggestive of pneumonia. Follow-up imaging after treatment course recommended in order to document complete resolution.Mild mediastinal lymphadenopathy, likely reactive. -- BioFire negative -- Elevated procalcitonin --Blood Culture: 02/17: Streptococcus pneumonia --Repeat blood cultures negative to date --ECHO:as below -- Doxycycline discontinued Continue IV Rocephin for now Pulmonary hygiene with incentive spirometry, Mucinex Appreciate infectious disease input discussed on 04/06/2024: Can continue IV Rocephin while hospitalized through 04/11/24, if discharged, can discharge on Bactrim. Weaned off supplemental oxygen Repeat blood cultures negative Saturating well on room air (2) Acute on chronic heart failure with reduced ejection fraction and diastolic dysfunction: Plan: Acute on chronic systolic and diastolic heart failure --ECHO: Left ventricle is severely dilated. Mild concentric LVH. Severe global hypokinesis of the left ventricle. EF 20 to 25%. Left atrium is mildly dilated. Mild aortic regurgitation. Moderate mitral regurgitation. Significant tricuspid regurgitation is absent. Grade 1 diastolic dysfunction. -- Continue IV Lasix Appreciate cardiology input Continue metoprolol Monitor I's and O's, daily weight, volume status Continue IV Lasix 60 mg twice a day Volume status slowly improving Replete electrolytes as needed Titrated metoprolol succinate to 25 mg twice a day Aldactone dose increased to 25 mg daily Entresto added per cardiology Continue current management Cardiology following (3) Pneumonia: Plan: Management as above Ascending aortic aneurysm --CT showed:Cardiomegaly with fusiform dilation of the ascending thoracic aorta, 4.6 x 4.7 cm. Follow-up as outpatient (4) NSTEMI (non-ST elevated myocardial infarction): Plan: Continue IV heparin discontinued on 04/03/2024 Will need diagnostic cardiac catheterization eventually Continue aspirin, Lipitor, metoprolol Appreciate Cardiology input Currently chest pain-free Hematuria In setting of anticoagulation use with heparin --CT ABD:No urinary calculi, hydronephrosis or upper tract urothelial lesions. No suspicious renal lesions. Suboptimal evaluation of the bladder mass described above. Diffuse bladder wall thickening, likely chronic. If persistent hematuria, this could be correlated with cystoscopy. No discrete bladder lesion identified. -Consider CT abdomen/Pelvis when more stable Patient would require cystoscopy and further workup as outpatient Appreciate urology input Monitor on H&H and transfuse as needed -- Hematuria resolved Needs follow-up with urology on discharge Hb stable (5) Hypomagnesemia: Plan: Replace and monitor (6) Diabetes mellitus, type II: Plan: -A1c: 7.7 -NovoLog sliding scale per protocol Monitor BGs (7) LILIAN (acute kidney injury): Plan: -Cr: 1.4>1.2>1.1 Monitor renal function Avoid Nephrotoxic agents as able Renal function stable while on IV diuretics Plan DVT Px: Heparin ggt discontinued SCDs for now Re: Hematuria Code Status Full Code Admission and Anticipated Discharge Date Admission Date: March 29, 2024 Subjective Patient is seen and examined at bedside States feeling well today No new complaints Hematuria resolved Still has leg edema Offers no other complaints Family at bedside Denies any dyspnea, abdominal pain, dizziness Review of Systems Review of Systems: All systems reviewed & are unremarkable except as noted in Subjective Physical Exam Physical Exam: Physical Exam: Vitals signs as noted above General Appearance:Morbidly Obese, ill appearing, no apparent distress Head: normocephalic, Atraumatic Eyes: normal inspection, EOMI Neck: supple, Trachea midline Respiratory/Chest: Normal breath sounds, faint crackles, No accessory muscle use Cardiovascular: S1, S2, No murmur Abdomen/GI:Soft, Non tender, Bowel sounds present Extremities/Musculoskeletal:normal inspection, Trace edema Neurologic/Psych:AAOX3, grossly no focal neurological deficits Skin: normal color, warm Results & Data Results & Data Vital Signs (Past 12 Hours) Vital Signs Temp Pulse Pulse Resp BP Pulse Ox O2 Del Method 04/06/24 15:43 36.4 C L 79 20 113/72 96 Room Air 04/06/24 14:36 93 H 04/06/24 11:00 36.5 C 85 19 108/70 94 Room Air 04/06/24 08:12 Room Air 04/06/24 07:36 72 04/06/24 07:15 36.5 C 82 19 135/68 94 Room Air Laboratory Results Short CBC 04/06/24 Range/Units 05:52 Hgb 11.4 L (14.0-18.0) g/dl Hct 34.2 L (42.0-52.0) % BMP 04/06/24 05:52 Sodium 138 Potassium 4.0 Chloride 101 Carbon Dioxide 27 BUN 25 H Creatinine 1.10 Glucose 148 H Calcium 8.9 (1) Sepsis Acute respiratory failure type: with hypoxia Sepsis acute organ dysfunction status: with acute organ dysfunction Sepsis type: Streptococcus, unspecified Severe sepsis acute organ dysfunction type: acute respiratory failure Severe sepsis shock status: without septic shock Qualified Code(s): A40.9 - Streptococcal sepsis, unspecified; R65.20 - Severe sepsis without septic shock; J96.01 - Acute respiratory failure with hypoxia (3) Pneumonia Laterality: bilateral Lung location: lower lobe of lung Pneumonia type: due to group B Streptococcus Qualified Code(s): J15.3 - Pneumonia due to streptococcus, group B (6) Diabetes mellitus, type II Diabetes mellitus ad terminal makeup operator insulin use: without senior living use Diabetes mellitus complication status: without complication Qualified Code(s): E11.9 - Type 2 diabetes mellitus without complications
[2024-04-07 06:55] LABS: Hematocrit (blood only) 37.8 % (42.0-52.0); Hemoglobin 12.5 g/dl (14.0-18.0)
[2024-04-07 07:14] LABS: BUN Creatinine Ratio 23.1 (10-20); Calcium 8.9 mg/dl (8.6-10.3); Creatinine Clr Calc Pharmacy 73.3 ml/min; Potassium 4.2 mmol/L (3.5-5.1)
[2024-04-07] MEDS ORDERED: ZOLPIDEM TARTRATE 5 MG TAB PO PRN (10:36)
[2024-04-07] MEDS: HYDROCORTISONE 1% OINT 30 GM TUBE EXT SCH (11:17)
--- NOTE | 2024-04-07 11:54 | Cardiology Progress Note ---
Date of Service April 07, 2024 Assessment & Plan (1) Acute on chronic heart failure with reduced ejection fraction and diastolic dysfunction: (2) NSTEMI (non-ST elevated myocardial infarction): (3) Pneumonia: (4) Sepsis: Plan NSTEMI Acute on chronic HFrEF PNA Sepsis New cardiomyopathy Severe LV systolic dysfunction MAY intolerant to CPAP Family hx CAD -Patient continues to respond well to IV diuresis with -2670mL out -Weight is down 12kg this admission -Remains volume overloaded -Continue IV diuresis with lasix 60mg BID and potassium supplementation -Continue entresto, metoprolol, spironolactone, atorvastatin and ASA 81mg daily. -Plan to add Jardiance prior to discharge to optimize medical therapy -Telemetry reviewed. NSR with no events noted overnight. -Plan for ischemic work-up with cardiac catheterization once euvolemic and recovered from acute infection Case discussed with Dr Lara. I spent a total of 30 minutes on the date of service in preparation, delivery, and documentation of the care provided to this patient, excluding any time spent in the performance of separately billed services. Fany Alford PA-C Department of Cardiology, [facility] This chart was completed in part utilizing Speech Voice Recognition Software. Grammatical errors, random word insertions, pronoun errors, and incomplete sentences are an occasional consequence of this system due to software limitations, ambient noise, and hardware issues. Any formal questions or concerns about the content, text, or information contained within the body of this dictation should be directly addressed to the provider for clarification. Admission and Anticipated Discharge Date Admission Date: March 29, 2024 Supervising Physician Co-Signing Physician Notes I spent a total of 30 minutes on the date of service in preparation, delivery, and documentation of the care provided to this patient, excluding any time spent in the performance of separately billed services. I have personally performed a history and physical examination on the patient. I have reviewed the advance practitioner's documentation, and I agree with, and take responsibility for the plan of care. Subjective Patient reports feeling better today. Continues to produce large amount of urine. Denies chest pain, shortness of breath. Review of Systems Review of Systems: All systems reviewed & are unremarkable except as noted in HPI & below Physical Exam Constitutional: WD/WN, vitals as above Respiratory: normal respiratory effort, lungs clear to auscultation Cardiovascular: Rate/Rhythm: regular rate and regular rhythm Heart Sounds: normal S1 and normal S2 Vessels: no JVD Extremities: + edema +2 BLE edema Gastrointestinal (Abdomen): Inspection/Auscultation: + abdomen distended Percussion/Palpation: abdomen soft; abdomen nontender Skin: no rashes, warm and dry Psychiatric: A+Ox3, euthymic affect Results & Data Vital Signs (Past 12 Hours) Vital Signs Temp Pulse Pulse Resp BP Pulse Ox O2 Del Method 04/07/24 11:13 36.3 C L 82 20 103/68 93 Room Air 04/07/24 08:21 87 04/07/24 08:21 Room Air 04/07/24 07:16 36.4 C L 86 20 114/74 94 Room Air 04/07/24 02:56 36.5 C 80 18 109/72 94 Room Air Laboratory Results CBC 04/07/24 Range/Units 06:10 Hgb 12.5 L (14.0-18.0) g/dl Hct 37.8 L (42.0-52.0) % Comprehensive Metabolic Panel 04/07/24 Range/Units 06:10 Sodium 136 (136-145) mmol/L Potassium 4.2 (3.5-5.1) mmol/L Chloride 101 (98-107) mmol/L Carbon Dioxide 28 (21-32) mmol/L BUN 27 H (6-23) mg/dl Creatinine 1.17 (0.6-1.4) mg/dl Glucose 147 H (70-99(Fasting)) mg/dl Calcium 8.9 (8.6-10.3) mg/dl Intake and Output 04/06/24 04/07/24 04/07/24 22:59 06:59 14:59 Intake Total 250 / 980 200 / 980 Output Total 950 / 2950 700 / 2950 700 / 700 Balance -700 / -1970 -500 / -1970 -700 / -700 Intake: Oral 250 / 930 200 / 930 Output: Urine Amount (Catheter) 950 / 2200 700 / 2200 700 / 700 Wilson/Indwelling 950 / 2200 700 / 2200 700 / 700 Other: Weight 142.2 kg (3) Pneumonia Laterality: bilateral Lung location: lower lobe of lung Pneumonia type: due to group B Streptococcus Qualified Code(s): J15.3 - Pneumonia due to streptococcus, group B (4) Sepsis Acute respiratory failure type: with hypoxia Sepsis acute organ dysfunction status: with acute organ dysfunction Sepsis type: Streptococcus, unspecified Severe sepsis acute organ dysfunction type: acute respiratory failure Severe sepsis shock status: without septic shock Qualified Code(s): A40.9 - Streptococcal sepsis, unspecified; R65.20 - Severe sepsis without septic shock; J96.01 - Acute respiratory failure with hypoxia
--- NOTE | 2024-04-07 15:08 | Hospitalist Progress Note ---
Date of Service April 07, 2024 Assessment & Plan (1) Sepsis: Plan: Patient is 73 yr male with PMH DM II, HTN, dyslipidemia, RBBB, morbid obesity presented to ER with c/o cough and SOB x 3 weeks. Patient reports started with cough and shortness of breath 3 weeks ago Sepsis Multifocal pneumonia Strep bacteremia --Chest CTA:No pulmonary emboli identified. Segmental right middle lobe airspace opacities with subsegmental consolidation of the basilar right lower lobe suggestive of pneumonia. Follow-up imaging after treatment course recommended in order to document complete resolution.Mild mediastinal lymphadenopathy, likely reactive. -- BioFire negative -- Elevated procalcitonin --Blood Culture: 02/17: Streptococcus pneumonia --Repeat blood cultures negative --ECHO:as below -- Doxycycline discontinued Continue IV Rocephin Pulmonary hygiene with incentive spirometry, Mucinex Appreciate infectious disease input discussed on 04/06/2024: Can continue IV Rocephin while hospitalized through 04/11/24, if discharged, can discharge on Bactrim. Weaned off supplemental oxygen Saturating well on room air Continue management as above (2) Acute on chronic heart failure with reduced ejection fraction and diastolic dysfunction: Plan: Acute on chronic systolic and diastolic heart failure --ECHO: Left ventricle is severely dilated. Mild concentric LVH. Severe global hypokinesis of the left ventricle. EF 20 to 25%. Left atrium is mildly dilated. Mild aortic regurgitation. Moderate mitral regurgitation. Significant tricuspid regurgitation is absent. Grade 1 diastolic dysfunction. -- Continue IV Lasix Appreciate cardiology input Continue metoprolol Monitor I's and O's, daily weight, volume status Continue IV Lasix 60 mg twice a day Volume status slowly improving Replete electrolytes as needed Titrated metoprolol succinate to 25 mg twice a day Aldactone dose increased to 25 mg daily Entresto added per cardiology Likely cardiac cath on Tuesday (3) Pneumonia: Plan: Management as above Ascending aortic aneurysm --CT showed:Cardiomegaly with fusiform dilation of the ascending thoracic aorta, 4.6 x 4.7 cm. Follow-up as outpatient (4) NSTEMI (non-ST elevated myocardial infarction): Plan: Continue IV heparin discontinued on 04/03/2024 Will need diagnostic cardiac catheterization eventually Continue aspirin, Lipitor, metoprolol Appreciate Cardiology input Currently chest pain-free Hematuria In setting of anticoagulation use with heparin --CT ABD:No urinary calculi, hydronephrosis or upper tract urothelial lesions. No suspicious renal lesions. Suboptimal evaluation of the bladder mass described above. Diffuse bladder wall thickening, likely chronic. If persistent hematuria, this could be correlated with cystoscopy. No discrete bladder lesion identified. -Consider CT abdomen/Pelvis when more stable Patient would require cystoscopy and further workup as outpatient Appreciate urology input Monitor on H&H and transfuse as needed -- Hematuria resolved Needs follow-up with urology on discharge Hb stable (5) Hypomagnesemia: Plan: Replace and monitor (6) Diabetes mellitus, type II: Plan: -A1c: 7.7 -NovoLog sliding scale per protocol Monitor BGs (7) LILIAN (acute kidney injury): Plan: -Cr: 1.4>1.2>1.1 Monitor renal function Avoid Nephrotoxic agents as able Renal function stable while on IV diuretics Plan DVT Px: Heparin ggt discontinued SCDs for now Re: Hematuria Code Status Full Code Admission and Anticipated Discharge Date Admission Date: March 29, 2024 Subjective Patient is seen and examined at bedside Reports having itchy rash on back Also reports poor sleep Intermittent cough No other complaints today Leg edema improving Discussed with patient's family at bedside Review of Systems Review of Systems: All systems reviewed & are unremarkable except as noted in Subjective Physical Exam Physical Exam: Physical Exam: Vitals signs as noted above General Appearance:Morbidly Obese, ill appearing, no apparent distress Head: normocephalic, Atraumatic Eyes: normal inspection, EOMI Neck: supple, Trachea midline Respiratory/Chest: Normal breath sounds, faint crackles, No accessory muscle use Cardiovascular: S1, S2, No murmur Abdomen/GI:Soft, Non tender, Bowel sounds present Extremities/Musculoskeletal:normal inspection, Trace edema Neurologic/Psych:AAOX3, grossly no focal neurological deficits Skin: normal color, warm Results & Data Results & Data Vital Signs (Past 12 Hours) Vital Signs Temp Pulse Pulse Resp BP Pulse Ox O2 Del Method 04/07/24 11:13 36.3 C L 82 20 103/68 93 Room Air 04/07/24 08:21 87 04/07/24 08:21 Room Air 04/07/24 07:16 36.4 C L 86 20 114/74 94 Room Air Laboratory Results Short CBC 04/07/24 Range/Units 06:10 Hgb 12.5 L (14.0-18.0) g/dl Hct 37.8 L (42.0-52.0) % BMP 04/07/24 06:10 Sodium 136 Potassium 4.2 Chloride 101 Carbon Dioxide 28 BUN 27 H Creatinine 1.17 Glucose 147 H Calcium 8.9 (1) Sepsis Acute respiratory failure type: with hypoxia Sepsis acute organ dysfunction status: with acute organ dysfunction Sepsis type: Streptococcus, unspecified Severe sepsis acute organ dysfunction type: acute respiratory failure Severe sepsis shock status: without septic shock Qualified Code(s): A40.9 - Streptococcal sepsis, unspecified; R65.20 - Severe sepsis without septic shock; J96.01 - Acute respiratory failure with hypoxia (3) Pneumonia Laterality: bilateral Lung location: lower lobe of lung Pneumonia type: due to group B Streptococcus Qualified Code(s): J15.3 - Pneumonia due to streptococcus, group B (6) Diabetes mellitus, type II Diabetes mellitus terminal manager insulin use: without terminal manager use Diabetes mellitus complication status: without complication Qualified Code(s): E11.9 - Type 2 diabetes mellitus without complications
[2024-04-07] MEDS ORDERED: NYSTATIN POWDER 15GM BTL EXT PRN (19:15)
[2024-04-08 07:41] LABS: BUN Creatinine Ratio 24.8 (10-20); Calcium 8.9 mg/dl (8.6-10.3); Creatinine Clr Calc Pharmacy 70.5 ml/min; Magnesium 1.9 mg/dl (1.7-2.4); Potassium 4.1 mmol/L (3.5-5.1)
[2024-04-08] MEDS: diphenhydrAMINE Capsule 25 MG CAP PO PRN (11:58)
--- NOTE | 2024-04-08 13:28 | Cardiology Progress Note ---
Date of Service April 08, 2024 Assessment & Plan (1) NSTEMI (non-ST elevated myocardial infarction): (2) Acute on chronic heart failure with reduced ejection fraction and diastolic dysfunction: Plan NSTEMI Acute on chronic HFrEF PNA Sepsis New cardiomyopathy Severe LV systolic dysfunction MAY intolerant to CPAP Family hx CAD -Patient continues to respond well to IV diuresis -Weight is down 15kg this admission, -1860 out this 24 hours -Remains volume overloaded -Continue IV diuresis with lasix 60mg BID and potassium supplementation -Continue entresto, metoprolol, spironolactone, atorvastatin and ASA 81mg daily. -Plan to add Jardiance prior to discharge to optimize medical therapy -Telemetry reviewed. NSR with no events noted overnight. -Plan for ischemic work-up with cardiac catheterization once euvolemic and recovered from acute infection Case discussed with Dr Lara. I spent a total of 38 minutes on the date of service in preparation, delivery, and documentation of the care provided to this patient, excluding any time spent in the performance of separately billed services. Fany Alford PA-C Department of Cardiology, [facility] This chart was completed in part utilizing Speech Voice Recognition Software. Grammatical errors, random word insertions, pronoun errors, and incomplete sentences are an occasional consequence of this system due to software limitations, ambient noise, and hardware issues. Any formal questions or concerns about the content, text, or information contained within the body of this dictation should be directly addressed to the provider for clarification. Admission and Anticipated Discharge Date Admission Date: March 29, 2024 Supervising Physician Co-Signing Physician Notes I spent a total of 30 minutes on the date of service in preparation, delivery, and documentation of the care provided to this patient, excluding any time spent in the performance of separately billed services. I have personally performed a history and physical examination on the patient. I have reviewed the advance practitioner's documentation, and I agree with, and take responsibility for the plan of care. Subjective Patient reports feeling well Review of Systems Review of Systems: All systems reviewed & are unremarkable except as noted in HPI & below Physical Exam Constitutional: WD/WN, vitals as above Neck: normal visual inspection Respiratory: normal respiratory effort, lungs clear to auscultation Cardiovascular: RRR, no murmur, no edema Skin: no rashes, warm and dry Psychiatric: A+Ox3, euthymic affect Results & Data Vital Signs (Past 12 Hours) Vital Signs Temp Pulse Pulse Resp BP Pulse Ox O2 Del Method 04/08/24 11:35 36.6 C 84 18 104/73 93 Room Air 04/08/24 08:13 88 04/08/24 07:33 36.5 C 81 18 107/69 94 Room Air 04/08/24 03:29 36.6 C 97 H 20 91/58 L 93 Room Air Laboratory Results Comprehensive Metabolic Panel 04/08/24 Range/Units 06:22 Sodium 135 L (136-145) mmol/L Potassium 4.1 (3.5-5.1) mmol/L Chloride 100 (98-107) mmol/L Carbon Dioxide 25 (21-32) mmol/L BUN 30 H (6-23) mg/dl Creatinine 1.21 (0.6-1.4) mg/dl Glucose 147 H (70-99(Fasting)) mg/dl Calcium 8.9 (8.6-10.3) mg/dl Intake and Output 04/07/24 04/08/24 04/08/24 22:59 06:59 14:59 Intake Total 240 / 1090 200 / 1090 50 / 50 Output Total 850 / 2750 550 / 2750 850 / 850 Balance -610 / -1660 -350 / -1660 -800 / -800 Intake: IV 50 / 50 cefTRIAXone SODIUM 2,000 mg In 50 / 50 50 ml @ 100 mls/hr IV Q24H [facility] Rx#:[id number] Oral 240 / 1040 200 / 1040 Output: Urine Amount (Catheter) 850 / 2750 550 / 2750 850 / 850 Wilson/Indwelling 850 / 2750 550 / 2750 850 / 850 Other: Weight 140.7 kg Weight Measurement Method Standing Scale
--- NOTE | 2024-04-08 15:07 | Hospitalist Progress Note ---
Date of Service April 08, 2024 Assessment & Plan (1) Sepsis: Plan: Patient is 73 yr male with PMH DM II, HTN, dyslipidemia, RBBB, morbid obesity presented to ER with c/o cough and SOB x 3 weeks. Patient reports started with cough and shortness of breath 3 weeks ago Sepsis Multifocal pneumonia Strep bacteremia --Chest CTA:No pulmonary emboli identified. Segmental right middle lobe airspace opacities with subsegmental consolidation of the basilar right lower lobe suggestive of pneumonia. Follow-up imaging after treatment course recommended in order to document complete resolution.Mild mediastinal lymphadenopathy, likely reactive. -- BioFire negative -- Elevated procalcitonin --Blood Culture: 02/17: Streptococcus pneumonia --Repeat blood cultures negative --ECHO:as below -- Doxycycline discontinued Continue IV Rocephin Pulmonary hygiene with incentive spirometry, Mucinex Appreciate infectious disease input discussed on 04/06/2024: Can continue IV Rocephin while hospitalized through 04/11/24, if discharged, can discharge on Bactrim. Weaned off supplemental oxygen Saturating well on room air Continue IV antibiotic as above (2) Acute on chronic heart failure with reduced ejection fraction and diastolic dysfunction: Plan: Acute on chronic systolic and diastolic heart failure --ECHO: Left ventricle is severely dilated. Mild concentric LVH. Severe global hypokinesis of the left ventricle. EF 20 to 25%. Left atrium is mildly dilated. Mild aortic regurgitation. Moderate mitral regurgitation. Significant tricuspid regurgitation is absent. Grade 1 diastolic dysfunction. Appreciate cardiology input Continue metoprolol Monitor I's and O's, daily weight, volume status Continue IV Lasix 60 mg twice a day Volume status slowly improving Replete electrolytes as needed Titrated metoprolol succinate to 25 mg twice a day Aldactone dose increased to 25 mg daily Entresto added per cardiology Continue IV diuresis per cardiology (3) Pneumonia: Plan: Management as above Ascending aortic aneurysm --CT showed:Cardiomegaly with fusiform dilation of the ascending thoracic aorta, 4.6 x 4.7 cm. Follow-up as outpatient (4) NSTEMI (non-ST elevated myocardial infarction): Plan: Continue IV heparin discontinued on 04/03/2024 Will need diagnostic cardiac catheterization eventually Continue aspirin, Lipitor, metoprolol Appreciate Cardiology input Currently chest pain-free Hematuria In setting of anticoagulation use with heparin --CT ABD:No urinary calculi, hydronephrosis or upper tract urothelial lesions. No suspicious renal lesions. Suboptimal evaluation of the bladder mass described above. Diffuse bladder wall thickening, likely chronic. If persistent hematuria, this could be correlated with cystoscopy. No discrete bladder lesion identified. -Consider CT abdomen/Pelvis when more stable Patient would require cystoscopy and further workup as outpatient Appreciate urology input Monitor on H&H and transfuse as needed -- Hematuria resolved Needs follow-up with urology on discharge Hb stable (5) Hypomagnesemia: Plan: Replace and monitor (6) Diabetes mellitus, type II: Plan: -A1c: 7.7 -NovoLog sliding scale per protocol Monitor BGs (7) LILIAN (acute kidney injury): Plan: -Cr: 1.4>1.2>1.1 Monitor renal function Avoid Nephrotoxic agents as able Renal function stable while on IV diuretics Plan DVT Px: Heparin ggt discontinued SCDs for now Re: Hematuria Code Status Full Code Admission and Anticipated Discharge Date Admission Date: March 29, 2024 Subjective Patient is seen and examined at bedside No new complaints Discussed with patient's family at bedside Leg edema slowly improving Denies any chest pain, dyspnea, nausea, vomiting, abdominal pain Review of Systems Review of Systems: All systems reviewed & are unremarkable except as noted in Subjective Physical Exam Physical Exam: Physical Exam: Vitals signs as noted above General Appearance:Morbidly Obese, ill appearing, no apparent distress Head: normocephalic, Atraumatic Eyes: normal inspection, EOMI Neck: supple, Trachea midline Respiratory/Chest: Normal breath sounds, faint crackles, No accessory muscle use Cardiovascular: S1, S2, No murmur Abdomen/GI:Soft, Non tender, Bowel sounds present Extremities/Musculoskeletal:normal inspection, Trace edema Neurologic/Psych:AAOX3, grossly no focal neurological deficits Skin: normal color, warm Results & Data Results & Data Vital Signs (Past 12 Hours) Vital Signs Temp Pulse Pulse Resp BP Pulse Ox O2 Del Method 04/08/24 15:01 94 H 04/08/24 11:35 36.6 C 84 18 104/73 93 Room Air 04/08/24 08:13 88 04/08/24 07:33 36.5 C 81 18 107/69 94 Room Air 04/08/24 03:29 36.6 C 97 H 20 91/58 L 93 Room Air Laboratory Results [facility] 04/08/24 06:22 Sodium 135 L Potassium 4.1 Chloride 100 Carbon Dioxide 25 BUN 30 H Creatinine 1.21 Glucose 147 H Calcium 8.9 (1) Sepsis Acute respiratory failure type: with hypoxia Sepsis acute organ dysfunction status: with acute organ dysfunction Sepsis type: Streptococcus, unspecified Severe sepsis acute organ dysfunction type: acute respiratory failure Severe sepsis shock status: without septic shock Qualified Code(s): A40.9 - Streptococcal sepsis, unspecified; R65.20 - Severe sepsis without septic shock; J96.01 - Acute respiratory failure with hypoxia (3) Pneumonia Laterality: bilateral Lung location: lower lobe of lung Pneumonia type: due to group B Streptococcus Qualified Code(s): J15.3 - Pneumonia due to streptococcus, group B (6) Diabetes mellitus, type II Diabetes mellitus meterman insulin use: without meterman use Diabetes mellitus complication status: without complication Qualified Code(s): E11.9 - Type 2 diabetes mellitus without complications
[2024-04-09] MEDS: INSULIN ASPART PER UNIT CHARGE SC SCH ×2 (05:02→17:32)
[2024-04-09 08:29] LABS: Hematocrit (blood only) 36.5 % (42.0-52.0); Hemoglobin 12.1 g/dl (14.0-18.0); Mean Corpuscular Hemoglobin 30.4 pg (25.0-34.0); Mean Corpuscular Hgb Conc 33.2 g/dL (32.0-36.0); Mean Corpuscular Volume 91.7 fL (80.0-100.0); Mean Platelet Volume 10.2 fL (9.4-12.4); Platelet Count 328 K/uL (130-400); RDW Coefficient of Variation 13.5 % (11.5-14.5); RDW Standard Deviation 45.6 fL (36.4-46.3); Red Blood Count 3.98 M/uL (4.70-6.10); White Blood Count 9.69 K/ul (4.8-10.8)
[2024-04-09 08:53] LABS: BUN Creatinine Ratio 24.2 (10-20); Calcium 8.8 mg/dl (8.6-10.3); Creatinine Clr Calc Pharmacy 64.6 ml/min; Potassium 4.4 mmol/L (3.5-5.1)
[2024-04-09] MEDS: INSULIN ASPART PER UNIT CHARGE SC ONE (13:29)
[2024-04-09] MEDS: Nursing to Pharmacy Communication SCH (13:32)
--- NOTE | 2024-04-09 18:01 | Cardiology Progress Note ---
Date of Service April 09, 2024 Assessment & Plan (1) Acute on chronic heart failure with reduced ejection fraction and diastolic dysfunction: Plan NSTEMI Acute on chronic HFrEF PNA Sepsis New cardiomyopathy Severe LV systolic dysfunction MAY intolerant to CPAP Family hx CAD -Patient continues to respond well to IV diuresis -Weight is down 15kg this admission, -1860 out this 24 hours -Remains volume overloaded -Continue IV diuresis with lasix 60mg BID and potassium supplementation -Continue entresto, metoprolol, spironolactone, atorvastatin and ASA 81mg daily. -Plan to add Jardiance prior to discharge to optimize medical therapy -Telemetry reviewed. NSR with no events noted overnight. -Plan for ischemic work-up once euvolemic and recovered from acute infection Any formal questions or concerns about the content, text, or information contained within the body of this dictation should be directly addressed to the provider for clarification. 04/09/2024 Patient continues to improve and manifested good diuresis over the weekend. Leg edema improved still with mild abdominal distention 1. Acute on chronic heart failure with reduced ejection fraction 2. New cardiomyopathy with diffuse LV dysfunction 3. Obstructive sleep apnea 4. Morbid obesity 5 Recovering sepsis/pneumonia Plan: Patient on guideline directed optimal medications for heart failure with plans to likely add Jardiance to her regimen as well. Await renal function in AM. Will hold IV diuretics after tonight's dose and likely convert to oral regimen tomorrow. Discontinue Wilson after switch if not sooner Nocturnal oximetry ordered for this evening Repeat echocardiogram in a.m. to assess LV systolic function Will need ischemic workup depending on above. Admission and Anticipated Discharge Date Admission Date: March 29, 2024 Review of Systems Review of Systems: All systems reviewed & are unremarkable except as noted in Subjective Physical Exam Constitutional: WD/WN, vitals as above + morbidly obese; no acute distress ENMT: external ear and nose normal, oropharynx normal Neck: trachea midline and + thick neck Respiratory: normal respiratory effort, lungs clear to auscultation normal respiratory effort; no respiratory distress, no labored breathing and no audible wheezes Auscultation: + diminished lung sounds (bilateral bases ) and + wheezes (faint exp. wheezes ); no crackles, no rales and no rhonchi Cardiovascular: Rate/Rhythm: regular rate and regular rhythm Heart Sounds: normal S1 and normal S2; no murmur Vessels: dorsalis pedis pulses present; no JVD Extremities: + edema Gastrointestinal (Abdomen): normal bowel sounds, soft, nontender, no hepatosplenomegaly Inspection/Auscultation: + abdomen distended Percussion/Palpation: abdomen soft; abdomen nontender Skin: no rashes, warm and dry Neurologic: PERRL, EOMI, accommodation nl, no face palsy, no dysarthria Psychiatric: A+Ox3, euthymic affect Results & Data Vital Signs (Past 12 Hours) Vital Signs Temp Pulse Pulse Resp BP Pulse Ox O2 Del Method 04/09/24 16:29 36.5 C 90 18 104/70 93 Room Air 04/09/24 11:46 87 04/09/24 11:25 36.5 C 97 H 18 101/68 94 Room Air 04/09/24 11:00 Room Air Laboratory Results Laboratory Results - last 24 hr 04/08/24 04/09/24 04/09/24 20:35 04:58 07:05 WBC RBC Hgb Hct MCV MCH MCHC RDW Std Deviation RDW Coeff of Kelechi Plt Count MPV Sodium Potassium Chloride Carbon Dioxide Anion Gap BUN Creatinine Est Cr Clr Drug Dosing eGFR BUN/Creatinine Ratio Glucose POC Glucose 178 H 143 H 151 H Calcium Magnesium 04/09/24 04/09/24 04/09/24 08:04 11:23 16:09 WBC 9.69 RBC 3.98 L Hgb 12.1 L Hct 36.5 L MCV 91.7 MCH 30.4 MCHC 33.2 RDW Std Deviation 45.6 RDW Coeff of Kelechi 13.5 Plt Count 328 MPV 10.2 Sodium 137 Potassium 4.4 Chloride 102 Carbon Dioxide 27 Anion Gap 8 BUN 32 H Creatinine 1.32 Est Cr Clr Drug Dosing 64.6 eGFR 55.90 BUN/Creatinine Ratio 24.2 H Glucose 145 H POC Glucose 235 H 101 H Calcium 8.8 Magnesium 2.0
--- NOTE | 2024-04-09 18:24 | Hospitalist Progress Note ---
Date of Service April 09, 2024 Assessment & Plan (1) Sepsis: Plan: Patient is 73 yr male with PMH DM II, HTN, dyslipidemia, RBBB, morbid obesity presented to ER with c/o cough and SOB x 3 weeks. Patient reports started with cough and shortness of breath 3 weeks ago Sepsis Multifocal pneumonia Strep bacteremia --Chest CTA:No pulmonary emboli identified. Segmental right middle lobe airspace opacities with subsegmental consolidation of the basilar right lower lobe suggestive of pneumonia. Follow-up imaging after treatment course recommended in order to document complete resolution.Mild mediastinal lymphadenopathy, likely reactive. -- BioFire negative -- Elevated procalcitonin --Blood Culture: 02/17: Streptococcus pneumonia --Repeat blood cultures negative --ECHO:as below -- Doxycycline discontinued Continue IV Rocephin Pulmonary hygiene with incentive spirometry, Mucinex Appreciate infectious disease input discussed on 04/06/2024: Can continue IV Rocephin while hospitalized through 04/11/24, if discharged, can discharge on Bactrim. Weaned off supplemental oxygen Saturating well on room air Will complete IV antibiotic course in 2 days (2) Acute on chronic heart failure with reduced ejection fraction and diastolic dysfunction: Plan: Acute on chronic systolic and diastolic heart failure --ECHO: Left ventricle is severely dilated. Mild concentric LVH. Severe global hypokinesis of the left ventricle. EF 20 to 25%. Left atrium is mildly dilated. Mild aortic regurgitation. Moderate mitral regurgitation. Significant tricuspid regurgitation is absent. Grade 1 diastolic dysfunction. Appreciate cardiology input Continue metoprolol Monitor I's and O's, daily weight, volume status Continue IV Lasix 60 mg twice a day Volume status slowly improving Replete electrolytes as needed Titrated metoprolol succinate to 25 mg twice a day Aldactone dose increased to 25 mg daily Entresto added per cardiology Continue IV diuresis per cardiology>> likely transition to oral diuretics tomorrow Nocturnal oximetry study Plan for repeat echo tomorrow (3) Pneumonia: Plan: Management as above Ascending aortic aneurysm --CT showed:Cardiomegaly with fusiform dilation of the ascending thoracic aorta, 4.6 x 4.7 cm. Follow-up as outpatient (4) NSTEMI (non-ST elevated myocardial infarction): Plan: Continue IV heparin discontinued on 04/03/2024 Will need diagnostic cardiac catheterization eventually Continue aspirin, Lipitor, metoprolol Appreciate Cardiology input Currently chest pain-free Hematuria In setting of anticoagulation use with heparin --CT ABD:No urinary calculi, hydronephrosis or upper tract urothelial lesions. No suspicious renal lesions. Suboptimal evaluation of the bladder mass described above. Diffuse bladder wall thickening, likely chronic. If persistent hematuria, this could be correlated with cystoscopy. No discrete bladder lesion identified. -Consider CT abdomen/Pelvis when more stable Patient would require cystoscopy and further workup as outpatient Appreciate urology input Monitor on H&H and transfuse as needed -- Hematuria resolved Needs follow-up with urology on discharge Hb stable (5) Hypomagnesemia: Plan: Replace and monitor (6) Diabetes mellitus, type II: Plan: -A1c: 7.7 -NovoLog sliding scale per protocol Monitor BGs (7) LILIAN (acute kidney injury): Plan: -Cr: 1.4>1.2>1.3 Monitor renal function Avoid Nephrotoxic agents as able Plan DVT Px: Heparin ggt discontinued SCDs for now Re: Hematuria Code Status Full Code Admission and Anticipated Discharge Date Admission Date: March 29, 2024 Subjective Patient is seen and examined at bedside Discussed with cardiology today Patient offers no new complaints Family at bedside Leg edema improving Denies any chest pain, dyspnea, nausea, vomiting, abdominal pain Review of Systems Review of Systems: All systems reviewed & are unremarkable except as noted in Subjective Physical Exam Physical Exam: Physical Exam: Vitals signs as noted above General Appearance:Morbidly Obese, ill appearing, no apparent distress Head: normocephalic, Atraumatic Eyes: normal inspection, EOMI Neck: supple, Trachea midline Respiratory/Chest: Normal breath sounds, faint crackles, No accessory muscle use Cardiovascular: S1, S2, No murmur Abdomen/GI:Soft, Non tender, Bowel sounds present Extremities/Musculoskeletal:normal inspection, Trace edema Neurologic/Psych:AAOX3, grossly no focal neurological deficits Skin: normal color, warm Results & Data Results & Data Vital Signs (Past 12 Hours) Vital Signs Temp Pulse Pulse Resp BP Pulse Ox O2 Del Method 04/09/24 16:29 36.5 C 90 18 104/70 93 Room Air 04/09/24 11:46 87 04/09/24 11:25 36.5 C 97 H 18 101/68 94 Room Air 04/09/24 11:00 Room Air Laboratory Results Short CBC 04/09/24 Range/Units 08:04 WBC 9.69 (4.8-10.8) K/ul Hgb 12.1 L (14.0-18.0) g/dl Hct 36.5 L (42.0-52.0) % Plt Count 328 (130-400) K/uL BMP 04/09/24 08:04 Sodium 137 Potassium 4.4 Chloride 102 Carbon Dioxide 27 BUN 32 H Creatinine 1.32 Glucose 145 H Calcium 8.8 (1) Sepsis Acute respiratory failure type: with hypoxia Sepsis acute organ dysfunction status: with acute organ dysfunction Sepsis type: Streptococcus, unspecified Severe sepsis acute organ dysfunction type: acute respiratory failure Severe sepsis shock status: without septic shock Qualified Code(s): A40.9 - Streptococcal sepsis, unspecified; R65.20 - Severe sepsis without septic shock; J96.01 - Acute respiratory failure with hypoxia (3) Pneumonia Laterality: bilateral Lung location: lower lobe of lung Pneumonia type: due to group B Streptococcus Qualified Code(s): J15.3 - Pneumonia due to streptococcus, group B (6) Diabetes mellitus, type II Diabetes mellitus correction insulin use: without correction use Diabetes mellitus complication status: without complication Qualified Code(s): E11.9 - Type 2 diabetes mellitus without complications
[2024-04-10] MEDS: METOPROLOL SUCC 25MG EXT REL TAB PO STA (08:09)
[2024-04-10 08:13] LABS: BUN Creatinine Ratio 27.1 (10-20); Calcium 8.6 mg/dl (8.6-10.3); Creatinine Clr Calc Pharmacy 65.7 ml/min; Potassium 4.1 mmol/L (3.5-5.1)
--- NOTE | 2024-04-10 13:15 | Cardiology Progress Note ---
Date of Service April 10, 2024 Assessment & Plan (1) Acute on chronic heart failure with reduced ejection fraction and diastolic dysfunction: Plan NSTEMI Acute on chronic HFrEF PNA Sepsis New cardiomyopathy Severe LV systolic dysfunction MAY intolerant to CPAP Family hx CAD -Patient continues to respond well to IV diuresis -Weight is down 15kg this admission, -1860 out this 24 hours -Remains volume overloaded -Continue IV diuresis with lasix 60mg BID and potassium supplementation -Continue entresto, metoprolol, spironolactone, atorvastatin and ASA 81mg daily. -Plan to add Jardiance prior to discharge to optimize medical therapy -Telemetry reviewed. NSR with no events noted overnight. -Plan for ischemic work-up once euvolemic and recovered from acute infection Any formal questions or concerns about the content, text, or information contained within the body of this dictation should be directly addressed to the provider for clarification. 04/09/2024 Patient continues to improve and manifested good diuresis over the weekend. Leg edema improved still with mild abdominal distention 1. Acute on chronic heart failure with reduced ejection fraction 2. New cardiomyopathy with diffuse LV dysfunction 3. Obstructive sleep apnea 4. Morbid obesity 5 Recovering sepsis/pneumonia Plan: Patient on guideline directed optimal medications for heart failure with plans to likely add Jardiance to her regimen as well. Await renal function in AM. Will hold IV diuretics after tonight's dose and likely convert to oral regimen tomorrow. Discontinue Wilson after switch if not sooner Nocturnal oximetry ordered for this evening Repeat echocardiogram in a.m. to assess LV systolic function Will need ischemic workup depending on above. 04/10/2024. 1. Acute on chronic heart failure with reduced ejection fraction: Clinically improving 2. New cardiomyopathy with diffuse LV dysfunction No significant improvement in LV systolic function on echocardiogram 3. Obstructive sleep apnea 4. Morbid obesity 5 Recovering sepsis/pneumonia Plan: Discontinue IV furosemide. Begin torsemide 20 mg p.o. daily, reduce potassium supplement with possible upward titration of spironolactone, addition of Jardiance as clinical course progresses.. Scheduled for cardiac catheterization in a.m. discussed in detail with patient and Admission and Anticipated Discharge Date Admission Date: March 29, 2024 Subjective Patient seen and examined, chart, medications, telemetry reviewed. Clinically improved with less leg edema and abdominal distention. Transient wide-complex tachycardia on telemetry overnight Echocardiogram without significant change in overall systolic function, remains significantly reduced Review of Systems Review of Systems: All systems reviewed & are unremarkable except as noted in Subjective Physical Exam Constitutional: WD/WN, vitals as above + morbidly obese; no acute distress ENMT: external ear and nose normal, oropharynx normal Neck: trachea midline and + thick neck Respiratory: normal respiratory effort, lungs clear to auscultation normal respiratory effort; no respiratory distress, no labored breathing and no audible wheezes Auscultation: + diminished lung sounds (bilateral bases ) and + wheezes (faint exp. wheezes ); no crackles, no rales and no rhonchi Cardiovascular: Rate/Rhythm: regular rate and regular rhythm Heart Sounds: normal S1 and normal S2; no murmur Vessels: dorsalis pedis pulses present; no JVD Extremities: + edema Gastrointestinal (Abdomen): normal bowel sounds, soft, nontender, no hepatosplenomegaly Inspection/Auscultation: + abdomen distended Percussion/Palpation: abdomen soft; abdomen nontender Skin: no rashes, warm and dry Neurologic: PERRL, EOMI, accommodation nl, no face palsy, no dysarthria Psychiatric: A+Ox3, euthymic affect Results & Data Vital Signs (Past 12 Hours) Vital Signs Temp Pulse Pulse Pulse Resp BP BP 04/10/24 10:44 36.5 C 87 18 117/75 04/10/24 07:29 36.6 C 92 H 20 107/71 04/10/24 07:26 84 04/10/24 04:45 83 04/10/24 03:07 36.8 C 87 18 126/80 04/10/24 02:05 81 Pulse Ox Pulse Ox O2 Del Method O2 Del Method 04/10/24 10:44 94 Room Air 04/10/24 07:29 93 Room Air 04/10/24 07:26 04/10/24 04:45 93 Room Air 04/10/24 03:07 93 Room Air 04/10/24 02:05 93 Room Air Laboratory Results Laboratory Results - last 24 hr 04/09/24 04/09/24 04/10/24 16:09 20:50 07:10 Sodium 134 L Potassium 4.1 Chloride 101 Carbon Dioxide 24 Anion Gap 9 BUN 35 H Creatinine 1.29 Est Cr Clr Drug Dosing 65.7 eGFR 57.46 BUN/Creatinine Ratio 27.1 H Glucose 151 H POC Glucose 101 H 132 H Calcium 8.6 Magnesium 2.0 04/10/24 04/10/24 07:13 11:09 Sodium Potassium Chloride Carbon Dioxide Anion Gap BUN Creatinine Est Cr Clr Drug Dosing eGFR BUN/Creatinine Ratio Glucose POC Glucose 165 H 123 H Calcium Magnesium
--- NOTE | 2024-04-10 14:39 | Hospitalist Progress Note ---
Date of Service April 10, 2024 Assessment & Plan (1) Sepsis: Plan: Patient is 73 yr male with PMH DM II, HTN, dyslipidemia, RBBB, morbid obesity presented to ER with c/o cough and SOB x 3 weeks. Patient reports started with cough and shortness of breath 3 weeks ago Sepsis Multifocal pneumonia Strep bacteremia --Chest CTA:No pulmonary emboli identified. Segmental right middle lobe airspace opacities with subsegmental consolidation of the basilar right lower lobe suggestive of pneumonia. Follow-up imaging after treatment course recommended in order to document complete resolution.Mild mediastinal lymphadenopathy, likely reactive. -- BioFire negative -- Elevated procalcitonin --Blood Culture: 02/17: Streptococcus pneumonia --Repeat blood cultures negative --ECHO:as below -- Doxycycline discontinued Continue IV Rocephin Pulmonary hygiene with incentive spirometry, Mucinex Appreciate infectious disease input discussed on 04/06/2024: Can continue IV Rocephin while hospitalized through 04/11/24, if discharged, can discharge on Bactrim. Weaned off supplemental oxygen Saturating well on room air Will complete IV antibiotic course tomorrow (2) Acute on chronic heart failure with reduced ejection fraction and diastolic dysfunction: Plan: Acute on chronic systolic and diastolic heart failure --ECHO: Left ventricle is severely dilated. Mild concentric LVH. Severe global hypokinesis of the left ventricle. EF 20 to 25%. Left atrium is mildly dilated. Mild aortic regurgitation. Moderate mitral regurgitation. Significant tricuspid regurgitation is absent. Grade 1 diastolic dysfunction. Appreciate cardiology input Continue metoprolol Monitor I's and O's, daily weight, volume status Continue IV Lasix 60 mg twice a day>> transition to torsemide 20 mg daily Volume status slowly improving Replete electrolytes as needed Titrated metoprolol succinate to 25 mg twice a day Aldactone dose increased to 25 mg daily Entresto added per cardiology Plan to start on Jardiance as able Plan for cardiac catheterization tomorrow Nocturnal hypoxia Reviewed oximetry study Needs supplemental oxygen at bedtime Recommended outpatient sleep study (3) Pneumonia: Plan: Management as above Ascending aortic aneurysm --CT showed:Cardiomegaly with fusiform dilation of the ascending thoracic aorta, 4.6 x 4.7 cm. Follow-up as outpatient (4) NSTEMI (non-ST elevated myocardial infarction): Plan: Continue IV heparin discontinued on 04/03/2024 Will need diagnostic cardiac catheterization eventually Continue aspirin, Lipitor, metoprolol Appreciate Cardiology input Currently chest pain-free Hematuria In setting of anticoagulation use with heparin --CT ABD:No urinary calculi, hydronephrosis or upper tract urothelial lesions. No suspicious renal lesions. Suboptimal evaluation of the bladder mass described above. Diffuse bladder wall thickening, likely chronic. If persistent hematuria, this could be correlated with cystoscopy. No discrete bladder lesion identified. -Consider CT abdomen/Pelvis when more stable Patient would require cystoscopy and further workup as outpatient Appreciate urology input Monitor on H&H and transfuse as needed -- Hematuria resolved Needs follow-up with urology on discharge Hb stable (5) Hypomagnesemia: Plan: Replace and monitor (6) Diabetes mellitus, type II: Plan: -A1c: 7.7 -NovoLog sliding scale per protocol Monitor BGs (7) LILIAN (acute kidney injury): Plan: -Cr: 1.4>1.2 Monitor renal function Avoid Nephrotoxic agents as able Plan DVT Px: Heparin ggt discontinued SCDs for now Re: Hematuria Code Status Full Code Admission and Anticipated Discharge Date Admission Date: March 29, 2024 Subjective Patient is seen and examined at bedside Leg edema improving Wide-complex tachycardia on telemetry overnight Discussed with cardiology today Family at bedside No new complaints Denies any chest pain, dyspnea, nausea, vomiting, abdominal pain Review of Systems Review of Systems: All systems reviewed & are unremarkable except as noted in Subjective Physical Exam Physical Exam: Physical Exam: Vitals signs as noted above General Appearance:Morbidly Obese, ill appearing, no apparent distress Head: normocephalic, Atraumatic Eyes: normal inspection, EOMI Neck: supple, Trachea midline Respiratory/Chest: Normal breath sounds, faint crackles, No accessory muscle use Cardiovascular: S1, S2, No murmur Abdomen/GI:Soft, Non tender, Bowel sounds present Extremities/Musculoskeletal:normal inspection, Trace edema Neurologic/Psych:AAOX3, grossly no focal neurological deficits Skin: normal color, warm Results & Data Results & Data Vital Signs (Past 12 Hours) Vital Signs Temp Pulse Pulse Pulse Resp BP BP 04/10/24 14:10 94 H 04/10/24 10:44 36.5 C 87 18 117/75 04/10/24 07:29 36.6 C 92 H 20 107/71 04/10/24 07:26 84 04/10/24 04:45 83 04/10/24 03:07 36.8 C 87 18 126/80 Pulse Ox Pulse Ox O2 Del Method O2 Del Method 04/10/24 14:10 04/10/24 10:44 94 Room Air 04/10/24 07:29 93 Room Air 04/10/24 07:26 04/10/24 04:45 93 Room Air 04/10/24 03:07 93 Room Air Laboratory Results [facility] 04/10/24 07:10 Sodium 134 L Potassium 4.1 Chloride 101 Carbon Dioxide 24 BUN 35 H Creatinine 1.29 Glucose 151 H Calcium 8.6 (1) Sepsis Acute respiratory failure type: with hypoxia Sepsis acute organ dysfunction status: with acute organ dysfunction Sepsis type: Streptococcus, unspecified Severe sepsis acute organ dysfunction type: acute respiratory failure Severe sepsis shock status: without septic shock Qualified Code(s): A40.9 - Streptococcal sepsis, unspecified; R65.20 - Severe sepsis without septic shock; J96.01 - Acute respiratory failure with hypoxia (3) Pneumonia Laterality: bilateral Lung location: lower lobe of lung Pneumonia type: due to group B Streptococcus Qualified Code(s): J15.3 - Pneumonia due to streptococcus, group B (6) Diabetes mellitus, type II Diabetes mellitus rn long term care insulin use: without snf use Diabetes mellitus complication status: without complication Qualified Code(s): E11.9 - Type 2 diabetes mellitus without complications
[2024-04-10] MEDS: TORSEMIDE 20 MG TAB PO SCH (14:57)
[2024-04-10] MEDS: METOPROLOL SUCC 25MG EXT REL TAB PO SCH (20:22)
[2024-04-11 08:11] LABS: Hematocrit (blood only) 35.9 % (42.0-52.0); Mean Corpuscular Hemoglobin 30.1 pg (25.0-34.0); Mean Corpuscular Hgb Conc 33.4 g/dL (32.0-36.0); Mean Platelet Volume 10.4 fL (9.4-12.4); Platelet Count 312 K/uL (130-400); RDW Coefficient of Variation 13.5 % (11.5-14.5); RDW Standard Deviation 43.9 fL (36.4-46.3); Red Blood Count 3.99 M/uL (4.70-6.10); White Blood Count 8.92 K/ul (4.8-10.8)
[2024-04-11 08:35] LABS: BUN Creatinine Ratio 26.2 (10-20); Calcium 8.2 mg/dl (8.6-10.3); Creatinine Clr Calc Pharmacy 65.2 ml/min; Potassium 4.1 mmol/L (3.5-5.1)
--- NOTE | 2024-04-11 08:58 | Hospitalist Progress Note ---
Date of Service April 11, 2024 Assessment & Plan (1) Sepsis: Plan: 73 yr M with PMH DM II, HTN, dyslipidemia, RBBB, morbid obesity presented to ER with c/o cough and SOB x 3 weeks. Patient reports started with cough and shortness of breath 3 weeks ago Sepsis Multifocal pneumonia Strep bacteremia --Chest CTA:No pulmonary emboli identified. Segmental right middle lobe airspace opacities with subsegmental consolidation of the basilar right lower lobe suggestive of pneumonia. Follow-up imaging after treatment course recommended in order to document complete resolution.Mild mediastinal lymphadenopathy, likely reactive. -- BioFire negative -- Elevated procalcitonin --Blood Culture: 02/17: Streptococcus pneumonia --Repeat blood cultures negative --ECHO:as below -- Doxycycline discontinued Continue IV Rocephin Pulmonary hygiene with incentive spirometry, Mucinex Appreciate infectious disease input discussed on 04/06/2024: Can continue IV Rocephin while hospitalized through 04/11/24, if discharged, can discharge on Bactrim. Weaned off supplemental oxygen Saturating well on room air Will complete IV antibiotic course today (2) Acute on chronic heart failure with reduced ejection fraction and diastolic dysfunction: Plan: Acute on chronic systolic and diastolic heart failure --ECHO: Left ventricle is severely dilated. Mild concentric LVH. Severe global hypokinesis of the left ventricle. EF 20 to 25%. Left atrium is mildly dilated. Mild aortic regurgitation. Moderate mitral regurgitation. Significant tricuspid regurgitation is absent. Grade 1 diastolic dysfunction. Appreciate cardiology input Continue metoprolol Monitor I's and O's, daily weight, volume status Continued IV Lasix 60 mg twice a day>> transition to torsemide 20 mg daily Volume status slowly improving Replete electrolytes as needed Titrated metoprolol succinate to 25 mg twice a day Aldactone dose increased to 25 mg daily Entresto added per cardiology Plan to start on Jardiance as able Plan for cardiac catheterization today Nocturnal hypoxia Reviewed oximetry study Needs supplemental oxygen at bedtime Recommended outpatient sleep study (3) Pneumonia: Plan: Management as above Ascending aortic aneurysm --CT showed:Cardiomegaly with fusiform dilation of the ascending thoracic aorta, 4.6 x 4.7 cm. Follow-up as outpatient (4) NSTEMI (non-ST elevated myocardial infarction): Plan: IV heparin discontinued on 04/03/2024 Will need diagnostic cardiac catheterization eventually Continue aspirin, Lipitor, metoprolol Appreciate Cardiology input Currently chest pain-free Hematuria In setting of anticoagulation use with heparin --CT ABD:No urinary calculi, hydronephrosis or upper tract urothelial lesions. No suspicious renal lesions. Suboptimal evaluation of the bladder mass described above. Diffuse bladder wall thickening, likely chronic. If persistent hematuria, this could be correlated with cystoscopy. No discrete bladder lesion identified. Patient would require cystoscopy and further workup as outpatient Appreciate urology input Monitor on H&H and transfuse as needed -- Hematuria resolved Needs follow-up with urology on discharge Hb stable (5) Hypomagnesemia: Plan: Replace and monitor (6) Diabetes mellitus, type II: Plan: -A1c: 7.7 -NovoLog sliding scale per protocol Monitor BGs (7) LILIAN (acute kidney injury): Plan: -Cr: 1.4>1.2 Monitor renal function Avoid Nephrotoxic agents as able Plan DVT Px: Heparin ggt discontinued SCDs for now Re: Hematuria Code Status Full Code Admission and Anticipated Discharge Date Admission Date: March 29, 2024 Subjective Pt seen in follow up Lying in bed in NAD, pt's present at the bedside, RN at the bedside and discussed with-pt needed straight cath last evening Leg edema improving Wide-complex tachycardia on telemetry previously noted Cardiology consulted and following closely - plan for cardiac cath today Denies any chest pain, dyspnea, nausea, vomiting, abdominal pain Review of Systems Review of Systems: All systems reviewed & are unremarkable except as noted in Subjective Physical Exam 2 Physical Exam: General Appearance:Morbidly Obese M, no apparent distress Head: normocephalic, Atraumatic Eyes: normal inspection, EOMI Neck: supple Respiratory/Chest: Normal breath sounds, faint crackles, No accessory muscle use Cardiovascular: S1, S2, No murmur Abdomen/GI: Soft, Non tender, Bowel sounds present Extremities/Musculoskeletal: normal inspection, Trace edema Neurologic/Psych:AAOX3, grossly no focal neurological deficits Skin: normal color, warm Results & Data Results & Data Vital Signs (Past 12 Hours) Vital Signs Temp Pulse Pulse Resp BP Pulse Ox O2 Del Method 04/11/24 08:00 36.7 C 74 16 124/77 96 Room Air 04/11/24 07:00 80 04/11/24 03:15 36.9 C 88 18 110/68 95 Room Air 04/10/24 23:22 36.4 C L 96 H 18 128/81 94 Room Air 04/10/24 21:40 89 Laboratory Results 04/11/24 04/11/24 04/10/24 Range/Units 07:17 07:12 20:15 WBC 8.92 (4.8-10.8) K/ul RBC 3.99 L (4.70-6.10) M/uL Hgb 12.0 L (14.0-18.0) g/dl Hct 35.9 L (42.0-52.0) % MCV 90.0 (80.0-100.0) fL MCH 30.1 (25.0-34.0) pg MCHC 33.4 (32.0-36.0) g/dL RDW Std Deviation 43.9 (36.4-46.3) fL RDW Coeff of Kelechi 13.5 (11.5-14.5) % Plt Count 312 (130-400) K/uL MPV 10.4 (9.4-12.4) fL Sodium 134 L (136-145) mmol/L Potassium 4.1 (3.5-5.1) mmol/L Chloride 102 (98-107) mmol/L Carbon Dioxide 25 (21-32) mmol/L Anion Gap 7 (3-11) BUN 34 H (6-23) mg/dl Creatinine 1.30 (0.6-1.4) mg/dl Est Cr Clr Drug Dosing 65.2 ml/min eGFR 56.93 BUN/Creatinine Ratio 26.2 H (10-20) Glucose 140 H (70-99(Fasting)) mg/dl POC Glucose 159 H 124 H (70-99) mg/dl Calcium 8.2 L (8.6-10.3) mg/dl 04/10/24 04/10/24 Range/Units 16:21 11:09 WBC (4.8-10.8) K/ul RBC (4.70-6.10) M/uL Hgb (14.0-18.0) g/dl Hct (42.0-52.0) % MCV (80.0-100.0) fL MCH (25.0-34.0) pg MCHC (32.0-36.0) g/dL RDW Std Deviation (36.4-46.3) fL RDW Coeff of Kelechi (11.5-14.5) % Plt Count (130-400) K/uL MPV (9.4-12.4) fL Sodium (136-145) mmol/L Potassium (3.5-5.1) mmol/L Chloride (98-107) mmol/L Carbon Dioxide (21-32) mmol/L Anion Gap (3-11) BUN (6-23) mg/dl Creatinine (0.6-1.4) mg/dl Est Cr Clr Drug Dosing ml/min eGFR BUN/Creatinine Ratio (10-20) Glucose (70-99(Fasting)) mg/dl POC Glucose 134 H 123 H (70-99) mg/dl Calcium (8.6-10.3) mg/dl Medications Administered Current Inpatient Medications Acetaminophen (Acetaminophen 325 Mg Tab) 650 mg PO Q4H PRN PRN Reason: Pain or Fever Stop: 04/28/24 15:29 Last Admin: 04/09/24 01:16 Dose: 650 mg Aspirin (Aspirin 81 Mg Ectab) 81 mg PO DAILY [facility] Stop: 04/29/24 08:59 Last Admin: 04/10/24 08:10 Dose: 81 mg Atorvastatin Calcium (Atorvastatin 40 Mg Tab) 40 mg PO QAM ALYSSIA Stop: 04/28/24 14:59 Last Admin: 04/10/24 08:11 Dose: 40 mg Benzonatate (Benzonatate 100 Mg Capsule) 100 mg PO TID PRN PRN Reason: Cough Stop: 05/04/24 19:52 Last Admin: 04/05/24 20:32 Dose: 100 mg Dextrose (Dextrose 50% 50 Ml Syringe) 25 - 50 ml IV UD PRN; Protocol PRN Reason: Hypoglycemia Protocol Stop: 04/28/24 15:29 Diclofenac Sodium (Diclofenac Sod 1% Gel 100 Gm Tube) 2 gm EXT BID ALYSSIA; Protocol Stop: 04/30/24 20:59 Last Admin: 04/10/24 20:25 Dose: Not Given Diphenhydramine HCl (Diphenhydramine Capsule 25 Mg Cap) 25 mg PO BID PRN PRN Reason: Itching Stop: 05/08/24 11:12 Last Admin: 04/09/24 01:16 Dose: 25 mg Glucagon (Glucagon For Inj 1 Mg Vial) 1 mg SQ UD PRN; Protocol PRN Reason: Hypoglycemia Protocol Stop: 04/28/24 15:29 Glucose (Glucose 40% Gel 15 Gm Tube) 15 - 30 gm PO UD PRN; Protocol PRN Reason: Hypoglycemia Protocol Stop: 04/28/24 15:29 Glucose (Glucose 10 Tab/Tube) 4 - 8 tab PO UD PRN; Protocol PRN Reason: Hypoglycemia Protocol Stop: 04/28/24 15:29 Guaifenesin (Guaifenesin 600 Mg Tabcr) 1,200 mg PO Q12 ALYSSIA Stop: 04/28/24 20:59 Last Admin: 04/10/24 20:22 Dose: 1,200 mg Hydrocortisone (Hydrocortisone 1% Oint 30 Gm Tube) 1 appln EXT BID ALYSSIA Stop: 04/12/24 10:44 Last Admin: 04/10/24 20:24 Dose: Not Given Promethazine HCl (Phenergan) 6.25 mg in 50.25 mls @ 201 mls/hr IV Q6H PRN PRN Reason: Nausea And Vomiting Stop: 04/28/24 15:29 Ceftriaxone Sodium (Rocephin) 2,000 mg in 50 mls @ 100 mls/hr IV Q24H ALYSSIA Stop: 04/11/24 11:59 Last Infusion: 04/10/24 12:38 Dose: Infused Insulin Aspart (Insulin Aspart Per Unit Charge) 0 units SC ACHS ALYSSIA Stop: 05/09/24 05:59 Last Admin: 04/10/24 20:17 Dose: Not Given Levalbuterol HCl (Levalbuterol 1.25 Mg/3 Ml Neb) 1.25 mg NEB Q6R PRN PRN Reason: Shortness Of Breath Or Wheezing Stop: 04/28/24 15:29 Last Admin: 03/31/24 08:38 Dose: 1.25 mg Magnesium Oxide (Magnesium Oxide 400 Mg Tab) 400 mg PO BID ALYSSIA Stop: 04/28/24 15:44 Last Admin: 04/10/24 20:22 Dose: 400 mg Metoprolol Succinate (Metoprolol Succ 25mg Ext Rel Tab) 25 mg PO BID ALYSSIA Stop: 05/10/24 20:59 Last Admin: 04/10/24 20:22 Dose: 25 mg Miscellaneous (Carbohydrates For Hypoglycemia ) 15 - 30 gm PO UD PRN PRN Reason: Hypoglycemia Protocol Stop: 04/28/24 15:29 Nystatin (Nystatin Powder 15gm Btl) 1 appln EXT PRN PRN PRN Reason: Rash Stop: 05/07/24 19:14 Ondansetron HCl (Ondansetron Inj 2 Mg/Ml 2 Ml Vial) 4 mg IV Q6H PRN PRN Reason: Nausea Stop: 04/28/24 15:29 Polyethylene Glycol (Polyethylene (Miralax) 17 Gm Pack) 17 gm PO DAILY PRN PRN Reason: Constipation Stop: 04/28/24 15:29 Potassium Chloride (Potassium Chloride Crtab 20 Meq Tabcr) 20 meq PO BID ALYSSIA Stop: 05/03/24 20:59 Last Admin: 04/10/24 08:17 Dose: 20 meq Sacubitril/Valsartan (Valsartan/Sacubitril 26/24mg Tab) 1 tab PO BID ALYSSIA Stop: 05/05/24 20:59 Last Admin: 04/10/24 20:22 Dose: 1 tab Sodium Chloride (Sodium Chloride 0.65% Na Soln 45 Ml (King)) 2 sprays NA PRN PRN PRN Reason: Dry Nose Stop: 05/03/24 13:17 Spironolactone (Spironolactone 25 Mg Tab) 25 mg PO DAILY ALYSSIA Stop: 05/05/24 08:59 Last Admin: 04/10/24 08:12 Dose: 25 mg Torsemide (Torsemide 20 Mg Tab) 20 mg PO QAM ALYSSIA Stop: 05/10/24 13:29 Last Admin: 04/10/24 14:57 Dose: 20 mg Zolpidem Tartrate (Zolpidem Tartrate 5 Mg Tab) 5 mg PO HS PRN PRN Reason: Sleep Stop: 05/07/24 10:35 (1) Sepsis Acute respiratory failure type: with hypoxia Sepsis acute organ dysfunction status: with acute organ dysfunction Sepsis type: Streptococcus, unspecified Severe sepsis acute organ dysfunction type: acute respiratory failure Severe sepsis shock status: without septic shock Qualified Code(s): A40.9 - Streptococcal sepsis, unspecified; R65.20 - Severe sepsis without septic shock; J96.01 - Acute respiratory failure with hypoxia (3) Pneumonia Laterality: bilateral Lung location: lower lobe of lung Pneumonia type: due to group B Streptococcus Qualified Code(s): J15.3 - Pneumonia due to streptococcus, group B (6) Diabetes mellitus, type II Diabetes mellitus complication status: without complication Diabetes mellitus bed bug exterminator insulin use: without intermediate use Qualified Code(s): E11.9 - Type 2 diabetes mellitus without complications
--- NOTE | 2024-04-11 11:41 | Pre Anesthesia Assessment ---
Date of Service April 11, 2024 Pre Sedation Assessment Vital Signs Temp Pulse Pulse Resp BP Pulse Ox O2 Del Method 04/11/24 10:50 89 16 100/76 95 Room Air 04/11/24 08:00 36.7 C 74 16 124/77 96 Room Air 04/11/24 07:00 80 04/11/24 03:15 36.9 C 88 18 110/68 95 Room Air 04/10/24 23:22 36.4 C L 96 H 18 128/81 94 Room Air 04/10/24 21:40 89 04/10/24 19:40 36.7 C 92 H 18 117/79 93 Room Air 04/10/24 14:10 94 H Cardiovascular + regular rate and + regular rhythm no JVD + edema Pre-Sedation Airway Assessment Smoking Status: Never smoker Hx Sleep Apnea: No Short, Thick Neck: Yes Thyromental Distance: > or= 3.5 Finger Breadths Oral Cavity: + WNL Mallampati Class: III ASA: ASA3 NPO Status Date of Last Intake of Fluids: 04/11/24 Time of Last Intake of Fluids: 09:30 Last Oral Intake of Fluids Comment: sips with meds Date of Last Intake of Solid Food: 04/10/24 Time of Last Intake of Solid Foods: 17:00 Procedure Planning Contraindications for Sedation: none Current Medications Reviewed: Yes Notes The planned sedation has been discussed with the patient. Informed Consent was obtained. I have identified the patient, determined the appropriateness of sedation and have assessed the patient immediately prior to the procedure. All medicine(s) and interventions are by my order.
--- NOTE | 2024-04-11 11:45 | Cardiology Progress Note ---
Date of Service April 11, 2024 Assessment & Plan (1) Acute on chronic heart failure with reduced ejection fraction and diastolic dysfunction: Plan NSTEMI Acute on chronic HFrEF PNA Sepsis New cardiomyopathy Severe LV systolic dysfunction MAY intolerant to CPAP Family hx CAD -Patient continues to respond well to IV diuresis -Weight is down 15kg this admission, -1860 out this 24 hours -Remains volume overloaded -Continue IV diuresis with lasix 60mg BID and potassium supplementation -Continue entresto, metoprolol, spironolactone, atorvastatin and ASA 81mg daily. -Plan to add Jardiance prior to discharge to optimize medical therapy -Telemetry reviewed. NSR with no events noted overnight. -Plan for ischemic work-up once euvolemic and recovered from acute infection Any formal questions or concerns about the content, text, or information contained within the body of this dictation should be directly addressed to the provider for clarification. 04/09/2024 Patient continues to improve and manifested good diuresis over the weekend. Leg edema improved still with mild abdominal distention 1. Acute on chronic heart failure with reduced ejection fraction 2. New cardiomyopathy with diffuse LV dysfunction 3. Obstructive sleep apnea 4. Morbid obesity 5 Recovering sepsis/pneumonia Plan: Patient on guideline directed optimal medications for heart failure with plans to likely add Jardiance to her regimen as well. Await renal function in AM. Will hold IV diuretics after tonight's dose and likely convert to oral regimen tomorrow. Discontinue Wilson after switch if not sooner Nocturnal oximetry ordered for this evening Repeat echocardiogram in a.m. to assess LV systolic function Will need ischemic workup depending on above. 04/11/2024. 1. Acute on chronic heart failure with reduced ejection fraction 2. New cardiomyopathy with diffuse LV dysfunction 3. Obstructive sleep apnea 4. Morbid obesity 5 Recovering sepsis/pneumonia Medications are being adjusted appropriately. Plan diagnostic coronary angiography to assess because of newly discovered cardiomyopathy this admission.Procedure and risks explained in detail to the patient and informed consent obtained Currently appears compensated and capable of undergoing procedure. Anticipate possible Jardiance addition to medical regimen. Admission and Anticipated Discharge Date Admission Date: March 29, 2024 Subjective Patient seen and personally examined. Chart, medications, telemetry reviewed. No acute cardiac complaints. Did experience transient urinary retention after Wilson catheter removed last evening. No chest pain or worsening shortness of breath. No arrhythmias on telemetry Review of Systems Review of Systems: All systems reviewed & are unremarkable except as noted in Subjective Physical Exam Constitutional: WD/WN, vitals as above + morbidly obese; no acute distress ENMT: Mallampati Class: III Neck: trachea midline and + thick neck Respiratory: normal respiratory effort, lungs clear to auscultation normal respiratory effort; no respiratory distress, no labored breathing and no audible wheezes Auscultation: + diminished lung sounds (bilateral bases ) and + wheezes (faint exp. wheezes ); no crackles, no rales and no rhonchi Cardiovascular: Rate/Rhythm: regular rate and regular rhythm Heart Sounds: normal S1 and normal S2; no murmur Vessels: dorsalis pedis pulses present; no JVD Extremities: + edema Gastrointestinal (Abdomen): normal bowel sounds, soft, nontender, no hepatosplenomegaly Inspection/Auscultation: + abdomen distended Percussion/Palpation: abdomen soft; abdomen nontender Skin: no rashes, warm and dry Neurologic: PERRL, EOMI, accommodation nl, no face palsy, no dysarthria Psychiatric: A+Ox3, euthymic affect Results & Data Vital Signs (Past 12 Hours) Vital Signs Temp Pulse Pulse Resp BP Pulse Ox O2 Del Method 04/11/24 10:50 89 16 100/76 95 Room Air 04/11/24 08:00 36.7 C 74 16 124/77 96 Room Air 04/11/24 07:00 80 04/11/24 03:15 36.9 C 88 18 110/68 95 Room Air Laboratory Results Laboratory Results - last 24 hr 04/10/24 04/10/24 04/11/24 16:21 20:15 07:12 WBC 8.92 RBC 3.99 L Hgb 12.0 L Hct 35.9 L MCV 90.0 MCH 30.1 MCHC 33.4 RDW Std Deviation 43.9 RDW Coeff of Kelechi 13.5 Plt Count 312 MPV 10.4 Sodium 134 L Potassium 4.1 Chloride 102 Carbon Dioxide 25 Anion Gap 7 BUN 34 H Creatinine 1.30 Est Cr Clr Drug Dosing 65.2 eGFR 56.93 BUN/Creatinine Ratio 26.2 H Glucose 140 H POC Glucose 134 H 124 H Calcium 8.2 L 04/11/24 07:17 WBC RBC Hgb Hct MCV MCH MCHC RDW Std Deviation RDW Coeff of Kelechi Plt Count MPV Sodium Potassium Chloride Carbon Dioxide Anion Gap BUN Creatinine Est Cr Clr Drug Dosing eGFR BUN/Creatinine Ratio Glucose POC Glucose 159 H Calcium
[2024-04-11] MEDS: niCARdipine 2,000 MCG/20 ML SYR ONE (12:21)
[2024-04-11] MEDS: fentaNYL citrate PF 100 MCG/2 ML VIAL ONE ×2 (14:15→14:22)
[2024-04-11] MEDS: HEPARIN (PORCINE) 1000 UNIT/ML 10 ML (CATH LAB USE ONLY) ONE ×2 (14:20→14:23)
[2024-04-11] MEDS: MIDAZOLAM HCL 1 MG/ML 2ML VIAL ONE ×3 (14:21→14:23)
[2024-04-11] MEDS: IODIXANOL (VISIPAQUE) 320 MG/ML 100ML IV ONE (14:21)
[2024-04-11] MEDS: NITROGLYCERIN/D5W 100MCG/ML 20ML SYR ONE (14:21)
[2024-04-11] MEDS: CLOPIDOGREL BISULFATE 300 MG TAB ONE (14:23)
--- NOTE | 2024-04-11 17:09 | Post Anesthesia Assessment ---
Date of Service April 11, 2024 Post Sedation Assessment Vital Signs Temp Pulse Pulse Resp BP Pulse Ox O2 Del Method 04/11/24 14:45 82 18 128/65 96 Room Air 04/11/24 14:30 98.7 F 91 H 18 121/74 96 Room Air 04/11/24 10:50 89 16 100/76 95 Room Air 04/11/24 08:00 92 H 04/11/24 08:00 98.1 F 74 16 124/77 96 Room Air 04/11/24 07:00 80 04/11/24 03:15 98.4 F 88 18 110/68 95 Room Air 04/10/24 23:22 97.5 F L 96 H 18 128/81 94 Room Air 04/10/24 21:40 89 04/10/24 19:40 98.1 F 92 H 18 117/79 93 Room Air Recovery Score Activity: Moves 4 extremities Respiration: Deep Breath/Cough Circulation: +/-20% PreAnes Value Consciousness: Fully Awake Oxygen Saturation: > 92% On Room Air Post Anesthesia Score: 10 Discharge Sedation Level of Care: Fast Track Phase II Post Sedation Plan On clinical assessment, the patient appears to have tolerated the sedation without complications. Patient is recovering as anticipated. Patient will continue to be monitored by nursing and may be discharged when sedation discharge criteria are met per below protocol. Upon Completions of procedure up to 15 minutes continue every 5 minute vital signs and the P.A.R. score; then discharge to a Phase I or Fast Track to Phase II per the following guidelines: * Discharge Patient to appropriate Phase II area if PAR is 8 or greater or return to pre- procedure baseline. The post - procedure orders will be as directed. * If PAR score is less than 8 or not return to pre-procedure baseline then patient will follow Phase I monitoring till PAR is reached for Phase II. The Phase I may be done in procedure room or may call to secure a Phase I area. * If naloxone or flumazenil are used for reversal, hold in Phase I for continued monitoring from when last reversal dose was given for a minimum of 60 minutes or longer pending the nurse and/or physician discretion of patient condition before discharge to Phase II. Please call the Sedation Physician to re-evaluate and complete post-note for discharge to Phase II area. Do NOT discharge from procedure sedation or Phase 1 until post- sedation evaluation note is complete by procedure /sedation MD Sedation Discharge Instructions to be given to the patient at discharge to home.
--- NOTE | 2024-04-11 17:12 | Post Operative Brief Note ---
Cardiology Brief Post Op Date of Surgery April 11, 2024 Pre & Post Diagnosis NSTEMI, cardiomyopathy Procedure IVUS of left main into circumflex Successful PCI of mid LAD with single drug-eluting stent (3.0 x 15 mm [place]; postdilated with 3.5 NC). Junior Accountant Bookkeeper Yakov Porras MD Surface Logging Systems Logger Marko Mendez Estimated Blood Loss 25 Findings See Below Borderline distal left main disease into circumflex (50-60% eccentric, mildly calcified plaque) by IVUS 95% focal mid LAD stenosis angiographically 100% mid RCA SENIOR GAME DESIGNER with [id number] collaterals Normal LV filling pressures Anesthesia Type RN Sedation Complications none Disposition Disposition: PCU
--- NOTE | 2024-04-11 17:37 | Cardiac Catheterization ---
Cardiac Cath Procedure Full Procedure Date April 11, 2024 Pre-Procedure Diagnosis Pre-Procedure Diagnosis: Non STEMI AUC Score AUC Score: 9 Post-Procedure Diagnosis Post-Procedure Diagnosis: Severe CAD Procedure(s) Performed Procedure(s) Performed: Coronary Angiography Ore Grader Joel Abdullahi MD Credentialing Analyst(s) Estefania Zhu Estimated Blood Loss Estimated Blood Loss: <15cc Medication(s) Medication(s): Fentanyl (12.5mcg IV x 2), Heparin (5000u IV), Lidocaine 1% (local) and Nicardipine (250mcg intrarterial afte arterial sheath insertion) Summary of Findings Impression: Right dominant anatomy with diffuse luminal atherosclerotic changes. Severe disease is present with 100% occlusion of the right coronary artery, 90% stenosis of the left anterior descending and its very early portion after first high diagonal branch. Left main has diffuse moderate atherosclerosis. Procedure: Coronary angiography via right radial access Catheters: 5 [place] long glide sheath, 5 [place] African TGR, 5 [place] African JL 3 5, 5 [place] African JR 5 South African 3 DRC Procedure note: Tortuous right innominate artery Coronary angiography: Right dominant Left main: Large caliber, long. Moderate distal vessel narrowing Left anterior descending: Type III in distribution. Gives rise to a large multi branching high diagonal branch then continues giving large septal perforators to the apex and beyond. In the very proximal portion of the left anterior descending but just beyond the first diagonal there is a discrete 99% stenosis. The bifurcating diagonal branch has 50% narrowing in its proximal portion Ramus intermedius: Very large multi branching vessel with 40 to 50% narrowing proximal Left circumflex: Moderate vessel single posterolateral branch Right coronary artery: 100% occlusion mid vessel with diffuse disease in proximal segments. Distal vessel fills modestly via [id number] collateral Hemodynamics Rest Ao:: 97/61/85 Final Ao: 90// LV: N/A Recommendations Recommendations: PCI without planned CABG Radiation Exposure (mGy) 1250 Contrast (mls) 110 Procedural Complication(s) None Disposition PCI same setting after intravascular I attest to the content of the Intraoperative Record and any orders documented therein. Any exceptions are noted below. [facility] Data: Double [place] Cardiac Status Clinical evaluation leading to the procedure Patient is a 74-year-old male presented with acute pneumonia and sepsis complicated by hemodynamic instability, acute congestive heart failure with echocardiogram demonstrating reduced ejection fraction EF 25%. Patient managed for all aspects of care placed on guideline directed optimal medical therapy. Little improvement of LV systolic function patient referred for diagnostic coronary angiography as part of ischemic evaluation of newly observed cardiomyopathy CAD Presenation: Non STEMI Anginal Classification: No Symptoms Heart Failure: NYHA Class: CCS IV Cardiogenic Shock within 24 Hours: No Cardiac Arrest within 24 Hours: No Imaging Studies Past 6 Months: Yes Stress Studies Past 6 Months: No Standard Exercise Test: No Stress Echocardiogram: No Stress Testing w/SPECT MPI: No Cardiac CTA: No Coronary Anatomy Dominant: Right Left Main (% Stenosis): Normal (Moderate atheroma) LAD (% Stenosis): Proximal (90% discrete after first diagonal) D1 (% Stenosis): Proximal (50) Circumflex (% Stenosis): Normal AM (% Stenosis): Proximal (40 to 50% proximal large multi branching vessel) Left Ventricular Angiography EF (%): N/A Diagnostic Physicians Name: Joel Abdullahi MD Closure Device Recommendations: PCI without planned CABG
--- NOTE | 2024-04-11 22:21 | Cardiac Catheterization ---
[facility] Data: Bottom Presser Cardiac Status Clinical evaluation leading to the procedure CAD Presenation: Non STEMI Anginal Classification: CCS IV Diagnostic Physicians Name: aYkov Porras MD Closure Device Recommendations: PCI without planned CABG Cardiac Cath Procedure Full Procedure Date April 11, 2024 Pre-Procedure Diagnosis Pre-Procedure Diagnosis: Non STEMI AUC Score AUC Score: 8 Post-Procedure Diagnosis Post-Procedure Diagnosis: Severe CAD and Successful PCI Procedure(s) Performed Procedure(s) Performed: Coronary Angiography, Left Heart Cath, Drug Eluting Stent and IVUS Supervisor [employer] Yakov Porras MD Sash Assembler(s) Marko Mendez Estimated Blood Loss Estimated Blood Loss: 30 Medication(s) Medication(s): Clopidogrel, Fentanyl (12.5mcg IV x 2), Heparin (5000u IV), Nicardipine (250mcg intrarterial afte arterial sheath insertion) and Nitroglycerin Summary of Findings Indication: NSTEMI, LV dysfunction, ventricular ectopy Access: 6 Fr right radial artery Catheters: EBU 4.0 guide Findings: For full details of patient's coronary angiography please see cath report dictated by Dr. Abdullahi. Briefly, patient found to have multivessel CAD including mid RCA PRINCIPAL STRATEGIST with [id number] collaterals, 95% focal mid LAD and intermediate distal left main disease. LVEDP 9 Decision to further evaluate distal left main and consider possible PCI of LAD. -- PCI -- Antithrombotic therapy: Heparin, clopidogrel Procedure: Left main cannulated with EBU 4.0 Pre-procedure flow ADRIANNE 3 BMW wire placed into distal circumflex Zelaya IVUS catheter placed into circumflex. Pullback revealed 40-50% ostial stenosis, 50-60% eccentric, mildly calcified distal left main disease. Remainder of left main without significant disease. After discussion with Dr. Abdullahi patient thought to be high risk surgical candidate in the short-term due to comorbidities/weight and decision made to proceed with acute culprit vessel PCI of LAD. Form Drafter 50 wire placed into diagonal Whisper wire passed across mid LAD stenosis into distal vessel Mid LAD lesion predilated with 2.5 compliant balloon Dilated lesion stented with 3.0 x 15 mm [place] drug-eluting stent Stent post-dilated with 3.5 noncompliant balloon IC vasodilators administered for spasm Post procedure ADRIANNE 3 flow, stent well expanded with minimal residual stenosis and no apparent cardiac complications. Arterial Closure: TR band Summary: 1. Multivessel coronary artery disease -100% mid RCA PRINCIPAL STRATEGIST with [id number]-[id number] collaterals 95% mid LAD 50-60% distal left main by IVUS 2. Normal intracardiac filling pressure 3. Successful PCI of mid LAD with single drug-eluting stent (3.0 x 15 mm [place]; postdilated with 3.5 NC). Recommendations: To PCU for continued monitoring Loaded with clopidogrel 600 mg in Bottom Presser Continue dual-antiplatelet therapy for at least 1 year Continue statin, ASCVD risk factor modification and GDMT per Dr. Abdullahi Consult cardiac Rehab Hemodynamics Rest Ao:: 93/72/80 Final Ao: 93/62/80 LV: 100/8 Recommendations Recommendations: PCI without planned CABG Radiation Exposure (mGy) 6506 Contrast (mls) 250 Anesthesia Moderate 0748-0421 Procedural Complication(s) None Disposition PCU I attest to the content of the Intraoperative Record and any orders documented therein. Any exceptions are noted below. [facility] Card Cath Procedure Codes Cardiac Catheterization Procedure 1: Cardiovascular Cath Procedures: 97245 Left Heart Cath (+/-LV) Therapeutic Services & Ancillary Procedure 1: Cardiovascular Tx and Anc Procedures: 52002 IV Ultrasound (Coronary or Graft) Moderate Sedation Procedure 1: Sedation/Anesthesia: 94691 Mod Sedation by the same physician; Ea [id number] Minutes Stenting Procedure 1: Cardiovascular Stent Procedures: 64326 Perc transcatheter placement of intracoronary stent(s), with ang PG Care Time/CCT Total # of Minutes Spent Total Time Spent with Patient: Total time spent is greater than 50% in coordination of care (as documented) at patient's floor/unit and/or counseling patient:
[2024-04-12 02:58] VITALS: RESP 18
[2024-04-12 08:11] LABS: Hematocrit (blood only) 35.2 % (42.0-52.0); Hemoglobin 11.7 g/dl (14.0-18.0); Mean Corpuscular Hemoglobin 30.2 pg (25.0-34.0); Mean Corpuscular Hgb Conc 33.2 g/dL (32.0-36.0); Mean Corpuscular Volume 90.7 fL (80.0-100.0); Mean Platelet Volume 10.3 fL (9.4-12.4); Platelet Count 318 K/uL (130-400); RDW Coefficient of Variation 13.5 % (11.5-14.5); RDW Standard Deviation 44.4 fL (36.4-46.3); Red Blood Count 3.88 M/uL (4.70-6.10); White Blood Count 8.81 K/ul (4.8-10.8)
[2024-04-12 08:28] LABS: BUN Creatinine Ratio 22.8 (10-20); Calcium 8.4 mg/dl (8.6-10.3); Creatinine Clr Calc Pharmacy 74.7 ml/min; Magnesium 2.1 mg/dl (1.7-2.4); Phosphorus 3.5 mg/dl (2.5-4.9); Potassium 4.3 mmol/L (3.5-5.1)
[2024-04-12] MEDS: CLOPIDOGREL BISULFATE 75 MG TAB PO SCH (08:33)
--- NOTE | 2024-04-12 12:06 | Cardiology Progress Note ---
Date of Service April 12, 2024 Assessment & Plan (1) Acute on chronic heart failure with reduced ejection fraction and diastolic dysfunction: Plan NSTEMI Acute on chronic HFrEF PNA Sepsis New cardiomyopathy Severe LV systolic dysfunction MAY intolerant to CPAP Family hx CAD -Patient continues to respond well to IV diuresis -Weight is down 15kg this admission, -1860 out this 24 hours -Remains volume overloaded -Continue IV diuresis with lasix 60mg BID and potassium supplementation -Continue entresto, metoprolol, spironolactone, atorvastatin and ASA 81mg daily. -Plan to add Jardiance prior to discharge to optimize medical therapy -Telemetry reviewed. NSR with no events noted overnight. -Plan for ischemic work-up once euvolemic and recovered from acute infection Any formal questions or concerns about the content, text, or information contained within the body of this dictation should be directly addressed to the provider for clarification. 04/09/2024 Patient continues to improve and manifested good diuresis over the weekend. Leg edema improved still with mild abdominal distention 1. Acute on chronic heart failure with reduced ejection fraction 2. New cardiomyopathy with diffuse LV dysfunction 3. Obstructive sleep apnea 4. Morbid obesity 5 Recovering sepsis/pneumonia Plan: Patient on guideline directed optimal medications for heart failure with plans to likely add Jardiance to her regimen as well. Await renal function in AM. Will hold IV diuretics after tonight's dose and likely convert to oral regimen tomorrow. Discontinue Wilson after switch if not sooner Nocturnal oximetry ordered for this evening Repeat echocardiogram in a.m. to assess LV systolic function Will need ischemic workup depending on above. 04/11/2024. 1. Acute on chronic heart failure with reduced ejection fraction 2. New cardiomyopathy with diffuse LV dysfunction 3. Obstructive sleep apnea 4. Morbid obesity 5 Recovering sepsis/pneumonia Medications are being adjusted appropriately. Plan diagnostic coronary angiography to assess because of newly discovered cardiomyopathy this admission.Procedure and risks explained in detail to the patient and informed consent obtained Currently appears compensated and capable of undergoing procedure. Anticipate possible Jardiance addition to medical regimen. 04/12/2024 1. Acute on chronic congestive heart failure with reduced ejection fraction 2. Ischemic cardiomyopathy with multivessel coronary disease status post coronary intervention proximal left anterior descending 04/11/2024 with good result 3. Diffuse cardiomyopathy on guideline directed therapies 4. Morbid obesity with obstructive sleep apnea 5. Urinary retention Recommendations: Will increase metoprolol succinate to 37.5 mg twice per day Continue dual antiplatelet therapy with clopidogrel and aspirin uninterrupted for 6 months minimum Continue heart failure therapies as already ordered spironolactone, Entresto, torsemide Continue atorvastatin Will consider Jardiance or Ozempic post hospital discharge depending on renal function/bladder function Follow-up with cardiology 2 weeks time Cardiac rehab referral Needs sleep apnea evaluation Admission and Anticipated Discharge Date Admission Date: March 29, 2024 Subjective Patient seen and examined, chart, medications, telemetry reviewed. No acute cardiac complaints overnight. Only concern urinary retention with requirements for straight cath last evening. No fevers or chills no chest pains no shortness of breath. Weight stable overnight with total weight loss of 14 kg since admission. Patient underwent coronary angiography and subsequent coronary intervention of very high-grade proximal left anterior sending stenosis. Chronic right coronary artery occlusion with collateral fill from left anatomy noted Moderate distal left main disease Review of Systems Review of Systems: All systems reviewed & are unremarkable except as noted in Subjective Physical Exam Constitutional: WD/WN, vitals as above + morbidly obese; no acute distress ENMT: Mallampati Class: III Neck: trachea midline and + thick neck Respiratory: normal respiratory effort, lungs clear to auscultation normal respiratory effort; no respiratory distress, no labored breathing and no audible wheezes Auscultation: + diminished lung sounds (bilateral bases ) and + wheezes (faint exp. wheezes ); no crackles, no rales and no rhonchi Cardiovascular: Rate/Rhythm: regular rate and regular rhythm Heart Sounds: normal S1 and normal S2; no murmur Vessels: dorsalis pedis pulses present and radial pulses present (Right radial access site healing well); no JVD Extremities: + edema Gastrointestinal (Abdomen): normal bowel sounds, soft, nontender, no hepatosplenomegaly Inspection/Auscultation: + abdomen distended Percussion/Palpation: abdomen soft; abdomen nontender Skin: no rashes, warm and dry Neurologic: PERRL, EOMI, accommodation nl, no face palsy, no dysarthria Psychiatric: A+Ox3, euthymic affect Results & Data Vital Signs (Past 12 Hours) Vital Signs Temp Pulse Pulse Resp BP Pulse Ox O2 Del Method 04/12/24 07:24 36.4 C L 91 H 18 113/71 94 Room Air 04/12/24 07:00 77 04/12/24 02:58 36.8 C 87 18 105/68 95 Room Air Laboratory Results Laboratory Results - last 24 hr 04/11/24 04/11/24 04/11/24 13:51 14:09 16:16 WBC RBC Hgb Hct MCV MCH MCHC RDW Std Deviation RDW Coeff of Kelechi Plt Count MPV Activ Coag Time Kaolin 187 H 187 H Sodium Potassium Chloride Carbon Dioxide Anion Gap BUN Creatinine Est Cr Clr Drug Dosing eGFR BUN/Creatinine Ratio Glucose POC Glucose 166 H Calcium Phosphorus Magnesium 04/11/24 04/12/24 04/12/24 20:21 07:21 07:58 WBC 8.81 RBC 3.88 L Hgb 11.7 L Hct 35.2 L MCV 90.7 MCH 30.2 MCHC 33.2 RDW Std Deviation 44.4 RDW Coeff of Kelechi 13.5 Plt Count 318 MPV 10.3 Activ Coag Time Kaolin Sodium 131 L Potassium 4.3 Chloride 98 Carbon Dioxide 25 Anion Gap 8 BUN 26 H Creatinine 1.14 Est Cr Clr Drug Dosing 74.7 eGFR 66.65 BUN/Creatinine Ratio 22.8 H Glucose 133 H POC Glucose 161 H 135 H Calcium 8.4 L Phosphorus 3.5 Magnesium 2.1 04/12/24 11:32 WBC RBC Hgb Hct MCV MCH MCHC RDW Std Deviation RDW Coeff of Kelechi Plt Count MPV Activ Coag Time Kaolin Sodium Potassium Chloride Carbon Dioxide Anion Gap BUN Creatinine Est Cr Clr Drug Dosing eGFR BUN/Creatinine Ratio Glucose POC Glucose 139 H Calcium Phosphorus Magnesium Diagnostic Findings Cardiac catheterization 04/11/2024 Coronary angiography: Right dominant Left main: Large caliber, long. Moderate distal vessel narrowing Left anterior descending: Type III in distribution. Gives rise to a large multi branching high diagonal branch then continues giving large septal perforators to the apex and beyond. In the very proximal portion of the left anterior descending but just beyond the first diagonal there is a discrete 99% stenosis. The bifurcating diagonal branch has 50% narrowing in its proximal portion Ramus intermedius: Very large multi branching vessel with 40 to 50% narrowing proximal Left circumflex: Moderate vessel single posterolateral branch Right coronary artery: 100% occlusion mid vessel with diffuse disease in proximal segments. Distal vessel fills modestly via [id number] collateral
[2024-04-12 12:49] VITALS: TEMP 98.1; O2SAT 92
[2024-04-12] MEDS: LIDOCAINE 2% JELLY 5 ML TUBE EXT ONE (13:53)
--- NOTE | 2024-04-12 14:35 | Urology Progress Note ---
Date of Service April 12, 2024 Assessment & Plan (1) Acute urinary retention: (2) Gross hematuria: Plan Urology reconsulted due to multiple straight caths greater than 1 L Recommended Wilson catheter replacement Will maintain catheter for 1 to 2 weeks Patient did have gross hematuria during this hospital stay and we will arrange outpatient follow-up for this along with TOV Labs reviewedcreatinine 1.14, WBCs 8.81, glucose 133 Catheter draining appropriately, urine clear yellow Continue other care and medical management per primary service will sign off, please contact our service with any additional questions or concerns Admission and Anticipated Discharge Date Admission Date: March 29, 2024 Subjective Patient seen and examined at bedside. present. He is resting comfortably in his chair Wilson catheter draining clear yellow -minimal discomfort from the catheter Says he does not have any abdominal discomfort even before straight caths of greater than a liter Currently denying fevers, chills, nausea, vomiting No recent episodes of gross hematuria-did have gross hematuria during this hospital stay Review of Systems Constitutional: as per Subjective / HPI Genitourinary: + as per Subjective / HPI Physical Exam Constitutional: well developed and well nourished; no acute distress Respiratory: normal respiratory effort and able to speak in complete sentences Musculoskeletal: Extremities: extremities normal to inspection Psychiatric: Orientation: alert and oriented x 3 Results & Data Vital Signs (Past 12 Hours) Vital Signs Temp Pulse Pulse Resp BP Pulse Ox O2 Del Method 04/12/24 12:10 36.7 C 95 H 18 108/70 92 Room Air 04/12/24 07:24 36.4 C L 91 H 18 113/71 94 Room Air 04/12/24 07:00 77 04/12/24 02:58 36.8 C 87 18 105/68 95 Room Air PG Care Time/CCT Total # of Minutes Spent Total Time Spent with Patient: Total time spent is greater than 50% in coordination of care (as documented) at patient's floor/unit and/or counseling patient: Coding Level of Care Code 34436 SUB INP/OBS CARE 03/10MIN Diagnoses Acute urinary retention R33.8 Gross hematuria R31.0
--- NOTE | 2024-04-12 15:19 | Discharge Summary ---
Date of Service April 12, 2024 Admission HPI Per Admitting Provider Patient is 73-year-old male with PMH DM II, HTN, dyslipidemia, RBBB, morbid obesity presented to ER with c/o cough and SOB x 3 weeks. Patient reports started with cough and shortness of breath 3 weeks ago. Patient reports chronic exertional shortness of breath with walking which she relates to being overweight. States when cough started was productive of white, slightly brownish colored sputum. Reports then became clear. For the past week has been white and slightly brownish again. Patient states has been coughing a lot. He reports today has blood-tinged sputum. He states shortness of breath has worse lorie over the past 3 weeks and is now severely short of breath with just ambulating in the house. Increased cough with lying supine and increased shortness of breath. Denies any noted extremity edema. Patient reports bilateral lateral rib pain with coughing only. Denies any other chest pain. States has been having diaphoresis. Denies any recorded fevers at home. Decreased appetite and decreased oral intake recently. Denies N/V/D/C, ZAMORA, dizziness, syncope, vision changes, neck pain, palpitations, sore throat, choking, otalgia, rhinorrhea, abdominal pain, paresthesias, extremity weakness, extremity edema, rashes, urinary symptoms. Admission Exam Per Admitting Provider General: no respiratory distress sitting upright in bed, obese male Head: normocephalic, atraumatic Eyes: conjunctiva non-injected, anicteric ENT: normal inspection external ears, nose, mucous membranes moist Neck: supple, trachea midline Lungs: no respiratory distress sitting upright in bed, 93% on RA, +diffuse rhonchi CV: tachycardia, rate 108, distant heart sounds, regular rhythm, trace pretibial edema Abd: protuberant, normal BS, soft, non-tender Ext: no cyanosis, no calf tenderness Neuro: A&O x 3, no focal deficits noted, normal affect Skin: +diaphoretic, warm, dry Principal Diagnosis Sepsis Multifocal pneumonia Strep bacteremia Acute on chronic systolic and diastolic heart failure Nocturnal hypoxia Discharge Exam General Appearance:Morbidly Obese M, no apparent distress Head: normocephalic, Atraumatic Eyes: normal inspection, EOMI Neck: supple Respiratory/Chest: CTAB, No accessory muscle use Cardiovascular: S1, S2, No murmur Abdomen/GI: Soft, Non tender, Bowel sounds present Extremities/Musculoskeletal: normal inspection, Trace edema Neurologic/Psych:AAOX3, grossly no focal neurological deficits : polanco catheter with clear yellow urine Skin: normal color, warm Discharge Data Allergies Allergy/AdvReac Type Severity Reaction Status Date / Time No Known Allergies Allergy Unverified 08/07/20 15:00 Consultations 03/29/24 12:35 ED Decision to Admit Stat 03/29/24 14:55 Consult Cardiology Routine 04/01/24 06:00 Consult Urology Routine 04/02/24 08:00 Consult Infectious Diseases Routine Procedures Performed Operation Date: 04/11/24 11:00 Actual Procedures p Cineradiography w/Routine Exam - Joel Abdullahi MD p Cath, Left with Cors and Vent - Joel Abdullahi MD s Drug Eluting Stent SGl Vessel - Yakov Porras MD s IVUS Coronary Single Vessel - Yakov Porras MD Ordered Studies 03/29/24 11:33 CT angio chest PE protocol Stat FINDINGS: CTA: Moderate cardiomegaly without pericardial effusion. Moderate to extensive coronary artery calcifications. Fusiform dilation of the ascending thoracic aorta, main pulmonary artery, 4.6 x 4.7 cm. No dissection. There is patency of the image great vessels. Descending thoracic aortic tortuosity. No central pulmonary emboli identified. CT CHEST: No thyroid nodule. There are a few mildly enlarged mediastinal lymph nodes including paratracheal lymph nodes measuring up to 12 mm. No pneumothorax, pleural effusion or overt pulmonary edema. Left lung is clear. Segmental consolidative opacities within the medial segment right middle lobe with central air bronchograms correlates with the radiographic abnormality measuring up to approximately 7 cm. Additional minimal patchy subsegmental consolidative opacities of the basilar right lower lobe. Mild acute wall thickening. No acute upper abdominal abnormality. Hepatic steatosis with hepatomegaly. Unremarkable soft tissues. No acute fracture or destructive bone lesion. IMPRESSION: 1. Cardiomegaly with fusiform dilation of the ascending thoracic aorta, 4.6 x 4.7 cm. 2. No pulmonary emboli identified. 3. Segmental right middle lobe airspace opacities with subsegmental consolidation of the basilar right lower lobe suggestive of pneumonia. Follow-up imaging after treatment course recommended in order to document complete resolution. 4. Mild mediastinal lymphadenopathy, likely reactive. 04/02/24 08:35 CT Abd and Pelvis [CT abdomen pelvis wo/w con] Urgent FINDINGS: Small bilateral pleural effusions have developed since CT of March 29, 2024. Subpleural lower lobe opacities favor atelectasis. Right middle lobe airspace opacity is similar to CT of March 29, 2024. The heart is moderately enlarged. No renal, ureteral or bladder calculi are present. There is no hydronephrosis. There are no renal lesions. No suspicious renal lesions are present. There is symmetric bilateral perinephric stranding which is of doubtful significance. No upper tract urothelial lesions are identified. Bladder contains a Polanco balloon and gas. The bladder is decompressed and therefore suboptimally assessed. Bladder wall thickening is accentuated by underdistention. The liver, spleen, adrenal glands and pancreas are unremarkable. There is no biliary or pancreatic ductal dilatation. There is no evidence for a bowel obstruction. Caliber and wall thickness of small and large bowel are normal. The appendix is normal. There is no lymphadenopathy. There are no fluid collections. There are no suspicious lesions within the visualized skeletal structures. IMPRESSION: 1. No urinary calculi, hydronephrosis or upper tract urothelial lesions. No suspicious renal lesions. 2. Suboptimal evaluation of the bladder mass described above. Diffuse bladder wall thickening, likely chronic. If persistent hematuria, this could be correlat ed with cystoscopy. No discrete bladder lesion identified. 3. Persistent right middle lobe airspace opacity, as shown on chest CT of March 29, 2024. This favors pneumonia. Follow-up chest CT in 3 months to ensure resolution is recommended. 4. Cardiomegaly. 5. Small bilateral pleural effusions with subpleural opacities suggestive of atelectasis. 04/11/24 06:35 CL Cath Imgs for PACS use only Routine 04/11/24 14:27 CL IVUS Coronary Single Vessel Routine Hospital Course (1) Sepsis: 73 yr M with PMH DM II, HTN, dyslipidemia, RBBB, morbid obesity presented to ER with c/o cough and SOB x 3 weeks. Patient reports started with cough and shortness of breath 3 weeks ago Sepsis Multifocal pneumonia Strep bacteremia --Chest CTA:No pulmonary emboli identified. Segmental right middle lobe airspace opacities with subsegmental consolidation of the basilar right lower lobe suggestive of pneumonia. Follow-up imaging after treatment course recommended in order to document complete resolution.Mild mediastinal lymphadenopathy, likely reactive. -- BioFire negative -- Elevated procalcitonin --Blood Culture: 02/17: Streptococcus pneumonia --Repeat blood cultures negative --ECHO:as below -- Doxycycline discontinued Continue IV Rocephin Pulmonary hygiene with incentive spirometry, Mucinex Appreciate infectious disease input discussed on 04/06/2024: Can continue IV Rocephin while hospitalized through 04/11/24, if discharged, can discharge on Bactrim. Weaned off supplemental oxygen Saturating well on room air Completed IV antibiotic course (2) Acute on chronic heart failure with reduced ejection fraction and diastolic dysfunction: Acute on chronic systolic and diastolic heart failure --ECHO: Left ventricle is severely dilated. Mild concentric LVH. Severe global hypokinesis of the left ventricle. EF 20 to 25%. Left atrium is mildly dilated. Mild aortic regurgitation. Moderate mitral regurgitation. Significant tricuspid regurgitation is absent. Grade 1 diastolic dysfunction. Appreciate cardiology input Continue metoprolol Monitor I's and O's, daily weight, volume status Continued IV Lasix 60 mg twice a day>> transition to torsemide 20 mg daily Volume status slowly improving Replete electrolytes as needed Titrated metoprolol succinate to 37.5 mg twice a day Aldactone dose increased to 25 mg daily Entresto added per cardiology Plan to start on Jardiance as outpt S/p cardiac catheterization 04/11/2024 Summary: 1. Multivessel coronary artery disease -100% mid RCA FINISH OFF OPERATOR with [id number] collaterals 95% mid LAD 50-60% distal left main by IVUS 2. Normal intracardiac filling pressure 3. Successful PCI of mid LAD with single drug-eluting stent (3.0 x 15 mm Siddhartha; postdilated with 3.5 NC). Nocturnal hypoxia Needs supplemental oxygen at bedtime Recommended outpatient sleep study (3) Pneumonia: Management as above Ascending aortic aneurysm --CT showed:Cardiomegaly with fusiform dilation of the ascending thoracic aorta, 4.6 x 4.7 cm. Follow-up as outpatient (4) NSTEMI (non-ST elevated myocardial infarction): IV heparin discontinued on 04/03/2024 Will need diagnostic cardiac catheterization eventually Continue aspirin, Lipitor, metoprolol Appreciate Cardiology input Currently chest pain-free Hematuria In setting of anticoagulation use with heparin --CT ABD:No urinary calculi, hydronephrosis or upper tract urothelial lesions. No suspicious renal lesions. Suboptimal evaluation of the bladder mass described above. Diffuse bladder wall thickening, likely chronic. If persistent hematuria, this could be correlated with cystoscopy. No discrete bladder lesion identified. Patient would require cystoscopy and further workup as outpatient Appreciate urology input Monitor on H&H and transfuse as needed -- Hematuria resolved Needs follow-up with urology as outpt Hb stable (5) Hypomagnesemia: Replace and monitor (6) Diabetes mellitus, type II: -A1c: 7.7 -NovoLog sliding scale per protocol Monitor BGs (7) LILIAN (acute kidney injury): -Cr: 1.4>1.2 Monitor renal function Avoid Nephrotoxic agents as able Total Time Total Time Spent Total Time Spent (In Minutes): 40 Discharge Plan Discharge Items Patient Disposition: Home - Home Health Services Reason For Visit: SOB Discharge Diagnosis: Sepsis Multifocal pneumonia Strep bacteremia Acute on chronic systolic and diastolic heart failure Nocturnal hypoxia Activity: Per Instructions section Non-emergency contact: Primary Care Provider, Property Administrator and Urologist Call non-emergency contact if: you have any medication questions and your symptoms worsen Follow-up/Referrals: Cathryn Mcdonald CRNP [Nurse Practitioner] - (The Urology office will call you with a follow up appointment. ) Joel Abdullahi MD [Physician] - (The office will call you for a follow up appointment.) uJan Mehta MD [Primary Care Provider] - (Date & Time 04/17/2024 7:40 AM Provider: Juan Mehta MD [facility]) Diet: Carb Consistent or DM2 and Heart Healthy Addtl Attending Provider Instructions: Follow up with your primary care doctor, filter tank tender helper, urologist. The appointment with your primary care doctor was scheduled for you for 04/17/2024. You will be contacted about your appointment with urology, and cardiology. Polanco catheter was placed today - keep it until seen in urology office. Take medications as prescribed - take aspirin and plavix daily. Take metoprolol succinate 37.5 mg twice per day. Continue taking spironolactone, Entresto, torsemide. Continue atorvastatin. Use oxygen 2L at night. You will need to have a sleep study. Addtl Child Welfare Counselor Provider Instructions: Call your Primary Care doctor if any of the following symptoms or problems start or get worse: * Shortness of breath or difficulty breathing * Wake up at night short of breath * Chest pain * Cough * Swelling of your hands, feet, or legs * More fatigued or tired with your normal activity * Palpitations - sudden fast heart beats WEIGHT * Weigh yourself every morning after using the bathroom. * Use the same scale. * Wear the same amount of clothing. * Write your weight down on a chart. * Call your Primary Care doctor if you gain more than 2-3 pounds in 1-2 days. MEDICATIONS * Use this discharge instruction sheet for medication instructions. * Take your medications at the time your doctor ordered. * Do not skip a dose of your medicines. * If you miss a dose of medicine, take it as soon as possible, but DO NOT DOUBLE A DOSE. * Read your medicine information when you get home. * Know all of the side effects of your medicine. If in doubt, ask your pharmacist * Call your Primary Care doctor's office if you have any side effects. * Be sure all of your doctors know what medicine and herbs you take (including cold, flu, and herbal medicine). Take the following with you to your follow-up doctor appointments: * Weight Chart * Medication List * List of questions Do not drink excessive alcohol, beer or wine. Pending Studies at Discharge: No Stand-Alone Forms: My [facility], Smoking Cessation Medications and DC Order Prescriptions: New clopidogrel 75 mg Tablet 75 mg PO QAM Qty: 30 0RF metoprolol succinate 25 mg Tablet Extended Release 24 Hr 37.5 mg PO BID Qty: 60 0RF spironolactone 25 mg Tablet 25 mg PO DAILY Qty: 30 0RF sacubitril-valsartan [Entresto] 24-26 mg Tablet 1 tab PO BID Qty: 60 0RF atorvastatin 40 mg Tablet 40 mg PO QAM Qty: 30 0RF torsemide 20 mg Tablet 20 mg PO QAM Qty: 30 0RF nystatin [Nystop] 100,000 unit/gram Powder 1 applic EXT PRN PRN (Reason: rash) Qty: 15 0RF guaifenesin [Mucinex] 600 mg Tablet Extended Release 12hr 600 mg PO Q12 Qty: 14 0RF Continued aspirin 81 mg tablet,delayed release (DR/EC) 81 mg PO DAILY metformin 500 mg tablet extended release 24 hr 1,000 mg PO DAILY cholecalciferol (vitamin D3) 25 mcg (1,000 unit) tablet 25 mcg PO DAILY potassium gluconate 595 mg (99 mg) Tablet 595 mg PO DAILY Held omega 3-fnr-jie-fish oil 300 mg (120 mg- 180mg)-1,000 mg capsule 1 cap PO BID Hold Instructions: Resume on 04/19/24. until further discussed w/ primary care doctor or filter tank tender helper Discontinued amlodipine 5 mg tablet 5 mg PO DAILY lisinopril-hydrochlorothiazide 20-25 mg tablet 1 tab PO DAILY Discharge Orders: Discharge Order- CHF (Routine); Ordered 04/12/24 Ordered By: Angel Bright/Other Patient Handouts: Type 2 Diabetes Admission Data Admit Date/Time: 03/29/24 13:24 Attending Provider: Angel Elizabeth Admit Provider: Luz Maria Hoffman Primary Care Provider: Juan Mehta Other Providers: Luz Maria Hoffman; Ranjan Baer; Yakov Dowling; Ivania Reynaga; Markel Zelaya; Karis Geller Melissa A.; Rod Alvarez; Cathryn Mcdonald; Moses Lee; Leo Olea; Chay Benton; Rickey Smiley; Hilary Campos; Addi Hagan I.; Jaime Mae II; Maritza Laughlin; Christophe Cuba; Messi Gonzalez; Kaleb Mcmahan; Torres Comer; Dung Desai; Nelson Severino; [facility]
[2024-04-12 15:32] VITALS: BP 117/75; PULSE 82
[2024-04-12] MEDS ORDERED: METOPROLOL SUCC 25MG EXT REL TAB PO SCH (21:00)
--- NOTE | 2024-04-12 21:08 | Electrocardiogram Report ---
Test Reason : Blood Pressure : */* mmHG Vent. Rate : 89 BPM Atrial Rate : 89 BPM P-R Int : 124 ms QRS Dur : 160 ms QT Int : 442 ms P-R-T Axes : 34 -85 81 degrees QTcB Int : 537 ms Normal sinus rhythm Left axis deviation Right bundle branch block Abnormal ECG When compared with ECG of 31-Mar-2024 07:16, No significant change was found Confirmed by Ricki Osorio ([id number]) on 04/12/2024 9:08:06 PM Referred By: REFERRED SELF Confirmed By: Ricki Osorio
== END 2024-04-12 16:38 | disposition home health service (06) | DRG 853 ==
LOC: ED 10:11 → EDINP 13:24 → SUATTDRO 13:24 → 2S 15:32